=== PATIENT | male | born 1965 | race Caucasian/White ===

== ENCOUNTER 2018-01-06 12:50 | Observation (INO) | payer OTHER, SELFPAY ==
[2018-01-06] VITALS (11 sets, daily range): BP systolic 110–152; BP diastolic 72–92; PULSE 80–96; RESP 19–23; TEMP 36.7–37.2; O2SAT 94–97; BMI 42.5; BMI 42.6
--- NOTE | 2018-01-06 13:48 | EKG12_ITS ---
Test Reason : SOB Blood Pressure : / mmHG Vent. Rate : 096 BPM Atrial Rate : 096 BPM P-R Int : 174 ms QRS Dur : 080 ms QT Int : 332 ms P-R-T Axes : 044 007 011 degrees QTc Int : 419 ms Normal sinus rhythm Low voltage QRS (limb leads) Nonspecific T wave abnormality Inferior infarct , age undetermined , cannot be excluded Abnormal ECG Confirmed by FRANCISCO PHAM, CHANDLER ([id number]), purchasing expeditor GILBERT MEDNIA ([id number] on 01/12/2018 3:02:03 PM Referred By: MARTINE Confirmed By:CHANDLER SINGH MD
--- NOTE | 2018-01-06 13:49 | CT_ITS ---
STUDY: CTA CHEST REASON FOR EXAM: Male, 52 years old. Chest pain. Shortness of breath and palpitations. RADIATION DOSAGE (If Supplied By Facility): CTDIvol = ( 28.56 ) mGy, DLP = ( 1100.66 ) mGycm TECHNIQUE: The examination was performed with the intravenous administration of 100mL ml of Isovue 370 contrast material. Post-processing of the angiographic images was performed, with multiplanar reformation and 3D reconstruction. Individualized dose optimization techniques were used for this CT. COMPARISON: None. FINDINGS: Normal enhancement of the main pulmonary artery and right and left pulmonary arteries. Normal enhancement of the bilateral peripheral pulmonary arteries. There is no demonstrated pulmonary embolism. Normal thoracic aorta and visualized great vessels. There is no demonstrated aortic dissection. Normal heart and pericardium. Normal mediastinum. Normal hilar regions. Normal visualized trachea and bronchi. The lungs are well expanded. Normal pulmonary parenchyma. Normal pleura. Normal chest wall structures. There are degenerative changes of thoracic spine. Normal visualized upper abdomen. CT/CTA Chest W/WO Contrast IMPRESSION: Normal CTA chest examination, without a demonstrated pulmonary embolism or arterial dissection. Electronically Signed: Randy Dominguez MD at 15:18 EDT Tel [phone], Service support ,
[2018-01-06] MEDS: Aspirin 81 MG TAB.CHEW 324 MG PO (13:53)
--- NOTE | 2018-01-06 13:55 | RAD_ITS ---
STUDY: X-RAY CHEST REASON FOR EXAM: Male, 52 years old. Chest pain and shortness of breath. TECHNIQUE: Single AP portable view of the chest. COMPARISON: None. FINDINGS: EKG electrodes are seen. The lungs are clear and expanded. There is no demonstrated pleural abnormality. Normal size heart. Normal mediastinum and roopa. Normal visualized pulmonary arteries. There is atherosclerotic tortuosity of the aortic arch and descending thoracic aorta. There are diffuse degenerative changes of the visualized thoracic spine. Normal visualized ribs, clavicles, and shoulders. There is no demonstrated abnormality of the visualized soft tissue structures of the upper abdomen. RAD/Chest 1 View (Portable) IMPRESSION: No acute abnormality is seen. Electronically Signed: Randy Dominguez MD at 15:57 EDT Tel [phone], Service support ,
[2018-01-06 14:07] LABS: Absolute Lymphocyte Count 1.64 X10^3/ul (0.83-4.51); Absolute Neutrophil Count 10.1 X10^3/uL (2.0-7.7); Basophil# 0.03 X10^3/uL; Basophil% 0.2 % (0-1); Eosinophil# 0.35 X10^3/uL; Eosinophils% 2.6 % (0-5); Hematocrit 44.2 % (40-54); Hemoglobin 14.5 g/dl (13.0-16.5); Lymphocyte # 1.64 X10^3/ul (4.0); Lymphocyte % 12.1 % (19-41); Mean Corp Hgb Conc 32.8 g/gl (32-36); Mean Corpuscular Hgb 28.2 pg (27.0-32.0); Mean Corpuscular Volume 85.8 fL (80-94); Mean Platelet Vol. 12.3 fl (6.2-12.0); Monocyte# 1.37 X10^3/uL; Monocyte% 10.1 % (0-10); Neutrophil # 10.09 X10^3/uL (2.7-7.7); Neutrophil % 74.7 % (47-70); Platelet Count 207 K/mm3 (150-450); RBC Distribution Width CV 13.2 % (11.6-14.6); RBC Distribution Width SD 40.8 fl (35.1-43.9); Red Blood Count 5.15 M/mm3 (4.6-6.2); White Blood Count 13.5 K/mm3 (4.4-11.0)
[2018-01-06 14:10] LABS: POSITIVE COUNT NO; POSITIVE DIFFERENTIAL NO; POSITIVE MORPHOLOGY NO
[2018-01-06 14:12] LABS: Anion Gap 5 (5-15); BUN 19 mg/dL (7-18); BUN/Creat Ratio 15.6 RATIO (10-20); Calcium,Total 8.9 mg/dL (8.5-10.1); Chloride 101 mmol/L (98-107); Creatinine, Serum 1.22 mg/dL (0.70-1.30); EST Glomerular Filtration Rate 66 mL/min (>60); Est Glom Filt Rate - Afr Amer 79 mL/min (>60); Estimated Creatinine Clearance 66.97 ml/min; Glucose 267 mg/dL (74-106); Potassium 3.7 mmol/L (3.5-5.1); Sodium Level 136 mmol/L (136-145)
--- NOTE | 2018-01-06 14:27 | ED.DCSUM_ITS ---
- ER Visit Summary Date of Service: 01/06/18 Chief Complaint: Chest pain, shortness of breath History of Present Illness: The patient is a 52 M presenting with chest pain, shortness of breath. He states he woke up around 11 AM today and had these symptoms. He states pain is worse with deep inspiration. He has had chills with no fever. He has history of diabetes, hypertension. He has not had similar symptoms in the past. EMS was called. states he looked dusky. EMS reported questionable rhythm with concern for V. tach. This rhythm strip is not available. states his color has returned. He denies dizziness or syncope. Denies other complaints. No PE/DVT risk factors. Physical Examination: Vitals are stable. Patient is afebrile. Alert no acute distress. HEENT exam is unremarkable. Neck is supple. Lungs are clear and equal bilaterally. Heart is regular rate and rhythm. Abdomen is soft nontender nondistended. Extremities are unremarkable. Skin is warm and dry. No focal neurologic deficit. Remainder of exam is unremarkable. Emergency Department Course and Treatment: Patient is given aspirin on arrival. EKG is sinus rhythm rate of 96. CBC shows a white count of 13.5. Chemistry showed glucose 267, BUN 19. Troponin is negative. CTA chest shows no PE or dissection. Patient is feeling improved on reevaluation. Will discuss with hospitalist for observation. Disposition: Observation Impression: Chest pain This note was generated with [employer] dictation software. It may contain incorrect words, spelling, and punctuation that were not noted in review of the chart prior to signing ED Disposition - Plan for ED Patient: Chief Complaint: Palpitations Referrals: Isrrael Lowery DO [Primary Care Provider] -
--- NOTE | 2018-01-06 16:00 | NURSING ---
[facility] OBS CP LISBET
--- NOTE | 2018-01-06 16:23 | PCM.HP.STD ---
Problem List (1) Essential hypertension Status: Chronic (2) Obesity Status: Chronic History of Present Illness Date of Admission: 01/06/18 Chief Complaint: Chest pain and shortness of breath The patient is a 52 year old M with past medical history of essential hypertension and morbid obesity who presented to the emergency room to be evaluated for chest pain and shortness of breath. He woke up around 11 AM with significant dyspnea and chest pain worse with breathing , he decide to activate the EMS. The EMS reported a heart rate and rhythm consistent with V. tach but there is no rhythm strip to support this. The patient remained in sinus rhythm on arrival to the emergency room. The patient denies any cardiac history and has not had any cardiac workup.Due to pleuritic nature of his chest pain in association with shortness of breath , the patient underwent an emergent CT angiogram of the chest without a demonstrated pulmonary embolism or arterial dissection. We are placing him in the progressive care unit for observation and further workup. Past Medical History Past Medical History (Chronic Problems): Chronic Problems Essential hypertension (Chronic) Obesity (Chronic) Allergies HORNETS Allergy (Uncoded 01/06/18 12:56) Anaphylaxis Home Medications: Ambulatory Orders Medication Instructions Recorded Amlodipine [Norvasc] 10 mg PO DAILY 01/06/18 Azilsartan Med/Chlorthalidone 80 mg PO DAILY 01/06/18 [Edarbyclor 40-12.5 mg Tablet] Carvedilol Phosphate CR [Coreg Cr 80 mg PO DAILY 01/06/18 (Beta Jihan)] Surgical History: hysterectomy Smoking Status: Current every day smoker - *Family History Maternal History Items: No pertinent history Review of Systems Constitutional: Reports: Anorexia Cardiovascular: Reports: Chest Pain Respiratory: Reports: Cough Gastrointestinal: Reports: Abdominal Pain Genitourinary: Reports: Dysuria Neurological: Reports: Balance problems VTE Information - Inpt Only VTE Present on Admission: No VTE Mechan Device Prophylaxis: SCD's VTE Pharm Prophylaxis ordered?: Yes - Physical Exam General: Alert, Oriented x3 Neck: Supple Lungs: Clear to auscultation Cardiovascular: Regular rate, Normal S1, Normal S2 Abdomen: Bowel Sounds Present, Soft, Non Tender, Non-Distended Extremities: No edema Neurological: Cranial nerves II-XII grossly intact, Deep Tendon Reflexes 2+/4 and Symmetrical, Motor Exam 5/5 strength throughout Vital Signs Temp Pulse Resp BP Pulse Ox 98.9 F 90 20 H 133/81 H 96 01/06/18 12:52 01/06/18 15:45 01/06/18 15:45 01/06/18 15:45 01/06/18 15:45 Assessment/Plan 1. Chest pain; will obtain serial cardiac enzymes and EKGs to rule out acute coronary syndrome, will schedule a stress test in the morning to rule out ischemia. 2. sudden onset of dyspnea; CTA negative for PE, will obtain echocardiogram to rule out any structural heart disease. 3. Essential hypertension; we will resume his home medications as they are. 4. Morbid obesity weight loss recommended. 5. ? Arrhythmia reported as V. tach; no evidence to support this , however we will continue to monitor his cardiac rhythm overnight. 6. DVT prophylaxis with Lovenox. Code Visit OBSV E&M: 44034 Initial observation care L3
[2018-01-06 18:05] LABS: Thyroid Stim Hormone (TSH) 1.31 uIU/mL (0.358-3.74)
--- NOTE | 2018-01-06 18:06 | NURSING ---
all patient care, documentation, and medication administration by Nelson Have, student nurse, done under the supervision of this RN.
[2018-01-07 02:47] VITALS: PULSE 75
[2018-01-07 03:05] VITALS: BP 131/68; PULSE 77; RESP 20; TEMP 37; O2SAT 93
[2018-01-07 03:26] LABS: Absolute Lymphocyte Count 2.22 X10^3/ul (0.83-4.51); Basophil# 0.02 X10^3/uL; Basophil% 0.2 % (0-1); Eosinophil# 0.25 X10^3/uL; Eosinophils% 2.3 % (0-5); Hematocrit 40.3 % (40-54); Hemoglobin 13.3 g/dl (13.0-16.5); Lymphocyte # 2.22 X10^3/ul (4.0); Lymphocyte % 20.3 % (19-41); Mean Corpuscular Hgb 28.4 pg (27.0-32.0); Mean Corpuscular Volume 85.9 fL (80-94); Mean Platelet Vol. 11.3 fl (6.2-12.0); Monocyte# 1.44 X10^3/uL; Monocyte% 13.2 % (0-10); Neutrophil # 6.99 X10^3/uL (2.7-7.7); Neutrophil % 63.9 % (47-70); POSITIVE COUNT NO; POSITIVE DIFFERENTIAL NO; POSITIVE MORPHOLOGY NO; Platelet Count 172 K/mm3 (150-450); RBC Distribution Width CV 13.2 % (11.6-14.6); RBC Distribution Width SD 41.5 fl (35.1-43.9); Red Blood Count 4.69 M/mm3 (4.6-6.2); White Blood Count 10.9 K/mm3 (4.4-11.0)
[2018-01-07 03:29] LABS: International Normalized Ratio 1.1; Prothrombin Time (Protime)PT. 13.7 SECONDS (11.7-14.9)
[2018-01-07 03:30] LABS: Partial Thromboplast Time 29.7 Seconds (24.1-36.2)
[2018-01-07 03:55] LABS: Anion Gap 8 (5-15); BUN 15 mg/dL (7-18); BUN/Creat Ratio 13.3 RATIO (10-20); Calcium,Total 8.6 mg/dL (8.5-10.1); Chloride 104 mmol/L (98-107); Creatinine, Serum 1.13 mg/dL (0.70-1.30); EST Glomerular Filtration Rate 72 mL/min (>60); Est Glom Filt Rate - Afr Amer 87 mL/min (>60); Glucose 199 mg/dL (74-106); Potassium 3.6 mmol/L (3.5-5.1); Sodium Level 141 mmol/L (136-145)
--- NOTE | 2018-01-07 05:55 | EKG12_ITS ---
Test Reason : AM EKG Blood Pressure : / mmHG Vent. Rate : 073 BPM Atrial Rate : 073 BPM P-R Int : 192 ms QRS Dur : 090 ms QT Int : 388 ms P-R-T Axes : 049 014 029 degrees QTc Int : 427 ms Normal sinus rhythm T wave abnormality, consider anterior ischemia Abnormal ECG Confirmed by FRANCISCO PHAM, CHANDLER ([id number]), editor producer GILBERT MEDINA ([id number]) on 01/08/2018 1:26:31 PM Referred By: DR FRAUSTO Confirmed By:CHANDLER SINGH MD
[2018-01-07 09:03] VITALS: PULSE 76
[2018-01-07 09:05] VITALS: BP 127/60; PULSE 75; RESP 16; TEMP 36.6; O2SAT 94
[2018-01-07] MEDS: amLODIPine 10 MG Tablet PO (09:19)
[2018-01-07] MEDS: Carvedilol 25 MG Tablet PO (09:19)
--- NOTE | 2018-01-07 09:42 | STRESSREP_ITS ---
Stress Test Report Date: 01/07/2018 Procedure: Exercise tolerance test/imaging study Indications: Chest pain Consent: Per the patient Procedure: The patient exercised on a Paulino protocol for 2 minutes and 41 seconds not completing Stage I achieving a peak heart rate of 113 bpm (68 % predicted maximal heart rate) with a peak blood pressure 166/82 mmHg and a peak MET capacity of 4 METs. The baseline ECG demonstrated normal sinus rhythm. The peak exercise ECG demonstrated no obvious ECG changes at the heart rate achieved. There were rare PVCs during exercise. The functional capacity was considered decreased. There was [no complaint of chest discomfort during exercise or recovery]. The examination was discontinued secondary to dyspnea. Impression: 1. Technically inadequate (percent predicted maximal heart rate less than 85%) exercise tolerance test 2. Peak exercise ECG with no obvious ECG changes at the heart rate achieved 3. There were rare PVCs during exercise. 4. Pharmacologic (Regadenoson) evaluation pending Date: 01/07/2018 Procedure: Pharmacologic stress nuclear imaging study Indications: Chest pain Consent: Per the patient Procedure: The patient underwent pharmacologic (Regadenoson) evaluation with a peak heart rate of 103 beats per minute (62 predicted maximal heart rate) and a peak blood pressure of 120/70 mmHg. The baseline ECG demonstrated normal sinus rhythm. The peak pharmacologic ECG demonstrated no obvious ECG changes. [There were no cardiac dysrhythmias pretest, during pharmacologic infusion, or recovery]. [There was no complaint of chest discomfort during pharmacologic infusion or recovery]. The examination was discontinued secondary to completion of protocol. Impression: 1. Pharmacologic (Regadenoson) evaluation 2. Peak pharmacologic ECG with no obvious ECG changes. 3. There were no cardiac dysrhythmias pretest, during pharmacologic infusion, or recovery 4. Nuclear images pending Myocardial perfusion imaging study: Technique: The patient was injected with 14.9 millicuries of technetium 99m Cardiolite and subsequently rest SPECT Cardiolite nuclear imaging was obtained in the horizontal long, vertical long, and short axis views. The patient underwent pharmacologic (Regadenoson) evaluation with a peak heart rate of 103 beats per minute (62 % percent predicted maximal heart rate) and a peak blood pressure of 120/70 mmHg. The patient was injected with 44.8 millicuries of technetium 99m Cardiolite and subsequently stress SPECT Cardiolite nuclear imaging was obtained in the horizontal long, vertical long, and short axis views. A gated Cardiolite study at peak stress was obtained. Interpretation: Rest and stress SPECT Cardiolite nuclear imaging status post realignment, normalization, and attenuation correction demonstrate relative uniform tracer uptake and myocardial perfusion appearing within normal limits. [There is end systolic thickening and brightening]. [The gated Cardiolite study demonstrates myocardial thickening and inward wall motion]. The reported LVEF is 66 %. This note was generated with [employer] software. It may contain incorrect words, spelling, and punctuation that were not noted in checking the note before signing.
[2018-01-07 10:51] VITALS: O2SAT 93
[2018-01-07 10:55] VITALS: PULSE 72
--- NOTE | 2018-01-07 11:32 | PCM.DC ---
- Discharge Diagnoses Current Active Problems: Current Active and Chronic Problems Essential hypertension (Chronic) Obesity (Chronic) You will use the following diet at home:: Calorie/Carbohydrate Controlled (specify 1200, 1400, etc) - 2000 calories daily, Cardiac - <2 g sodium daily, low cholesterol Your food should be the consistency of: Regular Your liquids should be the consistency of: Regular/Thin Discharge Activity: Return to Normal Activity Allergies/Adverse Reactions: Allergies HORNETS Allergy (Uncoded 01/06/18 12:56) Anaphylaxis Medications to take at Discharge Amlodipine [Norvasc] 10 mg PO DAILY 01/06/18 Azilsartan Med/Chlorthalidone [Edarbyclor 40-12.5 mg Tablet] 80 mg PO DAILY 01/06/18 Carvedilol Phosphate CR [Coreg Cr (Beta Jihan)] 80 mg PO DAILY 01/06/18 Primary Care Physician: Isrrael Lowery DO [Primary Care Provider] - Please follow up with your Primary Care Physician in: 1-2 weeks Proposed Discharge Date: 01/07/18
--- NOTE | 2018-01-07 12:00 | NURSING ---
all patient care, medication administration and documentation by Nelson Guthrie, student nurse, done under the supervision of this RN.
--- NOTE | 2018-01-07 14:05 | PCM.DC.SUM ---
<Reuben Rodgers - Last Filed: 01/07/18 14:05> Discharge Date and Diagnosis Date of Admission: 01/06/18 Date of Discharge: 01/07/18 - Primary Discharge Diagnosis Chest pain-musculoskeletal Hypertension Morbid obesity - Secondary Discharge Diagnosis Chronic Problems Essential hypertension (Chronic) Obesity (Chronic) Hospital Course and Treatment Imaging Results: 01/07/18 05:55 Nuclear Stress Test - Chemical [NM] AM (NON MEDS) Rest and stress SPECT Cardiolite nuclear imaging status post realignment, normalization, and attenuation correction demonstrate relative uniform tracer uptake and myocardial perfusion appearing within normal limits. [There is end systolic thickening and brightening]. [The gated Cardiolite study demonstrates myocardial thickening and inward wall motion]. The reported LVEF is 66 %. CT/CTA Chest W/WO Contrast IMPRESSION: Normal CTA chest examination, without a demonstrated pulmonary embolism or arterial dissection. RAD/Chest 1 View (Portable) IMPRESSION: No acute abnormality is seen. Operations: None Procedures: Stress test Summary of Care Provided: Physical exam on day of discharge: General: Resting comfortably NAD Psych: A/Ox3 normal affect HEENT: PEARRLA AT NC Neck: Supple NT CV: RRR no m/t/r/g/h Resp: CTA Abd: [id number] Soft NT no guarding or rigidity, obese Ext: DP2+= no edema Skin: W/D normal turgor Lymph/Heme: No active bleeding or adenopathy Neuro: CN2-12 intact Hospital course: The patient is a 52 year old M with a history of essential hypertension and morbid obesity who presented to the emergency room with chest pain and shortness of breath. He woke up at about 11 AM the morning of presentation complaining of both shortness of breath and chest pain called EMS. He was brought to the emergency room there is questionable report of V. tach from EMS however there was no strips consistent with this. He had a negative chest x-ray, negative CTA of the chest, negative EKG, negative troponin. He was admitted to the hospital for chest pain rule out. Troponin was cycled, he is maintained on telemetry, and he underwent a stress test the following morning. Workup was negative. Is felt that his chest pain was musculoskeletal in origin. He was discharged home in stable condition and was advised to follow-up with his PCP in 1-2 weeks. This patient was seen by Reuben Rodgers PA-C under the supervision of Doctor Andrey. [] Discharge Diet: 1999 Calorie Control Diet, 2000 mg Sodium Diet Discharge Activity: Return to Normal Activity Home Medications: Medications to take at Discharge Amlodipine [Norvasc] 10 mg PO DAILY 01/06/18 Azilsartan Med/Chlorthalidone [Edarbyclor 40-12.5 mg Tablet] 80 mg PO DAILY 01/06/18 Carvedilol Phosphate CR [Coreg Cr (Beta Jihan)] 80 mg PO DAILY 01/06/18 Primary Care Physician: Isrrael Lowery DO [Primary Care Provider] - Please follow up with your Primary Care Physician in: 1-2 weeks Disposition: Home Minutes spent on discharge:: 35 Patient Condition:: Stable Medical Necessity - Tobacco Use Smoking Status: Current every day smoker Meaningful Use Info Meaningful Use Diagnoses (Choose all that apply): None applicable <Jeet Balderas - Last Filed: 01/07/18 16:25> Discharge Date and Diagnosis - Secondary Discharge Diagnosis Chronic Problems Essential hypertension (Chronic) Obesity (Chronic) Hospital Course and Treatment Operations: None Procedures: Stress test Summary of Care Provided: Patient seen and examined independently. I agree with the above KEN note. The patient is a 52 year old M presents with chest pain. The day before the patient was lifting and in parts and had some back pain at that time but woke in the morning of the with midsternal chest pain. Patient presented to the hospital for further evaluation. Patient underwent troponins, EKG and stress test all which were unremarkable. 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 No further cardiac workup is necessary patient will be discharged. She expressed understanding of the cause of his chest pain. [] Discharge Diet: 1999 Calorie Control Diet, 2000 mg Sodium Diet Discharge Activity: Return to Normal Activity Disposition: Home Minutes spent on discharge:: 35 Patient Condition:: Stable Meaningful Use Info Meaningful Use Diagnoses (Choose all that apply): None applicable Code Visit OBSV E&M: 25779 Observation care discharge
--- NOTE | 2018-01-07 14:09 | DS.PCM_ITS ---
<Reuben Rodgers - Last Filed: 01/07/18 14:05> Discharge Date and Diagnosis Date of Admission: 01/06/18 Date of Discharge: 01/07/18 - Primary Discharge Diagnosis Chest pain-musculoskeletal Hypertension Morbid obesity - Secondary Discharge Diagnosis Chronic Problems Essential hypertension (Chronic) Obesity (Chronic) Hospital Course and Treatment Imaging Results: 01/07/18 05:55 Nuclear Stress Test - Chemical [NM] AM (NON MEDS) Rest and stress SPECT Cardiolite nuclear imaging status post realignment, normalization, and attenuation correction demonstrate relative uniform tracer uptake and myocardial perfusion appearing within normal limits. [There is end systolic thickening and brightening]. [The gated Cardiolite study demonstrates myocardial thickening and inward wall motion]. The reported LVEF is 66 %. CT/CTA Chest W/WO Contrast IMPRESSION: Normal CTA chest examination, without a demonstrated pulmonary embolism or arterial dissection. RAD/Chest 1 View (Portable) IMPRESSION: No acute abnormality is seen. Operations: None Procedures: Stress test Summary of Care Provided: Physical exam on day of discharge: General: Resting comfortably NAD Psych: A/Ox3 normal affect HEENT: PEARRLA AT NC Neck: Supple NT CV: RRR no m/t/r/g/h Resp: CTA Abd: [id number] Soft NT no guarding or rigidity, obese Ext: DP2+= no edema Skin: W/D normal turgor Lymph/Heme: No active bleeding or adenopathy Neuro: CN2-12 intact Hospital course: The patient is a 52 year old M with a history of essential hypertension and morbid obesity who presented to the emergency room with chest pain and shortness of breath. He woke up at about 11 AM the morning of presentation complaining of both shortness of breath and chest pain called EMS. He was brought to the emergency room there is questionable report of V. tach from EMS however there was no strips consistent with this. He had a negative chest x-ray , negative CTA of the chest, negative EKG, negative troponin. He was admitted to the hospital for chest pain rule out. Troponin was cycled, he is maintained on telemetry, and he underwent a stress test the following morning. Workup was negative. Is felt that his chest pain was musculoskeletal in origin. He was discharged home in stable condition and was advised to follow-up with his PCP in 1-2 weeks. This patient was seen by Reuben Rodgers PA-C under the supervision of Doctor Andrey. [] Discharge Diet: 1999 Calorie Control Diet, 2000 mg Sodium Diet Discharge Activity: Return to Normal Activity Home Medications: Medications to take at Discharge Amlodipine [Norvasc] 10 mg PO DAILY 01/06/18 Azilsartan Med/Chlorthalidone [Edarbyclor 40-12.5 mg Tablet] 80 mg PO DAILY Carvedilol Phosphate CR [Coreg Cr (Beta Jihan)] 80 mg PO DAILY 01/06/18 Primary Care Physician: Isrrael Lowery DO [Primary Care Provider] - Please follow up with your Primary Care Physician in: 1-2 weeks Disposition: Home Minutes spent on discharge:: 35 Patient Condition:: Stable Medical Necessity - Tobacco Use Smoking Status: Current every day smoker Meaningful Use Info Meaningful Use Diagnoses (Choose all that apply): None applicable <Jeet Balderas - Last Filed: 01/07/18 16:25> Discharge Date and Diagnosis - Secondary Discharge Diagnosis Chronic Problems Essential hypertension (Chronic) Obesity (Chronic) Hospital Course and Treatment Operations: None Procedures: Stress test Summary of Care Provided: Patient seen and examined independently. I agree with the above KEN note. The patient is a 52 year old M presents with chest pain. The day before the patient was lifting and in parts and had some back pain at that time but woke in the morning of the with midsternal chest pain. Patient presented to the hospital for further evaluation. Patient underwent troponins, EKG and stress test all which were unremarkable. 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 No further cardiac workup is necessary patient will be discharged. She expressed understanding of the cause of his chest pain. [] Discharge Diet: 1999 Calorie Control Diet, 2000 mg Sodium Diet Discharge Activity: Return to Normal Activity Disposition: Home Minutes spent on discharge:: 35 Patient Condition:: Stable Meaningful Use Info Meaningful Use Diagnoses (Choose all that apply): None applicable Code Visit OBSV E&M: 68836 Observation care discharge
== END 2018-01-07 11:33 | disposition home or self-care (01) ==
LOC: ED 13:33 → PCU 16:03
PROVIDERS: Admitting Provider Internal Medicine; Emergency Provider Emergency Medicine; Family Provider Family Medicine; PCP Family Medicine
DX: R07.89 Other chest pain (principal); I10 Essential (primary) hypertension; E66.01 Morbid (severe) obesity due to excess calories; F17.200 Nicotine dependence, unspecified, uncomplicated; Z68.41 Body mass index [BMI] 40.0-44.9, adult; Z71.3 Dietary counseling and surveillance; Z79.899 Other long term (current) drug therapy; R06.00 Dyspnea, unspecified; E11.9 Type 2 diabetes mellitus without complications
CPT/HCPCS: 36415; 71045; 71275; 78452; 80048; 84443; 84484; 85025; 85610; 85730; 93005; 93017; 99218; 99285; A9500; Q9967; A4216; G0378; J2785

== ENCOUNTER → 2018-03-19 18:30 | Outpatient (CLI) | payer OTHER, SELFPAY ==
--- NOTE | 2018-03-19 11:20 | COLBX_PTH ---
PATIENT: ALINE HAY LOC: [facility] U#:[id number] AGE/SX: 60/M ROOM: RE03/19/[address]: Dr. Des Ocampo MD : [id number] BED: DIS: SPEC #: [id number] RECD: 03/19/18 15:35 STATUS: LARS ALIDA #: [id number] NICOL: 03/19/18 11:[address]: Des Ocampo DEPT: SURGICAL PATHOLOGY RECD BY: Lexx Peter ENTERED: 03/22/18 07:52 SP TYPE: COLON BX OTHR DR: Dr. Isrrael Lowery, [facility] Tissues: Sigmoid colon biopsy Procedures: Surgery Specimen Level IV HEADER OPERATION: Colonoscopy PRE-OP DIAGNOSIS: Screening/polyp TISSUE SUBMITTED: Distal sigmoid (10cm) poly, rule out adenoma MICROSCOPIC DIAGNOSIS Distal sigmoid (10 cm) polyp, biopsy: Hyperplastic polyp. SJ:rosita 03/23/18 MICROSCOPIC DESCRIPTION Slides are reviewed. GROSS DESCRIPTION Received in fixative is one container labeled with the patient's name and designated distal sigmoid. The specimen consists of a piece of morrison pink polyp measuring 0.5 x 0.5 x 0.3 cm. The specimen is totally submitted in one cassette. SUSANNE:rosita 03/22/18 TC:1 CPT:12620
== END ==
PROVIDERS: Visit Provider Internal Medicine Gastroenterology
DX: Z12.11 Encounter for screening for malignant neoplasm of colon (principal); K63.5 Polyp of colon
CPT/HCPCS: 88305

== ENCOUNTER 2019-06-09 16:48 | Inpatient (IN) | payer OTHER, SELFPAY ==
[2019-06-09] VITALS (14 sets, daily range): BP systolic 102–151; BP diastolic 65–91; PULSE 67–77; RESP 12–22; TEMP 36.9–37; O2SAT 94–99; BMI 45.1; BMI 41.1
--- NOTE | 2019-06-09 16:56 | EKG12_ITS ---
Test Reason : CP Blood Pressure : / mmHG Vent. Rate : 080 BPM Atrial Rate : 080 BPM P-R Int : 172 ms QRS Dur : 092 ms QT Int : 384 ms P-R-T Axes : -07 008 -11 degrees QTc Int : 442 ms Normal sinus rhythm Possible Inferior infarct , age undetermined Abnormal ECG Confirmed by COLTON PHAM, ERNIE ([id number]), editor map EMILY MAC ([id number]) on 06/10/2019 1:21:51 PM Referred By: Herman Ornelas Confirmed By:ELISA SEGURA MD
--- NOTE | 2019-06-09 17:00 | RAD_ITS ---
STUDY: X-RAY CHEST REASON FOR EXAM: Male, 54 years old. STEMI TECHNIQUE: AP portable upright CXR COMPARISON: CT and radiographs of the chest 01/06/2018. FINDINGS: No apparent pneumothorax, pneumonia, pleural effusion, or edema. Cardiac silhouette, roopa and mediastinal contours are within normal limits. No acute osseous abnormality. No evidence of free air under the diaphragm. RAD/Chest 1 View (Portable) IMPRESSION: Negative chest radiograph. Electronically Signed: Kameronmayco Heath, at 17:23 EDT Tel , Service support ,
[2019-06-09] MEDS: Heparin Injection (Vial) 5,000 UNIT/ML VIAL 4000 UNIT IV (17:02)
[2019-06-09 17:10] LABS: Absolute Lymphocyte Count 1.95 X10^3/uL (0.83-4.51); Absolute Neutrophil Count 5.7 X10^3/uL (2.0-7.7); Basophil# 0.05 X10^3/uL; Basophil% 0.6 % (0-1); Eosinophil# 0.38 X10^3/uL; Eosinophils% 4.3 % (0-5); Hematocrit 41.1 % (40-54); Hemoglobin 13.7 g/dL (13.0-16.5); Lymphocyte # 1.95 X10^3/ul (4.0); Lymphocyte % 21.9 % (19-41); Mean Corp Hgb Conc 33.3 g/dL (32-36); Mean Corpuscular Hgb 28.4 pg (27.0-32.0); Mean Corpuscular Volume 85.3 fL (80-94); Mean Platelet Vol. 11.7 fl (6.2-12.0); Monocyte# 0.86 X10^3/uL; Monocyte% 9.6 % (0-10); NRBC Flagged by Analyzer 0 % (0-5); Neutrophil # 5.65 X10^3/uL (2.7-7.7); Neutrophil % 63.3 % (47-70); Platelet Count 209 K/mm3 (150-450); RBC Distribution Width CV 12.4 % (11.6-14.6); RBC Distribution Width SD 38.5 fl (35.1-43.9); Red Blood Count 4.82 M/mm3 (4.6-6.2); White Blood Count 8.9 K/mm3 (4.4-11.0)
[2019-06-09] MEDS: TICAGRELOR 90 MG TABLET 180 MG PO (17:10)
[2019-06-09] MEDS: 0.9% Normal Saline 1,000 ML 150 ML IV (17:13)
[2019-06-09 17:16] LABS: Partial Thromboplast Time 28.7 Seconds (24.1-36.2); Prothrombin Time (Protime)PT. 13.2 SECONDS (11.7-14.9)
[2019-06-09 17:23] LABS: Anion Gap 5 (5-15); BUN 18 mg/dL (7-18); Calcium,Total 9.1 mg/dL (8.5-10.1); Chloride 103 mmol/L (98-107); EST Glomerular Filtration Rate 67 mL/min (>60); Est Glom Filt Rate - Afr Amer 80 mL/min (>60); Glucose 198 mg/dL (74-106); Potassium 3.6 mmol/L (3.5-5.1); Sodium Level 136 mmol/L (136-145)
--- NOTE | 2019-06-09 18:59 | CON.PCM_ITS ---
Problem List (1) Non-STEMI (non-ST elevated myocardial infarction) Status: Acute Reason for Consult Date of Consultation: 06/09/19 Reason for Consultation: Non-STEMI with dynamic ST-T changes History of Present Illness: The patient is a 54 year old M with past medical history of hypertension, diabetes coming to [facility] by ambulance because of chest pain. Patient has been having chest pain on and off for the last few days. This afternoon it became particularly intense and he called 911. An EKG done outside the hospital was suspicious for inferior ST elevation [place]. However subsequent EKGs did not show that. The EKG done in the emergency room showed no evidence of ST elevation [place]. However because of chest pain with dynamic ST-T changes suspicious for an acute non-ST elevation TX we proceeded with emergent coronary angiography which revealed 90 to 95% stenosis in the mid LAD that was treated with balloon angioplasty and drug-eluting stent placement. Patient is doing very well at the end of the procedure. Review of systems: All systems reviewed. All else is negative except that in the HPI. Past Medical History Allergies/Adverse Reactions: Allergies HORNETS Allergy (Uncoded 01/06/18 12:56) Anaphylaxis Home Medications: Ambulatory Orders Medication Instructions Recorded Amlodipine [Norvasc] 10 mg PO DAILY 01/06/18 Carvedilol Phosphate CR [Coreg Cr 80 mg PO DAILY 01/06/18 (Beta Jihan)] Azilsartan Med/Chlorthalidone 40 mg PO DAILY 06/09/19 [Edarbyclor 40-25 mg Tablet] Metformin HCl [Metformin HCl ER] 1,500 mg PO DAILY 06/09/19 Past Medical History (Chronic Problems): Chronic Problems Essential hypertension (Chronic) Obesity (Chronic) Surgical History: hysterectomy - *Family History Maternal History Items: No pertinent history Smoking Status: Current some day smoker Objective: Vital Signs Temp Pulse Resp BP Pulse Ox 98.4 F 72 17 110/86 H 97 06/09/19 17:02 06/09/19 17:11 06/09/19 17:11 06/09/19 17:11 06/09/19 17:11 Oxygen Flow Rate (L/min) 2 Oxygen Delivery Method Nasal Cannula Weight: 296 lb 8.348 oz Body Mass Index (BMI) 45.1 General: Awake, Alert, Oriented x 3 HEENT: Atraumatic Oral: Moist Mucosa Neck: Supple Lungs: Clear to auscultation Cardiovascular: Regular Rhythm Abdomen: Soft Extremities: No edema Skin: No Rashes Psych/Mental Status: Appropriate 06/09/19 16:58: WBC 8.9, RBC 4.82, Hgb 13.7, Hct 41.1, MCV 85.3, MCH 28.4, MCHC 33.3, Plt Count 209, MPV 11.7, Immature Gran % (Auto) 0.300, Neut % (Auto) 63.3, Lymph % (Auto) 21.9, Bailey % (Auto) 9.6, Eos % (Auto) 4.3, Baso % (Auto) 0.6, Absolute Neuts (auto) 5.7, Nucleated RBC % 0 06/09/19 16:58: PT 13.2, INR 1.0, APTT 28.7 06/09/19 16:58: Sodium 136, Potassium 3.6, Chloride 103, Carbon Dioxide 28.0, Anion Gap 5, BUN 18, Creatinine 1.20, Est GFR (MDRD) Af Amer 80, Est GFR (MDRD) Non-Af 67, BUN/Creatinine Ratio 15.0, Glucose 198 H, Calcium 9.1, Troponin I 0.058 H Rhythm: EKG: ECHO: Stress Test: Cardiac Cath: PCI: CT Surgery: Holter monitor: EPS: PPM: CXR: Chest CT Scan: Assessment/Plan 1. Non-STEMI: Patient had 95% stenosis in the mid RCA that was treated with drug-eluting stent. We will keep the patient on aspirin, Brilinta, beta- jihan, statin. We will check a 2D echo to evaluate his LV function. Patient will be admitted to the ICU for further management of his acute TX.
--- NOTE | 2019-06-09 19:00 | EKG12_ITS ---
Test Reason : DYSRHYTHMIA Blood Pressure : / mmHG Vent. Rate : 064 BPM Atrial Rate : 064 BPM P-R Int : 182 ms QRS Dur : 092 ms QT Int : 412 ms P-R-T Axes : 024 -01 -02 degrees QTc Int : 425 ms Normal sinus rhythm Normal ECG Confirmed by FRANCISCO PHAM, CHANDLER ([id number]), editor in chief EMILY MAC ([id number]) on 06/15/2019 11:01:17 AM Referred By: Herman Ornelas Confirmed By:CHANDLER SINGH MD
[2019-06-09] MEDS: 0.9% Normal Saline 1,000 ML 100 ML IV (20:05)
--- NOTE | 2019-06-09 21:04 | HP.PCM_ITS ---
Problem List (1) Essential hypertension Status: Chronic (2) Obesity Status: Chronic (3) Non-STEMI (non-ST elevated myocardial infarction) Status: Acute History of Present Illness Date of Admission: 06/09/19 Chief Complaint: Chest pain The patient is a 54 year old M with PMH as below who presents with chest pain. He states is been going on for about a week and it was intermittent. It would go away with rest at times, however today while he was at work he became concerned because the pain was more intense and was lasting longer than it ever had before. He had some diaphoresis but no radiation of his chest pain. No lightheadedness or dizziness denies any shortness of breath or dyspnea. He called 911 from work and in the ambulance there is a concern for an inferior ST elevation [place], however subsequent EKGs in the hospital did not show that and therefore with his mildly elevated troponin, he was taken to the cardiac [facility]. At that point it was found that he had a single-vessel lesion with a 95% stenosis in the mid LAD and he was stented. Past Medical History Past Medical History (Chronic Problems): Chronic Problems Essential hypertension (Chronic) Obesity (Chronic) Allergies HORNETS Allergy (Uncoded 01/06/18 12:56) Anaphylaxis Home Medications: Ambulatory Orders Medication Instructions Recorded Amlodipine [Norvasc] 10 mg PO DAILY 01/06/18 Carvedilol Phosphate CR [Coreg Cr 80 mg PO DAILY 01/06/18 (Beta Jihan)] Azilsartan Med/Chlorthalidone 40 mg PO DAILY 06/09/19 [Edarbyclor 40-25 mg Tablet] Metformin HCl [Metformin HCl ER] 1,500 mg PO DAILY 06/09/19 Surgical History: herniorrhaphy Smoking Status: Light Smoker (<10/day) Tobacco Use: Cigarettes Alcohol: None Drugs: None - *Family History Maternal History Items: No pertinent history Paternal History Items: Cancer Review of Systems Constitutional: Denies: Chills, Fever, Weight Change HEENT: Denies: Head Aches, Sinus Congestion, Sinus Drainage Cardiovascular: Reports: Chest Pain, Chest Pressure. Denies: Palpitations Respiratory: Denies: Cough, Shortness of breath at rest, Sputum production Gastrointestinal: Denies: Abdominal Pain, Nausea, Vomiting Genitourinary: Denies: Dysuria Musculoskeletal: Denies: Joint Pain, Joint Tenderness Skin: Denies: Rash, Wounds Neurological: Denies: Numbness, Tingling, Focal weakness Psychiatric: Denies: Anxiety, Depression Hematologic/ Lymphatic: Denies: Easy Bruising, Easy Bleeding VTE Information - Inpt Only VTE Present on Admission: No Patient Problems: Active and Suspected Problems Non-STEMI (non-ST elevated myocardial infarction) (Acute) - Physical Exam General: Alert, Oriented x3, Cooperative, No apparent distress HEENT: Atraumatic, PERRLA, EOMI, Normocephalic Oral: Moist Mucosa Neck: Supple, No JVD Lungs: Clear to auscultation, Normal air movement, No rhonchi, No wheeze, No rales Cardiovascular: Regular rate, Regular Rhythm, Normal S1, Normal S2, No murmurs Abdomen: Soft, Non Tender, Non-Distended, No Hepato-splenomegaly, Obese Extremities: No edema, Capillary Refill Less than 3 Seconds Skin: No rashes, No breakdown Neurological: Neuro grossly intact, Sensory exam intact to light touch and pain Psych/Mental Status: Normal Affect, Appropriate Vital Signs Temp Pulse Resp BP Pulse Ox 98.6 F 67 17 151/85 H 94 06/09/19 18:59 06/09/19 21:00 06/09/19 21:00 06/09/19 21:00 06/09/19 21:00 Oxygen Flow Rate (L/min) 2 Oxygen Delivery Method Room Air Weight: 270 lb 8.115 oz Body Mass Index (BMI) 41.1 Intake and Output for Last 24 Hours 06/07/19 06/08/19 06/09/19 23:59 23:59 23:59 Intake Total 430 / 430 Balance 430 / 430 Laboratory Tests Past 24 Hrs 06/09/19 06/09/19 06/09/19 16:58 16:58 16:58 WBC 8.9 RBC 4.82 Hgb 13.7 Hct 41.1 MCV 85.3 MCH 28.4 MCHC 33.3 RDW Std Deviation 38.5 RDW Coeff of Haile 12.4 Plt Count 209 MPV 11.7 Immature Gran % (Auto) 0.300 Neut % (Auto) 63.3 Lymph % (Auto) 21.9 [place] % (Auto) 9.6 Eos % (Auto) 4.3 Baso % (Auto) 0.6 Absolute Neuts (auto) 5.7 Absolute Lymphs (auto) 1.95 Nucleated RBC % 0 PT 13.2 INR 1.0 APTT 28.7 Sodium 136 Potassium 3.6 Chloride 103 Carbon Dioxide 28.0 Anion Gap 5 BUN 18 Creatinine 1.20 Estim Creat Clear Calc 66.50 Est GFR (MDRD) Af Amer 80 Est GFR (MDRD) Non-Af 67 BUN/Creatinine Ratio 15.0 Glucose 198 H Calcium 9.1 Troponin I 0.058 H Assessment/Plan All Active Problems Non-STEMI (non-ST elevated myocardial infarction) (Acute) 1. NSTEMI/CAD with stent to the mid LAD/HTN/morbid obesity -He underwent a cardiac cath today with a stent to the mid LAD -Continue with aspirin and Brilinta -He was started on Lipitor 80 which will be continued -Continue with his home Norvasc and Coreg 25 mg p.o. twice daily -Discussed with him that he needs to completely quit all tobacco products and also that he needs to lose weight, and lifestyle modifications were discussed 2. DM 2 -He is on metformin as an outpatient which will be held -Will start him on sliding scale insulin with Accu-Cheks AC at bedtime DVT: SCDs Code Visit Inpatient E&M: 54548 Init Hosp L3
[2019-06-09] MEDS: Carvedilol 25 MG Tablet PO (21:25)
[2019-06-09] MEDS: TICAGRELOR 90 MG TABLET PO (21:25)
[2019-06-09] MEDS: Insulin Lispro 100 UNIT/ML INSULN.PEN SC (21:25)
[2019-06-09 21:26] LABS: Bedside Glucose 168 mg/dL (70-110)
[2019-06-09] MEDS: Atorvastatin Calcium 80 MG Tablet PO (21:26)
[2019-06-10] VITALS (26 sets, daily range): BP systolic 117–146; BP diastolic 62–102; PULSE 44–89; RESP 11–23; TEMP 36.6–36.9; O2SAT 95–99; BMI 45.0
[2019-06-10 04:33] LABS: Hemoglobin 12.7 g/dL (13.0-16.5); Mean Corp Hgb Conc 33.4 g/dL (32-36); Mean Corpuscular Hgb 28.7 pg (27.0-32.0); Mean Platelet Vol. 11.4 fl (6.2-12.0); Platelet Count 183 K/mm3 (150-450); RBC Distribution Width CV 12.5 % (11.6-14.6); RBC Distribution Width SD 39.2 fl (35.1-43.9); Red Blood Count 4.42 M/mm3 (4.6-6.2); White Blood Count 9.7 K/mm3 (4.4-11.0)
[2019-06-10 04:52] LABS: AST(SGOT) 29 U/L (15-37); Alanine Aminotransfer ALT/SGPT 55 U/L (16-61); Albumin, Serum 3.2 g/dL (3.2-5.0); Alkaline Phosphatase 67 U/L (45-117); Anion Gap 8 (5-15); BUN 16 mg/dL (7-18); BUN/Creat Ratio 14.8 RATIO (10-20); Calcium,Total 8.5 mg/dL (8.5-10.1); Chloride 104 mmol/L (98-107); Creatinine, Serum 1.08 mg/dL (0.70-1.30); EST Glomerular Filtration Rate 75 mL/min (>60); Est Glom Filt Rate - Afr Amer 91 mL/min (>60); Estimated Creatinine Clearance 73.89 ml/min; Globulin 3.3 g/dL (2.2-4.2); Glucose 189 mg/dL (74-106); Potassium 3.4 mmol/L (3.5-5.1); Protein, Total 6.5 g/dL (6.4-8.2); Sodium Level 140 mmol/L (136-145)
[2019-06-10 06:56] LABS: Bedside Glucose 191 mg/dL (70-110)
[2019-06-10] MEDS: Insulin Lispro 100 UNIT/ML INSULN.PEN SC ×4 (07:47→21:51)
--- NOTE | 2019-06-10 08:52 | PCM.PN.HOSP ---
Patient Problems: Active and Suspected Problems Non-STEMI (non-ST elevated myocardial infarction) (Acute) Subjective: Patient was seen and examined. Denied any new complaints. No more chest pain or dizziness or palpitations. No acute events on EKG Vitals/I&O's: Vital Signs Temp Pulse Resp BP Pulse Ox 98.1 F 72 11 L 126/87 H 98 06/10/19 08:00 06/10/19 08:00 06/10/19 08:00 06/10/19 08:00 06/10/19 08:00 Oxygen Flow Rate (L/min) 2 Oxygen Delivery Method Room Air Weight: 123.5 kg Body Mass Index (BMI) 41.1 Intake and Output for Last 24 Hours 06/08/19 06/09/19 06/10/19 23:59 23:59 23:59 Intake Total 1040.00 / 1040.00 246.67 / 246.67 Output Total 0 / 0 Balance 1040.00 / 1040.00 246.67 / 246.67 General: Alert, Oriented x3, Cooperative, No apparent distress, - - obese HEENT: Atraumatic, PERRLA, EOMI, Normocephalic Oral: Moist Mucosa Neck: Supple Lungs: Clear to auscultation, Normal air movement Cardiovascular: Regular rate, Regular Rhythm, Normal S1, Normal S2, No murmurs Abdomen: Bowel Sounds Present, Soft, Non Tender, Non-Distended, Obese Extremities: Edema - Edema right upper extremity +1, tender to touch at the wrists, post cath site Able to wiggle his fingers and clench his fist Capillary refill is less than 3 seconds Skin: No rashes, No breakdown Musculoskeletal: No Tenderness to Palpation of Joints or Extremities Neurological: Cranial nerves II-XII grossly intact, Neuro grossly intact Psych/Mental Status: Normal Affect, Appropriate Laboratory Results 06/09/19 16:58: WBC 8.9, RBC 4.82, Hgb 13.7, Hct 41.1, MCV 85.3, MCH 28.4, MCHC 33.3, RDW Std Deviation 38.5, RDW Coeff of Haile 12.4, Plt Count 209, MPV 11.7, Immature Gran % (Auto) 0.300, Neut % (Auto) 63.3, Lymph % (Auto) 21.9, Glynn % (Auto) 9.6, Eos % (Auto) 4.3, Baso % (Auto) 0.6, Absolute Neuts (auto) 5.7, Absolute Lymphs (auto) 1.95, Nucleated RBC % 0 06/09/19 16:58: PT 13.2, INR 1.0, APTT 28.7 06/09/19 16:58: Sodium 136, Potassium 3.6, Chloride 103, Carbon Dioxide 28.0, Anion Gap 5, BUN 18, Creatinine 1.20, Estim Creat Clear Calc 66.50, Est GFR (MDRD) Af Amer 80, Est GFR (MDRD) Non-Af 67, BUN/Creatinine Ratio 15.0, Glucose 198 H, Calcium 9.1, Troponin I 0.058 H 06/09/19 21:21: POC Glucose 168 H 06/10/19 04:20: WBC 9.7, RBC 4.42 L, Hgb 12.7 L, Hct 38.0 L, MCV 86.0, MCH 28.7, MCHC 33.4, RDW Std Deviation 39.2, RDW Coeff of Haile 12.5, Plt Count 183, MPV 11.4 06/10/19 04:20: Sodium 140, Potassium 3.4 L, Chloride 104, Carbon Dioxide 28.0, Anion Gap 8, BUN 16, Creatinine 1.08, Estim Creat Clear Calc 73.89, Est GFR (MDRD) Af Amer 91, Est GFR (MDRD) Non-Af 75, BUN/Creatinine Ratio 14.8, Glucose 189 H, Calcium 8.5, Total Bilirubin 0.50, AST 29, ALT 55, Alkaline Phosphatase 67, Total Protein 6.5, Albumin 3.2, Globulin 3.3, Albumin/Globulin Ratio 1.0 06/10/19 06:50: POC Glucose 191 H Current Medications Amlodipine Besylate (Norvasc) 10 mg PO DAILY [facility] Aspirin (Ecotrin) 81 mg PO DAILY@0800 [facility] Atorvastatin Calcium (Lipitor) 80 mg PO QHS [facility] Last Admin: 06/09/19 21:26 Dose: 80 mg Documented by: Atropine Sulfate () 0.5 mg IV UD PRN PRN Reason: HR <50 bpm Carvedilol (Coreg) 25 mg PO BID [facility] Last Admin: 06/09/19 21:25 Dose: 25 mg Documented by: Dextrose (D50w Syringe) 0 gm IV X1 PRN; Protocol PRN Reason: Hypoglycemia Glucagon () 1 mg IM .X1 PRN PRN Reason: Hypoglycemia Heparin Sodium (Beef Lung) (Heparin 500 Unit/5 Ml (100/Ml)) 500 unit IV UD PRN PRN Reason: HEPARIN FLUSH Sodium Chloride () 250 mls @ 15 mls/hr IV .[id number] PRN PRN Reason: SALINE FLUSH Insulin Human Lispro (Humalog Kwikpen (Bkc)) 0 unit SC ACHS [facility]; Protocol Last Admin: 06/10/19 07:47 Dose: 2 units Documented by: Labetalol HCl (Trandate) 5 mg IV X1 PRN PRN Reason: SBP > 160 when pulling sheath Stop: 06/11/19 18:54 Potassium Chloride (K-Dur) 40 meq PO X1 ONE Stop: 06/10/19 08:52 Sodium Chloride () 500 ml IV BOLUS PRN PRN Reason: VASO-VAGAL PROTOCOL Sodium Chloride () 10 - 40 ml IV UD PRN PRN Reason: SALINE FLUSH Ticagrelor (Brilinta) 90 mg PO BID [facility] Last Admin: 06/09/19 21:25 Dose: 90 mg Documented by: Medical Necessity - Tobacco Use Smoking Status: Light Smoker (<10/day) Tobacco Use: Cigarettes Assessment/Plan All Active Problems Non-STEMI (non-ST elevated myocardial infarction) (Acute) 1. Acute NSTEMI, this post cardiac cath with stent to the mid LAD No acute events overnight, continue on aspirin, Brilinta, carvedilol 2D echo shows EF 60% 2. Hypertension, controlled, continue on amlodipine, carvedilol 3. Morbid obesity, BMI 45.0,lifestyle modifications recommended 4. Type II DM, BS is fairly controlled, home metformin is on hold Will continue with blood glucose checks and ISS 5. DVT PPx-Heparin SC Code Visit Inpatient E&M: 94903 Subs Hosp L2
[2019-06-10] MEDS: Acetaminophen 325 MG Tablet 650 MG PO (09:27)
[2019-06-10 09:28] LABS: Cholesterol 205 mg/dL (200); High Density Lipoprotein 35 mg/dL; Triglycerides 190 mg/dL; Very Low Density Lipoprotein 38 mg/dL (5-40)
[2019-06-10] MEDS: TICAGRELOR 90 MG TABLET PO ×2 (09:28→21:49)
[2019-06-10] MEDS: amLODIPine 10 MG Tablet PO (09:28)
[2019-06-10] MEDS: Carvedilol 25 MG Tablet PO ×2 (09:28→21:49)
[2019-06-10] MEDS: Aspirin E.C. 81 MG Tablet PO (09:29)
--- NOTE | 2019-06-10 09:43 | CRPHASE1 ---
Patient Communication PHII Cardiac Rehab Discussed with Patient:: Yes Guide to Cardiac Rehab Given to Patient:: Yes Cardiac Rehab Facility Choice List Given to Patient:: Yes Choice Program [facility] PHII:: Communication Given to CR, Refer to [facility] Apartment Leasing Manager:: Latia Fragoso PCP:: Isrrael Lowery Phase II Cardiac Rehab:: Yes Sessions:: 36 sessions - 3 days/wk, 12 weeks Risk Factors/Lifestyle Smoking Status: Current every day smoker - STATES HE QUIT EARLIER IN YEAR BUT SMOKES LITTLE SINCE DOG Packs Smoked per Day: 1 Hx Diabetes Mellitus Type 2: Yes Hx Metabolic Disorders: Yes Hx Dyslipidemia: No - CHOL PROFILE PENDING AT PRESENT TIME Hx Obesity: Yes Height: 5 ft 8 in Weight:: 296 lb BMI: 45.0 ETOH: No Caffeine: No Substance Abuse: No Laboratory Values: Cardiac Rehab Phase I Labs Triglycerides 190 mg/dL (-199) 06/10/19 04:20 Cholesterol 205 mg/dL (200) H 06/10/19 04:20 LDL Cholesterol 132 mg/dL (0-130) H 06/10/19 04:20 HDL Cholesterol 35 mg/dL (40-) L 06/10/19 04:20 Phase I Education Given On:: [place], Nutrition, Antiplatelet medication, CHF, Smoking cessation, Diabetes - Type I, Diabetes - Type II Issues Affecting Care:: None Knowledge of Condition:: No Hospital Course Presenting Symptoms:: CHEST PRESSURE Medical/Surgical History VA:: No Angina:: Yes - CHEST PRESSURE CAD:: Yes Pulmonary:: No COPD:: No Asthma:: No Diabetes Type II:: Yes Hypertension:: Yes Dyslipidemia:: No - LIPID PROFILE PENDING AT THIS TIME PE:: No DVT:: No PVD:: No GERD:: No Cancer:: No Renal:: No Thyroid:: No Depression:: No Anxiety:: No CABG: No PTCA:: Yes - X1 ICD:: No Pacemaker:: No Discharge/Home/Social Eval Discharge Disposition: Home Cardiac Rehabilitation Info Cardiac Rehabilitation Program Information: Cardiac Rehabilitation is important for patients like you who are recovering from a heart problem. Cardiac rehabilitation programs are recognized as integral to the continued care of the patient with coronary heart disease. The cardiac rehabilitation program is designed to optimize a patient's physical, psychological, and social functioning. Health healthcare translator work in cardiac rehabilitation programs and assist you with getting the treatments you need to get stronger and healthier - like exercise, healthy eating habits, and medications. Cardiac rehabilitation has been show to help people with heart problems live longer and have better life enjoyment than people who do not go to cardiac rehabilitation. Please contact the Cardiac Rehabilitation Program at [facility] at in two weeks if you have not heard from them.
--- NOTE | 2019-06-10 09:48 | CRPH1.INST_ITS ---
General Education CAD and cardiac anatomy and function:: Not instructed Explanation of diagnoses and procedures:: Not instructed Sign/Symptoms of TN:: Patient communicates acknowledgment, Needs reinforcement Antiplatelet therapy: Needs reinforcement, Not instructed Proper use of NTG-SL: Not instructed Emergency procedures and activation of EMS: Not instructed Compliance of all prescribed medications: Not instructed Smoking Patient Nicotine/Smoking Risk Factors Are:: Cigarettes - STATES HE HAD QUIT EARLIER THIS YEAR BUT SMOKES LIGHTLY SINCE DOG Recommendations Include:: Smoking cessation strategies/Smoking packet, Second- hand smoke recommendation, Participation in a smoking cessation program, Previous smoker; encourage continued cessation Nicotine/Smoking Response Code:: Not instructed Dyslipidemia Patient Dyslipidemia Risk Factors Are:: Total Cholesterol - LIPID PROFILE PENDING AT THIS TIME Dyslipidemia Response Code:: Not instructed Overweight/Obesity Patient Overweight/Obesity Risk Factors Are:: Obesity - > or = 30 Recommendations Include:: Weight loss of 5-10%, Reduced calorie diet, Exercise 5-7 times/week Overweight/Obesity:: Not instructed Hypertension Recommendations Include:: Maintain BP <130/85, BP <130/80 if diabetic, DASH dietary guidelines, Decrease/maintain normal body weight, Moderation of ETOH Hypertension:: Not instructed Heart Disease Heart Disease Response Code:: Not instructed Diabetes Patient Diabetes Risk Factors Are:: Elevated blood sugars Recommendations Include:: Maintain fasting blood sugars 70-110 md/dL, Maintain HgbA1c of 6% or less, Monitor blood sugar as prescribed, Diabetic dietary guidelines, Decrease/maintain body weight Diabetes:: Patient communicates acknowledgment, Needs reinforcement Metabolic Syndrome Patient Metabolic Syndrome Risk Factors Are [3 of 5]:: Waist circumference > 35 [female] or 40 [male], Hypertension Recommendations Include:: Reinforce compliance to risk factor modifications, Patient is diabetic, Encouraged follow-up with Primary Care Physician Metabolic Syndrome Response Code:: Needs reinforcement, Not instructed Sedentary Recommendations Include:: Aerobic exercise 5-7 times/week for 20-30 minutes continuously, Benefits of regular exercise, Discussed home walking program, Monitored Outpatient Cardiac Rehab Sedentary Response Code:: Not instructed Stress Patient Stress Risk Factors Are:: Patient denies stress as a risk factor
--- NOTE | 2019-06-10 10:00 | EKG12_ITS ---
Test Reason : AM EKG Blood Pressure : / mmHG Vent. Rate : 070 BPM Atrial Rate : 070 BPM P-R Int : 174 ms QRS Dur : 090 ms QT Int : 400 ms P-R-T Axes : 019 007 005 degrees QTc Int : 432 ms Normal sinus rhythm Nonspecific T-Wave Abnormality Confirmed by FRANCISCO PHAM, CHANDLER ([id number]), dictionary editor EMILY MAC ([id number]) on 06/15/2019 11:10:34 AM Referred By: Herman Ornelas Confirmed By:CHANDLER SINGH MD
--- NOTE | 2019-06-10 10:02 | CASEMGMT ---
RN CM Assessment Presentation: NSTEMI Intro role of CM and purpose of RN CM assessment. Demographics, PCP and Pharmacy verified. Pt is awake, alert and able to participate in assessment. He states he works, is independent and no concerns re: discharge. Pt denied concerns with f/u for physicians or getting prescriptions. PCP: Dr. Lowery Specialists: Dr. Fragoso Preferred Pharmacy: [facility] Insurance: [facility] Prescription Benefit: yes. Brilinta savings card given to patient and explained. LNOK: Dr. Lowery Living Arrangements: Lives independently. no care needs per pt. Transportation: drives DME: none HHC: none Patient DC goals: Home DC PLAN: Home on discharge. Jose WILKS RN ACM
--- NOTE | 2019-06-10 10:14 | ECHOCS_ITS ---
Reason For Study: S/P MA Procedure This was a 2D Doppler, Color Flow transthoracic echocardiogram. The study was technically difficult. Contrast injection was performed. Exam performed portable in ICU/CCU. Left Ventricle Normal LV size. Concentric left ventricular hypertrophy. The estimated ejection fraction is 60 %. No evidence for diastolic dysfunction. No regional wall motion abnormalities noted. Right Ventricle Normal RV size. Normal systolic function. Atria Normal left atrium. Normal right atrium. No doppler evidence for ASD. Mitral Valve There is no mitral valve stenosis. No mitral valve insufficiency. Tricuspid Valve There is no tricuspid stenosis. Unable to estimate RV systolic pressure due to insufficient tricuspid regurgitant envelope. Trivial tricuspid valve insufficiency. Aortic Valve Aortic sclerosis, no stenosis. There is no aortic stenosis. No aortic valve insufficiency. Pulmonic Valve There is no pulmonic valvular stenosis. No pulmonic valve insufficiency. Great Vessels Normal aortic root. Pericardium/Pleural Trivial pericardial effusion. Medication Diluted definity 3.0ml given slow IV push to enhance endocardial definition. MMode/2D Measurements & Calculations LVIDd: 5.4 cm IVSd: 0.90 cm Ao root diam: 3.5 cm LVIDs: 3.8 cm LVPWd: 0.93 cm RVDd: 3.1 cm FS: 29.2 % LAV(MOD-bp): 48.2 ml LA A4 area: 15.6 cm2 LA dimension(2D): 4.1 cm LAV(MOD-bp) Indexed: 20.0 ml/m2 LAV(MOD-sp2): 59.1 ml LAV(MOD-sp4): 36.5 ml RA A4 area: 16.2 cm2 Time Measurements MV dec time: 0.26 sec Doppler Measurements & Calculations MV E max vishal: 84.5 cm/sec Lat Peak E' Vishal: 10.0 cm/sec Ao V2 max: 166.4 cm/sec MV A max vishal: 70.9 cm/sec E/E' lat: 8.4 Ao max P.1 mmHg MV E/A: 1.2 LV V1 max: 132.0 cm/sec MR max vishal: 5.7 cm/sec PA V2 max: 102.9 cm/sec LV V1 max P.0 mmHg MR max P.01 mmHg Interpretation Summary The estimated ejection fraction is 60 %. No evidence for diastolic dysfunction. Trivial pericardial effusion. Ordering Physician: Latia Fragoso Referring Physician: SABINE JACKSON Performed By: Mary Anne Barros RDCS, RVT
[2019-06-10 12:11] LABS: Bedside Glucose 268 mg/dL (70-110)
--- NOTE | 2019-06-10 15:08 | PN.CARD_ITS ---
Subjectve: Patient is doing well. No chest pain, shortness of breath. His right arm discomfort is getting better. Objective: Vital Signs Temp Pulse Resp BP Pulse Ox 97.8 F 71 16 142/63 H 99 06/10/19 14:00 06/10/19 14:00 06/10/19 14:00 06/10/19 14:00 06/10/19 14:00 Oxygen Flow Rate (L/min) 2 Oxygen Delivery Method Room Air Weight: 296 lb Body Mass Index (BMI) 41.1 Intake and Output for Last 24 Hours 06/08/19 06/09/19 06/10/19 23:59 23:59 23:59 Intake Total 1040.00 / 1040.00 626.67 / 626.67 Output Total 0 / 0 Balance 1040.00 / 1040.00 626.67 / 626.67 General: Awake, Alert, Oriented x 3 HEENT: Atraumatic Oral: Moist Mucosa Neck: Supple Lungs: Clear to auscultation Cardiovascular: Regular Rhythm Abdomen: Soft Extremities: No edema Skin: No Rashes Psych/Mental Status: Appropriate 06/09/19 16:58: WBC 8.9, RBC 4.82, Hgb 13.7, Hct 41.1, MCV 85.3, MCH 28.4, MCHC 33.3, Plt Count 209, MPV 11.7, Immature Gran % (Auto) 0.300, Neut % (Auto) 63.3, Lymph % (Auto) 21.9, [place] % (Auto) 9.6, Eos % (Auto) 4.3, Baso % (Auto) 0.6, Absolute Neuts (auto) 5.7, Nucleated RBC % 0 06/09/19 16:58: PT 13.2, INR 1.0, APTT 28.7 06/09/19 16:58: Sodium 136, Potassium 3.6, Chloride 103, Carbon Dioxide 28.0, Anion Gap 5, BUN 18, Creatinine 1.20, Est GFR (MDRD) Af Amer 80, Est GFR (MDRD) Non-Af 67, BUN/Creatinine Ratio 15.0, Glucose 198 H, Calcium 9.1, Troponin I 0.058 H 06/10/19 04:20: WBC 9.7, RBC 4.42 L, Hgb 12.7 L, Hct 38.0 L, MCV 86.0, MCH 28.7, MCHC 33.4, Plt Count 183, MPV 11.4 06/10/19 04:20: Sodium 140, Potassium 3.4 L, Chloride 104, Carbon Dioxide 28.0, Anion Gap 8, BUN 16, Creatinine 1.08, Est GFR (MDRD) Af Amer 91, Est GFR (MDRD) Non-Af 75, BUN/Creatinine Ratio 14.8, Glucose 189 H, Calcium 8.5, Total Bilirubin 0.50 06/10/19 04:20: Triglycerides 190, Cholesterol 205 H, LDL Cholesterol 132 H, VLDL Cholesterol 38, HDL Cholesterol 35 L Rhythm: EKG: ECHO: Stress Test: Cardiac Cath: PCI: CT Surgery: Holter monitor: EPS: PPM: CXR: Chest CT Scan: Medical Necessity - Tobacco Use Smoking Status: Current every day smoker - STATES HE QUIT EARLIER IN YEAR BUT SMOKES LITTLE SINCE DOG Tobacco Use: Cigarettes Assessment/Plan 1. Non-STEMI: Patient had 95% stenosis in the mid RCA that was treated with drug-eluting stent. We will keep the patient on aspirin, Brilinta, beta-bloc ker, statin. Patient's LV function is within normal limits. If he does well overnight he could potentially be discharged home tomorrow.
[2019-06-10 16:51] LABS: Bedside Glucose 190 mg/dL (70-110)
[2019-06-10] MEDS: Atorvastatin Calcium 80 MG Tablet PO (21:49)
[2019-06-10 23:01] LABS: Bedside Glucose 204 mg/dL (70-110)
[2019-06-11] VITALS (10 sets, daily range): BP systolic 112–141; BP diastolic 61–89; PULSE 30–78; RESP 16–18; TEMP 36.6–36.9; O2SAT 95–98
--- NOTE | 2019-06-11 02:50 | EKG12_ITS ---
Test Reason : Blood Pressure : / mmHG Vent. Rate : 066 BPM Atrial Rate : 066 BPM P-R Int : 194 ms QRS Dur : 090 ms QT Int : 404 ms P-R-T Axes : 030 020 018 degrees QTc Int : 423 ms Normal sinus rhythm Nonspecific T wave abnormality Abnormal ECG Confirmed by FRANCISCO PHAM, CHANDLER ([id number]), manuscript editor EMILY MAC ([id number]) on 06/15/2019 11:11:12 AM Referred By: Herman Ornelas Confirmed By:CHANDLER SINGH MD
--- NOTE | 2019-06-11 06:21 | PCM.PN.BLA ---
Progress Note Patient was noted to have pauses on monitor during sleep and had bradycardia with rates in 30s to 40s.. Will de-escalate his home Coreg.
[2019-06-11] MEDS: Insulin Lispro 100 UNIT/ML INSULN.PEN SC ×2 (06:35→12:23)
[2019-06-11 06:50] LABS: Bedside Glucose 202 mg/dL (70-110)
--- NOTE | 2019-06-11 07:28 | ED.DCSUM_ITS ---
- ER Visit Summary Date of Service: 06/11/19 Chief Complaint: Chest pain History of Present Illness: The patient is a 54 M who states for the past week he has had exertional chest pain described as an ache in his heart. Today symptoms became significant. EMS was called. He has a history of diabetes and hypertension. EMS states that while in route to the hospital his pain became more severe and on the monitor showed ST elevation inferiorly. This lasted approximately 30 seconds and his pain improved and subsequent EKGs did not show any further elevation. Physical Examination: Afebrile vital signs stable Gen: Well-nourished well-developed obese Head: Normocephalic atraumatic Eyes: Perrl EOMI ENT: TMs clear no rhinorrhea moist mucous membranes Neck: Supple no lymphadenopathy no JVD nontender CVS: Regular rate rhythm no murmurs normal S1-S2 Respiratory: No distress clear to auscultation bilaterally chest nontender Abdomen: Soft nontender nondistended normal bowel sounds no masses Back: Nontender Extremity: Nontender no edema Skin: Patient appears ashen and slightly diaphoretic Neuro: alert orientated ?3 CN II-XII intact normal strength sensation Psych: Patient appears anxious Test Results: EKG shows a normal sinus rhythm with no ST elevation. Chest x-ray with no mediastinal silhouette. Emergency Department Course and Treatment: Upon arrival emergency department I obtained initial EKG and given the EKG findings for EMS contacted our STEMI physician. Patient was treated with heparin and Brilinta he received aspirin by EMS. No nitroglycerin was given given his systolic blood pressures around 105 and concern for right coronary artery lesion he will be taken emergently to the Pre Planning Advisor. Initial troponin 0 0.058. Pre Planning Advisor findings include a 95% mid RCA lesion which was treated. Impression: 1. Acute coronary syndrome This note was generated with [employer] dictation software. It may contain incorrect words, spelling, and punctuation that were not noted in review of the chart prior to signing ED Disposition - Plan for ED Patient: Disposition: Acute [facility]
[2019-06-11 07:40] LABS: Anion Gap 9 (5-15); BUN 17 mg/dL (7-18); BUN/Creat Ratio 14.8 RATIO (10-20); Chloride 105 mmol/L (98-107); Creatinine, Serum 1.15 mg/dL (0.70-1.30); EST Glomerular Filtration Rate 70 mL/min (>60); Est Glom Filt Rate - Afr Amer 85 mL/min (>60); Estimated Creatinine Clearance 69.39 ml/min; Glucose 186 mg/dL (74-106); Magnesium 1.8 mg/dL (1.6-2.6); Sodium Level 141 mmol/L (136-145)
[2019-06-11] MEDS: Carvedilol 12.5 MG Tablet PO (09:08)
[2019-06-11] MEDS: TICAGRELOR 90 MG TABLET PO (09:08)
[2019-06-11] MEDS: amLODIPine 10 MG Tablet PO (09:08)
[2019-06-11] MEDS: Aspirin E.C. 81 MG Tablet PO (09:08)
--- NOTE | 2019-06-11 11:33 | PCM.PN.CARD ---
Subjectve: Patient denies any symptoms of chest discomfort or shortness of breath he is sitting and watching TV. He did have an episode of long pauses more than 5 seconds last night when he was sleeping. This morning there were no episodes of sinus pauses Objective: Vital Signs Temp Pulse Resp BP Pulse Ox 97.9 F 67 16 141/61 H 95 06/11/19 08:49 06/11/19 08:49 06/11/19 08:49 06/11/19 08:49 06/11/19 08:49 Oxygen Flow Rate (L/min) 2 Oxygen Delivery Method Room Air Weight: 268 lb 8.368 oz Body Mass Index (BMI) 41.1 Intake and Output for Last 24 Hours 06/09/19 06/10/19 06/11/19 23:59 23:59 23:59 Intake Total 1040.00 / 1040.00 986.67 / 1106.67 240 / 240 Output Total 0 / 0 Balance 1040.00 / 1040.00 986.67 / 1106.67 240 / 240 General: Healthy Appearing, Oriented x 3, No Acute Distress HEENT: PERRL Oral: Moist Mucosa Neck: Supple Lungs: Clear to auscultation Cardiovascular: Regular Rhythm, No Murmurs Vascular: No Carotid Bruits Abdomen: Bowel Sounds Present, Soft, Non Tender Extremities: No edema Skin: No Rashes Neurological: No Focal Motor or Sensory Deficit Psych/Mental Status: Appropriate, Normal Affect 06/11/19 06:42: Sodium 141, Potassium 4.0, Chloride 105, Carbon Dioxide 27.0, Anion Gap 9, BUN 17, Creatinine 1.15, Est GFR (MDRD) Af Amer 85, Est GFR (MDRD) Non-Af 70, BUN/Creatinine Ratio 14.8, Glucose 186 H, Calcium 9.0, Magnesium 1.8 06/11/19 06:42: Hemoglobin A1c 9.0 H Rhythm: EKG: ECHO: Stress Test: Cardiac Cath: PCI: CT Surgery: Holter monitor: EPS: PPM: CXR: Chest CT Scan: Medical Necessity - Tobacco Use Smoking Status: Current every day smoker - STATES HE QUIT EARLIER IN YEAR BUT SMOKES LITTLE SINCE DOG Tobacco Use: Cigarettes Assessment/Plan Status post non-ST elevation myocardial function secondary severe single-vessel disease for which patient underwent angioplasty of the mid right coronary artery by Dr. Bishop and patient has done quite well since then. 2. Sinus pause lasting more than 5 seconds during sleep attributed to patient taking long-acting carvedilol ER 80 mg once a day prior to this hospitalization. To reduce the dose of the Coreg and change to short-acting carvedilol 12.5 mg twice daily and see how he responds to that. I will await for the next 6 hours until 5:00 to see if there are any episodes of sinus pauses and if there are none patient will be discharged home at a low risk and did reassure the patient and counseled him that he should she has any symptoms of dizziness he should discontinue taking the carvedilol altogether. Patient informs me that for his uncontrolled hypertension he was initiated on Coreg ER 80 mg and amlodipine 10 mg and combination of an ARB and chlorthalidone 40/25 mg once a day. I did inform the patient that as we lowered the dose of Coreg his blood pressure may increase and if that happens we need to optimize his antihyertensive medications but not increase the dose of Coreg as he is at high risk for sinus pauses. 3. If not more sinus pauses patient can be discharged home this evening We will will arrange for her to follow-up with Dr. Bishop within a week post hospital discharge
--- NOTE | 2019-06-11 12:13 | DCINST_ITS ---
- Discharge Diagnoses Current Active Problems: Current Active and Chronic Problems Non-STEMI (non-ST elevated myocardial infarction) (Acute) You will use the following diet at home:: Calorie/Carbohydrate Controlled (specify 1200, 1400, etc) - 1800 sravanthi / day, Cardiac Your food should be the consistency of: Regular Your liquids should be the consistency of: Regular/Thin Discharge Activity: Return to Normal Activity Allergies/Adverse Reactions: Allergies HORNETS Allergy (Uncoded 01/06/18 12:56) Anaphylaxis Medications to take at Discharge Amlodipine [Norvasc] 10 mg PO DAILY 01/06/18 Azilsartan Med/Chlorthalidone [Edarbyclor 40-25 mg Tablet] 40 mg PO DAILY 06/09/19 Aspirin E.C. [Ecotrin] 81 mg PO DAILY@0800 tablet 06/11/19 Atorvastatin Calcium [Lipitor] 80 mg PO QHS #30 tab 06/11/19 Carvedilol [Coreg (Beta Jihan)] 12.5 mg PO BID #60 tab 06/11/19 Ticagrelor [Brilinta] 90 mg PO BID #60 tab 06/11/19 metFORMIN HCl [Glucophage] 1,000 mg PO BIDCM #60 tab 06/11/19 The following prescriptions were given: Ticagrelor [Brilinta] 90 mg PO BID #60 tab Transmission Status: Pending to [id number] Carvedilol [Coreg (Beta Jihan)] 12.5 mg PO BID #60 tab Transmission Status: [facility]ending to [id number] metFORMIN HCl [Glucophage] 1,000 mg PO BIDCM #60 tab Transmission Status: P[facility] to [id number] Atorvastatin Calcium [Lipitor] 80 mg PO QHS #30 tab Transmission Status: [id number] Primary Care Physician: Isrrael Lowery DO [Primary Care Provider] - Please follow up with your Primary Care Physician in: 1-2 weeks Test Results: Test results from this visit will be discussed in further detail at your follow- up appointment, if applicable. Please Follow Up With: Latia Fragoso MD When: As directed Proposed Discharge Date: 06/11/19
[2019-06-11 12:41] LABS: Bedside Glucose 318 mg/dL (70-110)
--- NOTE | 2019-06-11 13:36 | DS.PCM_ITS ---
Discharge Date and Diagnosis - Problem List Patient Problems: Active and Suspected Problems Non-STEMI (non-ST elevated myocardial infarction) (Acute) Date of Admission: 06/09/19 Date of Discharge: 06/11/19 - Primary Discharge Diagnosis Active and Suspected Problems Non-STEMI s/p Mid RCA stent Sinus pause HTN T2DM with Morbid obesity - Secondary Discharge Diagnosis Chronic Problems Essential hypertension (Chronic) Obesity (Chronic) Hospital Course and Treatment Imaging Results: Diagnostics: RAD/Chest 1 View (Portable) IMPRESSION: Negative chest radiograph. Cath report: Single vessel CAD, successful PCI or mRCA with ARMIN. Echo: Interpretation Summary The estimated ejection fraction is 60 %. No evidence for diastolic dysfunction. Trivial pericardial effusion. Operations: None Procedures: 2-D Echocardiogram, Cardiac catheterization Summary of Care Provided: Hospital Course: The patient is a 54 year old M with pmhx of Dmt2 with morbid obesity, and HTN, who presented to the ER with c/o chest pain that had been intermittent for about a week prior to presentation. It was relieved with rest, and he described as occurring more painfully and with longer lasting episodes, associated with diaphoresis. There is no radiation, lightheadedness, dizziness, or shortness of breath. He was brought to the ER by the squad. He had a mildly elevated troponin felt to be consistent with non-STEMI. He was taken to the Social Media Intern and was found to have a single-vessel lesion with 95% stenosis in the mid RCA. This was successfully stented. Brilinta, aspirin, and lipitor were started. Coreg was resumed at BID dose instead of long acting dose. He was kept overnight for monitoring. The patient developed a 5 second pause on the monitor overnight. His coreg was decreased and cardiology recommended monitoring until 1700 for further monitoring. He had no further events during that time and was discharged home in stable condition. His blood sugars were also elevated throughout his stay. We checked an A1C and found it elevated at 9.0. His metformin was maximized to 1000mg BID which he will be able to resume tomorrow late morning (at least 48 hours after receiving contrast). He will likely need an additional agent started at follow up for further improved control, and should be considered for an antidiabetic that is indicated for the reduction of cardiac events given his NS ADENIKE - such as a GLP1 agonist or SGLT2 inhibitor. He was discharged home in stable condition. He will need follow up with his analyst programmer next week, and with his PCP in 1-2 weeks. This patient was seen by Reuben Rodgers PA-C under the supervision of Dr. Mcfadden. [] Patient Problems: Active and Suspected Problems Non-STEMI (non-ST elevated myocardial infarction) (Acute) - Physical Exam General: Alert, Oriented x3, Cooperative HEENT: Atraumatic, PERRLA, EOMI, Normocephalic Neck: Supple, No JVD, Negative Carotid Bruits Lungs: Clear to auscultation, Normal air movement Cardiovascular: Regular rate, No murmurs Abdomen: Bowel Sounds Present, Soft, Non Tender Extremities: No edema, Capillary Refill Less than 3 Seconds Skin: No rashes, No breakdown Musculoskeletal: No Tenderness to Palpation of Joints or Extremities Neurological: Cranial nerves II-XII grossly intact Psych/Mental Status: Normal Affect, Appropriate Vital Signs Temp Pulse Resp BP Pulse Ox 97.9 F 67 16 141/61 H 95 06/11/19 08:49 06/11/19 08:49 06/11/19 08:49 06/11/19 08:49 06/11/19 08:49 Oxygen Flow Rate (L/min) 2 Oxygen Delivery Method Room Air Weight: 268 lb 8.368 oz Body Mass Index (BMI) 41.1 Intake and Output for Last 24 Hours 06/09/19 06/10/19 06/11/19 23:59 23:59 23:59 Intake Total 1040.00 / 1040.00 986.67 / 1106.67 240 / 240 Output Total 0 / 0 Balance 1040.00 / 1040.00 986.67 / 1106.67 240 / 240 Laboratory Tests Past 24 Hrs 06/11/19 06/11/19 06:42 06:42 Sodium 141 Potassium 4.0 Chloride 105 Carbon Dioxide 27.0 Anion Gap 9 BUN 17 Creatinine 1.15 Estim Creat Clear Calc 69.39 Est GFR (MDRD) Af Amer 85 Est GFR (MDRD) Non-Af 70 BUN/Creatinine Ratio 14.8 Glucose 186 H Hemoglobin A1c 9.0 H Calcium 9.0 Magnesium 1.8 POC Glucose 06/11/19 06/11/19 06/10/19 12:19 06:33 21:44 POC Glucose 318 H 202 H 204 H 06/10/19 16:43 POC Glucose 190 H Discharge Diet: Low fat/ Low Cholesterol, 1800 Calorie Control Diet, 2000 mg Sodium Diet Discharge Activity: Return to Normal Activity Home Medications: Medications to take at Discharge Amlodipine [Norvasc] 10 mg PO DAILY 01/06/18 Azilsartan Med/Chlorthalidone [Edarbyclor 40-25 mg Tablet] 40 mg PO DAILY 06/09/19 Aspirin E.C. [Ecotrin] 81 mg PO DAILY@0800 tab 06/11/19 Atorvastatin Calcium [Lipitor] 80 mg PO QHS #30 tab 06/11/19 Carvedilol [Coreg (Beta Jihan)] 12.5 mg PO BID #60 tab 06/11/19 Ticagrelor [Brilinta] 90 mg PO BID #60 tab 06/11/19 metFORMIN HCl [Glucophage] 1,000 mg PO BIDCM #60 tab 06/11/19 Following Prescrptions Were Given to Patient: Ticagrelor [Brilinta] 90 mg PO BID #60 tab Transmission Status: [id number] Carvedilol [Coreg (Beta Jihan)] 12.5 mg PO BID #60 tab Transmission Status: Re[facility] by [id number] metFORMIN HCl [Glucophage] 1,000 mg PO BIDCM #60 tab Transmission Status: Re[facility] by [id number] Atorvastatin Calcium [Lipitor] 80 mg PO QHS #30 tab Transmission Status: [facility] by [id number] Primary Care Physician: Isrrael Lowery DO [Primary Care Provider] - Please follow up with your Primary Care Physician in: 1-2 weeks Please Follow Up With: Latia Fragoso MD When: As directed Disposition: Home Minutes spent on discharge:: 35 Patient Condition:: Stable Medical Necessity - Tobacco Use Smoking Status: Current every day smoker - STATES HE QUIT EARLIER IN YEAR BUT SMOKES LITTLE SINCE DOG Tobacco Use: Cigarettes Meaningful Use Info Meaningful Use Diagnoses (Choose all that apply): None applicable
[2019-06-11] MEDS: 0.9% NaCl Peripheral Flush Adult/Peds IV (14:35)
--- NOTE | 2019-06-11 17:00 | NURSING ---
Discharge teaching complete. Questions answered. Patient and voice understanding of same.
[2019-06-11 17:56] LABS: Bedside Glucose 188 mg/dL (70-110)
--- NOTE | 2019-06-16 09:59 | CL.I_ITS ---
Patient Name: ALINE HAY Study Date: 06/09/2019 Performing: Geo Fragoso MD Ht: 68 inches 173 cm : 1965 Wt: 298 lbs 135 kg Age: 54 Gender: male BSA: 2.42 PROCEDURE(S) PERFORMED [id number] W OR WO PTCA, SINGLE CORONARY ARTERY CLINICAL PROFILE AND CO-MORBIDITIES Indications: ACS <= 24 hrs Heart Failure: None Stress/Imaging Stress/Image Study Performed: No CAD Presentations: Non-STEMI. Symptom onset Date/Time: 06/09/19 Time Not Available CONCLUSIONS Single vessel CAD as described. Successful PCI of mRCA with ARMIN RECOMMENDATIONS Follow up with primary control analyst BLACK Green for at least 12 months Routine post interventional care Risk factor modification DESCRIPTION OF PROCEDURE The patient arrived to the procedure lab. The risks and benefits of the procedure as well as a full d escription of our services here and lack of surgical backup were fully explained to the patient and/o r their significant other prior to the catheterization. The Timeout was completed, verifying the marco ect patient and procedure. The patient's procedural site was prepped and draped in the usual fashion. Local anesthetic was given subcutaneously to right radial region with Lidocaine 2%. Using a modified Seldinger technique, arterial access was obtained via the right radial artery, a 6Fr sheath was inse rted.. Left Coronary Artery selective angiography was performed in multiple views using a 5 Fr. JL3. 5 catheter JR4 Guide catheter was inserted and engaged into the RCA. Angiogram performed pre balloon dilatat ion. BMW Guide wire was advanced to the RCA. Emerge 3.00x15 Balloon catheter was inserted. PTCA ballo on inflated at 6 atms for 5 secs. Angiogram performed post balloon dilatation. Emerge 2.00x12 Balloon catheter was inserted. PTCA balloon inflated at 12 atms for 13 secs. Angiogram performed post balloo n dilatation. Synergy 4.00x16 Drug Eluting stent was inserted. Drug Eluting stent was removed intact, failed to cross lesion Emerge 3.00x15 Balloon catheter was inserted. PTCA balloon inflated at 10 christen s for 16 secs. Angiogram performed post balloon dilatation. Synergy 4.00x16 Drug Eluting stent was in serted. Drug Eluting stent was removed intact, failed to cross lesion 6fr guideliner Guide catheter w as inserted and engaged into the RCA. Synergy 4.00x16 Drug Eluting stent was inserted. Drug Eluting s tent was removed intact, failed to cross lesion Emerge 3.00x15 Balloon catheter was inserted. PTCA balloon inflated at 12 atms for 9 secs. Angiogram performed post balloon dilatation. S ynergy 4.00x16 Drug Eluting stent was inserted. Angiogram performed post stent deployment. The alex rial sheath was pulled and a TR Band was applied for hemostasis w/ 11ml air CORONARY ANGIOGRAPHY DOMINANCE: Right Dominant LEFT HEART ASSESSMENT Left Ventricular Ejection Fraction: Not assessed LEFT MAIN: Mild luminal irregularities LEFT ANTERIOR DESCENDING ARTERY: Mild luminal irregularities CIRCUMFLEX ARTERY: Mild luminal irregularities RIGHT CORONARY ARTERY: MID RCA: 95 % Stenosis INTERVENTION INFORMATION LESION SITE: RCA (Mid) Lesion Complexity: High/C, chronic total occlusion: No, lesion at bifurcation: No, thrombus present: No, lesion length: 14 mm, culprit lesion: Yes, Previously treated lesion: No Pre Stenosis: 95 % Pre intervention JALEEL flow: 3 PROCEDURE: Drug Eluting Stent with pre dilatation. Post Stenosis: 0 % Post intervention JALEEL flow: 3 Lesion Devices: Cordis 6 Fr JR4 100cm Guide Catheter Iker Sci EMERGE MR 3.00x15 BALLOON Iker Sci EMERGE MR 2.00x12 BALLOON Iker Sci Synergy MR ARMIN 4.00x16 Vascular Solutions 6 Setswana GuideLiner COMPLICATIONS No Complications PROCEDURE MEDICATIONS Versed 1 mg IV Fentanyl 50 mcg IV Oxygen: 2 L/min via nasal cannula Heparin given IA 06/09/2019 17:54:01 Nitro 200 mcg IC 06/09/2019 18:15:59 Verapamil 2.5mg, Ntg 100mcgs, 3000 units of Heparin given IA 06/09/2019 17:54:01 SUMMARY OF HEMODYNAMIC DATA Time AIR REST ECG 17:28:06 AO 95/78 (87) SA 17:57:47 AO 115/77 (96) 18:05:03 Signed By Geo Fragoso MD On 06/09/2019 19:13:16 Geo Fragoso MD
== END 2019-06-11 17:25 | disposition home or self-care (01) | DRG 247 ==
LOC: ED 16:58 → ICU 19:29 → PCU 06-13 09:28
PROVIDERS: Physician Assistant; Specialist; Admitting Provider Family Medicine; Emergency Provider Emergency Medicine; Family Provider Family Medicine; PCP Family Medicine; Referring Provider Internal Medicine Cardiovascular Disease; Visit Provider Internal Medicine
DX: I21.4 Non-ST elevation (NSTEMI) myocardial infarction (principal); Z68.41 Body mass index [BMI] 40.0-44.9, adult; E66.01 Morbid (severe) obesity due to excess calories; E11.9 Type 2 diabetes mellitus without complications; I10 Essential (primary) hypertension; I25.10 Atherosclerotic heart disease of native coronary artery without angina pectoris; Z79.84 Long term (current) use of oral hypoglycemic drugs; F17.210 Nicotine dependence, cigarettes, uncomplicated; R00.1 Bradycardia, unspecified
CPT/HCPCS: 36415; 71045; 80048; 80053; 80061; 82962; 83036; 83735; 84484; 85025; 85027; 85610; 85730; 92928; 93005; 93306; 93454; 99152; 99153; 99285; 99406; J7030; Q9957; Q9967; A4216; C1725; C1769; C1874; C1887; C1894; C8929; C9600; J1327

== ENCOUNTER 2021-06-18 11:55 | Inpatient (IN) | payer OTHER, SELFPAY ==
[2019-06-10 09:48] VITALS: BMI 45.0
[2021-06-18] VITALS (11 sets, daily range): BP systolic 137–182; BP diastolic 82–105; PULSE 72–90; RESP 14–19; TEMP 36.6–36.8; O2SAT 94–100; BMI 41.0; BMI 40.4
--- NOTE | 2021-06-18 12:41 | EKG12_ITS ---
Test Reason : CP Blood Pressure : / mmHG Vent. Rate : 084 BPM Atrial Rate : 084 BPM P-R Int : 172 ms QRS Dur : 088 ms QT Int : 366 ms P-R-T Axes : 015 -10 -04 degrees QTc Int : 432 ms Normal sinus rhythm Inferior infarct , age undetermined , cannot be excluded Abnormal ECG Confirmed by FRANCISCO PHAM, CHANDLER ([id number]), school photograph editor EMLIY MAC ([id number]) on 06/20/2021 8:45:25 AM Referred By: MILTON/AMBAR Confirmed By:CHANDLER SINGH MD
--- NOTE | 2021-06-18 12:55 | RAD_ITS ---
STUDY: X-RAY CHEST REASON FOR EXAM: Male, 56 years old. Chest pain TECHNIQUE: Frontal view of the chest COMPARISON: 06/09/19 FINDINGS: The lungs are clear. There are no pleural effusions. There is no pneumothorax. The heart is normal in size. The visualized osseous structures are within normal limits. RAD/Chest 1 View (Portable) IMPRESSION: No acute thoracic pathology. Electronically Signed: Merlin Elena MD at 13:54 EDT Tel , Service support ,
[2021-06-18] MEDS: Aspirin 81 MG TAB.CHEW 324 MG PO (13:10)
[2021-06-18] MEDS: Nitroglycerin SL (ED/IMG/CATH) 0.4 MG TABLET SL ×2 (13:12→13:20)
[2021-06-18 13:22] LABS: Absolute Lymphocyte Count 1.54 X10^3/uL (0.83-4.51); Absolute Neutrophil Count 6.3 X10^3/uL (2.0-7.7); Basophil# 0.06 X10^3/uL; Basophil% 0.7 % (0-1); Eosinophil# 0.37 X10^3/uL; Eosinophils% 4.1 % (0-5); Hematocrit 43.5 % (40-54); Lymphocyte # 1.54 X10^3/ul (0.83-4.51); Mean Corp Hgb Conc 32.2 g/dL (32-36); Mean Corpuscular Hgb 28.1 pg (27.0-32.0); Mean Corpuscular Volume 87.2 fL (80-94); Mean Platelet Vol. 11.9 fl (6.2-12.0); Monocyte# 0.74 X10^3/uL; Monocyte% 8.2 % (0-10); NRBC Flagged by Analyzer 0 % (0-5); Neutrophil # 6.29 X10^3/uL (2.7-7.7); Neutrophil % 69.4 % (47-70); Platelet Count 274 K/mm3 (150-450); RBC Distribution Width CV 13.1 % (11.6-14.6); RBC Distribution Width SD 41.1 fl (35.1-43.9); Red Blood Count 4.99 M/mm3 (4.6-6.2); White Blood Count 9.1 K/mm3 (4.4-11.0)
--- NOTE | 2021-06-18 13:27 | ED.RN ---
Pt. is 0/10 chest pain Completed two nitros.
[2021-06-18 13:34] LABS: Anion Gap 7 (5-15); BUN 12 mg/dL (7-18); BUN/Creat Ratio 10.3 RATIO (10-20); Calcium,Total 9.5 mg/dL (8.5-10.1); Chloride 102 mmol/L (98-107); Creatinine, Serum 1.17 mg/dL (0.70-1.30); EST Glomerular Filtration Rate 68 mL/min (>60); Est Glom Filt Rate - Afr Amer 82 mL/min (>60); Estimated Creatinine Clearance 66.58 ml/min; Glucose 269 mg/dL (74-106); Potassium 3.9 mmol/L (3.5-5.1); Sodium Level 139 mmol/L (136-145); Troponin-I HS 10 pg/mL (3.0-78.0)
[2021-06-18 14:29] LABS: Troponin-I HS 17 pg/mL (3.0-78.0)
--- NOTE | 2021-06-18 16:32 | EDS_ITS ---
HPI History of Present Illness Chief Complaint: Chest Pain Informant: patient Onset/Context/Timing Onset: Yesterday Activity at onset: gradual Timing: Intermittent Quality: Positive for Aching Location: Substernal Worsened By: Nothing Relieved By: Nothing Associated Symptoms: Negative for Nausea, Vomiting, Diaphoresis, Dyspnea, Cough, Fever, Lightheadedness, Acid Reflux and Palpitations Narrative Narrative: Patient presents with chest pain that has been intermittent since yesterday. Patient states that when it comes on it last for couple hours. Patient describes it as aching. Patient states it is over the substernal area. Patient states nothing makes it better nothing makes it worse. Patient complains of bilateral forearm pain. Patient states he had a Covid test done yesterday which was negative. Patient denies any nausea or vomiting. Patient denies any diaphoresis. Patient denies any cough or shortness of breath. Patient denies any lightheadedness or dizziness. Patient denies any palpitations. CVD Risk Factors: Positive for Hypertension, Diabetes and Hypercholesterolemia; Negative for Family History 1' </=55 and Smoking PE Risk Factors: Negative for Recent Travel/Surgery, Recent Immobilization, Prior DVT or PE, Cancer and OCP + Smoking + >/=35 PFSH PFSH Medical History (Updated 06/18/21 @ 17:[address] Jeet Partida, DO) Atherosclerosis of coronary artery of [place] heart without angina pectoris Essential hypertension Non-STEMI (non-ST elevated myocardial infarction) Obesity Type 2 diabetes mellitus without complication Home Medications amlodipine 10 mg PO DAILY 01/06/18 [History Last Taken 06/09/19 11:00] aspirin 81 mg PO DAILY@0800 tab 06/11/19 [Rx Last Taken Unknown] carvedilol 12.5 mg PO BID #60 tab 06/11/19 [Rx Last Taken Unknown] metformin 1,000 mg PO BIDCM #60 tab 06/11/19 [Rx Last Taken Unknown] azilsartan medoxomil 40 mg-chlorthalidone 25 mg tablet 1 tab PO DAILY tab 06/16/19 [History Last Taken Unknown] atorvastatin 80 mg tablet 80 mg PO QHS #90 tab 07/02/20 [Rx Last Taken Unknown] ticagrelor 90 mg tablet 90 mg PO BID #60 tab 08/09/20 [Rx Last Taken Unknown] glipizide 5 mg tablet 5 mg PO DAILY 01/07/21 [History Last Taken Unknown] azilsartan med-chlorthalidone [Edarbyclor] tab 06/18/21 [History Last Taken Unknown] Allergy/AdvReac Type Severity Reaction Status Date / Time HORNETS Allergy Anaphylaxis Uncoded 01/02/20 10:56 Family History Mother Cancer Father Thyroid disorder Cancer lymphoma Surgical History History of left inguinal hernia repair History of umbilical hernia repair Presence of stent in coronary artery Social History Smoking Status: Former smoker how long ago did patient quit smokin months alcohol intake: never substance use type: does not use caffeine: Yes Type: coffee Number of servings: 1 ROS ROS ED Constitutional Constitutional ED: Denies chills or fever(s) Eyes Eyes: Denies blurry vision or change in vision ENT ENT ED: Denies rhinorrhea or sore throat Cardiovascular Cardiovascular: Reports chest pain; Denies palpitations Respiratory/Chest Respiratory/Chest: Denies cough or dyspnea Gastrointestinal Gastrointestinal: Denies abdominal pain, nausea or vomiting Genitourinary Genitourinary ED: Denies dysuria or hematuria Musculoskeletal Musculoskeletal: Denies back pain or neck pain Integumentary Denies abscess or rash Neurologic Neurologic: Denies headache(s) or weakness Allergic/Immunologic Allergic/Immunologic ED: Denies mouth swelling or urticaria EXAM Physical Exam Const Vital Signs: 06/18/21 11:57 06/18/21 12:04 06/18/21 13:12 Temperature 98.2 F Temperature Source Oral Pulse Rate 83 79 Respiratory Rate 14 Respiratory Effort Normal Blood Pressure 182/97 H 160/91 H Blood Pressure Mean 125 Pulse Ox 100 Oxygen Delivery Method Room Air 06/18/21 13:20 06/18/21 13:27 06/18/21 13:28 Temperature Temperature Source Pulse Rate 90 86 Respiratory Rate 19 H Respiratory Effort Blood Pressure 137/93 H 157/82 H Blood Pressure Mean 107 Pulse Ox 95 Oxygen Delivery Method Room Air Room Air 06/18/21 15:52 06/18/21 16:11 Temperature Temperature Source Pulse Rate 73 72 Respiratory Rate 14 18 Respiratory Effort Blood Pressure 160/88 H 159/90 H Blood Pressure Mean 112 113 Pulse Ox 97 96 Oxygen Delivery Method Room Air Room Air Positive well nourished, well developed and obese General Appearance ED: well developed Nutritional Appearance: obese HEENT normocephalic and atraumatic Eyes PERRL and EOMs intact bilaterally Neck supple and no JVD Chest Wall inspection of chest normal and palpation of chest normal Resp normal respiratory effort and clear to auscultation bilaterally Effort and Inspection: Negative for respiratory distress Cardio regular rate, regular rhythm and no murmurs GI normal to inspection, nondistended, normoactive bowel sounds, soft to palpation, non-tender and non-distended Extremity normal to inspection General Extremety ED: Negative for edema or tenderness General Extremity: Negative for edema Neuro oriented x3, CN's II-XII intact bilaterally and no sensory deficits noted Sensorium / Orientation: awake and alert Motor Exam: strength 5/5 throughout Psych mental status grossly normal Heart Score History: Moderately Suspicious ECG: Normal Age: >45 - <65 years Risk Factors: >/= 3 Risk Factors or History of CAD Troponin: </= Normal Limit Score: 4 MDM MDM MDM Narrative Medical decision making narrative: Patient was given aspirin here. EKG was obtained. On my interpretation, it showed a normal sinus rhythm with a rate of 84. There is an old inferior infarct. There are no acute ST or T wave changes. TN interval, QRS interval, and QTc intervals were normal. [place] was normal. This was unchanged compared to previous EKG dated 06/11/2019. Portable 1 view chest x-ray was obtained. On my interpretation, lung kahn are clear. There is normal cardiac silhouette. Bony thorax is normal. There is no acute process noted. Radiologist also interpreted the x-ray and agrees. CBC and basic metabolic profile were obtained and were essentially within normal limits. Initial high-sensitivity troponin was 10. 2-hour repeat high-sensitivity troponin was 17. Patient is feeling better on reevaluation. Patient has a HEART score of 4. Patient's last stress test was over 2 years ago. Case was discussed with the hospitalist. She will admit the patient to PCU for observation. Patient understands and is agreeable with the plan. All questions were answered. Lab Data Labs: Laboratory Results - last 24 hr 06/18/21 06/18/21 06/18/21 12:05 12:05 14:00 WBC 9.1 RBC 4.99 Hgb 14.0 Hct 43.5 MCV 87.2 MCH 28.1 MCHC 32.2 RDW Std Deviation 41.1 RDW Coeff of Haile 13.1 Plt Count 274 MPV 11.9 Immature Gran % (Auto) 0.600 Neut % (Auto) 69.4 Lymph % (Auto) 17.0 L Iron % (Auto) 8.2 Eos % (Auto) 4.1 Baso % (Auto) 0.7 Absolute Neuts (auto) 6.3 Absolute Lymphs (auto) 1.54 Nucleated RBC % 0 Sodium 139 Potassium 3.9 Chloride 102 Carbon Dioxide 30.0 Anion Gap 7 BUN 12 Creatinine 1.17 Estim Creat Clear Calc 66.58 Est GFR (MDRD) Af Amer 82 Est GFR (MDRD) Non-Af 68 BUN/Creatinine Ratio 10.3 Glucose 269 H Calcium 9.5 Troponin I High Sens 10 17 Radiography Diagnostic Testing: Radiology Impression Chest X-Ray 06/18/21 12:55 IMPRESSION: No acute thoracic pathology. Electronically Signed: Merlin Elena MD at 13:54 EDT Tel , Service support , EKG Initial EKG: Attestation: I personally reviewed and interpreted this EKG as follows: Interpretation: Sinus Rhythm (84) and No Acute Injury Pattern Prior EKG tracings: available for review Prior: Unchanged (06/11/2019) Treatment and Re-Evaluation Vital Sign Attestation:: Vital signs were reviewed prior to admission. They are stable. Discharge Plan Triage Chief Complaint: Chest Pain ED Provider: Jeet Partida Dx/Rx/DC Orders Clinical Impression: Chest pain Prescriptions: No Action atorvastatin 80 mg tablet 80 mg PO QHS Qty: 90 RF: 3 glipizide 5 mg tablet 5 mg PO DAILY RF: 0 amlodipine 10 MG tablet 10 mg PO DAILY RF: 0 carvedilol 12.5 MG tablet 12.5 mg PO BID Qty: 60 RF: 0 aspirin 81 MG tablet 81 mg PO DAILY@0800 RF: 0 metformin 1,000 MG tablet 1,000 mg PO BIDCM Qty: 60 RF: 0 azilsartan med-chlorthalidone 40-25 mg tablet 1 tab PO DAILY RF: 0 Edarbyclor 40-25 mg tablet RF: 0 ticagrelor 90 mg tablet 90 mg PO BID Qty: 60 RF: 11 Primary Care Provider: Fransisco Grider Referrals: Fransisco Grider DO [Primary Care Provider] - Disposition Disposition: Acute Care Hospital [facility]
--- NOTE | 2021-06-18 17:20 | HP.PCM.HOS_ITS ---
Documented by User: Kailee Church NP, MECHANICAL ENGINEERING SPECIALIST-C 06/18/21 17:30 HPI - General HPI Narrative ALINE HAY, is a 56 M who presents to the emergency room due to chest pain. Patient states his symptoms began yesterday and have been intermittent since that time. He reports his symptoms today became more persistent. He denies any aggravating or alleviating factors. He does describe some associated shortness of breath. He denies nausea, diaphoresis. He has a history of CAD with stent and states his symptoms feel different from previous SD. Patient states he did not feel well last Thursday and did have a Covid test done which was negative. He requested Covid vaccination in ED. He has a past medical history of CAD with history of stent to RCA, hypertension, type 2 diabetes mellitus, hyperlipidemia, obesity. [facility] Medical History Atherosclerosis of coronary artery of [place] heart without angina pectoris Essential hypertension Non-STEMI (non-ST elevated myocardial infarction) Obesity Type 2 diabetes mellitus without complication Home Medications amlodipine 10 mg PO DAILY 01/06/18 [History Last Taken 06/17/21] aspirin 81 mg PO DAILY@0800 tab 06/11/19 [Rx Last Taken 06/17/21] carvedilol 12.5 mg PO BID #60 tab 06/11/19 [Rx Last Taken 06/17/21] metformin 1,000 mg PO BIDCM #60 tab 06/11/19 [Rx Last Taken 06/17/21] atorvastatin 80 mg tablet 80 mg PO QHS #90 tab 07/02/20 [Rx Last Taken 06/17/21] ticagrelor 90 mg tablet 90 mg PO BID #60 tab 08/09/20 [Rx Last Taken 06/17/21] glipizide 5 mg tablet 5 mg PO DAILY 01/07/21 [History Last Taken 06/17/21] Allergy/AdvReac Type Severity Reaction Status Date / Time HORNETS Allergy Anaphylaxis Uncoded 01/02/20 10:56 Family History Mother Cancer Father Thyroid disorder Cancer lymphoma Surgical History History of left inguinal hernia repair History of umbilical hernia repair Presence of stent in coronary artery Social History (Reviewed 06/18/21 @ 17:26 by Kailee Church MECHANICAL ENGINEERING SPECIALIST, MECHANICAL ENGINEERING SPECIALIST-C) Smoking Status: Former smoker how long ago did patient quit smokin months alcohol intake: never substance use type: does not use caffeine: Yes Type: coffee Number of servings: 1 ROS Constitutional Constitutional: Denies change in weight, chills, fatigue, fever(s) or weakness Cardiovascular Cardiovascular: Reports chest pain; Denies edema, lightheadedness, palpitations or syncope Respiratory/Chest Respiratory/Chest: Reports other Details: Shortness of breath associated with chest pain, resolved ; Denies cough, dyspnea, productive cough, shortness of breath at rest, shortness of breath with exertion or wheezing Gastrointestinal Gastrointestinal: Denies abdominal pain, constipation, diarrhea, nausea or vomiting Genitourinary Genitourinary: Denies burning urination, difficulty urinating, dysuria, hematuria, urinary frequency, urinary incontinence or urinary urgency Musculoskeletal Musculoskeletal: Denies back pain, joint pain or muscle weakness Integumentary Integumentary: Denies erythema, lesions, rash or wounds Neurologic Neurologic: Denies abnormal speech, confusion, dizziness, focal weakness, numbness, paresthesias, seizure-like activity or syncope Psychiatric Psychiatric: Denies anxiety or depression Hematologic/Lymphatic Hematologic/Lymphatic: Denies anemia, easy bleeding or easy bruising Allergic/Immunologic Allergic/Immunologic: Denies hives or asthma Vital Signs Vital Signs Vital Signs: 06/18/21 11:57 06/18/21 12:04 06/18/21 13:12 Temperature 98.2 F Temperature Source Oral Pulse Rate 83 79 Respiratory Rate 14 Respiratory Effort Normal Blood Pressure 182/97 H 160/91 H Blood Pressure Mean 125 Pulse Ox 100 Oxygen Delivery Method Room Air 06/18/21 13:20 06/18/21 13:27 06/18/21 13:28 Temperature Temperature Source Pulse Rate 90 86 Respiratory Rate 19 H Respiratory Effort Blood Pressure 137/93 H 157/82 H Blood Pressure Mean 107 Pulse Ox 95 Oxygen Delivery Method Room Air Room Air 06/18/21 15:52 06/18/21 16:11 Temperature Temperature Source Pulse Rate 73 72 Respiratory Rate 14 18 Respiratory Effort Blood Pressure 160/88 H 159/90 H Blood Pressure Mean 112 113 Pulse Ox 97 96 Oxygen Delivery Method Room Air Room Air Weight Weight: 269 lb 13.533 oz Body Mass Index (BMI) 41.0 Physical Exam Const alert, oriented x3 and no apparent distress Orientation / Consciousness: awake, oriented to person, oriented to place and oriented to time Nutritional Appearance: obese HEENT normocephalic and moist oral mucous membranes Eyes PERRL, EOMs intact bilaterally and conjunctivae normal Neck no lymphadenopathy Resp normal respiratory effort and clear to auscultation bilaterally Cardio regular rate, regular rhythm and no murmurs Peripheral Pulses: pulses 2+ throughout GI normal to inspection, nondistended, normoactive bowel sounds, non-tender and non-distended Extremity normal to inspection Skin no rashes or lesions noted Lesions: no lesions Rashes: no rashes Trauma: no lacerations or abrasions Neuro CN's II-XII intact bilaterally, no focal motor deficits, no sensory deficits noted and deep tendon reflexes 2+ bilaterally Psych mental status grossly normal and affect normal Results Lab / Micro Data Result Diagrams: 06/18/21 12:05 06/18/21 12:05 Labs: Laboratory Results - last 24 hr 06/18/21 12:05: WBC 9.1, RBC 4.99, Hgb 14.0, Hct 43.5, MCV 87.2, MCH 28.1, MCHC 32.2, RDW Std Deviation 41.1, RDW Coeff of Haile 13.1, Plt Count 274, MPV 11.9, Immature Gran % (Auto) 0.600, Neut % (Auto) 69.4, Lymph % (Auto) 17.0 L, [place] % (Auto) 8.2, Eos % (Auto) 4.1, Baso % (Auto) 0.7, Absolute Neuts (auto) 6.3, Absolute Lymphs (auto) 1.54, Nucleated RBC % 0 06/18/21 12:05: Sodium 139, Potassium 3.9, Chloride 102, Carbon Dioxide 30.0, Anion Gap 7, BUN 12, Creatinine 1.17, Estim Creat Clear Calc 66.58, Est GFR (MDRD) Af Amer 82, Est GFR (MDRD) Non-Af 68, BUN/Creatinine Ratio 10.3, Glucose 269 H, Calcium 9.5, Troponin I High Sens 10 06/18/21 14:00: Troponin I High Sens 17 Radiology Impression Chest X-Ray 06/18/21 12:55 IMPRESSION: No acute thoracic pathology. Electronically Signed: Merlin Elena MD at 13:54 EDT Tel , Service support , Assessment & Plan Assessment/Plan (1) Chest pain: PLAN: 1. Chest pain-troponin negative. EKG without ST-T changes. Plan for stress test in a.m. 2. CAD with history of stent to RCA-on aspirin, statin, carvedilol, Brilinta. 3. Hypertension-stable, continue amlodipine, carvedilol. 4. Type 2 diabetes mellitus-hold metformin. Accu-Cheks with sliding scale insulin. 5. Hyperlipidemia-continue statin. 6. Obesity-encouraged diet and lifestyle modifications. DVT prophylaxis-Lovenox subcu This patient was seen by NANDA Amor under the supervision of Dr. Fagan. Documented by User: Dr. Genoveva Fagan MD 06/18/21 19:52 HPI - General General Date of Admission: 06/18/21 [facility] Medical History Atherosclerosis of coronary artery of [place] heart without angina pectoris Essential hypertension Non-STEMI (non-ST elevated myocardial infarction) Obesity Type 2 diabetes mellitus without complication Home Medications amlodipine 10 mg PO DAILY 01/06/18 [History Last Taken 06/17/21] aspirin 81 mg PO DAILY@0800 tab 06/11/19 [Rx Last Taken 06/17/21] carvedilol 12.5 mg PO BID #60 tab 06/11/19 [Rx Last Taken 06/17/21] metformin 1,000 mg PO BIDCM #60 tab 06/11/19 [Rx Last Taken 06/17/21] atorvastatin 80 mg tablet 80 mg PO QHS #90 tab 07/02/20 [Rx Last Taken 06/17/21] ticagrelor 90 mg tablet 90 mg PO BID #60 tab 08/09/20 [Rx Last Taken 06/17/21] glipizide 5 mg tablet 5 mg PO DAILY 01/07/21 [History Last Taken 06/17/21] Allergy/AdvReac Type Severity Reaction Status Date / Time HORNETS Allergy Anaphylaxis Uncoded 01/02/20 10:56 Family History (Reviewed 06/18/21 @ 17:26 by Kailee Church MECHANICAL ENGINEERING SPECIALIST, MECHANICAL ENGINEERING SPECIALIST-C) Mother Cancer Father Thyroid disorder Cancer lymphoma Surgical History (Reviewed 06/18/21 @ 17:26 by Kailee Church MECHANICAL ENGINEERING SPECIALIST, MECHANICAL ENGINEERING SPECIALIST-C) History of left inguinal hernia repair History of umbilical hernia repair Presence of stent in coronary artery Social History (Reviewed 06/18/21 @ 17:26 by Kailee Church MECHANICAL ENGINEERING SPECIALIST, MECHANICAL ENGINEERING SPECIALIST-C) Smoking Status: Former smoker how long ago did patient quit smokin months alcohol intake: never substance use type: does not use caffeine: Yes Type: coffee Number of servings: 1 Results Lab / Micro Data Result Diagrams: 06/18/21 12:05 06/18/21 12:05 Charges/Coding Addendum Addendum: This patient was seen in conjunction with Kailee Church. I have independently interviewed and examined the patient and reviewed pertinent historical, laboratory, and other data. I have reviewed her note and concur with her documentation 55-year-old male with past medical history of CAD status post stent, hypertension, type II DM, morbid obesity who comes in with complaints of chest discomfort that started a day before admission. Chest discomfort persisted, not worse with any activity, did not radiate, was substernal. It did not feel like his previous SD. Patient had recurrence of his chest pain again today. His chest pain went away with sublingual nitro Physical Exam: Gen: Comfortable, not pale, not jaundiced CVS:HS I +II, regular, no murmurs RESP: Diminished at lung bases GI: BS present and normal, soft, nontender, no palpable organs EXT:Bilateral leg edema, trace ASSESSMENT: 1. Chest pain 2. Type 2 DM 3. Hypertension, uncontrolled 4. Obesity Plan: Stress test in a.m. Continue rest of home medications Hydralazine as needed Visit Charges Inpatient E&M: 78871 Init Hosp L3
--- NOTE | 2021-06-18 18:02 | NURSING ---
PCU OBS [facility]
[2021-06-18] MEDS: COVID-19 VACC, MRNA(PFIZER)/PF 30 MCG/0.3 ML SYRINGE IM (18:24)
[2021-06-18 20:11] LABS: Troponin-I HS 87 pg/mL (3.0-78.0)
[2021-06-18] MEDS: Atorvastatin Calcium 80 MG Tablet PO (20:51)
[2021-06-18] MEDS: Carvedilol 12.5 MG Tablet PO (20:51)
[2021-06-18] MEDS: amLODIPine 10 MG Tablet PO (20:51)
[2021-06-18] MEDS: TICAGRELOR 90 MG TABLET PO (20:51)
[2021-06-18] MEDS: Insulin Lispro 100 UNIT/ML INSULN.PEN SC (22:42)
[2021-06-18 22:46] LABS: Bedside Glucose 195 mg/dL (70-110)
[2021-06-19] VITALS (8 sets, daily range): BP systolic 137–168; BP diastolic 84–95; PULSE 59–95; RESP 16–18; TEMP 36.5–37.1; O2SAT 96–97
[2021-06-19] MEDS: Aspirin E.C. 81 MG Tablet PO (04:52)
[2021-06-19] MEDS: TICAGRELOR 90 MG TABLET PO ×2 (04:52→21:29)
--- NOTE | 2021-06-19 05:00 | EKG12_ITS ---
Test Reason : AM EKG Blood Pressure : / mmHG Vent. Rate : 069 BPM Atrial Rate : 069 BPM P-R Int : 186 ms QRS Dur : 088 ms QT Int : 414 ms P-R-T Axes : 019 010 009 degrees QTc Int : 443 ms Normal sinus rhythm Inferior infarct , age undetermined Abnormal ECG When compared with ECG of 19-JUN-2021 04:39, MANUAL COMPARISON REQUIRED, DATA IS UNCONFIRMED Confirmed by SUSANNA PHAM, RADHA ([id number]), editor & co founder EMILY MAC ([id number]) on 06/20/2021 12:38:41 PM Referred By: JAGJIT Confirmed By:RADHA MULLINS MD
[2021-06-19 06:13] LABS: Absolute Lymphocyte Count 1.91 X10^3/uL (0.83-4.51); Absolute Neutrophil Count 6.6 X10^3/uL (2.0-7.7); Basophil# 0.07 X10^3/uL; Basophil% 0.7 % (0-1); Eosinophil# 0.38 X10^3/uL; Eosinophils% 3.8 % (0-5); Hematocrit 39.1 % (40-54); Hemoglobin 12.7 g/dL (13.0-16.5); Lymphocyte # 1.91 X10^3/ul (0.83-4.51); Lymphocyte % 19.3 % (19-41); Mean Corp Hgb Conc 32.5 g/dL (32-36); Mean Corpuscular Hgb 28.5 pg (27.0-32.0); Mean Corpuscular Volume 87.9 fL (80-94); Mean Platelet Vol. 11.4 fl (6.2-12.0); Monocyte# 0.94 X10^3/uL; Monocyte% 9.5 % (0-10); NRBC Flagged by Analyzer 0 % (0-5); Neutrophil # 6.56 X10^3/uL (2.7-7.7); Neutrophil % 66.3 % (47-70); Platelet Count 224 K/mm3 (150-450); RBC Distribution Width SD 41.8 fl (35.1-43.9); Red Blood Count 4.45 M/mm3 (4.6-6.2); White Blood Count 9.9 K/mm3 (4.4-11.0)
[2021-06-19 06:20] LABS: Bedside Glucose 165 mg/dL (70-110)
[2021-06-19 06:39] LABS: ALB/GLOB Ratio 0.8 RATIO (0.9-2.4); AST(SGOT) 24 U/L (15-37); Alanine Aminotransfer ALT/SGPT 43 U/L (16-61); Alkaline Phosphatase 90 U/L (45-117); Anion Gap 7 (5-15); BUN 10 mg/dL (7-18); BUN/Creat Ratio 11.6 RATIO (10-20); Calcium,Total 8.5 mg/dL (8.5-10.1); Chloride 106 mmol/L (98-107); Creatinine, Serum 0.86 mg/dL (0.70-1.30); EST Glomerular Filtration Rate 97 mL/min (>60); Est Glom Filt Rate - Afr Amer 117 mL/min (>60); Estimated Creatinine Clearance 90.58 ml/min; Globulin 3.6 g/dL (2.2-4.2); Glucose 178 mg/dL (74-106); Potassium 3.6 mmol/L (3.5-5.1); Protein, Total 6.6 g/dL (6.4-8.2); Sodium Level 140 mmol/L (136-145)
[2021-06-19] MEDS: amLODIPine 10 MG Tablet PO (11:29)
[2021-06-19] MEDS: Insulin Lispro 100 UNIT/ML INSULN.PEN SC ×2 (11:30→16:37)
[2021-06-19] MEDS: glipiZIDE 5 MG Tablet PO (11:30)
[2021-06-19] MEDS: Carvedilol 12.5 MG Tablet PO (11:30)
[2021-06-19 11:41] LABS: Bedside Glucose 236 mg/dL (70-110)
--- NOTE | 2021-06-19 11:49 | STRESSREP ---
Stress Test Report Date: 06-19-2021 Procedure: Pharmacologic stress nuclear imaging study Indications: Chest pain; CAD; PCI; non-ST segment elevation SD Consent: Per the patient Procedure: The patient underwent pharmacologic (Regadenoson 0.4mg ) evaluation with a peak heart rate of 108 beats per minute (67%predicted maximal heart rate) and a peak blood pressure of 138/90 mmHg. The baseline ECG demonstrated sinus rhythm; nonspecific ST/T wave abnormality. The peak pharmacologic ECG demonstrated continued nonspecific ST/T wave abnormality. There were no cardiac dysrhythmias pretest, during pharmacologic infusion, or recovery. There was no complaint of chest discomfort during pharmacologic infusion or recovery. The examination was discontinued secondary to completion of protocol. Impression: 1. Pharmacologic (Regadenoson) evaluation 2. Peak pharmacologic ECG with continued nonspecific ST/T wave abnormality. 3. There were no cardiac dysrhythmias pretest, during pharmacologic infusion, or recovery. 4. Nuclear images pending Myocardial perfusion imaging study: Technique: The patient was injected with 15.0 millicuries of technetium 99m Cardiolite and subsequently rest SPECT Cardiolite nuclear imaging was obtained in the horizontal long, vertical long, and short axis views. The patient underwent pharmacologic (Regadenoson) evaluation with a peak heart rate of 108 and beats per minute (67% percent predicted maximal heart rate) and a peak blood pressure of 138/9 mmHg. The patient was injected with 44.9 millicuries of technetium 99m Cardiolite and subsequently stress SPECT Cardiolite nuclear imaging was obtained in the horizontal long, vertical long, and short axis views. A gated Cardiolite study at peak stress was obtained. Interpretation: Rest and stress SPECT Cardiolite nuclear imaging status post realignment, normalization, and attenuation correction demonstrate on the preattenuation correction images areas of diminished myocardial perfusion/tracer up in portions of the basal inferior segments which status post stress appear to extend toward the mid inferior segments as well as a small area of diminished tracer uptake in the lateral apical segments which appears to be somewhat more prominent following stress. On the post attenuation correction images there appears to be relative uniform tracer uptake with the exception of a small area of diminished tracer uptake in the lateral apical segments without significant change between rest and stress. There is end systolic thickening and brightening. The gated Cardiolite study demonstrates myocardial thickening and inward wall motion. The reported LVEF is 66%. Impression: 1. Rest and stress SPECT Cardiolite nuclear imaging demonstrate a discrepancy between the preattenuation and post attenuation correction images with the preattenuation correction images suggesting an area of previous myocardial injury/infarction with associated lisa-infarct related myocardial ischemia towards the mid inferior segments as well as potentially the lateral apical segments which appears to be not appreciated on the post attenuation images with the exception of a small area of diminished tracer uptake in the lateral apical segments that appear without significant change. 2. The gated Cardiolite study reports an LVEF of 66%. This note was generated with [employer] software. It may contain incorrect words, spelling, and punctuation that were not noted in checking the note before signing.
--- NOTE | 2021-06-19 12:22 | PN.HOSP_ITS ---
Documented by User: Kailee Church NP, COLLEGE [employer] INSTRUCTOR-C 06/19/21 12:31 Subjective Subjective Patient seen and examined. Denies further chest pain overnight or this morning. Underwent stress test which was found to be abnormal. Objective Data Objective Data Vital Signs: Vital Signs Temp Pulse Resp BP Pulse Ox 97.9 F 70 18 142/84 H 97 06/19/21 11:23 06/19/21 11:23 06/19/21 11:23 06/19/21 11:23 06/19/21 11:23 Oxygen Delivery Method Room Air Weight: 263 lb 0.183 oz Body Mass Index (BMI) 40.4 Lab / Micro Data Result Diagrams: 06/19/21 05:40 06/19/21 05:40 Labs: Laboratory Results - last 24 hr 06/18/21 12:05: WBC 9.1, RBC 4.99, Hgb 14.0, Hct 43.5, MCV 87.2, MCH 28.1, MCHC 32.2, RDW Std Deviation 41.1, RDW Coeff of Haile 13.1, Plt Count 274, MPV 11.9, Immature Gran % (Auto) 0.600, Neut % (Auto) 69.4, Lymph % (Auto) 17.0 L, [place] % (Auto) 8.2, Eos % (Auto) 4.1, Baso % (Auto) 0.7, Absolute Neuts (auto) 6.3, Absolute Lymphs (auto) 1.54, Nucleated RBC % 0 06/18/21 12:05: Sodium 139, Potassium 3.9, Chloride 102, Carbon Dioxide 30.0, Anion Gap 7, BUN 12, Creatinine 1.17, Estim Creat Clear Calc 66.58, Est GFR (MDRD) Af Amer 82, Est GFR (MDRD) Non-Af 68, BUN/Creatinine Ratio 10.3, Glucose 269 H, Calcium 9.5, Troponin I High Sens 10 06/18/21 14:00: Troponin I High Sens 17 06/18/21 19:39: Troponin I High Sens 87 H 06/18/21 22:38: POC Glucose 195 H 06/19/21 05:40: WBC 9.9, RBC 4.45 L, Hgb 12.7 L, Hct 39.1 L, MCV 87.9, MCH 28.5, MCHC 32.5, RDW Std Deviation 41.8, RDW Coeff of Haile 13.0, Plt Count 224, MPV 11.4, Immature Gran % (Auto) 0.400, Neut % (Auto) 66.3, Lymph % (Auto) 19.3, [place] % (Auto) 9.5, Eos % (Auto) 3.8, Baso % (Auto) 0.7, Absolute Neuts (auto) 6.6, Absolute Lymphs (auto) 1.91, Nucleated RBC % 0 06/19/21 05:40: Sodium 140, Potassium 3.6, Chloride 106, Carbon Dioxide 27.0, Anion Gap 7, BUN 10, Creatinine 0.86, Estim Creat Clear Calc 90.58, Est GFR (MDRD) Af Amer 117, Est GFR (MDRD) Non-Af 97, BUN/Creatinine Ratio 11.6, Glucose 178 H, Calcium 8.5, Total Bilirubin 0.50, AST 24, ALT 43, Alkaline Phosphatase 90, Total Protein 6.6, Albumin 3.0 L, Globulin 3.6, Albumin/Globulin Ratio 0.8 L 06/19/21 06:17: POC Glucose 165 H 06/19/21 11:24: POC Glucose 236 H Radiography Diagnostic Testing: Radiology Impression Chest X-Ray 06/18/21 12:55 IMPRESSION: No acute thoracic pathology. Electronically Signed: Merlin Elena MD at 13:54 EDT Tel , Service support , Physical Exam Const alert, oriented x3 and no apparent distress Orientation / Consciousness: awake, oriented to person, oriented to place and oriented to time Nutritional Appearance: obese HEENT normocephalic and moist oral mucous membranes Eyes PERRL, EOMs intact bilaterally and conjunctivae normal Neck no lymphadenopathy Resp normal respiratory effort and clear to auscultation bilaterally Cardio regular rate, regular rhythm and no murmurs Peripheral Pulses: pulses 2+ throughout GI normal to inspection, nondistended, normoactive bowel sounds, non-tender and non-distended Extremity normal to inspection Skin no rashes or lesions noted Lesions: no lesions Rashes: no rashes Trauma: no lacerations or abrasions Neuro CN's II-XII intact bilaterally, no focal motor deficits, no sensory deficits noted and deep tendon reflexes 2+ bilaterally Psych mental status grossly normal and affect normal Assessment & Plan Assessment/Plan (1) Chest pain: PLAN: 1. Chest pain, abnormal stress test-initial troponin negative x2, third troponin increased to 87. EKG without ST-T changes. Patient underwent nuclear stress test which was reported to be abnormal. Plan for cardiology consultation. 2. CAD with history of stent to RCA-on aspirin, statin, carvedilol, Brilinta. 3. Hypertension-stable, continue amlodipine, carvedilol. Increase carvedilol to 25 mg twice daily given blood pressure above goal. As needed hydralazine. 4. Type 2 diabetes mellitus-hold metformin. Accu-Cheks with sliding scale insulin. 5. Hyperlipidemia-continue statin. 6. Obesity-encouraged diet and lifestyle modifications. DVT prophylaxis-Lovenox subcu Vaccination status: Received first dose of [employer] Covid vaccine in ER on admission 06/18/2021. This patient was seen by NANDA Amor under the supervision of Dr. Balderas. Documented by User: Dr. Jeet Balderas, 06/19/21 15:09 Subjective Subjective No further chest pain. Objective Data Lab / Micro Data Result Diagrams: 06/19/21 05:40 06/19/21 05:40 Physical Exam Const alert Resp normal respiratory effort, no retractions, no use of accessory muscles and clear to auscultation bilaterally Cardio regular rate, regular rhythm, S1 normal heart sound and S2 normal heart sound GI normal to inspection, nondistended, normoactive bowel sounds, soft to palpation, non-tender and non-distended Assessment & Plan Assessment/Plan (1) Chest pain: PLAN: Patient seen and examined independently. Data and vitals reviewed. I agree with the above note by the nurse practitioner. 1. Chest pain: Stress test abnormal. Cardiology on consultation. 2. Coronary artery disease: History of PCI. Continue with dual antiplatelet therapy, statin, carvedilol. Charges/Coding Visit Charges OBSV E&M: 74344 Subsequent observation care L2
[2021-06-19 16:45] LABS: Bedside Glucose 151 mg/dL (70-110)
--- NOTE | 2021-06-19 17:49 | PCM.CONS.C ---
Assessment & Plan Assessment/Plan (1) Chest pain: PLAN: The patient presents with chest discomfort with some features similar to what he had at his myocardial infarction. Though his cardiac enzymes are not elevated due to the abnormal stress test I would recommend that we reevaluate his coronary anatomy and depending on the findings further recommendations will then be made. The risk benefits alternatives have been explained to him he understands and agrees to proceed. (2) Essential hypertension: PLAN: He does have a history of hypertension which is not very well controlled I will recommend that we increase his beta-tamiko as well as his BRADY inhibitor. It is possible that the uncontrolled hypertension may be responsible for some of his chest discomfort. HPI Consult Data Date of Consult: 06/19/21 HPI Narrative HPI Narrative: 56-year-old man with previous history of coronary artery disease status post angioplasty and stenting of the [place] right coronary artery following an acute myocardial infarction in May 2019. He presented to the emergency room with chest discomfort again described as a heaviness with no radiation. He says that it was not as bad as he had when he had his myocardial infarction. He had no dizziness or diaphoresis near syncope or syncope he has been compliant with all his medications. He has been noted to be hypertensive. His cardiac enzymes were noted to be normal and he underwent a stress test which was read as abnormal. Cardiology was called for further evaluation and management. [facility] Medical History Atherosclerosis of coronary artery of [place] band heart without angina pectoris Essential hypertension Non-STEMI (non-ST elevated myocardial infarction) Obesity Type 2 diabetes mellitus without complication Home Medications amlodipine 10 mg PO DAILY 01/06/18 [History Last Taken 06/17/21] aspirin 81 mg PO DAILY@0800 tab 06/11/19 [Rx Last Taken 06/17/21] carvedilol 12.5 mg PO BID #60 tab 06/11/19 [Rx Last Taken 06/17/21] metformin 1,000 mg PO BIDCM #60 tab 06/11/19 [Rx Last Taken 06/17/21] atorvastatin 80 mg tablet 80 mg PO QHS #90 tab 07/02/20 [Rx Last Taken 06/17/21] ticagrelor 90 mg tablet 90 mg PO BID #60 tab 08/09/20 [Rx Last Taken 06/17/21] glipizide 5 mg tablet 5 mg PO DAILY 01/07/21 [History Last Taken 06/17/21] Allergy/AdvReac Type Severity Reaction Status Date / Time HORNETS Allergy Anaphylaxis Uncoded 01/02/20 10:56 Family History Mother Cancer Father Thyroid disorder Cancer lymphoma Surgical History History of left inguinal hernia repair History of umbilical hernia repair Presence of stent in coronary artery Social History Smoking Status: Former smoker how long ago did patient quit smokin months alcohol intake: never substance use type: does not use caffeine: Yes Type: coffee Number of servings: 1 ROS Constitutional Constitutional: Denies fever(s) or weight loss Eyes Eyes: Reports systems reviewed and no addt'l complaints, except as documented ENT HEENT: Reports systems reviewed and no addt'l complaints, except as documented Cardiovascular Cardiovascular: Reports chest pain at rest and chest pain with activity; Denies dyspnea at rest, dyspnea on exertion, edema, palpitations or paroxysmal nocturnal dyspnea Respiratory/Chest Respiratory/Chest: Denies dyspnea on exertion, productive cough, shortness of breath at rest or shortness of breath with exertion Gastrointestinal Gastrointestinal: Denies change in bowel habits, nausea, vomiting or weight changes Genitourinary Genitourinary: Denies difficulty urinating Musculoskeletal Musculoskeletal: Denies joint stiffness or muscle weakness Integumentary Integumentary: Denies lesions Neurologic Neurologic: Denies dizziness or syncope Psychiatric Psychiatric: Denies anxiety Endocrine Endocrinology: Denies excessive sweating or fatigue Hematologic/Lymphatic Hematologic/Lymphatic: Denies anemia Allergic/Immunologic Allergic/Immunologic: Denies seasonal rhinorrhea Physical Exam Const alert, oriented x3 and no apparent distress General Appearance: cooperative HEENT hearing grossly normal bilaterally Head and Scalp: atraumatic Eyes EOMs intact bilaterally Neck General: normal visual inspection Chest inspection of chest normal and palpation of chest normal Resp normal respiratory effort Auscultation: clear to auscultation bilaterally Cardio regular rate, regular rhythm, S1 normal heart sound and S2 normal heart sound Jugular Venous Distention: JVD GI normal to inspection, nondistended, normoactive bowel sounds Extremity normal capillary refill and no pedal edema Peripheral Pulses: Yes pulses 2+ throughout and femoral pulses present Skin no rashes or lesions noted Neuro oriented x3 and CN's II-XII intact bilaterally Psych Appearance: grossly normal and appropriate Objective Data Vital Signs: Vital Signs Temp Pulse Resp BP Pulse Ox 97.7 F L 70 18 156/95 H 96 06/19/21 15:24 06/19/21 15:24 06/19/21 15:24 06/19/21 15:24 06/19/21 15:24 Oxygen Delivery Method Room Air Weight: 263 lb 0.183 oz Body Mass Index (BMI) 40.4 Intake & Output: Intake and Output for Last 24 Hours 06/17/21 06/18/21 06/19/21 23:59 23:59 23:59 Intake Total 400 / 400 Balance 400 / 400 Lab / Micro Data Result Diagrams: 06/19/21 05:40 06/19/21 05:40 Labs: Laboratory Results - last 24 hr 06/18/21 19:39: Troponin I High Sens 87 H 06/18/21 22:38: POC Glucose 195 H 06/19/21 05:40: WBC 9.9, RBC 4.45 L, Hgb 12.7 L, Hct 39.1 L, MCV 87.9, MCH 28.5, MCHC 32.5, RDW Std Deviation 41.8, RDW Coeff of Haile 13.0, Plt Count 224, MPV 11.4, Immature Gran % (Auto) 0.400, Neut % (Auto) 66.3, Lymph % (Auto) 19.3, [place] % (Auto) 9.5, Eos % (Auto) 3.8, Baso % (Auto) 0.7, Absolute Neuts (auto) 6.6, Absolute Lymphs (auto) 1.91, Nucleated RBC % 0 06/19/21 05:40: Sodium 140, Potassium 3.6, Chloride 106, Carbon Dioxide 27.0, Anion Gap 7, BUN 10, Creatinine 0.86, Estim Creat Clear Calc 90.58, Est GFR (MDRD) Af Amer 117, Est GFR (MDRD) Non-Af 97, BUN/Creatinine Ratio 11.6, Glucose 178 H, Calcium 8.5, Total Bilirubin 0.50, AST 24, ALT 43, Alkaline Phosphatase 90, Total Protein 6.6, Albumin 3.0 L, Globulin 3.6, Albumin/Globulin Ratio 0.8 L 06/19/21 06:17: POC Glucose 165 H 06/19/21 11:24: POC Glucose 236 H 06/19/21 16:35: POC Glucose 151 H Cardiology Labs/Tests 06/19/21 05:40: WBC 9.9, RBC 4.45 L, Hgb 12.7 L, Hct 39.1 L, MCV 87.9, MCH 28.5, MCHC 32.5, Plt Count 224, MPV 11.4, Immature Gran % (Auto) 0.400, Neut % (Auto) 66.3, Lymph % (Auto) 19.3, [place] % (Auto) 9.5, Eos % (Auto) 3.8, Baso % (Auto) 0.7, Absolute Neuts (auto) 6.6, Nucleated RBC % 0 06/19/21 05:40: Sodium 140, Potassium 3.6, Chloride 106, Carbon Dioxide 27.0, Anion Gap 7, BUN 10, Creatinine 0.86, Est GFR (MDRD) Af Amer 117, Est GFR (MDRD) Non-Af 97, BUN/Creatinine Ratio 11.6, Glucose 178 H, Calcium 8.5, Total Bilirubin 0.50 Rhythm: EKG: Normal sinus rhythm with no acute changes ECHO: Stress Test: Cardiac Cath: PCI: CT Surgery: Holter monitor: EPS: PPM: CXR: Chest CT Scan:
[2021-06-19] MEDS: Atorvastatin Calcium 80 MG Tablet PO (21:29)
[2021-06-19] MEDS: Carvedilol 25 MG Tablet PO (21:29)
[2021-06-19] MEDS: Losartan Potassium 50 MG Tablet PO (21:29)
[2021-06-19 22:41] LABS: Bedside Glucose 135 mg/dL (70-110)
--- NOTE | 2021-06-19 23:42 | PCS.PANDOC ---
PANDEMIC DOCUMENTATION INITIATED: Date: 05/06/2021 Time: 190
[2021-06-20] VITALS (15 sets, daily range): BP systolic 118–151; BP diastolic 69–129; PULSE 60–78; RESP 18–20; TEMP 35.8–36.9; O2SAT 94–97
--- NOTE | 2021-06-20 05:00 | EKG12_ITS ---
Test Reason : AM Blood Pressure : / mmHG Vent. Rate : 078 BPM Atrial Rate : 078 BPM P-R Int : 182 ms QRS Dur : 090 ms QT Int : 406 ms P-R-T Axes : 016 009 -06 degrees QTc Int : 462 ms Normal sinus rhythm Nonspecific T wave abnormality Prolonged QT Abnormal ECG When compared with ECG of 18-JUN-2021 12:07, MANUAL COMPARISON REQUIRED, DATA IS UNCONFIRMED Confirmed by SUSANNA PHAM, RADHA ([id number]), script editor EMILY MAC ([id number]) on 06/20/2021 12:42:20 PM Referred By: ROSEMARY Confirmed By:RADHA MULLINS MD
[2021-06-20 05:15] LABS: Absolute Lymphocyte Count 1.74 X10^3/uL (0.83-4.51); Absolute Neutrophil Count 5.8 X10^3/uL (2.0-7.7); Basophil# 0.05 X10^3/uL; Basophil% 0.6 % (0-1); Eosinophil# 0.35 X10^3/uL; Eosinophils% 3.9 % (0-5); Hematocrit 39.8 % (40-54); Hemoglobin 12.7 g/dL (13.0-16.5); Lymphocyte # 1.74 X10^3/ul (0.83-4.51); Lymphocyte % 19.6 % (19-41); Mean Corp Hgb Conc 31.9 g/dL (32-36); Mean Corpuscular Volume 87.9 fL (80-94); Mean Platelet Vol. 11.1 fl (6.2-12.0); Monocyte# 0.89 X10^3/uL; NRBC Flagged by Analyzer 0 % (0-5); Neutrophil # 5.81 X10^3/uL (2.7-7.7); Neutrophil % 65.6 % (47-70); Platelet Count 234 K/mm3 (150-450); RBC Distribution Width SD 41.9 fl (35.1-43.9); Red Blood Count 4.53 M/mm3 (4.6-6.2); White Blood Count 8.9 K/mm3 (4.4-11.0)
[2021-06-20 05:31] LABS: Anion Gap 8 (5-15); BUN 14 mg/dL (7-18); BUN/Creat Ratio 13.7 RATIO (10-20); Calcium,Total 8.5 mg/dL (8.5-10.1); Chloride 106 mmol/L (98-107); Creatinine, Serum 1.02 mg/dL (0.70-1.30); EST Glomerular Filtration Rate 80 mL/min (>60); Est Glom Filt Rate - Afr Amer 96 mL/min (>60); Estimated Creatinine Clearance 76.37 ml/min; Glucose 184 mg/dL (74-106); International Normalized Ratio 1.1; Potassium 3.6 mmol/L (3.5-5.1); Prothrombin Time (Protime)PT. 13.4 SECONDS (11.7-14.9); Sodium Level 139 mmol/L (136-145)
[2021-06-20] MEDS: amLODIPine 10 MG Tablet PO (06:06)
[2021-06-20] MEDS: Carvedilol 25 MG Tablet PO ×2 (06:06→21:51)
[2021-06-20] MEDS: TICAGRELOR 90 MG TABLET PO ×2 (06:06→21:51)
[2021-06-20] MEDS: Aspirin E.C. 81 MG Tablet PO (06:06)
[2021-06-20] MEDS: Losartan Potassium 50 MG Tablet PO (06:06)
[2021-06-20] MEDS: 0.9% Normal Saline 1,000 ML 15 ML IV (06:08)
[2021-06-20 06:30] LABS: Bedside Glucose 184 mg/dL (70-110)
--- NOTE | 2021-06-20 07:27 | NURSING ---
Gave report to mechanical laboratory technician RN. Pt down at mechanical laboratory technician now.
--- NOTE | 2021-06-20 07:58 | PN.CARD_ITS ---
Subjective Subjective Patient seen and evaluated. Underwent cardiac catheterization today Objective Data Vital Signs: Vital Signs Temp Pulse Resp BP Pulse Ox 97.8 F 68 20 H 131/93 H 97 06/20/21 06:02 06/20/21 06:35 06/20/21 06:02 06/20/21 06:02 06/20/21 06:02 Oxygen Delivery Method Room Air Weight: 262 lb 12.656 oz Body Mass Index (BMI) 40.4 Intake & Output: Intake and Output for Last 24 Hours 06/18/21 06/19/21 06/20/21 23:59 23:59 23:59 Intake Total 800 / 1000 260 / 260 Balance 800 / 1000 260 / 260 Lab / Micro Data Result Diagrams: 06/20/21 05:10 06/20/21 05:10 Labs: Laboratory Results - last 24 hr 06/19/21 11:24: POC Glucose 236 H 06/19/21 16:35: POC Glucose 151 H 06/19/21 21:22: POC Glucose 135 H 06/20/21 05:10: WBC 8.9, RBC 4.53 L, Hgb 12.7 L, Hct 39.8 L, MCV 87.9, MCH 28.0, MCHC 31.9 L, RDW Std Deviation 41.9, RDW Coeff of Haile 13.0, Plt Count 234, MPV 11.1, Immature Gran % (Auto) 0.300, Neut % (Auto) 65.6, Lymph % (Auto) 19.6, [place] % (Auto) 10.0, Eos % (Auto) 3.9, Baso % (Auto) 0.6, Absolute Neuts (auto) 5.8, Absolute Lymphs (auto) 1.74, Nucleated RBC % 0 06/20/21 05:10: PT 13.4, INR 1.1 06/20/21 05:10: Sodium 139, Potassium 3.6, Chloride 106, Carbon Dioxide 25.0, Anion Gap 8, BUN 14, Creatinine 1.02, Estim Creat Clear Calc 76.37, Est GFR (MDRD) Af Amer 96, Est GFR (MDRD) Non-Af 80, BUN/Creatinine Ratio 13.7, Glucose 184 H, Calcium 8.5 06/20/21 06:23: POC Glucose 184 H Cardiology Labs/Tests 06/20/21 05:10: WBC 8.9, RBC 4.53 L, Hgb 12.7 L, Hct 39.8 L, MCV 87.9, MCH 28.0, MCHC 31.9 L, Plt Count 234, MPV 11.1, Immature Gran % (Auto) 0.300, Neut % (Auto) 65.6, Lymph % (Auto) 19.6, [place] % (Auto) 10.0, Eos % (Auto) 3.9, Baso % (Auto) 0.6, Absolute Neuts (auto) 5.8, Nucleated RBC % 0 06/20/21 05:10: PT 13.4, INR 1.1 06/20/21 05:10: Sodium 139, Potassium 3.6, Chloride 106, Carbon Dioxide 25.0, Anion Gap 8, BUN 14, Creatinine 1.02, Est GFR (MDRD) Af Amer 96, Est GFR (MDRD) Non-Af 80, BUN/Creatinine Ratio 13.7, Glucose 184 H, Calcium 8.5 Rhythm: EKG: ECHO: Stress Test: Cardiac Cath: PCI: CT Surgery: Holter monitor: EPS: PPM: CXR: Chest CT Scan: Physical Exam Const alert, oriented x3 and no apparent distress General Appearance: cooperative HEENT hearing grossly normal bilaterally Head and Scalp: atraumatic Eyes EOMs intact bilaterally Neck General: normal visual inspection Chest inspection of chest normal and palpation of chest normal Resp normal respiratory effort Auscultation: clear to auscultation bilaterally Cardio regular rate, regular rhythm, S1 normal heart sound and S2 normal heart sound Jugular Venous Distention: JVD GI normal to inspection, nondistended, normoactive bowel sounds Extremity normal capillary refill and no pedal edema Peripheral Pulses: Yes pulses 2+ throughout and femoral pulses present Skin no rashes or lesions noted Neuro oriented x3 and CN's II-XII intact bilaterally Psych Appearance: grossly normal and appropriate Assessment & Plan Assessment/Plan (1) Chest pain: PLAN: The patient presents with chest discomfort with some features similar to what he had at his myocardial infarction. Cardiac catheterization demonstrated the following: Normal left main coronary artery. Left anterior descending artery with mild disease. Large diagonal vessel with moderate mid to distal disease. Left circumflex artery with second obtuse marginal branch with 95% stenosis. Dominant right coronary artery previously stented with 30% in-stent stenosis. Based on above angiographic findings I would recommend that the patient undergo PCI of the second obtuse marginal branch. We will discuss with interventional rest. (2) Essential hypertension: PLAN: He does have a history of hypertension which is not very well controlled I will recommend that we increase his beta-tamiko as well as his BRADY inhibitor. Thank you for allowing me to participate in the care of your patient. Please don't hesitate to call if any issues arise.
--- NOTE | 2021-06-20 08:14 | CL.D_ITS ---
Patient Name: ALINE HAY Study Date: 06/20/2021 Performing: Edgar Sharp MD Ht: 68.11 inches 173 cm : 1965 Wt: 262.35 lbs 119 kg Age: 56 Gender: male BSA: 2.3 PROCEDURE(S) PERFORMED [id number]/COR/LV VB17-VAA W OR WO PTCA, SINGLE CORONARY ARTERY CLINICAL PROFILE AND INDICATIONS Indications: Worsening Angina Heart Failure: None Stress/Imaging Date: 06/19/21ress Test with SPECT MPI: Positive Intermediate Risk CAD Presentations: Unstable angina. CONCLUSIONS Significant disease noted in the second obtuse marginal branch. The previously stented right coronar y artery is patent with mild in-stent stenosis and there is moderate distal disease noted in a diagon al vessel. RECOMMENDATIONS Referred for immediate PCI DESCRIPTION OF PROCEDURE The patient arrived to the procedure lab. The risks and benefits of the procedure as well as a full d escription of our services here and current unavailability of surgical backup were fully explained to the patient and/or their significant other prior to the catheterization. The Timeout was completed, verifying the correct patient and procedure. The patient's procedural site was prepped and draped in the usual fashion. Local anesthetic was given subcutaneously to right radial region with Lidocaine 2% . Using a modified Seldinger technique, arterial access was obtained via the right radial artery, a 6 Fr sheath was inserted. Right Coronary Artery selective angiography was then performed in multiple v iews using a 5 Fr. 4.0 [place] catheter. Left Coronary Artery selective angiography was performed in mu ltiple views using a 5 Fr. 4.0 [place] catheter. Left Coronary Artery selective angiography was perform ed in multiple views using a 5 Fr. JL4 catheter. Left Ventriculography was performed in CARTY projection using a 5 Fr. Pig[place] catheter. LV to AO pullback pressures were then recorded. CORONARY ANGIOGRAPHY DOMINANCE: Right Dominant LEFT HEART ASSESSMENT Left Ventricular Ejection Fraction: by LV Gram 60 % Normal LV wall motion Normal Left Ventricular systolic function LEFT MAIN: Angiographically normal LEFT ANTERIOR DESCENDING ARTERY: Mild luminal irregularities less than 30% DIAGONAL 1: Distal - 65 % Stenosis CIRCUMFLEX ARTERY: Mild luminal irregularities OM 2: Proximal - 90 % Stenosis RIGHT CORONARY ARTERY: PROX RCA: Previously placed stent has an instent 40 % restenosis RT PDA: Distal - Mild luminal irregularities less than 30% COMPLICATIONS PROCEDURE MEDICATIONS Fentanyl 50 mcg IV Versed 1 mg IV Versed 1 mg IV Versed 1 mg IV Oxygen: 2 L/min via nasal cannula Heparin given IA 06/20/2021 07:36:20 Heparin 6000 unit(s) IV 06/20/2021 08:07:20 Verapamil 2.5mg, Ntg 100mcgs, 3000 units of Heparin given IA 06/20/2021 07:36:20 SUMMARY OF HEMODYNAMIC DATA Time AIR REST ECG 07:28:02 AO 99/78 (88) SA 07:37:58 AO 113/83 (97) 07:41:41 LV 124/8, 23 07:52:54 LV 126/8, 26 07:53:00 LV 109/12, 19 07:53:42 LVp 115/12, 26 07:53:47 AOp 127/78 (97) 07:53:52 Signed By Edgar Sharp MD On 06/20/2021 08:12:58 Edgar Sharp MD
--- NOTE | 2021-06-20 09:30 | EKG12_ITS ---
Test Reason : AM EKG Blood Pressure : / mmHG Vent. Rate : 066 BPM Atrial Rate : 066 BPM P-R Int : 186 ms QRS Dur : 092 ms QT Int : 418 ms P-R-T Axes : 014 -03 000 degrees QTc Int : 438 ms Normal sinus rhythm Inferior infarct , age undetermined , cannot be excluded Abnormal ECG Confirmed by FRANCISCO PHAM, CHANDLER ([id number]), editorial clerk EMILY MAC ([id number]) on 06/24/2021 7:26:56 AM Referred By: JAGJIT Confirmed By:CHANDLER SINGH MD
--- NOTE | 2021-06-20 09:36 | PCIREPORT_ITS ---
PCI Cardiac Cath Report PCI Report: Procedure performed; 1. Successful PCI of 99% proximal OM2 with predilatation using 2 x 12 mm Emerge balloon Followed by placement of drug-eluting stent 2.5 x 18 mm/ Orsiro with reduction of stenosis to 0% Preprocedure JALEEL II flow postprocedure JALEEL-3 flow. 2. Placement of TR band to maintain hemostasis of the right radial artery. Preprocedure diagnosis; 56-year-old patient with a history of CAD and has a STEMI in July 2019 with a PCI of a dominant large RCA/proximal stent Patient had a history of diabetes mellitus, hypertension, obesity and has non-ST elevation CT with symptoms of chest pain on this admission Patient underwent cardiac catheterization today by his primary mexican food cook Dr. Sharp Angiographic films reviewed and had high-grade subtotal 99% proximal OM 2. The RCA stent is patent, left main Short. And had disease in the distal giovanny gonal as well as nonobstructive atherosclerosis of the proximal circumflex artery eccentric atherosclerosis and OM1 branch. Based on his clinical presentation we will proceed with a PCI of the proximal OM2. Clinical diagnosis of CAD with non-STEMI Interventional equipment used; 1. We used 6 [place] JL 4 guide catheter 2. 0.014 run-through extra floppy 180 cm straight guidewire 3. Emerge balloon 2 x 15 mm 4. 2.5 x 18 mm drug-eluting stent/Orsiro. Consent; Risk and benefit of procedure explained in detail patient elected to proceed informed consent obtained. Procedure in detail; E proceed with 6 [place] JL4 guide advanced ascending aorta cannulated the left main Angiographic view was obtained in CARTY caudal. Noted there was 90 degree angulation of the proximal circumflex artery We tried different wires and were able to successfully cross with the run- through wire across the lesion in the subtotal OM 2 branch Proceed with predilatation followed by placement of drug-eluting stent as a specified Patient was given heparin as well as 2 bolus of Integrilin and Integrilin infusion Patient has been on Brilinta and low-dose aspirin Conclusion; Patient had significant coronary atherosclerosis with the subtotal proximal OM2 and successful PCI as described with no complication in the [place] TR band applied to right radial artery arteriotomy site to maintain hemostasis Recommendation; 1. To continue on DAPT Brilinta 90 mg twice daily in addition to low-dose aspirin 81 mg 2. Patient is scheduled for phase 1 cardiac rehab 3. Patient to continue with [facility] cardiology group his primary mexican food cook Dr. Sharp for continuation of cardiac care plan. Cally Roque MD,FACC,[facility]
[2021-06-20] MEDS: Acetaminophen 325 MG Tablet 650 MG PO ×2 (09:57→18:28)
[2021-06-20] MEDS: 0.9% Normal Saline 1,000 ML 75 ML IV (09:58)
[2021-06-20] MEDS: glipiZIDE 5 MG Tablet PO (09:59)
--- NOTE | 2021-06-20 10:00 | EKG12_ITS ---
Test Reason : Blood Pressure : / mmHG Vent. Rate : 064 BPM Atrial Rate : 064 BPM P-R Int : 186 ms QRS Dur : 088 ms QT Int : 430 ms P-R-T Axes : 023 006 004 degrees QTc Int : 443 ms Normal sinus rhythm Normal ECG When compared with ECG of 20-JUN-2021 05:01, No significant change was found Confirmed by SUSANNA PHAM, RADHA ([id number]), loin trimmer EMILY MAC ([id number]) on 06/24/2021 8:12:56 AM Referred By: FRANCISCO Confirmed By:RADHA MULLINS MD
--- NOTE | 2021-06-20 10:02 | CRPHASE1_ITS ---
Patient Communication Former Patient:: Phase I - 06/10/2019, Phase II - 06/16/2019 PHII Cardiac Rehab Discussed with Patient:: Yes Guide to Cardiac Rehab Given to Patient:: Yes Cardiac Rehab Facility Choice List Given to Patient:: Yes Choice Program [facility] CR PHII:: Communication Given to CR, Refer to [facility] Refer Phase II Cardiac Rehab:: Yes Sessions:: 36 sessions - 2 days/wk, 18 weeks Cardiac Rehabilitation Info Cardiac Rehabilitation Program Information: Cardiac Rehabilitation is important for patients like you who are recovering from a heart problem. Cardiac rehabilitation programs are recognized as integral to the continued care of the patient with coronary heart disease. The cardiac rehabilitation program is designed to optimize a patient's physical, psychological, and social functioning. Health animal care attendant work in cardiac rehabilitation programs and assist you with getting the treatments you need to get stronger and healthier - like exercise, healthy eating habits, and medications. Cardiac rehabilitation has been show to help people with heart problems live longer and have better life enjoyment than people who do not go to cardiac rehabilitation. Please contact the Cardiac Rehabilitation Program at [facility] at in two weeks if you have not heard from them.
--- NOTE | 2021-06-20 10:03 | CRPH1.INSTRU ---
General Education CAD and cardiac anatomy and function:: Patient communicates acknowledgment Explanation of diagnoses and procedures:: Patient communicates acknowledgment Sign/Symptoms of AK:: Patient communicates acknowledgment Antiplatelet therapy: Patient communicates acknowledgment Proper use of NTG-SL: Patient communicates acknowledgment Emergency procedures and activation of EMS: Patient communicates acknowledgment Compliance of all prescribed medications: Patient communicates acknowledgment Dyslipidemia Patient Dyslipidemia Risk Factors Are:: Total Cholesterol, Triglycerides, HDL, LDL Recommendations Include:: Lipid profile provided Dyslipidemia Response Code:: Patient communicates acknowledgment Overweight/Obesity Patient Overweight/Obesity Risk Factors Are:: Obesity - > or = 30 Recommendations Include:: Weight loss of 5-10%, Reduced calorie diet, Exercise 5-7 times/week Overweight/Obesity:: Patient communicates acknowledgment Hypertension Recommendations Include:: Maintain BP <130/85, BP <130/80 if diabetic, DASH dietary guidelines, Decrease/maintain normal body weight Hypertension:: Patient communicates acknowledgment Heart Disease Patient Heart Disease Risk Factors Are:: Family history of heart disease < 65 years old, Previous cardiac event Recommendations Include:: Educated family members of their risk, Educated family members of importance of prevention of heart disease Heart Disease Response Code:: Patient communicates acknowledgment Diabetes Patient Diabetes Risk Factors Are:: Elevated blood sugars - Glucose 184; A1c 9.0% Recommendations Include:: Maintain fasting blood sugars 70-110 md/dL, Maintain HgbA1c of 6% or less, Monitor blood sugar as prescribed, Diabetic dietary guidelines, Decrease/maintain body weight Diabetes:: Patient communicates acknowledgment
[2021-06-20 10:12] LABS: Hematocrit 40.2 % (40-54); Mean Corp Hgb Conc 32.3 g/dL (32-36); Mean Corpuscular Volume 86.6 fL (80-94); Mean Platelet Vol. 11.5 fl (6.2-12.0); Platelet Count 241 K/mm3 (150-450); RBC Distribution Width CV 13.2 % (11.6-14.6); RBC Distribution Width SD 41.2 fl (35.1-43.9); Red Blood Count 4.64 M/mm3 (4.6-6.2); White Blood Count 8.8 K/mm3 (4.4-11.0)
[2021-06-20] MEDS: Insulin Lispro 100 UNIT/ML INSULN.PEN SC ×2 (10:39→21:51)
[2021-06-20 11:21] LABS: Bedside Glucose 213 mg/dL (70-110)
--- NOTE | 2021-06-20 11:39 | PN.HOSP_ITS ---
Documented by User: Duane ROGERS 06/20/21 11:55 Subjective Subjective Patient is a 56-year-old male comfortably resting in bed, alert and orient x3 status post PCI. Patient endorses mild chest pain after procedure, denies any other complaints. Denies shortness of breath, palpitations, hemoptysis, sputum production, fever, chills, N/V/D. Objective Data Objective Data Vital Signs: Vital Signs Temp Pulse Resp BP Pulse Ox 97.5 F L 61 18 140/79 H 97 06/20/21 10:30 06/20/21 11:21 06/20/21 11:21 06/20/21 11:21 06/20/21 11:21 Oxygen Delivery Method Room Air Weight: 262 lb 12.656 oz Body Mass Index (BMI) 40.4 Intake & Output: Intake and Output for Last 24 Hours 06/18/21 06/19/21 06/20/21 23:59 23:59 23:59 Intake Total 800 / 1000 260 / 260 Balance 800 / 1000 260 / 260 Lab / Micro Data Result Diagrams: 06/20/21 10:04 06/20/21 05:10 Labs: Laboratory Results - last 24 hr 06/19/21 11:24: POC Glucose 236 H 06/19/21 16:35: POC Glucose 151 H 06/19/21 21:22: POC Glucose 135 H 06/20/21 05:10: WBC 8.9, RBC 4.53 L, Hgb 12.7 L, Hct 39.8 L, MCV 87.9, MCH 28.0, MCHC 31.9 L, RDW Std Deviation 41.9, RDW Coeff of Haile 13.0, Plt Count 234, MPV 11.1, Immature Gran % (Auto) 0.300, Neut % (Auto) 65.6, Lymph % (Auto) 19.6, Collin % (Auto) 10.0, Eos % (Auto) 3.9, Baso % (Auto) 0.6, Absolute Neuts (auto) 5.8, Absolute Lymphs (auto) 1.74, Nucleated RBC % 0 06/20/21 05:10: PT 13.4, INR 1.1 06/20/21 05:10: Sodium 139, Potassium 3.6, Chloride 106, Carbon Dioxide 25.0, Anion Gap 8, BUN 14, Creatinine 1.02, Estim Creat Clear Calc 76.37, Est GFR (MDRD) Af Amer 96, Est GFR (MDRD) Non-Af 80, BUN/Creatinine Ratio 13.7, Glucose 184 H, Calcium 8.5 06/20/21 06:23: POC Glucose 184 H 06/20/21 10:04: WBC 8.8, RBC 4.64, Hgb 13.0, Hct 40.2, MCV 86.6, MCH 28.0, MCHC 32.3, RDW Std Deviation 41.2, RDW Coeff of Haile 13.2, Plt Count 241, MPV 11.5 06/20/21 10:38: POC Glucose 213 H Physical Exam Const alert, oriented x3 and no apparent distress HEENT head/scalp atraumatic and moist oral mucous membranes Head and Scalp: normocephalic Eyes PERRL, EOMs intact bilaterally and conjunctivae normal Neck no lymphadenopathy, supple and no JVD Resp normal respiratory effort, no retractions, no use of accessory muscles and clear to auscultation bilaterally Cardio regular rate, regular rhythm, no murmurs and no JVD GI normal to inspection, nondistended, normoactive bowel sounds, soft to palpation and non-tender Extremity normal to inspection, full ROM and no clubbing, cyanosis or edema Skin no rashes or lesions noted, no wounds and skin turgor normal Neuro CN's II-XII intact bilaterally Psych affect normal Assessment & Plan Assessment/Plan (1) Chest pain: PLAN: Day 2 Discharge planning: Current plan is for patient to discharge home, case management following. 1) CAD s/p PCI Cardiology consulted and performed PCI of the OM2 with stent placement. Abnormal stress test-initial troponin negative x2, third troponin increased to 87. EKG without ST-T changes. Patient underwent nuclear stress test which was reported to be abnormal. Patient was admitted with prior history of stent to RCA. Plan remain admitted overnight for cardiac monitoring, continue Eptifibatide infusion per cardiology, continue aspirin, statin, carvedilol and Brilinta. 2) Hypertension Stable, continue amlodipine, carvedilol and losartan. Increase carvedilol to 25 mg twice daily given blood pressure above goal. As needed hydralazine. 3) DM2 Hold metformin. Continue Accu-Cheks with sliding scale insulin. 4) Hyperlipidemia Continue statin. 5) Obesity Encouraged diet and lifestyle modifications. DVT prophylaxis - Lovenox Patient seen by Duane Del Real PA-C, under the supervision of Dr. Balderas. Documented by User: Dr. Jeet Balderas, DO 06/20/21 15:35 Subjective Subjective Feels well post cath. No further chest pain. Objective Data Lab / Micro Data Result Diagrams: 06/20/21 10:04 06/20/21 05:10 Physical Exam Const alert HEENT Head and Scalp: normocephalic Resp normal respiratory effort, no retractions, no use of accessory muscles and clear to auscultation bilaterally Cardio regular rate, regular rhythm, S1 normal heart sound and S2 normal heart sound GI normal to inspection, nondistended, normoactive bowel sounds, soft to palpation, non-tender and non-distended Assessment & Plan Assessment/Plan (1) Unstable angina: PLAN: Patient seen and examined independently. Data and vitals reviewed. I agree with the above note by the physician educational program assistant. 1. Unstable angina Status post PCI to the obtuse marginal. Continue aspirin, high intensity statin, carvedilol, ticagrelor. Charges/Coding Visit Charges Inpatient E&M: 04445 Subs Hosp L2
--- NOTE | 2021-06-20 15:20 | CASEMGMT ---
TIMBO SALMERON assessement: Face to Face with patient for initial transition planning/care coordination assessment. TIMBO SALMERON introduced self and role at [facility], pt voices understanding and consents to assessment. Pt is lying in bed in no distress on 2L nc. Pt is A/Ox4 and answers all questions appropriately. Pt's is at bedside during assessment. Care providers, pharmacy, and demographics verified. Presentation: Pt c/o CP since yesterday Admitting dx: CP, unstable angina PCP: Cheo Specialists: Fouzia cardio Preferred [facility] Insurance: UMR Prescription Benefit: UMR Living Will/HPOA: Pt states does not have LW/HPOA and declines AD info. LNOK: Irasema Mark, Living Arrangements: Pt states lives with in 1 story home and states no concerns at home. Pt is independent with ADL's. Transportation: Pt states drives self and states no transportation concerns. DME/HHC: Pt states no current DME or need for any further DME. Pt states no hx of HHC or SNF. Pt states no concerns with going home at time of discharge. 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 Pt states does not smoke cigarettes or drink ETOH. Pt states no further concerns/needs. CM to follow for any further discharge planning/needs. Advised pt to ask for CM if any further questions/concerns/needs arise, voices understanding. Pt Goal: Home Plan: [place] TIMBO SALMERON
[2021-06-20 16:20] LABS: Bedside Glucose 130 mg/dL (70-110)
[2021-06-20] MEDS: Atorvastatin Calcium 80 MG Tablet PO (21:51)
[2021-06-20 22:05] LABS: Bedside Glucose 182 mg/dL (70-110)
[2021-06-21 03:00] VITALS: PULSE 63
[2021-06-21 03:20] VITALS: BP 130/88; PULSE 72; RESP 18; TEMP 36.8; O2SAT 93
[2021-06-21] MEDS: Heparin Injection (Vial) 5,000 UNIT/ML VIAL 5000 UNIT SC (05:22)
[2021-06-21] MEDS: Insulin Lispro 100 UNIT/ML INSULN.PEN SC ×2 (06:36→11:08)
[2021-06-21 06:55] LABS: Bedside Glucose 174 mg/dL (70-110)
[2021-06-21 07:00] VITALS: PULSE 66
[2021-06-21 07:34] LABS: Hematocrit 38.2 % (40-54); Hemoglobin 12.3 g/dL (13.0-16.5); Mean Corp Hgb Conc 32.2 g/dL (32-36); Mean Corpuscular Volume 86.8 fL (80-94); Mean Platelet Vol. 11.6 fl (6.2-12.0); Platelet Count 218 K/mm3 (150-450); RBC Distribution Width CV 12.9 % (11.6-14.6); RBC Distribution Width SD 40.9 fl (35.1-43.9); White Blood Count 8.8 K/mm3 (4.4-11.0)
[2021-06-21 08:06] LABS: ALB/GLOB Ratio 0.9 RATIO (0.9-2.4); AST(SGOT) 55 U/L (15-37); Alanine Aminotransfer ALT/SGPT 46 U/L (16-61); Alkaline Phosphatase 94 U/L (45-117); Anion Gap 7 (5-15); BUN 13 mg/dL (7-18); BUN/Creat Ratio 15.2 RATIO (10-20); Calcium,Total 8.5 mg/dL (8.5-10.1); Chloride 106 mmol/L (98-107); Creatinine, Serum 0.86 mg/dL (0.70-1.30); EST Glomerular Filtration Rate 98 mL/min (>60); Est Glom Filt Rate - Afr Amer 118 mL/min (>60); Estimated Creatinine Clearance 90.58 ml/min; Globulin 3.5 g/dL (2.2-4.2); Glucose 184 mg/dL (74-106); Potassium 3.6 mmol/L (3.5-5.1); Protein, Total 6.5 g/dL (6.4-8.2); Sodium Level 138 mmol/L (136-145)
[2021-06-21 08:09] VITALS: BP 138/91; PULSE 75; RESP 18; TEMP 37.2; O2SAT 96
--- NOTE | 2021-06-21 08:09 | PCM.PN.CARD ---
Subjective Subjective Patient seen and eval. Has no complaints overnight. Objective Data Vital Signs: Vital Signs Temp Pulse Resp BP Pulse Ox 98.2 F 66 18 130/88 H 93 06/21/21 03:20 06/21/21 07:00 06/21/21 03:20 06/21/21 03:20 06/21/21 03:20 Oxygen Delivery Method Room Air Weight: 267 lb 10.259 oz Body Mass Index (BMI) 40.4 Intake & Output: Intake and Output for Last 24 Hours 06/19/21 06/20/21 06/21/21 23:59 23:59 23:59 Intake Total 800 / 1000 2106.32 / 2106.32 272.26 / 272.26 Balance 800 / 1000 2106.32 / 2106.32 272.26 / 272.26 Lab / Micro Data Result Diagrams: 06/21/21 06:55 06/21/21 06:55 Labs: Laboratory Results - last 24 hr 06/20/21 10:04: WBC 8.8, RBC 4.64, Hgb 13.0, Hct 40.2, MCV 86.6, MCH 28.0, MCHC 32.3, RDW Std Deviation 41.2, RDW Coeff of Haile 13.2, Plt Count 241, MPV 11.5 06/20/21 10:38: POC Glucose 213 H 06/20/21 16:16: POC Glucose 130 H 06/20/21 21:49: POC Glucose 182 H 06/21/21 06:34: POC Glucose 174 H 06/21/21 06:55: WBC 8.8, RBC 4.40 L, Hgb 12.3 L, Hct 38.2 L, MCV 86.8, MCH 28.0, MCHC 32.2, RDW Std Deviation 40.9, RDW Coeff of Haile 12.9, Plt Count 218, MPV 11.6 06/21/21 06:55: Sodium 138, Potassium 3.6, Chloride 106, Carbon Dioxide 25.0, Anion Gap 7, BUN 13, Creatinine 0.86, Estim Creat Clear Calc 90.58, Est GFR (MDRD) Af Amer 118, Est GFR (MDRD) Non-Af 98, BUN/Creatinine Ratio 15.2, Glucose 184 H, Calcium 8.5, Total Bilirubin 0.60, AST 55 H, ALT 46, Alkaline Phosphatase 94, Total Protein 6.5, Albumin 3.0 L, Globulin 3.5, Albumin/Globulin Ratio 0.9 Cardiology Labs/Tests 06/20/21 10:04: WBC 8.8, RBC 4.64, Hgb 13.0, Hct 40.2, MCV 86.6, MCH 28.0, MCHC 32.3, Plt Count 241, MPV 11.5 06/21/21 06:55: WBC 8.8, RBC 4.40 L, Hgb 12.3 L, Hct 38.2 L, MCV 86.8, MCH 28.0, MCHC 32.2, Plt Count 218, MPV 11.6 06/21/21 06:55: Sodium 138, Potassium 3.6, Chloride 106, Carbon Dioxide 25.0, Anion Gap 7, BUN 13, Creatinine 0.86, Est GFR (MDRD) Af Amer 118, Est GFR (MDRD) Non-Af 98, BUN/Creatinine Ratio 15.2, Glucose 184 H, Calcium 8.5, Total Bilirubin 0.60 Rhythm: EKG: ECHO: Stress Test: Cardiac Cath: PCI: CT Surgery: Holter monitor: EPS: PPM: CXR: Chest CT Scan: Physical Exam Const alert, oriented x3 and no apparent distress General Appearance: cooperative HEENT hearing grossly normal bilaterally Head and Scalp: atraumatic Eyes EOMs intact bilaterally Neck General: normal visual inspection Chest inspection of chest normal and palpation of chest normal Resp normal respiratory effort Auscultation: clear to auscultation bilaterally Cardio regular rate, regular rhythm, S1 normal heart sound and S2 normal heart sound Jugular Venous Distention: JVD GI normal to inspection, nondistended, normoactive bowel sounds Extremity normal capillary refill and no pedal edema Peripheral Pulses: Yes pulses 2+ throughout and femoral pulses present Skin no rashes or lesions noted Neuro oriented x3 and CN's II-XII intact bilaterally Psych Appearance: grossly normal and appropriate Assessment & Plan Assessment/Plan (1) Essential hypertension: PLAN: He does have a history of hypertension which is not very well controlled I will recommend that we increase his beta-tamiko as well as his BRADY inhibitor. Thank you for allowing me to participate in the care of your patient. Please don't hesitate to call if any issues arise. (2) Chest pain: PLAN: The patient presents with chest discomfort with some features similar to what he had at his myocardial infarction. Cardiac catheterization demonstrated the following: Normal left main coronary artery. Left anterior descending artery with mild disease. Large diagonal vessel with moderate mid to distal disease. Left circumflex artery with second obtuse marginal branch with 95% stenosis. Dominant right coronary artery previously stented with 30% in-stent stenosis. Patient underwent angioplasty and stenting. And at this time patient is doing well and can be discharged for outpatient follow-up.
[2021-06-21] MEDS: Aspirin E.C. 81 MG Tablet PO (08:27)
[2021-06-21] MEDS: Carvedilol 25 MG Tablet PO (08:27)
[2021-06-21] MEDS: Losartan Potassium 50 MG Tablet PO (08:27)
[2021-06-21] MEDS: TICAGRELOR 90 MG TABLET PO (08:27)
[2021-06-21] MEDS: glipiZIDE 5 MG Tablet PO (08:27)
[2021-06-21] MEDS: amLODIPine 10 MG Tablet PO (08:28)
[2021-06-21 09:00] VITALS: O2SAT 93
[2021-06-21 09:42] VITALS: O2SAT 96
--- NOTE | 2021-06-21 11:13 | PCM.DC ---
Discharge Instructions Diet Discharge Diet: No restrictions Activity Discharge Activity: Return to Normal Activity Weight Bearing Status: Weight bearing as tolerated Dressing / Incision Call your doctor if you observe: Fever of 101 or Higher, Numbness or Tingling, Shortness of breath, Dizziness, Chest pain, Increased palpitations (irregular heartbeat) and Calf discomfort Follow Up Care Please Follow Up With: Primary care provider When: Within the next two weeks. Test Results: Test results from this visit will be discussed in further detail at your follow-up appointment, if applicable. Discharge Plan Admission Admit Date/Time: 06/19/21 17:49 Primary Reason for Your Visit: Chest pain Attending Provider: Jeet Balderas Primary Care Provider: Fransisco Grider Consulting Providers: Edgar Sharp Discharge Orders/Prescriptions Prescriptions: New carvedilol [Coreg] 25 mg tablet 25 mg PO BID Qty: 60 RF: 0 losartan 50 mg tablet 50 mg PO DAILY Qty: 30 RF: 0 Continued atorvastatin 80 mg tablet 80 mg PO QHS Qty: 90 RF: 3 glipizide 5 mg tablet 5 mg PO DAILY RF: 0 amlodipine 10 MG tablet 10 mg PO DAILY RF: 0 aspirin 81 MG tablet 81 mg PO DAILY@0800 RF: 0 metformin 1,000 MG tablet 1,000 mg PO BIDCM Qty: 60 RF: 0 ticagrelor 90 mg tablet 90 mg PO BID Qty: 60 RF: 11 Discontinued carvedilol 12.5 MG tablet 12.5 mg PO BID Qty: 60 RF: 0 Referrals / Follow Up: Fransisco Grider DO [Primary Care Provider] - Within 2 Weeks Edgar Sharp MD [STAFF PHYSICIAN] - Within 2 Weeks Disposition Disposition (needs filled in before D/C Order can be placed): Home, Self Care
[2021-06-21 11:30] LABS: Bedside Glucose 169 mg/dL (70-110)
--- NOTE | 2021-06-21 13:51 | DS.PCM_ITS ---
Documented by User: Duane ROGERS 06/21/21 14:00 Providers Date of Admission: 06/19/21 Primary Care Physician: Dr. Fransisco Grider, Consultations 06/19/21 12:43 Consult: Cardiology Routine Consulting Provider: Edgar Sharp Reason for Consult: chest pain, cad, abnormal stress test EMERGENT Consult: No MD Notified: Yes Date Notified: 06/19/21 Time Notified: 12:43 Method of Notification: Text Reason For Visit: CHEST PAIN Diagnosis Discharge Diagnosis (1) Essential hypertension: Status: Chronic Code(s): I10 - Essential (primary) hypertension (2) Chest pain: Status: Acute Code(s): R07.9 - Chest pain, unspecified Medications at Discharge Home Medications amlodipine 10 mg PO DAILY 01/06/18 aspirin 81 mg PO DAILY@0800 tab 06/11/19 metformin 1,000 mg PO BIDCM #60 tab 06/11/19 atorvastatin 80 mg tablet 80 mg PO QHS #90 tab 07/02/20 ticagrelor 90 mg tablet 90 mg PO BID #60 tab 08/09/20 glipizide 5 mg tablet 5 mg PO DAILY 01/07/21 carvedilol [Coreg] 25 mg PO BID #60 tab 06/21/21 losartan 50 mg PO DAILY #30 tab 06/21/21 Hospital Course Procedures Cardiac catheterization and Nuclear stress test Summary of Care Provided Minutes Spent on Discharge: 35 Hospital Course: Disposition: Patient to be discharged home. 1) Unstable angina Cardiology consulted and performed PCI of the OM2 with stent placement. Abnormal stress test-initial troponin negative x2, third troponin increased to 87. Patient underwent nuclear stress test which was reported to be abnormal. Patient was admitted with prior history of stent to RCA. Plan: Patient to be discharged home and follow-up with primary care provider and cardiology within the next 2 weeks, increase carvedilol to 25 mg p.o. twice daily, increase losar morrison to 50 mg p.o. daily, continue ticagrelor, aspirin and atorvastatin. 2) Hypertension Stable, continue amlodipine, carvedilol and losartan increased as above. 3) DM2 Hold metformin. Continue Accu-Cheks with sliding scale insulin. 4) Hyperlipidemia Continue statin. 5) Obesity Encouraged diet and lifestyle modifications. Patient seen by Duane Del Real PA-C, under the supervision of Dr. Balderas. Physical Exam Const alert, oriented x3 and no apparent distress HEENT normocephalic, head/scalp atraumatic and hearing grossly normal bilaterally Eyes PERRL, EOMs intact bilaterally and conjunctivae normal Neck no lymphadenopathy, supple and no JVD Resp normal respiratory effort, no retractions, no use of accessory muscles and clear to auscultation bilaterally Cardio regular rate, regular rhythm, no murmurs and no JVD GI normal to inspection, nondistended, normoactive bowel sounds, soft to palpation and non-tender Extremity normal to inspection, full ROM and no clubbing, cyanosis or edema Skin no rashes or lesions noted, no wounds and skin turgor normal Neuro CN's II-XII intact bilaterally Psych affect normal Weight / BMI Weight Weight: 267 lb 10.259 oz Body Mass Index (BMI) 40.4 ABG / Lab / Microbiology Data Result Diagrams: 06/21/21 06:55 06/21/21 06:55 Laboratory: Laboratory Results - last 24 hr 06/20/21 16:16: POC Glucose 130 H 06/20/21 21:49: POC Glucose 182 H 06/21/21 06:34: POC Glucose 174 H 06/21/21 06:55: WBC 8.8, RBC 4.40 L, Hgb 12.3 L, Hct 38.2 L, MCV 86.8, MCH 28.0, MCHC 32.2, RDW Std Deviation 40.9, RDW Coeff of Haile 12.9, Plt Count 218, MPV 11.6 06/21/21 06:55: Sodium 138, Potassium 3.6, Chloride 106, Carbon Dioxide 25.0, Anion Gap 7, BUN 13, Creatinine 0.86, Estim Creat Clear Calc 90.58, Est GFR (MDRD) Af Amer 118, Est GFR (MDRD) Non-Af 98, BUN/Creatinine Ratio 15.2, Glucose 184 H, Calcium 8.5, Total Bilirubin 0.60, AST 55 H, ALT 46, Alkaline Phosphatase 94, Total Protein 6.5, Albumin 3.0 L, Globulin 3.5, Albumin/Globulin Ratio 0.9 06/21/21 11:06: POC Glucose 169 H D/C Instructions Discharge Diet: No restrictions Weight Bearing Status: Weight bearing as tolerated Call your doctor if you observe: Fever of 101 or Higher, Numbness or Tingling, Shortness of breath, Dizziness, Chest pain, Increased palpitations (irregular heartbeat) and Calf discomfort Please Follow Up With: Primary care provider When: Within the next two weeks. Meaningful Use Info Meaningful Use Diagnoses (Choose all that apply): None applicable Discharge Plan Admission Admit Date/Time: 06/19/21 17:49 Primary Reason for Your Visit: Chest pain Attending Provider: Jeet Balderas Primary Care Provider: Fransisco Grider Consulting Providers: Edgar Sharp Discharge Orders/Prescriptions Prescriptions: New carvedilol [Coreg] 25 mg tablet 25 mg PO BID Qty: 60 RF: 0 losartan 50 mg tablet 50 mg PO DAILY Qty: 30 RF: 0 Continued atorvastatin 80 mg tablet 80 mg PO QHS Qty: 90 RF: 3 glipizide 5 mg tablet 5 mg PO DAILY RF: 0 amlodipine 10 MG tablet 10 mg PO DAILY RF: 0 aspirin 81 MG tablet 81 mg PO DAILY@0800 RF: 0 metformin 1,000 MG tablet 1,000 mg PO BIDCM Qty: 60 RF: 0 ticagrelor 90 mg tablet 90 mg PO BID Qty: 60 RF: 11 Discontinued carvedilol 12.5 MG tablet 12.5 mg PO BID Qty: 60 RF: 0 Referrals / Follow Up: Fransisco Grider DO [Primary Care Provider] - Within 2 Weeks Edgar Sharp MD [STAFF PHYSICIAN] - Within 2 Weeks Disposition Disposition (needs filled in before D/C Order can be placed): Home, Self Care Documented by User: Dr. Jeet Balderas DO 06/21/21 15:57 Providers Date of Admission: 06/19/21 Reason For Visit: CHEST PAIN Diagnosis Discharge Diagnosis (1) Unstable angina: Status: Acute Code(s): I20.0 - Unstable angina Medications at Discharge Home Medications amlodipine 10 mg PO DAILY 01/06/18 aspirin 81 mg PO DAILY@0800 tab 06/11/19 metformin 1,000 mg PO BIDCM #60 tab 06/11/19 atorvastatin 80 mg tablet 80 mg PO QHS #90 tab 07/02/20 ticagrelor 90 mg tablet 90 mg PO BID #60 tab 08/09/20 glipizide 5 mg tablet 5 mg PO DAILY 01/07/21 carvedilol [Coreg] 25 mg PO BID #60 tab 06/21/21 losartan 50 mg PO DAILY #30 tab 06/21/21 Hospital Course Procedures Cardiac catheterization and Nuclear stress test Summary of Care Provided Minutes Spent on Discharge: 32 Hospital Course: Patient seen and examined independently. Data and vitals reviewed. I agree with the above note by the physician assistant infant teacher. This is a 56-year-old male presents with chest pain. Troponins are negative a stress test was abnormal. Patient underwent left heart catheterization and patient underwent stent to the obtuse marginal. Patient had some transient chest pain afterwards but has been chest pain-free since then. Patient will be discharged home with follow-up with cardiology. Physical Exam Const alert Resp normal respiratory effort, no retractions, no use of accessory muscles and clear to auscultation bilaterally Cardio regular rate, regular rhythm, S1 normal heart sound and S2 normal heart sound ABG / Lab / Microbiology Data Result Diagrams: 06/21/21 06:55 06/21/21 06:55 Discharge Plan Admission Admit Date/Time: 06/19/21 17:49 Primary Reason for Your Visit: Chest pain Attending Provider: Jeet Balderas Primary Care Provider: Fransisco Grider Consulting Providers: Edgar Sharp Discharge Orders/Prescriptions Prescriptions: New carvedilol [Coreg] 25 mg tablet 25 mg PO BID Qty: 60 RF: 0 losartan 50 mg tablet 50 mg PO DAILY Qty: 30 RF: 0 Continued atorvastatin 80 mg tablet 80 mg PO QHS Qty: 90 RF: 3 glipizide 5 mg tablet 5 mg PO DAILY RF: 0 amlodipine 10 MG tablet 10 mg PO DAILY RF: 0 aspirin 81 MG tablet 81 mg PO DAILY@0800 RF: 0 metformin 1,000 MG tablet 1,000 mg PO BIDCM Qty: 60 RF: 0 ticagrelor 90 mg tablet 90 mg PO BID Qty: 60 RF: 11 Discontinued carvedilol 12.5 MG tablet 12.5 mg PO BID Qty: 60 RF: 0 Referrals / Follow Up: Fransisco Grider DO [Primary Care Provider] - Within 2 Weeks LilaEdgar jackson MD [STAFF PHYSICIAN] - Within 2 Weeks Disposition Disposition (needs filled in before D/C Order can be placed): Home, Self Care Charges/Coding Visit Charges Inpatient E&M: 17208 Disch Hosp
--- NOTE | 2021-06-21 15:12 | NURSING ---
Read and reviewed SN documentation. Reviewed Plan of Care with SN
== END 2021-06-21 13:05 | disposition home or self-care (01) | DRG 247 ==
LOC: ED 17:00 → PCU 18:31
PROVIDERS: Internal Medicine Interventional Cardiology; Nurse Practitioner Family; Admitting Provider Internal Medicine; Emergency Provider Emergency Medicine; PCP Family Medicine
DX: I25.110 Atherosclerotic heart disease of native coronary artery with unstable angina pectoris (principal); Z68.41 Body mass index [BMI] 40.0-44.9, adult; T82.855A Stenosis of coronary artery stent, initial encounter; Z23 Encounter for immunization; E11.9 Type 2 diabetes mellitus without complications; I10 Essential (primary) hypertension; E78.5 Hyperlipidemia, unspecified; E66.01 Morbid (severe) obesity due to excess calories; R94.39 Abnormal result of other cardiovascular function study; I25.2 Old myocardial infarction; Z79.899 Other long term (current) drug therapy; Z79.82 Long term (current) use of aspirin; Z79.84 Long term (current) use of oral hypoglycemic drugs; Z87.891 Personal history of nicotine dependence; Y83.1 Surgical operation with implant of artificial internal device as the cause of abnormal reaction of the patient, or of later complication, without mention of misadventure at the time of the procedure
CPT/HCPCS: 36415; 71045; 78452; 80048; 80053; 82962; 84484; 85025; 85027; 85610; 91300; 92928; 93005; 93017; 93458; 97802; 99152; 99153; 99251; 99285; A9500; C1874; J7030; Q9967; A4216; C1725; C1769; C1887; C1894; C9600; G0463; J1327; J2785

== ENCOUNTER → 2022-01-30 | Outpatient (CLI) | payer OTHER, SELFPAY ==
[2019-06-10 09:48] VITALS: BMI 45.0
[2022-01-30 18:02] LABS: AST(SGOT) 22 U/L (15-37); Alanine Aminotransfer ALT/SGPT 43 U/L (16-61); Albumin, Serum 3.5 g/dL (3.2-5.0); Alkaline Phosphatase 106 U/L (45-117); Bilirubin, Direct 0.09 mg/dL (0.00-0.30); Cholesterol 107 mg/dL (200); Globulin 3.5 g/dL (2.2-4.2); High Density Lipoprotein 43 mg/dL; Triglycerides 96 mg/dL; Very Low Density Lipoprotein 19 mg/dL (5-40)
== END | disposition home or self-care (01) ==
LOC: LAB 14:55
PROVIDERS: Physician Assistant Medical; PCP Family Medicine; Referring Provider Internal Medicine Cardiovascular Disease; Visit Provider Internal Medicine Cardiovascular Disease
DX: E78.00 Pure hypercholesterolemia, unspecified (principal); I25.10 Atherosclerotic heart disease of native coronary artery without angina pectoris; I10 Essential (primary) hypertension
CPT/HCPCS: 36415; 80061; 80076

== ENCOUNTER 2022-07-15 15:18 | Observation (INO) | payer OTHER, SELFPAY ==
[2019-06-10 09:48] VITALS: BMI 45.0
[2022-07-15] VITALS (7 sets, daily range): BP systolic 133–149; BP diastolic 83–91; PULSE 64–77; RESP 14–23; TEMP 36.2–36.6; O2SAT 94–98; BMI 39.5; BMI 41.6
--- NOTE | 2022-07-15 15:31 | EKG12_ITS ---
Test Reason : Blood Pressure : / mmHG Vent. Rate : 075 BPM Atrial Rate : 075 BPM P-R Int : 188 ms QRS Dur : 088 ms QT Int : 386 ms P-R-T Axes : 007 004 004 degrees QTc Int : 431 ms Normal sinus rhythm Normal ECG Confirmed by FRANCISCO PHAM, CHANDLER ([id number]), news videotape editor EMILY MAC ([id number]) on 07/17/2022 10:38:00 AM Referred By: Confirmed By:CHANDLER SINGH MD
--- NOTE | 2022-07-15 15:32 | EDS_ITS ---
HPI History of Present Illness Chief Complaint: Chest Pain Informant: patient Narrative Narrative: Patient presents with chest pain. He states over the last week he has been having episodes of chest pain that occur on the left chest. He describes it as an aching or a bruising feeling over his left chest. It does not radiate. He has had shortness of breath with it some of the episodes but not everyone. No nausea vomiting or diaphoresis. It does tend to occur with activity but has occurred at rest a few times also. He states this is the same feeling he has had before both of his last stents. He had stents placed in May 2019 and 2020. He is taking all of his medicines including cholesterol blood pressure diabetes Brilinta and a baby aspirin daily. He sees Dr. Sharp for cardiology. [facility] Medical History Atherosclerosis of coronary artery of [place] heart without angina pectoris Essential hypertension History of non-ST elevation myocardial infarction (NSTEMI) (06/09/19) Obesity Type 2 diabetes mellitus without complication Unstable angina Home Medications aspirin 81 mg tablet,delayed release 81 mg PO DAILY@0800 06/11/19 [Rx Last Taken 07/15/22] metformin 1,000 mg tablet 1,000 mg PO BIDCM #60 tabs 06/11/19 [Rx Last Taken 07/15/22] atorvastatin 80 mg tablet 80 mg PO QHS #90 tabs 07/02/20 [Rx Last Taken 07/14/22] glipizide 5 mg tablet 5 mg PO DAILY 01/07/21 [History Last Taken 07/15/22] carvedilol 25 mg tablet (Coreg) 25 mg PO BID #60 tabs 06/21/21 [Rx Last Taken 07/15/22] losartan 50 mg tablet 50 mg PO DAILY #30 tabs 06/21/21 [Rx Last Taken 07/15/22] amlodipine 10 mg tablet 10 mg PO DAILY #90 tabs 07/18/21 [Rx Last Taken 07/15/22] gabapentin 300 mg capsule 300 mg PO BID 07/18/21 [History Last Taken 07/15/22] ticagrelor 90 mg tablet 90 mg PO BID #180 tabs 07/18/21 [Rx Last Taken 07/15/22] hydrochlorothiazide 25 mg tablet 25 mg PO DAILY #90 tabs 01/30/22 [Rx Last Taken 07/15/22] Allergy/AdvReac Type Severity Reaction Status Date / Time hornet venom Allergy Severe Anaphylaxis Verified 07/15/22 15:21 Family History Mother Cancer Father Thyroid disorder Cancer lymphoma Surgical History History of coronary artery stent placement (06/20/21) History of left inguinal hernia repair History of umbilical hernia repair Social History Smoking Status: Former smoker how long ago did patient quit smokin months ago alcohol intake: never substance use type: does not use caffeine: Yes Type: coffee Number of servings: 4 ROS ROS ED Constitutional Constitutional ED: Denies chills or fever(s) ENT ENT ED: Denies sore throat Cardiovascular Cardiovascular: Reports as per HPI and chest pain Respiratory/Chest Respiratory/Chest: Reports dyspnea Gastrointestinal Gastrointestinal: Denies nausea or vomiting Musculoskeletal Musculoskeletal: Denies back pain or neck pain Integumentary Denies rash Neurologic Neurologic: Denies headache(s) or paresthesias Endocrine Endocrinology: Denies polydipsia or polyuria Hematologic/Lymphatic Hematologic/Lymphatic: Reports easy bleeding and easy bruising Allergic/Immunologic Allergic/Immunologic ED: Denies urticaria EXAM Physical Exam Const Vital Signs: 07/15/22 15:19 07/15/22 15:37 07/15/22 15:37 Temperature 97.1 F L Temperature Source Temporal Pulse Rate 77 74 Respiratory Rate 14 20 H Respiratory Effort Blood Pressure 139/86 H Blood Pressure Mean 103 Pulse Ox 98 94 94 Oxygen Delivery Method Room Air Room Air Room Air 07/15/22 15:37 07/15/22 16:45 Temperature Temperature Source Pulse Rate 65 Respiratory Rate 23 H Respiratory Effort Short of Breath Blood Pressure 133/85 H Blood Pressure Mean 101 Pulse Ox 96 Oxygen Delivery Method Room Air Positive well nourished and obese General Appearance ED: NAD Nutritional Appearance: obese HEENT Reports moist mucous membranes Eyes General Eye ED: Negative for scleral icterus Neck no JVD Chest Wall inspection of chest normal Chest Narrative: No reproducible tenderness. Resp normal respiratory effort and clear to auscultation bilaterally Cardio regular rate, regular rhythm and no murmurs Peripheral Pulses: pulses 2+ throughout GI normal to inspection, nondistended, normoactive bowel sounds, soft to palpation and non-tender Back/Spine no CVA tenderness Extremity Extremity Narrative: Patient does have some trace edema to his legs but they are normal for him. Neuro Sensorium / Orientation: awake and alert Psych mental status grossly normal Skin no rashes or lesions noted Heart Score History: Moderately Suspicious ECG: Nonspecific Repolarization Age: >45 - <65 years Risk Factors: >/= 3 Risk Factors or History of CAD Troponin: </= Normal Limit Score: 5 MDM MDM MDM Narrative Medical decision making narrative: Patient has a high overall high risk history. He is having pain similar to his prior pain. For this reason he will be brought in the hospital for further evaluation. Lab Data Attestation: I reviewed the patient's lab results. Labs: Laboratory Results - last 24 hr 07/15/22 07/15/22 15:45 15:45 WBC 10.1 RBC 4.85 Hgb 13.8 Hct 41.6 MCV 85.8 MCH 28.5 MCHC 33.2 RDW Std Deviation 42.0 RDW Coeff of Haile 13.4 Plt Count 216 MPV 11.2 Immature Gran % (Auto) 0.600 Neut % (Auto) 65.4 Lymph % (Auto) 18.7 L [place] % (Auto) 9.8 Eos % (Auto) 4.6 Baso % (Auto) 0.9 Absolute Neuts (auto) 6.6 Absolute Lymphs (auto) 1.89 Nucleated RBC % 0 Sodium 140 Potassium 3.8 Chloride 109 H Carbon Dioxide 26.0 Anion Gap 5 BUN 21 H Creatinine 1.12 Estim Creat Clear Calc 68.71 Est GFR (MDRD) Af Amer 86 Est GFR (MDRD) Non-Af 71 BUN/Creatinine Ratio 18.8 Glucose 117 H Calcium 9.5 Troponin I High Sens 5 Radiography Diagnostic Testing: Clinical Impression(s) from Imaging Studies Chest X-Ray 07/15/22 15:45 IMPRESSION: No acute cardiopulmonary pathology Electronically Signed: Eric Villa MD at 16:47 EDT , X-ray shows no acute pathology. Looked at by me and read by radiology. EKG Initial EKG: Comments: EKG done for chest pain read by me shows normal sinus rhythm with overall rate of 75. No ventricular ectopy. No acute ST elevation or depression. There are nonspecific ST changes. AK interval, QRS duration and QTc normal. This is similar to 18 June 2021. Discharge Plan Dx/Rx/DC Orders Clinical Impression: Chest pain Disposition Disposition: Acute Care Hospital [facility] Discharge Date/Time: 07/15/22 20:16
--- NOTE | 2022-07-15 15:45 | RAD_ITS ---
STUDY: X-RAY CHEST REASON FOR EXAM: Male, 57 years old. chest pain TECHNIQUE: AP portable COMPARISON: 06/18/2021. FINDINGS: The lungs are clear and expanded. There is no demonstrated pleural abnormality. Normal size heart. Normal mediastinum and roopa. Normal visualized pulmonary arteries. Normal visualized aortic arch and descending thoracic aorta. Thoracic spine and shoulders demonstrate degenerative changes Normal visualized ribs and clavicles. There is no demonstrated abnormality of the visualized soft tissue structures of the upper abdomen. RAD/Chest 1 View (Portable) IMPRESSION: No acute cardiopulmonary pathology Electronically Signed: Eric Villa MD at 16:47 EDT ,
[2022-07-15 15:51] LABS: Absolute Lymphocyte Count 1.89 X10^3/uL (0.83-4.51); Absolute Neutrophil Count 6.6 X10^3/uL (2.0-7.7); Basophil# 0.09 X10^3/uL; Basophil% 0.9 % (0-1); Eosinophil# 0.47 X10^3/uL; Eosinophils% 4.6 % (0-5); Hematocrit 41.6 % (40-54); Hemoglobin 13.8 g/dL (13.0-16.5); Lymphocyte # 1.89 X10^3/ul (0.83-4.51); Lymphocyte % 18.7 % (19-41); Mean Corp Hgb Conc 33.2 g/dL (32-36); Mean Corpuscular Hgb 28.5 pg (27.0-32.0); Mean Corpuscular Volume 85.8 fL (80-94); Mean Platelet Vol. 11.2 fl (6.2-12.0); Monocyte# 0.99 X10^3/uL; Monocyte% 9.8 % (0-10); NRBC Flagged by Analyzer 0 % (0-5); Neutrophil # 6.62 X10^3/uL (2.7-7.7); Neutrophil % 65.4 % (47-70); Platelet Count 216 K/mm3 (150-450); RBC Distribution Width CV 13.4 % (11.6-14.6); Red Blood Count 4.85 M/mm3 (4.6-6.2); White Blood Count 10.1 K/mm3 (4.4-11.0)
[2022-07-15] MEDS: Aspirin 81 MG TAB.CHEW 324 MG PO (15:51)
[2022-07-15 16:08] LABS: Anion Gap 5 (5-15); BUN 21 mg/dL (7-18); BUN/Creat Ratio 18.8 RATIO (10-20); Calcium,Total 9.5 mg/dL (8.5-10.1); Chloride 109 mmol/L (98-107); Creatinine, Serum 1.12 mg/dL (0.70-1.30); EST Glomerular Filtration Rate 71 mL/min (>60); Est Glom Filt Rate - Afr Amer 86 mL/min (>60); Estimated Creatinine Clearance 68.71 ml/min; Glucose 117 mg/dL (74-106); Potassium 3.8 mmol/L (3.5-5.1); Sodium Level 140 mmol/L (136-145); Troponin-I HS (w/2H Reflex) 5 pg/mL (3.0-78.0)
[2022-07-15 17:49] LABS: Reflex Troponin-HS? (from REC) Y
[2022-07-15 18:32] LABS: Troponin-I HS 7 pg/mL (3.0-78.0)
--- NOTE | 2022-07-15 19:15 | PCM.HP.STD ---
HPI - General General Date of Admission: 07/15/22 HPI Narrative ALINE HAY, is a 57 M who presents to the hospital with chest pain for about a week. He says it mostly occurs with activity and is very similar to the previous episodes of chest pain that caused him to have stents placed in 2019 and 2020. Currently states that he is chest pain-free, troponin on admission was 5 and his EKG was nonspecific. He states that his chest pain is on the left side of his chest but does not radiate. He denies any lightheadedness or shortness of breath with these episodes. [facility] Medical History Atherosclerosis of coronary artery of [place] heart without angina pectoris Essential hypertension History of non-ST elevation myocardial infarction (NSTEMI) (06/09/19) Obesity Type 2 diabetes mellitus without complication Unstable angina Home Medications aspirin 81 mg tablet,delayed release 81 mg PO DAILY@0800 06/11/19 [Rx Last Taken 07/15/22] metformin 1,000 mg tablet 1,000 mg PO BIDCM #60 tabs 06/11/19 [Rx Last Taken 07/15/22] atorvastatin 80 mg tablet 80 mg PO QHS #90 tabs 07/02/20 [Rx Last Taken 07/14/22] glipizide 5 mg tablet 5 mg PO DAILY 01/07/21 [History Last Taken 07/15/22] carvedilol 25 mg tablet (Coreg) 25 mg PO BID #60 tabs 06/21/21 [Rx Last Taken 07/15/22] losartan 50 mg tablet 50 mg PO DAILY #30 tabs 06/21/21 [Rx Last Taken 07/15/22] amlodipine 10 mg tablet 10 mg PO DAILY #90 tabs 07/18/21 [Rx Last Taken 07/15/22] gabapentin 300 mg capsule 300 mg PO BID 07/18/21 [History Last Taken 07/15/22] ticagrelor 90 mg tablet 90 mg PO BID #180 tabs 07/18/21 [Rx Last Taken 07/15/22] hydrochlorothiazide 25 mg tablet 25 mg PO DAILY #90 tabs 01/30/22 [Rx Last Taken 07/15/22] Allergy/AdvReac Type Severity Reaction Status Date / Time hornet venom Allergy Severe Anaphylaxis Verified 07/15/22 15:21 Family History Mother Cancer Father Thyroid disorder Cancer lymphoma Surgical History History of coronary artery stent placement (06/20/21) History of left inguinal hernia repair History of umbilical hernia repair Social History Smoking Status: Former smoker how long ago did patient quit smokin months ago alcohol intake: never substance use type: does not use caffeine: Yes Type: coffee Number of servings: 4 ROS Constitutional Constitutional: Denies chills, fatigue, fever(s) or malaise Eyes Eyes: Denies blurry vision ENT HEENT: Denies headache(s) or nasal discharge Cardiovascular Cardiovascular: Reports chest pain; Denies dyspnea on exertion or syncope Respiratory/Chest Respiratory/Chest: Denies cough, shortness of breath at rest or shortness of breath with exertion Gastrointestinal Gastrointestinal: Denies constipation, diarrhea, nausea or vomiting Genitourinary Genitourinary: Denies dysuria Neurologic Neurologic: Denies focal weakness, numbness or tremor(s) Psychiatric Psychiatric: Denies anxiety or depression Vital Signs Vital Signs Vital Signs: 07/15/22 15:19 07/15/22 15:37 07/15/22 15:37 Temperature 97.1 F L Temperature Source Temporal Pulse Rate 77 74 Respiratory Rate 14 20 H Respiratory Effort Blood Pressure 139/86 H Blood Pressure Mean 103 Pulse Ox 98 94 94 Oxygen Delivery Method Room Air Room Air Room Air 07/15/22 15:37 07/15/22 16:45 07/15/22 18:00 Temperature 97.8 F Temperature Source Temporal Pulse Rate 65 64 Respiratory Rate 23 H 21 H Respiratory Effort Short of Breath Blood Pressure 133/85 H 149/89 H Blood Pressure Mean 101 109 Pulse Ox 96 95 Oxygen Delivery Method Room Air Room Air 07/15/22 19:00 Temperature Temperature Source Pulse Rate 64 Respiratory Rate 18 Respiratory Effort Blood Pressure 149/83 H Blood Pressure Mean 105 Pulse Ox 95 Oxygen Delivery Method Room Air Weight Weight: 260 lb Body Mass Index (BMI) 39.5 Physical Exam Narrative General: Alert, Oriented x3, Cooperative, No apparent distress HEENT: Atraumatic, PERRLA, EOMI, Normocephalic Oral: Moist Mucosa Neck: Supple, No JVD Lungs: Clear to auscultation, Normal air movement, No rhonchi, No wheeze, No rales Cardiovascular: Regular rate, Regular Rhythm, Normal S1, Normal S2, No murmurs Abdomen: Soft, Non Tender, Non-Distended, No Hepato-splenomegaly Extremities: No edema, Capillary Refill Less than 3 Seconds Skin: No rashes, No breakdown Musculoskeletal: No Tenderness to Palpation of Joints or Extremities Neurological: Cranial nerves II-XII grossly intact, Motor Exam 5/5 strength throughout, Sensory exam intact to light touch and pain Psych/Mental Status: Normal Affect, Appropriate Results Lab / Micro Data Result Diagrams: 07/15/22 15:45 07/15/22 15:45 Labs: Laboratory Results - last 24 hr 07/15/22 15:45: WBC 10.1, RBC 4.85, Hgb 13.8, Hct 41.6, MCV 85.8, MCH 28.5, MCHC 33.2, RDW Std Deviation 42.0, RDW Coeff of Haile 13.4, Plt Count 216, MPV 11.2, Immature Gran % (Auto) 0.600, Neut % (Auto) 65.4, Lymph % (Auto) 18.7 L, [place] % (Auto) 9.8, Eos % (Auto) 4.6, Baso % (Auto) 0.9, Absolute Neuts (auto) 6.6, Absolute Lymphs (auto) 1.89, Nucleated RBC % 0 07/15/22 15:45: Sodium 140, Potassium 3.8, Chloride 109 H, Carbon Dioxide 26.0, Anion Gap 5, BUN 21 H, Creatinine 1.12, Estim Creat Clear Calc 68.71, Est GFR (MDRD) Af Amer 86, Est GFR (MDRD) Non-Af 71, BUN/Creatinine Ratio 18.8, Glucose 117 H, Calcium 9.5, Troponin I High Sens 5 07/15/22 17:55: Troponin I High Sens 7 Radiology Impression Chest X-Ray 07/15/22 15:45 IMPRESSION: No acute cardiopulmonary pathology Electronically Signed: Eric Villa MD at 16:47 EDT Reading Location ID and State: [facility] / [place] , Service support , Assessment & Plan Assessment/Plan (1) Chest pain: PLAN: Plan 1. Chest pain/HTN/HLD/CAD status post stent ? Cardiology will see him in the morning ? Initial troponin was 5 and the second troponin was 7, will complete the series on admission ? Continue with his home blood pressure medications as well as his aspirin, Lipitor, and Brilinta 2. DM2/morbid obesity ? BMI of 39.5, had an extensive counseling session with him and his on lifestyle modifications for weight loss ? We will hold his home Gretchen and glipizide, sliding scale insulin ? Accu-Cheks AC at bedtime ? We will continue to monitor and make adjustments DVT: Ambulation Charges/Coding Visit Charges OBSV E&M: 68640 Initial observation care L2
--- NOTE | 2022-07-15 20:26 | EKG12_ITS ---
Test Reason : CP ADMIT PER PROTOCOL Blood Pressure : / mmHG Vent. Rate : 067 BPM Atrial Rate : 067 BPM P-R Int : 184 ms QRS Dur : 090 ms QT Int : 396 ms P-R-T Axes : 012 -02 019 degrees QTc Int : 418 ms Normal sinus rhythm Inferior infarct , age undetermined , cannot be excluded Abnormal ECG Confirmed by FRANCISCO PHAM, CHANDLER ([id number]), market editor EMILY MAC ([id number]) on 07/17/2022 10:30:55 AM Referred By: Confirmed By:CHANDLER SINGH MD
[2022-07-15] MEDS: Atorvastatin Calcium 80 MG Tablet PO (21:39)
[2022-07-15] MEDS: Carvedilol 25 MG Tablet PO (21:39)
[2022-07-15] MEDS: Gabapentin 300 MG Capsule PO (21:39)
[2022-07-15] MEDS: TICAGRELOR 90 MG TABLET PO (21:39)
[2022-07-15] MEDS: 0.9% Saline Lock 10 ML Syringe IV (21:40)
[2022-07-15 22:18] LABS: Troponin-I HS 6 pg/mL (3.0-78.0)
[2022-07-15 23:15] LABS: Bedside Glucose 136 mg/dL (74-106)
[2022-07-16] VITALS (17 sets, daily range): BP systolic 122–143; BP diastolic 71–94; PULSE 0–88; RESP 16–18; TEMP 36.3–36.7; O2SAT 92–97
--- NOTE | 2022-07-16 02:13 | PCM.HOSP.N ---
Hospitalist Note Pt had a 6-second pause while he was sleeping. Currently asymptomatic. Notes PND episode tonight, but also at home. Said he wakes up tachycardic and short of breath. I reviewed the tele strip and measured a 6.12 second sinus pause. Pt denies any chest pain. Plan: DC carvedilol. Consult cardiology. Discussed case with Dr. Sharif and cardiology with evaluate today. I verified code status. Pt confirms full code status. Told pt it is concerning that he may have OMAIRA and recommend outpt PSG. In the meantime, he could try sleeping on his side with his head up.
[2022-07-16 05:33] LABS: Absolute Lymphocyte Count 1.93 X10^3/uL (0.83-4.51); Absolute Neutrophil Count 6.4 X10^3/uL (2.0-7.7); Basophil# 0.07 X10^3/uL; Basophil% 0.7 % (0-1); Eosinophil# 0.46 X10^3/uL; Eosinophils% 4.6 % (0-5); Hematocrit 39.3 % (40-54); Hemoglobin 12.8 g/dL (13.0-16.5); Lymphocyte # 1.93 X10^3/ul (0.83-4.51); Lymphocyte % 19.4 % (19-41); Mean Corp Hgb Conc 32.6 g/dL (32-36); Mean Corpuscular Hgb 28.2 pg (27.0-32.0); Mean Corpuscular Volume 86.6 fL (80-94); Mean Platelet Vol. 11.5 fl (6.2-12.0); Monocyte# 1.01 X10^3/uL; Monocyte% 10.2 % (0-10); NRBC Flagged by Analyzer 0 % (0-5); Neutrophil # 6.44 X10^3/uL (2.7-7.7); Neutrophil % 64.7 % (47-70); Platelet Count 210 K/mm3 (150-450); RBC Distribution Width CV 13.6 % (11.6-14.6); RBC Distribution Width SD 42.7 fl (35.1-43.9); Red Blood Count 4.54 M/mm3 (4.6-6.2)
[2022-07-16 05:54] LABS: Anion Gap 3 (5-15); BUN 18 mg/dL (7-18); BUN/Creat Ratio 15.5 RATIO (10-20); Chloride 107 mmol/L (98-107); Creatinine, Serum 1.16 mg/dL (0.70-1.30); EST Glomerular Filtration Rate 68 mL/min (>60); Est Glom Filt Rate - Afr Amer 83 mL/min (>60); Estimated Creatinine Clearance 66.34 ml/min; Glucose 169 mg/dL (74-106); Potassium 3.6 mmol/L (3.5-5.1); Sodium Level 139 mmol/L (136-145)
[2022-07-16] MEDS: TICAGRELOR 90 MG TABLET PO (06:29)
[2022-07-16] MEDS: Aspirin E.C. 81 MG Tablet PO (06:29)
[2022-07-16] MEDS: Losartan Potassium 50 MG Tablet PO (06:30)
[2022-07-16 06:51] LABS: Bedside Glucose 170 mg/dL (74-106)
--- NOTE | 2022-07-16 07:29 | CON.PCM.CA_ITS ---
Assessment & Plan Assessment/Plan (1) Chest pain: PLAN: He presents with chest discomfort which is atypical. He says that he has been having this on and off with exertion. His last catheterization demonstrated patency of the above vessels. However it may be prudent to reassess this to exclude any obstructive disease especially to his circumflex obtuse marginal vessel as well as his right coronary artery. Depending on the findings further recommendations will be made. (2) Essential hypertension: PLAN: His blood is under good control on the current medical therapy and I would not recommend that we make any other changes with respect to his medication. (3) History of coronary artery stent placement: PLAN: He did have previous coronary stent placement in his right coronary artery as well as his obtuse marginal vessel. This will be reevaluated sometime during this admission. (4) Cardiac arrhythmia: PLAN: He did have an episode of cardiac dysrhythmia noted during sleep. This will be reevaluated to make sure that its not related to a right coronary artery lesion. We may need to adjust his beta-tamiko or obtain other monitoring on the lower dose before resorting to permanent pacer support especially as this was noted during sleep. He does have the physique which may be related to obstructive sleep apnea and this would also need to be evaluated. Thank you for allowing me to participate in the care of your patient. Please don't hesitate to call if any issues arise. HPI Consult Data Date of Consult: 07/16/22 HPI Narrative HPI Narrative: ALINE HAY, is a 57 M who presents emergency room yesterday evening with chest discomfort which he says occurs with exertion. He is well-known to me and the hospitalist called me and discussed at about whether to admit him or to follow him up as an outpatient. He was seen as an outpatient earlier this year and at that time was free of any cardiac symptomatology.? In May 2019 he was admitted for an acute WI that required stenting to his RCA. ? He was just recently admitted to the hospital in May of 2021 for chest pain, he u nderwent a cardiac catheterization, and stenting to his OM 2. He also has history of hypertension and diabetes. His EKG on presentation did not have any significant cardiac changes and his troponin was completely negative. He is rather anxious. He denies SOB, Orthopnea, and PND. He denies any bleeding issues; no blood in urine, stool or nosebleeds. He denies any decrease in energy level, myalgias, or claudication.? He does not have edema, or sudden weight gain. He does not have dizziness, lig htheadedness, syncopal or near syncopal episodes, and headaches.? His physical exam here is unremarkable.? He was monitored on the telemetry unit and did not have any syncopal episodes but was noted to have a pause on telemetry. [facility] Medical History Atherosclerosis of coronary artery of [place] heart without angina pectoris Essential hypertension History of non-ST elevation myocardial infarction (NSTEMI) (06/09/19) Obesity Type 2 diabetes mellitus without complication Unstable angina Home Medications aspirin 81 mg tablet,delayed release 81 mg PO DAILY@0800 06/11/19 [Rx Last Taken 07/15/22] metformin 1,000 mg tablet 1,000 mg PO BIDCM #60 tabs 06/11/19 [Rx Last Taken 07/15/22] atorvastatin 80 mg tablet 80 mg PO QHS #90 tabs 07/02/20 [Rx Last Taken 07/14/22] glipizide 5 mg tablet 5 mg PO DAILY 01/07/21 [History Last Taken 07/15/22] carvedilol 25 mg tablet (Coreg) 25 mg PO BID #60 tabs 06/21/21 [Rx Last Taken 07/15/22] losartan 50 mg tablet 50 mg PO DAILY #30 tabs 06/21/21 [Rx Last Taken 07/15/22] amlodipine 10 mg tablet 10 mg PO DAILY #90 tabs 07/18/21 [Rx Last Taken 07/15/22] gabapentin 300 mg capsule 300 mg PO BID 07/18/21 [History Last Taken 07/15/22] ticagrelor 90 mg tablet 90 mg PO BID #180 tabs 07/18/21 [Rx Last Taken 07/15/22] hydrochlorothiazide 25 mg tablet 25 mg PO DAILY #90 tabs 01/30/22 [Rx Last Taken 07/15/22] Allergy/AdvReac Type Severity Reaction Status Date / Time hornet venom Allergy Severe Anaphylaxis Verified 07/15/22 15:21 Family History Mother Cancer Father Thyroid disorder Cancer lymphoma Surgical History History of coronary artery stent placement (06/20/21) History of left inguinal hernia repair History of umbilical hernia repair Social History Smoking Status: Former smoker how long ago did patient quit smokin months ago alcohol intake: never substance use type: does not use caffeine: Yes Type: coffee Number of servings: 4 ROS Constitutional Constitutional: Denies chills, fatigue, fever(s) or malaise Eyes Eyes: Denies blurry vision ENT HEENT: Denies headache(s) or nasal discharge Cardiovascular Cardiovascular: Reports chest pain; Denies dyspnea on exertion or syncope Respiratory/Chest Respiratory/Chest: Denies cough, shortness of breath at rest or shortness of breath with exertion Gastrointestinal Gastrointestinal: Denies constipation, diarrhea, nausea or vomiting Genitourinary Genitourinary: Denies dysuria Neurologic Neurologic: Denies focal weakness, numbness or tremor(s) Psychiatric Psychiatric: Denies anxiety or depression Physical Exam Const alert, oriented x3 and no apparent distress General Appearance: cooperative HEENT hearing grossly normal bilaterally Head and Scalp: atraumatic Eyes EOMs intact bilaterally Neck General: normal visual inspection Chest inspection of chest normal and palpation of chest normal Resp normal respiratory effort Auscultation: clear to auscultation bilaterally Cardio regular rate, regular rhythm, S1 normal heart sound and S2 normal heart sound Jugular Venous Distention: JVD GI normal to inspection, nondistended, normoactive bowel sounds Extremity normal capillary refill and no pedal edema Peripheral Pulses: Yes pulses 2+ throughout and femoral pulses present Skin no rashes or lesions noted Neuro oriented x3 and CN's II-XII intact bilaterally Psych Appearance: grossly normal and appropriate Risk Stratification Risk Stratification Applicable: No Objective Data Vital Signs: Vital Signs Temp Pulse Resp BP Pulse Ox O2 Del Method 98.0 F 63 16 136/84 H 97 Room Air 07/16/22 02:30 07/16/22 03:00 07/16/22 02:30 07/16/22 02:30 07/16/22 02:30 07/16/22 02:30 Oxygen Delivery Method Room Air Weight: 274 lb 11.135 oz Body Mass Index (BMI) 41.6 Intake & Output: Intake and Output for Last 24 Hours 07/14/22 07/15/22 07/16/22 23:59 23:59 23:59 Intake Total 120 / 120 Balance 120 / 120 Lab / Micro Data Result Diagrams: 07/16/22 05:00 07/16/22 05:00 Labs: Laboratory Results - last 24 hr 07/15/22 15:45: WBC 10.1, RBC 4.85, Hgb 13.8, Hct 41.6, MCV 85.8, MCH 28.5, MCHC 33.2, RDW Std Deviation 42.0, RDW Coeff of Haile 13.4, Plt Count 216, MPV 11.2, Immature Gran % (Auto) 0.600, Neut % (Auto) 65.4, Lymph % (Auto) 18.7 L, [place] % (Auto) 9.8, Eos % (Auto) 4.6, Baso % (Auto) 0.9, Absolute Neuts (auto) 6.6, Absolute Lymphs (auto) 1.89, Nucleated RBC % 0 07/15/22 15:45: Sodium 140, Potassium 3.8, Chloride 109 H, Carbon Dioxide 26.0, Anion Gap 5, BUN 21 H, Creatinine 1.12, Estim Creat Clear Calc 68.71, Est GFR (MDRD) Af Amer 86, Est GFR (MDRD) Non-Af 71, BUN/Creatinine Ratio 18.8, Glucose 117 H, Calcium 9.5, Troponin I High Sens 5 07/15/22 17:55: Troponin I High Sens 7 07/15/22 21:16: POC Glucose 136 H 07/15/22 21:45: Troponin I High Sens 6 07/16/22 05:00: WBC 10.0, RBC 4.54 L, Hgb 12.8 L, Hct 39.3 L, MCV 86.6, MCH 28.2, MCHC 32.6, RDW Std Deviation 42.7, RDW Coeff of Haile 13.6, Plt Count 210, MPV 11.5, Immature Gran % (Auto) 0.400, Neut % (Auto) 64.7, Lymph % (Auto) 19.4, [place] % (Auto) 10.2 H, Eos % (Auto) 4.6, Baso % (Auto) 0.7, Absolute Neuts (auto) 6.4, Absolute Lymphs (auto) 1.93, Nucleated RBC % 0 07/16/22 05:00: Sodium 139, Potassium 3.6, Chloride 107, Carbon Dioxide 29.0, Anion Gap 3 L, BUN 18, Creatinine 1.16, Estim Creat Clear Calc 66.34, Est GFR (MDRD) Af Amer 83, Est GFR (MDRD) Non-Af 68, BUN/Creatinine Ratio 15.5, Glucose 169 H, Calcium 9.0 07/16/22 06:26: POC Glucose 170 H Cardiology Labs/Tests 07/15/22 15:45: WBC 10.1, RBC 4.85, Hgb 13.8, Hct 41.6, MCV 85.8, MCH 28.5, MCHC 33.2, Plt Count 216, MPV 11.2, Immature Gran % (Auto) 0.600, Neut % (Auto) 65.4, Lymph % (Auto) 18.7 L, [place] % (Auto) 9.8, Eos % (Auto) 4.6, Baso % (Auto) 0.9, Absolute Neuts (auto) 6.6, Nucleated RBC % 0 07/15/22 15:45: Sodium 140, Potassium 3.8, Chloride 109 H, Carbon Dioxide 26.0, Anion Gap 5, BUN 21 H, Creatinine 1.12, Est GFR (MDRD) Af Amer 86, Est GFR (MDRD) Non-Af 71, BUN/Creatinine Ratio 18.8, Glucose 117 H, Calcium 9.5 07/16/22 05:00: WBC 10.0, RBC 4.54 L, Hgb 12.8 L, Hct 39.3 L, MCV 86.6, MCH 28.2, MCHC 32.6, Plt Count 210, MPV 11.5, Immature Gran % (Auto) 0.400, Neut % (Auto) 64.7, Lymph % (Auto) 19.4, [place] % (Auto) 10.2 H, Eos % (Auto) 4.6, Baso % (Auto) 0.7, Absolute Neuts (auto) 6.4, Nucleated RBC % 0 07/16/22 05:00: Sodium 139, Potassium 3.6, Chloride 107, Carbon Dioxide 29.0, Anion Gap 3 L, BUN 18, Creatinine 1.16, Est GFR (MDRD) Af Amer 83, Est GFR (MDRD) Non-Af 68, BUN/Creatinine Ratio 15.5, Glucose 169 H, Calcium 9.0 Rhythm: EKG: ECHO: Stress Test: Cardiac Cath: PCI: CT Surgery: Holter monitor: EPS: PPM: CXR: Chest CT Scan: Radiography Diagnostic Testing: Radiology Impression Chest X-Ray 07/15/22 15:45 IMPRESSION: No acute cardiopulmonary pathology Electronically Signed: Eric Villa MD at 16:47 EDT ,
[2022-07-16] MEDS: amLODIPine 10 MG Tablet PO (08:31)
[2022-07-16 11:30] LABS: Bedside Glucose 167 mg/dL (74-106)
--- NOTE | 2022-07-16 11:53 | NURSING ---
Report called to nurse Clint for pt to go to [facility]
[2022-07-16 13:12] LABS: Thyroid Stim Hormone (TSH) 1.78 uIU/mL (0.358-3.74)
--- NOTE | 2022-07-16 13:25 | DS.PCM_ITS ---
Providers Date of Admission: 07/15/22 Date of Discharge: 07/16/22 Primary Care Physician: Dr. Fransisco Grider, Consultations 07/16/22 02:17 Consult: Cardiology Routine Consulting Provider: Corey Sharif Reason for Consult: sinus pause EMERGENT Consult: No MD Notified: Yes Date Notified: 07/16/22 Time Notified: 02:18 Method of Notification: Verbal Reason For Visit: CHEST PAIN R/O Diagnosis Discharge Diagnosis (1) Chest pain: Status: Acute Code(s): R07.9 - Chest pain, unspecified (2) Essential hypertension: Status: Acute Code(s): I10 - Essential (primary) hypertension (3) History of coronary artery stent placement: Status: Acute Code(s): Z95.5 - Presence of coronary angioplasty implant and graft (4) Cardiac arrhythmia: Status: Acute Code(s): I49.9 - Cardiac arrhythmia, unspecified Medications at Discharge Home Medications aspirin 81 mg tablet,delayed release 81 mg PO DAILY@0800 06/11/19 metformin 1,000 mg tablet 1,000 mg PO BIDCM #60 tabs 06/11/19 atorvastatin 80 mg tablet 80 mg PO QHS #90 tabs 07/02/20 glipizide 5 mg tablet 5 mg PO DAILY 01/07/21 losartan 50 mg tablet 50 mg PO DAILY #30 tabs 06/21/21 amlodipine 10 mg tablet 10 mg PO DAILY #90 tabs 07/18/21 gabapentin 300 mg capsule 300 mg PO BID 07/18/21 ticagrelor 90 mg tablet 90 mg PO BID #180 tabs 07/18/21 hydrochlorothiazide 25 mg tablet 25 mg PO DAILY #90 tabs 01/30/22 carvedilol 12.5 mg tablet (Coreg) 12.5 mg PO BID #60 tabs 07/16/22 Hospital Course Operations None Procedures Cardiac catheterization and EKG Summary of Care Provided Minutes Spent on Discharge: 25 Hospital Course: Mr. Mark is a 57-year-old white male who presented to the emergency department at [facility] on 07/15/2022 with chest pain that he had been experiencing for approximately 1 week. He reported that it mostly occurred with activity and was very similar to previous episodes of chest pain that he had prior to his stent placements in 2018 and 2020. He was chest pain- free in the emergency department and his troponin on admission was 5. EKG was unremarkable upon presentation. The patient noted that the pain was on the left side of his chest and did not radiate and was not associated with any lightheadedness, shortness of breath, nausea, vomiting or diaphoresis. He was admitted to the telemetry floor maintained on his baseline medications. Overnight he experienced a 6-second pause at which time his carvedilol was dis continued and the case was discussed with cardiology. The patient was evaluated by cardiology and we were all in agreements that his nocturnal arrhythmia is very likely related to obstructive sleep apnea and we recommended outpatient polysomnography. We have obtained an outpatient pulmonary follow-up to obtain an order for a sleep study. He was taken for cardiac catheterization on 07/16/2022 and all of her stents were found to be patent with no further intervention needed. The case was discussed with cardiology and they recommended decreasing his Coreg to 12.5 twice daily and obtaining a 48-hour Holter monitor. These changes were addressed at discharge and he was instructed to follow-up with Dr. Sharp's office in 4 to 6 weeks. As noted we did obtain an outpatient follow-up with pulmonary medicine which is on 08/04/2022. We have also recommended that he follow-up with his outpatient primary care physician in the next 2 weeks. He was discharged home in stable condition on 07/16/2022. Discharge diagnoses: Noncardiac chest pain Sinus pause Suspected sleep apnea History of CAD Hypertension HPL DM-2 Diabetic neuropathy Morbid obesity Physical Exam Const alert, oriented x3 and no apparent distress Constitutional Narrative: Morbidly obese, white male sitting up in bed, appears comfortable nontoxic, awaiting cardiac catheterization General Appearance: cooperative, comfortable, well kempt and well developed Orientation / Consciousness: awake Exam Limitations: no limitations Nutritional Appearance: morbidly obese HEENT normocephalic, head/scalp atraumatic and moist oral mucous membranes HEENT Narrative: Mild hearing loss, Mallampati 3, dentures in place, no thrush Resp normal respiratory effort, no retractions, no use of accessory muscles and clear to auscultation bilaterally Auscultation: Negative for crackles, rales, rhonchi or wheezes Cardio regular rate, regular rhythm, S1 normal heart sound, S2 normal heart sound, no murmurs, no rub, no gallops, no clicks and no JVD GI normal to inspection, nondistended, normoactive bowel sounds, soft to palpation and non-tender Extremity Extremity Narrative: Trace bilateral lower extremity edema, no cyanosis or clubbing Neuro oriented x3, CN's II-XII intact bilaterally, moves all extremities and no focal motor deficits Speech: speech normal Psych affect normal Psych Narrative: Very pleasant and appropriately interactive Weight / BMI Weight Weight: 124.6 kg Body Mass Index (BMI) 41.6 ABG / Lab / Microbiology Data Result Diagrams: 07/16/22 05:00 07/16/22 05:00 Laboratory: Laboratory Results - last 24 hr 07/15/22 15:45: WBC 10.1, RBC 4.85, Hgb 13.8, Hct 41.6, MCV 85.8, MCH 28.5, MCHC 33.2, RDW Std Deviation 42.0, RDW Coeff of [place] 13.4, Plt Count 216, MPV 11.2, Immature Gran % (Auto) 0.600, Neut % (Auto) 65.4, Lymph % (Auto) 18.7 L, [place] % (Auto) 9.8, Eos % (Auto) 4.6, Baso % (Auto) 0.9, Absolute Neuts (auto) 6.6, Absolute Lymphs (auto) 1.89, Nucleated RBC % 0 07/15/22 15:45: Sodium 140, Potassium 3.8, Chloride 109 H, Carbon Dioxide 26.0, Anion Gap 5, BUN 21 H, Creatinine 1.12, Estim Creat Clear Calc 68.71, Est GFR (MDRD) Af Amer 86, Est GFR (MDRD) Non-Af 71, BUN/Creatinine Ratio 18.8, Glucose 117 H, Calcium 9.5, Troponin I High Sens 5 07/15/22 17:55: Troponin I High Sens 7 07/15/22 21:16: POC Glucose 136 H 07/15/22 21:45: Troponin I High Sens 6 07/16/22 05:00: WBC 10.0, RBC 4.54 L, Hgb 12.8 L, Hct 39.3 L, MCV 86.6, MCH 28.2, MCHC 32.6, RDW Std Deviation 42.7, RDW Coeff of [place] 13.6, Plt Count 210, MPV 11.5, Immature Gran % (Auto) 0.400, Neut % (Auto) 64.7, Lymph % (Auto) 19.4, [place] % (Auto) 10.2 H, Eos % (Auto) 4.6, Baso % (Auto) 0.7, Absolute Neuts (auto) 6.4, Absolute Lymphs (auto) 1.93, Nucleated RBC % 0 07/16/22 05:00: Sodium 139, Potassium 3.6, Chloride 107, Carbon Dioxide 29.0, Anion Gap 3 L, BUN 18, Creatinine 1.16, Estim Creat Clear Calc 66.34, Est GFR (MDRD) Af Amer 83, Est GFR (MDRD) Non-Af 68, BUN/Creatinine Ratio 15.5, Glucose 169 H, Calcium 9.0 07/16/22 05:00: TSH 1.78 07/16/22 06:26: POC Glucose 170 H 07/16/22 11:09: POC Glucose 167 H Radiography Diagnostic Testing: Radiology Impression Chest X-Ray 07/15/22 15:45 IMPRESSION: No acute cardiopulmonary pathology Electronically Signed: Eric Villa MD at 16:47 EDT , D/C Instructions Discharge Diet: Low fat / Low cholesterol and 1800 Calorie Control Diet Discharge Activity: Return to Normal Activity Return to work on: 07/17/22 Meaningful Use Info Meaningful Use Diagnoses (Choose all that apply): None applicable Discharge Plan Admission Admit Date/Time: 07/15/22 17:46 Primary Reason for Your Visit: Chest pain Attending Provider: Rupa Rodarte Primary Care Provider: Fransisco Grider Consulting Providers: Corey Sharif ; Dandre Loredo Instructions Additional Instructions / Restrictions: 1. Please note change in home Coreg dosing from 25 mg to 12.5 mg twice daily. Okay to cut 25 mg tablets in half and take 1/2 tablet twice daily until your current prescription has run out Discharge Orders/Prescriptions Prescriptions: New carvedilol [Coreg] 12.5 mg tablet 12.5 mg PO BID Qty: 60 1RF Rx Instructions: must administer with a meal/food Continued atorvastatin 80 mg tablet 80 mg PO QHS Qty: 90 3RF glipizide 5 mg tablet 5 mg PO DAILY gabapentin 300 mg capsule 300 mg PO BID amlodipine 10 mg tablet 10 mg PO DAILY Qty: 90 3RF ticagrelor 90 mg tablet 90 mg PO BID Qty: 180 3RF hydrochlorothiazide 25 mg tablet 25 mg PO DAILY Qty: 90 3RF aspirin 81 MG tablet 81 mg PO DAILY@0800 0RF metformin 1,000 MG tablet 1,000 mg PO BIDCM Qty: 60 0RF losartan 50 mg tablet 50 mg PO DAILY Qty: 30 0RF Discontinued carvedilol [Coreg] 25 mg tablet 25 mg PO BID Qty: 60 0RF Rx Instructions: must administer with a meal/food Other Ambulatory Orders: Cardiac Holter Monitor, 48 Hrs (Routine) Timeframe: 1 Day Facility: [facility] - Location: Cardiovascular Services Ordered By: Dr. Rupa Rodarte Referrals / Follow Up: Fransisco Grider DO [Primary Care Provider] - Within 2 Weeks LilaEdgar jackson MD [Med Staff - Active Staff] - See Referral Note (4 to 6 weeks) Naima Rosen NP, [employer] [Med Staff - Adv Practice Prof] - 08/04/22 1:45 pm (Needs outpatient sleep study) Disposition Disposition (needs filled in before D/C Order can be placed): Home, Self Care Charges/Coding Visit Charges OBSV E&M: 50353 Observation care discharge
[2022-07-16] MEDS: hydroCHLOROthiazide 25 MG Tablet PO (14:03)
[2022-07-16] MEDS: Gabapentin 300 MG Capsule PO (14:03)
--- NOTE | 2022-07-16 14:38 | CHAPLAIN ---
Type of Pastoral Visit _x__ Initial Visit ___ Follow-up Visit ___ On-call Visit ___ General Patient Visit ___ Spiritual Assessment ___ Family Conference ___ Bereavement ___ Rapid Response ___ Code Blue ___ Other (describe below) Pastoral Care Referral From _x__ Patient ___ Family ___ Nurse ___ Physician ___ Material Reprocessing Associate ___ Kaiako Kura [place] ___ Other (describe below) Sacrament/Intervention _x__ Active listening ___ Anointing ___ Restorationism ___ Bereavement ___ Communion ___ Lissette exploration ___ ___ Life review ___ Prayer ___ Reconciliation ___ Sacrament of Sick ___ Supportive presence ___ Wedding ___ Other (describe below) Pastoral Comments patient had just returned from Heart Cath; pt reports that everything looked good and that he didn't need a stent; pt has had heart issues in the past and states he is relieved at todays results; pt is looking forward to eating; pt states no other concerns at this time
--- NOTE | 2022-07-16 17:40 | CL.D_ITS ---
Patient Name: ALINE HAY Study Date: 07/16/2022 Performing: Edgar Sharp MD Ht: 68 inches 172.72 cm : 1965 Wt: 275.1 lbs 124.6 kg Age: 57 Gender: male BSA: 2.34 PROCEDURE(S) PERFORMED [id number]-([id number])[facility] CL[facility]ICAL PROFILE AND INDICATIONS Indications: Suspected CAD Heart Failure: None Stress/Imaging Stress/Image Study Performed: No CAD Presentations: Unstable angina. CONCLUSIONS Previously placed stents noted in the right coronary artery as well as the left circumflex artery are patent. Mild disease noted in the left anterior descending artery. RECOMMENDATIONS Medical therapy DESCRIPTION OF PROCEDURE The patient arrived to the procedure lab. The risks and benefits of the procedure as well as a full description of our services here and current unavailability of surgical backup were fully explained to the patient and/or their significant other prior to the catheterization. The Timeout was completed, verifying the correct patient and procedure. The patient's procedural site was prepped and draped in the usual fashion. Local anesthetic was given subcutaneously to right radial region with Lidocaine 2%. Using a modified Seldinger technique, arterial access was obtained via the right radial artery, a 6Fr sheath was inserted. Left Coronary Artery selective angiography was performed in multiple views using a 5 Fr. 4.0 [place] catheter. Right Coronary Artery selective angiography was then performed in multiple views using a 5 Fr. 4.0 [place] catheter.The arterial sheath was pulled and a TR Band was applied for hemostasis w/ 15ml air CORONARY ANGIOGRAPHY DOMINANCE: Right Dominant LEFT HEART ASSESSMENT Left Ventricular Ejection Fraction: by Echo 55 % Normal LV wall motion Normal Left Ventricular systolic function LEFT MAIN: Angiographically normal LEFT ANTERIOR DESCENDING ARTERY: No significant disease noted, Mild luminal irregularities DIAGONAL 1: Proximal - Moderate luminal irregularities up to 50% CIRCUMFLEX ARTERY: Previously placed stent is patent OM 1: Proximal - Previously placed stent is patent RIGHT CORONARY ARTERY: MID RCA: Previously placed stent is patent COMPLICATIONS No Complications PROCEDURE MEDICATIONS Versed 1 mg IV Fentanyl 50 mcg IV Oxygen: 2 L/min via nasal cannula Heparin given IA 07/16/2022 12:47:32 SUMMARY OF HEMODYNAMIC DATA Time AIR REST ECG 12:10:38 Art 149/70 (100) 12:35:29 Signed By Edgar Sharp MD On 07/16/2022 17:39:36 Edgar Sharp MD
== END 2022-07-16 13:27 | disposition home or self-care (01) ==
LOC: ED 16:06 → PCU 17:50
PROVIDERS: Internal Medicine Cardiovascular Disease; Admitting Provider Family Medicine; Emergency Provider Emergency Medicine; PCP Family Medicine; Visit Provider Internal Medicine
DX: R07.89 Other chest pain (principal); E11.40 Type 2 diabetes mellitus with diabetic neuropathy, unspecified; E66.01 Morbid (severe) obesity due to excess calories; Z68.41 Body mass index [BMI] 40.0-44.9, adult; Z79.82 Long term (current) use of aspirin; I25.10 Atherosclerotic heart disease of native coronary artery without angina pectoris; Z79.84 Long term (current) use of oral hypoglycemic drugs; I49.9 Cardiac arrhythmia, unspecified; I10 Essential (primary) hypertension; Z87.891 Personal history of nicotine dependence; Z79.899 Other long term (current) drug therapy; I25.2 Old myocardial infarction; G47.33 Obstructive sleep apnea (adult) (pediatric)
CPT/HCPCS: 36415; 71045; 80048; 82962; 84443; 84484; 85025; 93005; 93454; 99152; 99153; 99218; 99285; J7040; Q9967; A4216; C1769; C1894; G0378

== ENCOUNTER → 2022-07-16 | Outpatient (CLI) | payer OTHER, SELFPAY ==
[2019-06-10 09:48] VITALS: BMI 45.0
== END | disposition home or self-care (01) ==
LOC: PSN 14:02
PROVIDERS: PCP Family Medicine; Visit Provider Internal Medicine
DX: I49.9 Cardiac arrhythmia, unspecified (principal)
CPT/HCPCS: 93225; 93226

== ENCOUNTER 2022-07-28 12:55 | Observation (INO) | payer OTHER, SELFPAY ==
[2019-06-10 09:48] VITALS: BMI 45.0
[2022-07-23 10:45] VITALS: BMI 40.8
[2022-07-23 12:01] LABS: Bacteria 0 SEEN /hpf (None Seen); Mucous, Urine 0 SEEN /hpf (<or=2+); Red Blood Cells-Urine 0 SEEN /hpf (0-5); White Blood Cells 0 SEEN /hpf (0-5)
[2022-07-23 12:29] LABS: Color, Urine Yellow (Yellow); Glucose, Dipstick Normal (Normal); Ketone-Dipstick Negative (Negative); Leukocyte Esterase-Dipstick Negative /ul (Negative); Nitrite-Dipstick Negative (Negative); Occult Blood-Urine Negative /ul (Negative); Protein-Dipstick 100 mg/dl (Negative); Urine Bilirubin Dipstick Negative (Negative); Urine Clarity Clear (Clear); Urine Urobilinogen Normal (Normal)
[2022-07-23 12:38] LABS: Squamous Epithelial Cells - UA 0-5 SEEN /hpf (0-5)
--- NOTE | 2022-07-28 13:05 | CL.IE_ITS ---
Patient: ALINE HAY Study Date: 07/28/2022 Performing: Edgar Sharp MD : 1965 Age: 57 Gender: male PROCEDURES PERFORMED [id number]-([id number])INITIAL PACER INSERT+DUAL LEADS INDICATIONS Atrioventricular (AV) block PROCEDURE DETAILS The patient was brought to the Catheterization Lab in the postabsorptive nonsedated state. Informed consent was obtained prior to the procedure. Local anesthetic was given subcutaneously to the left subclavian region with Lidocaine 2%. Access was achieved and a guidewire was advanced into the left subclavian vein. A peel-away sheath was inserted into the left subclavian vein - 9f. PPM ventricular lead was inserted / positioned to right ventricular apex. The sheath was then removed. PPM ventricular lead testing performed. PPM ventricular lead testing performed. A peel-away sheath was inserted into the left subclavian vein - 7f. PPM atrial lead was inserted / positioned to the right atrial appendage. The sheath was then removed. PPM atrial lead testing performed. The Atrial lead sutured in place with 2-0 [place]. The Ventricular PM lead sutured in place with 2-0 Silk. PPM generator was attached to the lead(s) and inserted into the pocket. PPM generator was then interrogated by the computer programmer chief. Subcutaneous closure was completed with 2-0 Vicryl. Skin closure was completed with 4-0 Vicryl. The patient tolerated the procedure well. Estimated Blood Loss: 20 ml's IMPLANTED / EX-PLANTED DEVICES IMPLANTED DEVICE(S): PPM Atrial lead - Codifier: [employer], Model # INGEVITY 7841 , Serial # [id number] PPM Ventricular lead - Codifier: [employer], Model # INGEVITY 7842 , Serial # [id number] PPM Generator - Codifier: [employer], Model # ESSENTIO L111 , Serial # [id number] DEVICE PARAMETERS ATRIAL LEAD PARAMETERS: P wave- 3.2 (mV) Current- 1.5 (mA) threshold- 1 (V) impedence- 650 (OHMS) 10V test, no diaphragmatic capture VENTRICULAR LEAD PARAMETERS: R wave- 12.0 (mV) Current- 0.6 (mA) threshold- 0.4 (V) impedence- 600 (OHMS) 10V test, no diaphragmatic capture DEVICE PARAMETERS: Mode- DDD Lower rate- 50 Upper rate- 130 CONCLUSIONS / RECOMMENDATIONS Device Conclusions: Successful implantation of a dual chamber pacemaker Device Recommendations: Follow up with Primary Care Physician PROCEDURE MEDICATIONS Fentanyl 50 mcg IV Versed 1 mg IV Versed 1 mg IV Fentanyl 50 mcg IV Versed 1 mg IV Versed 1 mg IV Oxygen: 2 L/min via nasal cannula Ancef 2 Gm IV @ 07/28/2022 11:13:22 Signed By Edgar Sharp MD On 07/28/2022 13:04:52 Edgar Sharp MD
[2022-07-28 16:49] VITALS: BMI 42.7
[2022-07-28 16:55] VITALS: BP 146/83; PULSE 78; RESP 16; TEMP 36.4; O2SAT 93
[2022-07-28 17:30] VITALS: PULSE 83
[2022-07-28 19:03] VITALS: BP 140/91; PULSE 77; RESP 16; TEMP 36.4; O2SAT 98
[2022-07-28] MEDS: metFORMIN HCl 1,000 MG Tablet 1000 MG PO (19:05)
[2022-07-28 19:13] VITALS: PULSE 82
--- NOTE | 2022-07-28 19:38 | NURSING ---
Charting reviewed with Maxx Blanc RN
[2022-07-28 21:15] VITALS: BP 148/91; PULSE 83; RESP 18; TEMP 36.6; O2SAT 93
[2022-07-28] MEDS: Gabapentin 300 MG Capsule PO (21:17)
[2022-07-28] MEDS: Atorvastatin Calcium 80 MG Tablet PO (21:17)
[2022-07-28] MEDS: TICAGRELOR 90 MG TABLET PO (21:17)
[2022-07-28] MEDS: Carvedilol 12.5 MG Tablet PO (21:17)
[2022-07-28 22:06] LABS: Bedside Glucose 211 mg/dL (74-106)
[2022-07-29 03:00] VITALS: PULSE 68
[2022-07-29 03:15] VITALS: BP 156/93; PULSE 77; RESP 20; TEMP 36.1; O2SAT 96
--- NOTE | 2022-07-29 05:55 | RAD_ITS ---
STUDY: X-RAY CHEST REASON FOR EXAM: Male, 57 years old. Post permanant ICD/Pacemaker -- inspiration/expiration. Arms Down. Wet read to TECHNIQUE: Frontal and lateral views of the chest. COMPARISON: None. FINDINGS: Dual-lead pacemaker is seen on the left side. The lungs are clear and expanded. There is no demonstrated pleural abnormality. Normal size heart. Normal mediastinum and roopa. Normal visualized pulmonary arteries. Normal visualized aortic arch and descending thoracic aorta. Normal visualized thoracic spine. Normal visualized ribs, clavicles, and shoulders. There is no demonstrated abnormality of the visualized soft tissue structures of the upper abdomen. RAD/Chest 3 View IMPRESSION: Normal x-ray examination of the chest. Electronically Signed: Pebbles Nielsen MD at 4:57 EST ,
[2022-07-29 07:00] VITALS: PULSE 94
--- NOTE | 2022-07-29 09:20 | PCM.PN.CARD ---
Subjective Subjective Patient seen and evaluated Objective Data Vital Signs: Vital Signs Temp Pulse Resp BP Pulse Ox O2 Del Method 97.0 F L 94 20 H 156/93 H 96 Room Air 07/29/22 03:15 07/29/22 07:00 07/29/22 03:15 07/29/22 03:15 07/29/22 03:15 07/29/22 03:15 Oxygen Delivery Method Room Air Weight: 282 lb 6.594 oz Body Mass Index (BMI) 42.7 Intake & Output: Intake and Output for Last 24 Hours 07/27/22 07/28/22 07/29/22 23:59 23:59 23:59 Intake Total 480 / 480 120 / 120 Output Total 500 / 500 400 / 400 Balance -20 / -20 -280 / -280 Lab / Micro Data Labs: Laboratory Results - last 24 hr 07/28/22 21:20: POC Glucose 211 H Cardiology Labs/Tests Rhythm: EKG: ECHO: Stress Test: Cardiac Cath: PCI: CT Surgery: Holter monitor: EPS: PPM: CXR: Chest CT Scan: Radiography Diagnostic Testing: Radiology Impression Chest X-Ray 07/29/22 05:55 IMPRESSION: Normal x-ray examination of the chest. Electronically Signed: Pebbles Nielsen MD at 4:57 EST , Physical Exam Const alert, oriented x3 and no apparent distress General Appearance: cooperative HEENT hearing grossly normal bilaterally Head and Scalp: atraumatic Eyes EOMs intact bilaterally Neck General: normal visual inspection Chest inspection of chest normal and palpation of chest normal Resp normal respiratory effort Auscultation: clear to auscultation bilaterally Cardio regular rate, regular rhythm, S1 normal heart sound and S2 normal heart sound Jugular Venous Distention: JVD GI normal to inspection, nondistended, normoactive bowel sounds Extremity normal capillary refill and no pedal edema Peripheral Pulses: Yes pulses 2+ throughout and femoral pulses present Skin no rashes or lesions noted Neuro oriented x3 and CN's II-XII intact bilaterally Psych Appearance: grossly normal and appropriate Assessment & Plan Assessment/Plan (1) High degree atrioventricular block: PLAN: Permanent pacer placed and the CXR is unremarkable and numbers look good this morning. Will follow up in office.
--- NOTE | 2022-07-29 09:32 | DCINST_ITS ---
Discharge Instructions Diet Discharge Diet: No restrictions Activity Discharge Activity: May Not Drive Additional Activity Instructions:: May shower or bathe on [day 3]. Do not scrub the incision or soak in the tub. Just wash with soap and let the water run over the incision. Gently pat dry with towel. Medications: Take your pain medication as directed. Refer to your discharge instruction sheet for a list of medications you are to take. Dressing / Incision Call your doctor if your incision/area has: Continuous Slow Oozing, Sudden Increased Bleeding, Increased Pain/ Swelling, Increased Redness, Foul Smelling Discharge and Swelling at the incision site Call your doctor if you observe: Fever of 101 or Higher, Shortness of breath, Dizziness, Fainting spells, Swelling in the ankles, Chest pain, Prolonged hiccupping and Increased palpitations (irregular heartbeat) Suture Line Care: Avoid Pulling/Pushing and Avoid Pinching/Bending Change Dressing in: 3 days Remove Dressing in: 3 days Additional Dressing/Incision Instructions:: When dressing is removed, wash and dry incision. Keep covered with a light bandage if it is rubbing against your clothing. Do not cover the incision with an airtight bandage. Change the bandage daily. Do not remove steri strips. The strips will fall off on their own. Follow Up Care Please Follow Up With: Edgar Sharp MD When: Pacer follow up on with the pacemaker clinic August 04 at 9 AM Test Results: Test results from this visit will be discussed in further detail at your follow- up appointment, if applicable. Discharge Plan Admission Admit Date/Time: 07/28/22 12:55 Attending Provider: Edgar Sharp Primary Care Provider: Fransisco Grider Discharge Orders/Prescriptions Prescriptions: New losartan 50 mg Tablet 50 mg PO DAILY Qty: 90 0RF atorvastatin 80 mg Tablet 80 mg PO QHS Qty: 90 0RF carvedilol 12.5 mg Tablet 12.5 mg PO BID Qty: 180 0RF clopidogrel 75 mg Tablet 75 mg PO DAILY Qty: 90 3RF aspirin 81 mg Tablet,Delayed Release (Dr/Ec) 81 mg PO DAILY@0800 Qty: 90 0RF amlodipine 10 mg Tablet 10 mg PO DAILY Qty: 90 0RF metformin 1,000 mg Tablet 1,000 mg PO BIDCM Qty: 180 0RF gabapentin 300 mg Capsule 300 mg PO BID Qty: 180 0RF hydrochlorothiazide 25 mg Tablet 25 mg PO DAILY Qty: 90 0RF glipizide 5 mg Tablet 5 mg PO 0800 Qty: 90 0RF No Action atorvastatin 80 mg tablet 80 mg PO QHS Qty: 90 3RF glipizide 5 mg tablet 5 mg PO DAILY gabapentin 300 mg capsule 300 mg PO BID amlodipine 10 mg tablet 10 mg PO DAILY Qty: 90 3RF ticagrelor 90 mg tablet 90 mg PO BID Qty: 180 3RF hydrochlorothiazide 25 mg tablet 25 mg PO DAILY Qty: 90 3RF aspirin 81 MG tablet 81 mg PO DAILY@0800 0RF metformin 1,000 MG tablet 1,000 mg PO BIDCM Qty: 60 0RF losartan 50 mg tablet 50 mg PO DAILY Qty: 30 0RF carvedilol [Coreg] 12.5 mg tablet 12.5 mg PO BID Qty: 60 1RF Rx Instructions: must administer with a meal/food Referrals / Follow Up: Fransisco Grider, [Primary Care Provider] - Disposition Disposition (needs filled in before D/C Order can be placed): Home, Self Care
[2022-07-29 10:00] VITALS: BP 168/77; PULSE 76; RESP 16; TEMP 36.1; O2SAT 96
[2022-07-29] MEDS: Aspirin E.C. 81 MG Tablet PO (10:08)
[2022-07-29] MEDS: hydroCHLOROthiazide 25 MG Tablet PO (10:08)
[2022-07-29] MEDS: amLODIPine 10 MG Tablet PO (10:08)
[2022-07-29] MEDS: glipiZIDE 5 MG Tablet PO (10:08)
[2022-07-29] MEDS: Carvedilol 12.5 MG Tablet PO (10:08)
[2022-07-29] MEDS: metFORMIN HCl 1,000 MG Tablet 1000 MG PO (10:08)
[2022-07-29] MEDS: Losartan Potassium 50 MG Tablet PO (10:08)
[2022-07-29] MEDS: FLU VACC QS2022-23(6MOS UP)/PF 60 MCG/0.5 ML SYRINGE IM (10:17)
[2022-07-29] MEDS: Gabapentin 300 MG Capsule PO (10:17)
[2022-07-29] MEDS: Clopidogrel Bisulfate 75 MG Tablet PO (10:17)
--- NOTE | 2022-07-29 14:25 | NURSING ---
Charting reviewed with Maxx Blanc RN
== END 2022-07-29 09:31 | disposition home or self-care (01) ==
LOC: PCU 16:47
PROVIDERS: Admitting Provider Internal Medicine Cardiovascular Disease; PCP Family Medicine; Referring Provider Internal Medicine Cardiovascular Disease; Visit Provider Internal Medicine Cardiovascular Disease
DX: I44.39 Other atrioventricular block (principal); Z68.41 Body mass index [BMI] 40.0-44.9, adult; E11.9 Type 2 diabetes mellitus without complications; R07.89 Other chest pain; I10 Essential (primary) hypertension; Z95.5 Presence of coronary angioplasty implant and graft; I25.10 Atherosclerotic heart disease of native coronary artery without angina pectoris; I25.2 Old myocardial infarction; E66.9 Obesity, unspecified; Z79.899 Other long term (current) drug therapy; Z79.82 Long term (current) use of aspirin; Z79.84 Long term (current) use of oral hypoglycemic drugs; Z87.891 Personal history of nicotine dependence; Z23 Encounter for immunization
CPT/HCPCS: 33208; 71047; 81001; 82962; 99152; 99153; 99218; J7040; J7050; 90686; C1894; G0378

== ENCOUNTER → 2024-10-12 | Outpatient (CLI) | payer BC, SELFPAY ==
[2024-06-16 11:18] VITALS: BMI 45.0
--- NOTE | 2024-10-12 10:26 | MRI_ITS ---
STUDY: MRI LEFT KNEE REASON FOR EXAM: Male, 59 years old. Pain. TECHNIQUE: Standardized fat and water weighted pulse sequences were obtained in all 3 orthogonal planes. COMPARISON: Left knee radiographs dated 06/29/2024. FINDINGS: There is a tear of the posterior medial meniscal root (sagittal PD series 3 images 18-20). There is focal high-grade chondromalacia along the mid weightbearing surface of the medial femoral condyle (sagittal T2 series 4 image 8). Normal medial femoral condyle and tibial plateau. Normal medial collateral ligamentous complex (MCL). Normal distal semimembranosus, gracilis and semitendinosus tendons. There is a suspected tiny horizontal tear of the body of the lateral meniscus (coronal PD series 5 image 16). Normal hyaline cartilage of the lateral femorotibial compartment. Normal lateral femoral condyle and tibial plateau. Normal proximal tibiofibular articulation. Normal lateral collateral (fibular) ligament. Normal popliteus tendon. Normal biceps femoris tendon. Normal anterior cruciate ligament (ACL). Normal posterior cruciate ligament (PCL). Normal congruent patellofemoral articulation. Normal hyaline cartilage of the patellofemoral compartment. Normal medial and lateral patellar retinaculum. Normal quadriceps tendon. Normal patellar tendon. Normal Hoffa''s fat pad. There is a small joint effusion. There is a tiny popliteal cyst. There is mild subcutaneous soft tissue edema along the anterior aspect of the knee. There is no demonstrated acute fracture. MRI/Lower Ext Joint Only (Routine) IMPRESSION: Tear of the posterior medial meniscal root. Suspected tiny horizontal tear of the body of the lateral meniscus. 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 Small joint effusion with a tiny popliteal cyst. Electronically Signed: Stephen Rodarte MD at 14:06 EST ,
[2024-10-12 10:56] VITALS: BP 148/104; PULSE 85; RESP 18; O2SAT 94
[2024-10-12 11:06] VITALS: BP 143/94; PULSE 85; RESP 16; O2SAT 93
[2024-10-12 11:16] VITALS: BP 152/102; PULSE 85; RESP 18; O2SAT 93
[2024-10-12 11:39] VITALS: BP 156/93; PULSE 78; RESP 18; O2SAT 94
== END | disposition home or self-care (01) ==
PROVIDERS: PCP Family Medicine; Referring Provider Orthopaedic Surgery; Visit Provider Orthopaedic Surgery
DX: M25.562 Pain in left knee (principal)
CPT/HCPCS: 73721

== ENCOUNTER 2025-01-10 06:48 | Day surgery (SDC) | payer BC, SELFPAY ==
[2024-10-13 09:59] VITALS: BMI 45.0
--- NOTE | 2024-12-27 16:06 | PAT.ANESEVAL ---
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 When Was Last Pacemaker Check QUESTION #4 FULL TEXT: You/Your Family Experience fever (hyperthermia) with Anesthesia Last Oral Intake Last Oral intake: Last Oral Intake NPO since Meds taken in AM with sips of water? Meds patient instructed to take am of surgery PONV PONV - electric meter repairer: PONV - electric meter repairer Female No 12/27/24 08:07 HX of Motion Sickness No 12/27/24 08:07 HX of N/V After Surgery No 12/27/24 08:07 Non-Smoker Yes 12/27/24 08:07 Duration of Surgery greater Yes 12/27/24 08:07 than 60 minutes Number of Risk Factors 2 12/27/24 08:07 PONV Score Moderate Risk 12/27/24 08:07 Height & Weight Height & Weight: Anesthesia: Height & Weight Height 5 ft 7.5 in 10/14/24 08:44 Respiratory Assessment Respiratory Assessment - electric meter repairer: Respiratory Tract Infection Hx - electric meter repairer Hx Respiratory Tract Infection No 12/27/24 08:07 STOP Sleep Apnea STOP Sleep Apnea - electric meter repairer: STOP Sleep Apnea - electric meter repairer Hx Hypertension Yes 12/27/24 08:07 Hx Sleep Apnea No 12/27/24 08:07 CPAP BIPAP Do you snore loudly (louder No 12/27/24 08:07 than talking or can be heard Do you often feel tired/ No 12/27/24 08:07 fatigued/ sleepy during daytime? Has anyone observed you stop No 12/27/24 08:07 breathing during sleep? STOP Results Negative 12/27/24 08:07 QUESTION #5 FULL TEXT : Do you snore loudly (louder than talking or can be heard through closed doors)? Tobacco Use History Tobacco Use History - electric meter repairer: Tobacco Use History - electric meter repairer Tobacco Use Smoking Status Former smoker 12/27/24 08:07 Hx Tobacco Use No 12/27/24 08:07 Years Smoking Packs Smoked per Day Smoking Cessation Date was Yes - quit smoking within 15 12/27/24 08:07 within the last 15 years years Hx Smoking Cessation Date 10/22/20 12/27/24 08:07 Hx Smoking Cessation No 12/27/24 08:07 Counseling Hematologic Medial History Hematologic Hx - electric meter repairer: Hematologic Medical Hx - pot filler Hx of Blood Transfusion No 12/27/24 08:07 Hx of Transfusion in last 3 No 12/27/24 08:07 Months Date of Last Transfusion (if within last 3 months) Ever experience any problems No 12/27/24 08:07 with transfusion(s)? Specify any problems Hx of Preganancy in last 3 N/A 12/27/24 08:07 Months Nurse Filling Out Transfusion NBUCHER 12/27/24 08:07 & Questions: Date: 12/27/24 12/27/24 08:07 Time: 08:08 12/27/24 08:07 Patient unable to answer at this time (ie. confused, unrespo /Reproduction History /Reproductive History - electric meter repairer: /Reproductive Hx- electric meter repairer Hx Now Gestational Age (in weeks): EDC: Hx Hx Para Hx Section SAB No 12/27/24 08:07 PFSH Medical History Wears glasses Wears dentures Diabetes Arthritis High cholesterol Dietary restriction Former smoker History of pain when walking History of edema Holter monitor, abnormal History of stress test Cardiology follow-up encounter Presence of permanent cardiac pacemaker High degree atrioventricular block History of non-ST elevation myocardial infarction (NSTEMI) (06/09/19) Unstable angina Type 2 diabetes mellitus without complication Atherosclerosis of coronary artery of [place] heart without angina pectoris Obesity Essential hypertension Home Medications ?Medication ?Instructions ?Recorded ?Last Taken ?Type glipizide 5 mg tablet 5 mg PO DAILY 01/07/21 07/15/22 History metformin 1,000 mg tablet 1,000 mg PO BIDCM #180 tabs 08/26/22 Unknown Rx amlodipine 10 mg tablet 10 mg PO DAILY #90 tabs 09/11/23 Unknown Rx aspirin 81 mg tablet,delayed 81 mg PO DAILY@0800 #90 tabs 09/11/23 Unknown Rx release losartan 50 mg tablet 50 mg PO DAILY #90 TABLETS 03/10/24 Unknown Rx dapagliflozin propanediol 5 mg 10 mg PO QDAY 06/29/24 Unknown History tablet (Farxiga) furosemide 40 mg tablet 40 mg PO QDAY 10/14/24 Unknown History semaglutide 0.25 mg or 0.5 mg (2 0.25 mg subcut TU 10/14/24 10/18/24 History mg/3 mL) subcutaneous pen injector (Ozempic) atorvastatin 80 mg tablet 80 mg PO QHS 10/20/24 Unknown History carvedilol 12.5 mg tablet 12.5 mg PO BID 10/20/24 Unknown History clopidogrel 75 mg tablet 75 mg PO DAILY 10/20/24 Unknown History gabapentin 300 mg capsule 300 mg PO TID 10/20/24 Unknown History Allergy/AdvReac Type Severity Reaction Status Date / Time hornet venom Allergy Severe Anaphylaxis Verified 12/27/24 08:04 Family History Mother Cancer Father Thyroid disorder Cancer lymphoma Surgical History Hx of colonoscopy History of left heart catheterization (07/16/22) History of coronary artery stent placement (06/20/21) History of umbilical hernia repair History of left inguinal hernia repair Social History Smoking Status: Former smoker how long ago did patient quit smokin months ago alcohol intake: never substance use type: does not use caffeine: Yes Type: coffee Number of servings: 4 Audit: Pertinent Findings Pertinent Findings EKG Perinent findings: 07/15/2022. Normal sinus rhythm. Inferior infarct, age undetermined. Stress test pertinent findings: June 19, 2021. Ejection fraction 66%. Area of myocardial infarction with associated lisa-infarct myocardial ischemia in mid inferior segments as well as lateral apical segments. Echo (EF%) pertinent findings: June 10, 2019. Ejection fraction 60%. No aortic stenosis. Heart catheterization pertinent findings: July 16, 2022. Previously placed stents noted in the right coronary arteries as well as the left circumflex artery are patent. Mild disease noted in the left anterior descending artery. Recommend medical therapy. Ejection fraction is 55%. Consult pertinent findings: January 30, 2022. Dr. Sharp. 1. Hypertension?acute-borderline elevated. Add hydrochlorothiazide. 2. History of coronary artery stent placement-ARMIN to the mid RCA. ARMIN to the OM 2. He has not had any angina. Continue current therapy Recommendation Anesthesia Recommendation Anesthesia recommendation: OPTIMIZED for anesthesia
[2025-01-10] VITALS (10 sets, daily range): BP systolic 126–153; BP diastolic 77–95; PULSE 67–86; RESP 16–18; TEMP 36.2–36.4; O2SAT 93–97; BMI 39.2
--- NOTE | 2025-01-10 07:07 | PCM.HP.BLA ---
History and Physical Date of Admission: 01/10/25 [facility] [address] [place] [address] OFFICE VISIT Date of Service: 10/14/24 MR#: [id number] Acct: [id number] Name: ALINE HAY Rep #: [id number] : 1965 Provider: Dr. Cameron Cagle DO Age/Sex: 59/M Location: [facility] [place] [facility] [place] Status: Signed Intake Vital Signs 06/29/2410:17 10/13/2508:59 10/14/2507:44 Height 5 ft 8.11 in 5 ft 8.11 in 5 ft 7.5 in Weight: 276 lb 8 oz BMI 42.6 Intake Visit Reasons: LEFT KNEE Chief Complaint: MRI review Accompanied by: Self Allergies hornet venom Allergy (Severe, Verified 10/14/24 08:44) Anaphylaxis Medications ?Medication ?Instructions ?Recorded ?Confirmed ?Type glipizide 5 mg tablet 5 mg PO DAILY 01/07/21 08/29/24 History metformin 1,000 mg tablet 1,000 mg PO BIDCM #180 tabs 08/26/22 08/29/24 Rx gabapentin 300 mg capsule 300 mg PO BID #180 caps 11/18/22 08/29/24 Rx amlodipine 10 mg tablet 10 mg PO DAILY #90 tabs 09/11/23 08/29/24 Rx aspirin 81 mg tablet,delayed 81 mg PO DAILY@0800 #90 tabs 09/11/23 08/29/24 Rx release atorvastatin 80 mg tablet See Rx Instructions .Route 09/11/23 08/29/24 Rx .COMPLEX #90 tabs carvedilol 12.5 mg tablet See Rx Instructions .Route 09/11/23 08/29/24 Rx .COMPLEX #180 tabs hydrochlorothiazide 25 mg tablet 25 mg PO DAILY #90 tabs 09/11/23 08/29/24 Rx losartan 50 mg tablet 50 mg PO DAILY #90 TABLETS 03/10/24 08/29/24 Rx dapagliflozin propanediol 5 mg 5 mg PO QDAY 06/29/24 08/29/24 History tablet (Farxiga) clopidogrel 75 mg tablet See Rx Instructions .Route 09/26/24 Rx .COMPLEX #90 tabs furosemide 40 mg tablet 40 mg PO QDAY 10/14/24 10/14/24 History semaglutide 0.25 mg or 0.5 mg (2 mg subcut 10/14/24 10/14/24 History mg/3 mL) subcutaneous pen injector (Ozempic) [facility] Medical History Presence of permanent cardiac pacemaker High degree atrioventricular block History of non-ST elevation myocardial infarction (NSTEMI) (06/09/19) Unstable angina Type 2 diabetes mellitus without complication Atherosclerosis of coronary artery of [place] heart without angina pectoris Obesity Essential hypertension Surgical History History of left heart catheterization (07/16/22) History of coronary artery stent placement (06/20/21) History of umbilical hernia repair History of left inguinal hernia repair Family History Mother CancerFather Thyroid disorder Cancer lymphoma Social History Smoking Status: Former smoker how long ago did patient quit smokin months ago alcohol intake: never substance use type: does not use caffeine: Yes Type: coffee Number of servings: 4 HPI LEFT KNEE Details: This documentation accurately reflects the service provided and the decisions made by me, Dr. Cameron Cagle, DO 10/14/24 6018. Part of today?s visit was documented by Carolina MUSA, acting as scribe. ALINE HAY is a 59 year old M here today for MRI review of the left knee pain. He states that his pain is over the medial side. He does get popping, clicking, and catching in the knee that is sometimes painful and giving way. When he wakes up in the morning he has a lot of tightness and stiffness. He denies taking anything for pain. 08/29/2024 visit: here today for continued left knee pain. He was given an injection on 06/29/24 which he states did give him relief for 2-3 weeks. He states that the knee makes it hard for him to walk, jog, or even walk fast paced. He feels that his knee wants to give out on him. He states that it feels like his knee goes back. He denies catching or getting stuck. He does get a popping in the knee but it is non painful. He would like us to order an MRI. His pain is over his medial knee and he is unable to walk long distances without having to stop and taking a break. Plan: Patient is here today for continued left knee pain. At his last visit we did give him a steroid injection last visit which did give him 2-3 weeks of relief but is still having a good amount of pain. He has tried 1 month of meloxicam which he states didn't give him any relief. I would like to get an MRI at this point to rule out a meniscus tear. As he continues to have painful mechanical symptoms mostly in the medial side I did explain he is at increased risk if he had to undergo surgery due to his medical comorbidities and lower extremity edema. 06/29/2024 visit: 59 year old M with medical comorbidities not limited to but significant for AV block history of AL, diabetes mellitus type 2, obesity, pacemaker on Plavix .here today for Left knee pain. Patient states this has been going on for about 3 weeks. denies any injury . states his knee has been popping for 8-9 months. he was trotting around his yard and he felt instant pain when his knee gave out and wasn't able to put weight on his knee or walk for 4-5 days. Patient had instant swelling. Patient went and saw his PCP and they gave him Meloxicam. Patient states he can't twist his knee. Patient states some times his knee feels like its going to give out, and goes back to far. Patient states knee pain in the medial knee doing down and around the knee cap. Patient has never had previous injections in his knee. Patient hasn't had PT recently. Patient hasn't tried ice or heat. Patient is taking just the Mobic and was given 5 days worth of hydrocodone-acetaminophen 5-325mg. Plan: pleasant 59-year-old male with multiple medical comorbidities including obesity type 2 diabetes history of AL and AV block who had a low-energy injury while jogging into his backyard and has subsequently developed medial sided knee pain. He is not having any painful mechanical symptoms although he does get some popping which was present even prior to this injury. On examination most of his pain seems to be the medial compartment he does have pain with medial Ilene but no click he does have chronic lower extremity edema. He does have some mild DJD which hopefully this is just an exacerbation of he also may have a medial meniscus tear. Spoke with patient that his treatment options are do nothing, steroid injection, or an MRI. Patient would like to proceed with an injection today along with rest and ice. Spoke with patient that if the injection doesn't give him much relief over the next 4 weeks we can get an MRI of the knee. Ortho Exam General General: Yes no acute distress Neurologic: Yes alert and Yes oriented x3 Psychologic: Yes reasonable and appropriate Left Knee Knee ROM: Yes ROM-Extension -20 to 0 and Yes ROM-Flexion 0-140 (80) Examination: Yes med jt line tenderness, No Lat jt line tenderness, No Crepitus, Yes Pain with flexion and Yes Ilene's Test Stability: NML: Anterior Drawer, NML: Posterior Drawer, NML: Valgus 0, NML: Valgus 30, NML: Varus 0 and NML: Varus 30 Patella Grind: Yes KNEE: He is obese he does have chronic venous stasis dermatitis bilateral lower extremities however his left lower extremity has more edema and shininess. no effusion of the knee no patellar instability pain with medial ilene Head: Normocephalic Atraumatic Chest: symmetrical rise, non-labored breathing, no audible wheeze Abdomen: no guarding, non-rigid Supplemental Info 10/12/2024 MRI left knee: Tear posterior root medial meniscus. High-grade chondromalacia mid weightbearing surface of the medial femoral condyle, suspected tiny horizontal tear body lateral meniscus, 06/29/2024 x-ray left knee: Mild narrowing of the lateral patellar facet, mild spurring of the medial femoral condyle on the notch view Coding Level of Care Code Off vis,est,level 4 Diagnoses Mechanical pain of left knee M25.562 Primary osteoarthritis of left knee M17.12 Osteoarthritis type: primary Class 3 severe obesity due to excess calories without serious comorbidity with body mass index (BMI) of 40.0 to 44.9 in adult E66.813; E66.01; Z68.41 Obesity type: due to excess calories Obesity classification: adult class 3 (BMI >= 40) Serious obesity comorbidity presence: without serious comorbidity Body mass index: BMI 40.0-44.9 Peripheral tear of medial meniscus of left knee as current injury, subsequent encounter S83.222D Tear current or old: current Encounter type: subsequent encounter Meniscus tear of knee type: peripheral Laterality: left Assessment and Plan Assessment and Plan (1) Mechanical pain of left knee: Status: Acute (2) Osteoarthritis of left knee: Status: Acute Qualifiers: Osteoarthritis type: primary Qualified Code(s): M17.12 - Unilateral primary osteoarthritis, left knee (3) Obesity: Status: Acute Qualifiers: Obesity type: due to excess calories Obesity classification: adult class 3 (BMI >= 40) Serious obesity comorbidity presence: without serious comorbidity Body mass index: BMI 40.0-44.9 Qualified Code(s): E66.813 - Obesity, class 3; E66.01 - Morbid (severe) obesity due to excess calories; Z68.41 - Body mass index [BMI] 40.0-44.9, adult (4) Medial meniscus tear: Status: Acute Qualifiers: Tear current or old: current Encounter type: subsequent encounter Meniscus tear of knee type: peripheral Laterality: left Qualified Code(s): S83.222D - Peripheral tear of medial meniscus, current injury, left knee, subsequent encounter Plan Patient is here today for MRI review of his left knee. I spoke with patient that he does have a root tear of his medial meniscus along with arthritis of his medial femoral condyle. His treatment options would be do nothing, an arthroscopy partial medial meniscectomy, weight loss may need eventual total knee arthroplasty. I did advise patient that he will likely still have pain after the arthroscopy because of the arthritis in his knee. 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 I spoke with patient that for an arthroscopy I would need his A1C at or under 7.5 Reviewed the pre-operative plans with the patient. Risks and benefits of the procedure were fully explained, including but not limited to infection, neurovascular injury, continued pain, arthritis, stiffness, need for further surgery, re-injury, DVT, PE, general risks of anesthesia, and loss of limb or life. The patient understands all the risks and does wish to proceed with written consent. Tentative surgery date 11/01/2024 Follow up at 2 weeks post-op or sooner if pain, swelling, numbness or associated symptoms, or concerns develop. All questions answered. Patient in agreement of plan. 10/14/24 0935 <Electronically signed by Cameron Cagle DO> Date Cameron Cagle DO I have examined the patient and the H&P has been reviewed. There are no clinical changes since date of exam.
[2025-01-10] MEDS: 0.9% Normal Saline (1000mL) 1,000 ML 15 ML IV (07:34)
--- NOTE | 2025-01-10 08:07 | PRE.ANES_ITS ---
ASA Classification* ASA Classification ASA Classification: 3 Assessment & Plan Anesthesia* Anesthesia Assessment Anesthesia Assessment: Discussed sedation and/or anesthesia options, risks, benefits, and alternatives with patient/parents/legal guardian/POA. Questions invited. The patient/parents/legal guardian/POA seems to understand and agrees to proceed with anesthesia plan. Reviewed the physical assessment, medical history, allergy history and patient home medications list prior to surgery/procedure/anesthetic and documented any changes. Performed airway and anesthesia risk assessments. Anesthesia Type Anesthesia Type: General History Source History Obtained from:: Patient and Chart Anesthesia Focused Assessment* Temperature: 97.6 F Pulse Rate: 86 Blood Pressure: 153/95 Respiratory Rate: 16 Pulse Ox: 97 Oxygen Delivery Method: Room Air Airway Assessment Mouth opens: >3 cm Mallampati Score: I Teeth Condition: Partial (Patient has lower partial dentures. They are out. Rest of the teeth are tight.) and Upper (Patient has full upper dentures. They will come out.) Neck Range of motion (ROM): Full ROM Focused Labs Anesthesia Preop lab: CBC WBC 10.0 K/mm3 (4.4-11.0) 07/16/22 05:00 07/16/22 RBC 4.54 M/mm3 (4.6-6.2) L 07/16/22 05:00 07/16/22 Hgb 12.8 g/dL (13.0-16.5) L 07/16/22 05:00 2 Hct 39.3 % (40-54) L 07/16/22 05:00 07/16/22 Plt Count 210 K/mm3 (150-450) 07/16/22 05:00 07/16/22 CHEMISTRY Potassium 3.6 mmol/L (3.5-5.1) 07/16/22 05:00 07/16/22 Sodium 139 mmol/L (136-145) 07/16/22 05:00 07/16/22 Magnesium 1.8 mg/dL (1.6-2.6) 06/11/19 06:42 06/11/19 BUN 18 mg/dL (7-18) 07/16/22 05:00 07/16/22 Creatinine 1.16 mg/dL (0.70-1.30) 07/16/22 05:00 07/16/22 Glucose 169 mg/dL (74-106) H 07/16/22 05:00 07/16/22 POC Glucose 211 mg/dL (74-106) H 07/28/22 21:20 07/28/22 TSH 1.78 uIU/mL (0.358-3.74) 07/16/22 05:00 COAG PT 13.4 SECONDS (11.7-14.9) 06/20/21 05:10 Pre-Assessment Diagnosis/Proposed Procedure Planned Operative Procedure(s): (L) Left knee Arthroscopy, partial menisectomy, surgery as indicated Anesthesia History 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 When Was Last Pacemaker Check QUESTION #4 FULL TEXT: You/Your Family Experience fever (hyperthermia) with Anesthesia Last Oral Intake Last Oral intake: Last Oral Intake NPO since 23:00 01/10/25 07:25 Meds taken in AM with sips of Yes 01/10/25 07:25 water? Meds patient instructed to see chart 01/10/25 07:25 take am of surgery PONV PONV - reel and rewinder operator: PONV - reel and rewinder operator Female No 12/27/24 08:07 HX of Motion Sickness No 12/27/24 08:07 HX of N/V After Surgery No 12/27/24 08:07 Non-Smoker Yes 12/27/24 08:07 Duration of Surgery greater Yes 12/27/24 08:07 than 60 minutes Number of Risk Factors 2 12/27/24 08:07 PONV Score Moderate Risk 12/27/24 08:07 Height & Weight Height & Weight: Anesthesia: Height & Weight Height 5 ft 8 in 01/10/25 07:25 Weight: 116.9 kg 01/10/25 07:25 Body Mass Index (BMI) 39.2 01/10/25 07:25 Respiratory Assessment Respiratory Assessment - reel and rewinder operator: Respiratory Tract Infection Hx - reel and rewinder operator Hx Respiratory Tract Infection No 12/27/24 08:07 STOP Sleep Apnea STOP Sleep Apnea - reel and rewinder operator: STOP Sleep Apnea - reel and rewinder operator Hx Hypertension Yes 12/27/24 08:07 Hx Sleep Apnea No 12/27/24 08:07 CPAP BIPAP Do you snore loudly (louder No 12/27/24 08:07 than talking or can be heard Do you often feel tired/ No 12/27/24 08:07 fatigued/ sleepy during daytime? Has anyone observed you stop No 12/27/24 08:07 breathing during sleep? STOP Results Negative 12/27/24 08:07 QUESTION #5 FULL TEXT : Do you snore loudly (louder than talking or can be heard through closed doors)? Tobacco Use History Tobacco Use History - reel and rewinder operator: Tobacco Use History - reel and rewinder operator Tobacco Use Smoking Status Former smoker 12/27/24 08:07 Hx Tobacco Use No 12/27/24 08:07 Years Smoking Packs Smoked per Day Smoking Cessation Date was Yes - quit smoking within 15 12/27/24 08:07 within the last 15 years years Hx Smoking Cessation Date 10/22/20 12/27/24 08:07 Hx Smoking Cessation No 12/27/24 08:07 Counseling Hematologic Medial History Hematologic Hx - reel and rewinder operator: Hematologic Medical Hx - weekend caregiver Hx of Blood Transfusion No 12/27/24 08:07 Hx of Transfusion in last 3 No 12/27/24 08:07 Months Date of Last Transfusion (if within last 3 months) Ever experience any problems No 12/27/24 08:07 with transfusion(s)? Specify any problems Hx of Preganancy in last 3 N/A 12/27/24 08:07 Months Nurse Filling Out Transfusion NBUCHER 12/27/24 08:07 & Questions: Date: 12/27/24 12/27/24 08:07 Time: 08:08 12/27/24 08:07 Patient unable to answer at this time (ie. confused, unrespo /Reproduction History /Reproductive History - reel and rewinder operator: /Reproductive Hx- reel and rewinder operator Hx Now Gestational Age (in weeks): EDC: Hx Hx Para Hx Section SAB No 12/27/24 08:07 Active Medications Active Medications: Current Medications Generic Name Dose Route Start Last Admin Trade Name Damian PRN Reason Stop Dose Admin Sodium Chloride 1,000 mls @ 15 mls/hr 01/10/25 07:00 01/10/25 07:34 IV 15 mls/hr .Q48H MARTHA Administration PFSH Medical History Wears glasses Wears dentures Diabetes Arthritis High cholesterol Dietary restriction Former smoker History of pain when walking History of edema Holter monitor, abnormal History of stress test Cardiology follow-up encounter Presence of permanent cardiac pacemaker High degree atrioventricular block History of non-ST elevation myocardial infarction (NSTEMI) (06/09/19) Unstable angina Type 2 diabetes mellitus without complication Atherosclerosis of coronary artery of [place] heart without angina pectoris Obesity Essential hypertension Home Medications ?Medication ?Instructions ?Recorded ?Last Taken ?Type glipizide 5 mg tablet 5 mg PO DAILY 01/07/2101/09 History metformin 1,000 mg tablet 1,000 mg PO BIDCM #180 tabs 08/26/22 01/09/25 Rx amlodipine 10 mg tablet 10 mg PO DAILY #90 tabs 08/2201/09/25 Rx aspirin 81 mg tablet,delayed 81 mg PO DAILY@0800 #90 t abs 09/11/23 01/02/25 Rx release losartan 50 mg tablet 50 mg PO DAILY #90 TABLETS 0 03/10/24 01/09/25 Rx dapagliflozin propanediol 5 mg 10 mg PO QDAY 06/29/24 01/06/25 History tablet (Farxiga) furosemide 40 mg tablet 40 mg PO QDAY 10/14/2401/09 History semaglutide 0.25 mg or 0.5 mg (2 0.25 mg subcut TU 01/02/25 History mg/3 mL) subcutaneous pen injector (Ozempic) atorvastatin 80 mg tablet 80 mg PO QHS 10/20/24 History carvedilol 12.5 mg tablet 12.5 mg PO BID 10/20/2412/21 History clopidogrel 75 mg tablet 75 mg PO DAILY 10/20/2412/20 History gabapentin 300 mg capsule 300 mg PO TID 10/20/2401/09 History Allergy/AdvReac Type Severity Reaction Status Date / Time hornet venom Allergy Severe Anaphylaxis Verified 01/10/25 07:13 Family History Mother Cancer Father Thyroid disorder Cancer lymphoma Surgical History Hx of colonoscopy History of left heart catheterization (07/16/22) History of coronary artery stent placement (06/20/21) History of umbilical hernia repair History of left inguinal hernia repair Social History Smoking Status: Former smoker how long ago did patient quit smokin months ago alcohol intake: never substance use type: does not use caffeine: Yes Type: coffee Number of servings: 4 Review of Systems (Anesthesia) ROS Narrative System reviewed and no additional complaints, except as documented.
[2025-01-10] MEDS: Cefazolin 2 GM in Syringe IV (08:40)
[2025-01-10] MEDS: Epinephrine (1 mg/ml) 1 MG/ML VIAL (08:56)
[2025-01-10] MEDS: Lidocaine 1% /Epi 1:100 (20ml) 20 ML Vial (08:58)
[2025-01-10 09:11] LABS: Bedside Glucose 123 mg/dL (74-106)
[2025-01-10] MEDS: MethylPREDNISolone Acetate 40 MG/ML Vial (09:15)
[2025-01-10] MEDS: Bupivacaine 0.5% PF 10 ML VIAL (09:15)
--- NOTE | 2025-01-10 09:18 | PCM.OPRPT ---
Operative Report (Standard) Operative Information Date of Procedure: 01/10/25 Pre-Operative Diagnosis: Left knee medial meniscus root tear Post-Operative Diagnosis: Left knee grade 4 cartilage cartilage wear medial femoral condyle Surgery/Procedure Performed: Left knee arthroscopy chondroplasty medial femoral condyle diagnostic technologist: Yes Net Software Developer: Jarett Handy Tasks completed by assistant media planner: Opening & closing Type of Anesthesia: General RN Documented Start/Stop Times: Operation Date: 01/10/25 08:30 Case Time Into Pre-Op 01/10/25 06:54 Out of Pre-Op 01/10/25 08:30 Anesthesia Start 01/10/25 08:36 Into Room 01/10/25 08:36 Procedure Start 01/10/25 08:56 Procedure End 01/10/25 09:13 Procedure Start Time: 08:56 Procedure Stop Time: 09:13 Select all DRAINS/GRAFTS/IMPLANTS that apply: None Estimated Blood Loss: 0 Specimen collected: No Description of surgery: Preop diagnosis: Left knee DJD medial meniscus root tear Postoperative diagnosis: Grade 4 chondral wear medial femoral condyle grade 3 medial patellar facet Procedure: Left knee arthroscopic chondroplasty medial femoral condyle and patella Anesthesia: General Estimated blood loss: 5 mL Tourniquet time: 20 minutes 300 mmHg Complications: none Indication for procedure: 59-year-old male who has had ongoing knee pain with mechanical symptoms MRI was read as a root tear medial meniscus the patient did wish to proceed with an elective arthroscopic surgery to attempt to alleviate the symptoms. Risk benefits and alternatives of the procedure were reviewed including risk of bleeding infection nerve artery tissue damage need for further surgery continued pain and expected postoperative course. Procedure: The patient was met in the preoperative holding area. The operative extremity was identified by both patient and physician and family and marked. Patient was brought back to the operating room on a wheeled cart and transferred to the operating table in the supine position. Anesthesia was started. A well-padded tourniquet was placed on the operative extremity. A lower extremity leg mcintosh was secured to the operative extremity. The contralateral extremity was well-padded and the end of the bed was flexed to 90 degrees. The patient was prepped and draped in the usual sterile fashion. A timeout was called to ensure the proper patient, procedure, and extremity were being contemplated. 0.5% Marcaine with epinephrine was injected into the planned incisional areas under the skin only. An Esmarch was used to exsanguinate the extremity and the tourniquet was inflated. An 11 blade scalpel was used to make a stab incision in the anterior lateral portal. The arthroscope was inserted into the intercondylar notch and inflow and outflow tubes were attached. Arthroscopic visualization began. The medial compartment was entered. An 18-gauge spinal needle was used to establish the placement for anterior medial portal. An 11 blade scalpel was used to make a stab incision. Blunt probe was inserted followed by a meniscal probe, the medial meniscus was thoroughly probed including the root and there was noted instability to the meniscus and no tearing that would require meniscectomy the shaver was used to perform a gentle chondroplasty of the medial femoral condyle. Immediately there was noted to be high grade 4 cartilage wear of the medial femoral condyle the ACL was was intact but loose and degenerative. The lateral compartment was entered there was no cartilage or meniscal pathology The arthroscope was switched to the medial portal to complete the procedure. The medial and lateral gutters were inspected and were free of loose bodies. The patellofemoral joint was inspected there is grade 3 cartilage wear of the medial patellar facet and gentle chondroplasty was used to remove loose cartilage from the periphery. There was good patellar tracking. The knee was thoroughly irrigated and drained. An intra-articular injection with 5 cc 0.5% Marcaine plain and 40 mg of Depo-Medrol was injected intra-articularly. The arthroscope was removed the portals were closed with 3-0 nylon arthroscopic stitches. Followed by Xeroform 4 x 4's ABDs web roll and an Parveen wrap. The tourniquet was let down and the drapes were removed. All counts were correct. The patient was brought back to the PACU in stable condition. Surgical Findings: DJD Complications Complications: No
--- NOTE | 2025-01-10 09:24 | DCINST_ITS ---
Discharge Instructions Diet Discharge Diet: No restrictions Dressing / Incision Call your doctor if you observe: Shortness of breath and Chest pain Additional Dressing/Incision Instructions:: Ice and elevate next 72 hours .keep dressing on clean and dry for 48 hours then may remove begin showering daily but do not submerge in tub or pool. After shower may apply Band-Aids . Encourage knee range of motion weightbearing as tolerated, use crutches until confident in knee then may discontinue. No strenuous activity. When not ambulating keep iced and elevated next 72 hours. Do not mix pain medication with recreational drugs or alcohol only take as prescribed can be addictive and abusive, call with any questions or concerns. Follow Up Care Please Follow Up With: Cameron Cagle DO When: 2 weeks Test Results: Test results from this visit will be discussed in further detail at your follow- up appointment, if applicable. Discharge Plan Admission Primary Reason for Your Visit: Left knee arthroscopy Attending Provider: Cameron Cagle Primary Care Provider: Fransisco Grider Instructions Print Language: Azerbaijani Discharge Orders/Prescriptions Prescriptions: New hydrocodone-acetaminophen 5-325 mg tablet 1 - 2 tab PO Q4H 5 Days Qty: 20 0RF Continued glipizide 5 mg tablet 5 mg PO DAILY dapagliflozin propanediol [Farxiga] 5 mg tablet 10 mg PO QDAY furosemide 40 mg tablet 40 mg PO QDAY Ozempic 0.25 mg or 0.5 mg (2 mg/3 mL) pen injector 0.25 mg subcut TU Patient Comments: INJECT 0.25 MG SUBCUTANEOUSLY ONCE WEEKLY FOR THE FIRST 4 INJECTIONS, THEN INCREASE TO 0.5 MG WEEKLY atorvastatin 80 mg tablet 80 mg PO QHS Rx Instructions: TAKE 1 TABLET BY MOUTH AT BEDTIME carvedilol 12.5 mg tablet 12.5 mg PO BID Rx Instructions: TAKE 1 TABLET BY MOUTH TWICE A DAY gabapentin 300 mg capsule 300 mg PO TID metformin 1,000 mg tablet 1,000 mg PO BIDCM Qty: 180 3RF amlodipine 10 mg tablet 10 mg PO DAILY Qty: 90 3RF losartan 50 mg tablet 50 mg PO DAILY Qty: 90 3RF Held clopidogrel 75 mg tablet 75 mg PO DAILY Hold Instructions: Resume on 01/11/25. Rx Instructions: TAKE 1 TABLET BY MOUTH EVERY DAY aspirin 81 mg tablet,delayed release (DR/EC) 81 mg PO DAILY@0800 Qty: 90 3RF Hold Instructions: Resume on 01/11/25. Referrals / Follow Up: Fransisco Grider DO [Primary Care Provider] - Disposition Disposition (needs filled in before D/C Order can be placed): Home, Self Care
--- NOTE | 2025-01-10 09:29 | PCM.POST.ANE ---
Anesthesia: Postop Eval I Current Vital Signs Temperature: 97.2 F Pulse Rate: 67 Blood Pressure: 126/77 Respiratory Rate: 18 Pulse Ox: 93 Oxygen Delivery Method: Room Air Assessment Airway patent: Yes Spontaneous unlabored respirations: Yes Mental status: Awake nausea: No Vomiting: No Anesthesia Complication: No Fluid Hydration Crystalloid volume administer (ml): 300 Total IV fluid infused: 300 Progress Note Anesthesia document: Postop Eval 1 completed: Yes
--- NOTE | 2025-01-10 09:44 | POSTOPAN2_ITS ---
Anesthesia Postop Eval I Sum Postop Eval Completion status Anesthesia document: Postop Eval 1 completed: Yes Anesthesia Postop Eval I Summary Anesthesia Postop Eval I Summary: Anesthesia Postop Eval I: Assessment Summary Airway patent Yes 01/10/25 09:29 ROPE MACHINE SETTER.BPEY Spontaneous unlabored Yes 01/10/25 09:29 ROPE MACHINE SETTER.BPEY respirations Mental status Awake 01/10/25 09:29 ROPE MACHINE SETTER.BPEY nausea No 01/10/25 09:29 ROPE MACHINE SETTER.BPEY Vomiting No 01/10/25 09:29 ROPE MACHINE SETTER.BPEY Anesthesia Postop Eval I: Fluid Summary Crystalloid volume administer 300 01/10/25 09:29 ROPE MACHINE SETTER.BPEY (ml) Colloids volume administered ( ml) Blood Product volume administered (ml) Total IV fluid infused 300 01/10/25 09:29 ROPE MACHINE SETTER.BPEY Anesthesia Postop Eval I: Summary Notes Anesthesia Complication No 01/10/25 09:29 ROPE MACHINE SETTER.BPEY Anesthesia Complication Comment: Post-operative progress note Anesthesia: Postop Eval II Evaluation Mental status: Awake and Calm Pain Level: 2 nausea: No Vomiting: No Complications Anesthesia Complication: No
--- NOTE | 2025-01-10 09:44 | PCM.POSTANE2 ---
Anesthesia Postop Eval I Sum Postop Eval Completion status Anesthesia document: Postop Eval 1 completed: Yes Anesthesia Postop Eval I Summary Anesthesia Postop Eval I Summary: Anesthesia Postop Eval I: Assessment Summary Airway patent Yes 01/10/25 09:29 SCIENCE INSTRUCTOR.BPEY Spontaneous unlabored Yes 01/10/25 09:29 SCIENCE INSTRUCTOR.BPEY respirations Mental status Awake 01/10/25 09:29 SCIENCE INSTRUCTOR.BPEY nausea No 01/10/25 09:29 SCIENCE INSTRUCTOR.BPEY Vomiting No 01/10/25 09:29 SCIENCE INSTRUCTOR.BPEY Anesthesia Postop Eval I: Fluid Summary Crystalloid volume administer 300 01/10/25 09:29 SCIENCE INSTRUCTOR.BPEY (ml) Colloids volume administered ( ml) Blood Product volume administered (ml) Total IV fluid infused 300 01/10/25 09:29 SCIENCE INSTRUCTOR.BPEY Anesthesia Postop Eval I: Summary Notes Anesthesia Complication No 01/10/25 09:29 SCIENCE INSTRUCTOR.BPEY Anesthesia Complication Comment: Post-operative progress note Anesthesia: Postop Eval II Evaluation Mental status: Awake and Calm Pain Level: 2 nausea: No Vomiting: No Complications Anesthesia Complication: No
[2025-01-10] MEDS: HYDROcodone Bitartrate/Apap 5/325 Tablet PO (10:35)
== END 2025-01-10 11:13 | disposition home or self-care (01) ==
LOC: SDC 06:52 → AC 06:57
PROVIDERS: PCP Family Medicine; Referring Provider Orthopaedic Surgery; Visit Provider Orthopaedic Surgery
PROC: (CPT 29870; principal; 2025-01-10 08:10)
DX: M94.262 Chondromalacia, left knee (principal); E66.813 Obesity, class 3; Z68.41 Body mass index [BMI] 40.0-44.9, adult; E11.9 Type 2 diabetes mellitus without complications; S83.222A Peripheral tear of medial meniscus, current injury, left knee, initial encounter; M17.12 Unilateral primary osteoarthritis, left knee; X58.XXXA Exposure to other specified factors, initial encounter; I10 Essential (primary) hypertension; I87.2 Venous insufficiency (chronic) (peripheral); I25.2 Old myocardial infarction; I44.39 Other atrioventricular block; I25.10 Atherosclerotic heart disease of native coronary artery without angina pectoris; E78.00 Pure hypercholesterolemia, unspecified; Z95.5 Presence of coronary angioplasty implant and graft; Z95.0 Presence of cardiac pacemaker; Z79.84 Long term (current) use of oral hypoglycemic drugs; Z79.82 Long term (current) use of aspirin; Z79.02 Long term (current) use of antithrombotics/antiplatelets; Z79.85 Long-term (current) use of injectable non-insulin antidiabetic drugs; Z79.899 Other long term (current) drug therapy; Z87.891 Personal history of nicotine dependence
CPT/HCPCS: 29877; 01400; 82962; J2405

== ENCOUNTER 2025-04-10 11:00 | Outpatient (RCR) | payer BC, SELFPAY ==
[2024-10-13 09:59] VITALS: BMI 45.0
--- NOTE | 2025-02-22 12:24 | HP.PTEVAL_ITS ---
Patient's Visit Information Visit Information Visit Information: ALINE HAY is a 60 year old M referred to Physical Therapy by Dr. Cameron Cagle DO with a diagnosis of Peripheral tear medial meniscus ,left knee. Date of Evaluation: 02/22/25 Physical Therapist: Donovan Church, PT, Cert MDT, OCS Visit Plan Frequency: 2x /Week Duration: 4 Weeks Plan: *S/P Left knee arthroscopic chondroplasty medial femoral condyle and patella meniscectomy 01/10* PACEMAKER NO ESTIM PT INTERVENTIONS LEFT KNEE ROM ,STRENGTHENING EX'S QUADS/HAMS/HIP ,FUNCTIONAL STRENGTHENING ,AND CP/VASO NEEDED FOR EDEMA Subjective Subjective: This 60 y/o male presents to physical therapy with left s/p Left knee arthroscopic chondroplasty medial femoral condyle and patella meniscectomy done by DR Cagle [facility] January 10 .Patient had meniscus tear from MRI thus had Left knee arthroscopy chondroplasty medial femoral condyle meniscectomy. Patient d/c home with walker. Patient stated a lot of edema , seen DR abad cortisone injection ,also discuss other insertions possible every 3 months and the visco injections can be given every 6 months and possible TKA .10/12/2024 MRI left knee: Tear posterior root medial meniscus. High-grade chondromalacia mid weightbearing surface of the medial femoral condyle, suspected tiny horizontal tear body lateral meniscus, Patient pain located medial knee. Pain described ache . Unable to Squat or kneel. Patient has pain with stairs. extended walking. Sleeping okay on left. Stopped pain medication and occasional ice. Patient has difficulty with housework tasks also off work . Goals RTW and decrease pain. 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 Pain Left Knee: Pain Intensity (Out of 10): 7 Pain Intensity Range: 10 Objective Objective: POSTURE: mild forward posture GAIT: reciprocal pattern antalgic gait with decreases stance time LLE NEURO: denie paresthesia/tingling ,reflexes L3-4,L4-5,L5-S1 1/3 AROM: supine knee flexion 0-130 degrees MMT: ( peak force) left quads 22.8 ,hamstrings 13.8 ,hip flexion 14.9 ,hip abd 12.1 ,ankle 4/5 FLEXABILITY: hamstrings min tight STAIRS: one step at time Balance/Special Test Scores Lower Extremity Functional Score: 21 Goals Goal 1:: Patient to be I with HEP knee Goal Time Frame: 4-6 Weeks Goal 2:: Patient to be I with HEP for knee Goal Time Frame: 4-6 Weeks Goal 3:: Patient to improve peak force quads/hams/hip by 5-10# to improve gait and function Goal Time Frame: 4-6 Weeks Goal 4:: Patient to normalize gait community distances Goal Time Frame: 4-6 Weeks Goal 5:: Patient to demonstrate 50% improvement with less pain and improved function with gait Goal Time Frame: 4-6 Weeks Goal 6:: Patient to improve LFES score by 5 points to improve QOL and function Goal Time Frame: 4-6 Weeks Rehabilitation Potential Physical Therapy Diagnosis: Patient underwent s/p Left knee arthroscopic chondroplasty medial femoral condyle and patella meniscectomy 01/10 with pain ,weakness impairs gait ,stairs ,edema and RTW thus benefit from skilled PT Rehabilitation Potential: Good Anticipated Interventions Patient/Client Instruction: Educate patient on: Condition and Plan of Care For the Purpose of:: To decrease pain, To increase ROM, To improve muscle performance and motor function, To improve ability to perform ADL's, To increase tolerance to activity/condition/position, To improve ability of physical actions for home/community/work/leisure, To improve health of tissue, To decrease soft tissue restriction, To increase flexibility/ROM, To improve endurance, To improve balance, To reduce risk of recurrence and To improve tolerance to ADL's Therapeutic Exercise to Include: Strength training, Flexibilty training, Active ROM and Dynamic Lumbar Stabilization For the Purpose of:: To decrease pain, To increase ROM, To improve muscle performance and motor function, To increase tolerance to activity/condition/position, To improve performance and independence with ADL's, To improve ability of physical actions for home/community/work/leisure, To improve health of tissue, To decrease soft tissue restriction, To increase flexibility/ROM, To reduce risk of recurrence and To improve tolerance to ADL's Cryotherapy (ice pack, ice massage): Yes Ultrasound (thermal/non thermal): Yes For the Purpose of:: To decrease pain, To increase ROM, To improve nutrient delivery to tissue, To increase oxygenation perfusion, To improve health of tissue and To decrease soft tissue restriction Text: Thank you for the opportunity to evaluate your patient. For Medicare and Medicare HMO plans, please review the plan of care and approve it. It will need to be FAXED BACK to us at [phone] for Medicare purposes. For Medicare only, by signing this I certify the plan of care. Please let me know if there are questions or concerns regarding this plan of care. Physician Signature: Date:
== END 2025-04-10 19:00 | disposition home or self-care (01) ==
LOC: PT 11:00
PROVIDERS: PCP Family Medicine; Visit Provider Orthopaedic Surgery
DX: S83.222D Peripheral tear of medial meniscus, current injury, left knee, subsequent encounter (principal); Z98.890 Other specified postprocedural states
CPT/HCPCS: 97016; 97110; 97162; 97530

== ENCOUNTER 2025-05-20 17:19 | Emergency (ER) | payer BC, SELFPAY ==
[2024-10-13 09:59] VITALS: BMI 45.0
[2025-05-20 17:20] VITALS: BP 170/99; PULSE 86; RESP 16; TEMP 36.7; O2SAT 99; BMI 39.4
--- NOTE | 2025-05-20 17:40 | RAD_ITS ---
PROCEDURE: CHEST 1 VIEW (PORTABLE) 05/20/2025 REASON FOR EXAM: CHEST PAIN TECHNIQUE: Frontal view of the chest. COMPARISON: Chest radiograph 2021 FINDINGS: Hardware: Dual-chamber pacer projects over the upper left thorax Heart: Normal size Lungs: Clear and expanded Bones: No aggressive process Other: RAD/Chest 1 View (Portable) IMPRESSION: No acute process detected. Reading Location: [facility] [place]
--- NOTE | 2025-05-20 17:42 | EKG12_ITS ---
Test Reason : CP Blood Pressure : */* mmHG Vent. Rate : 82 BPM Atrial Rate : 82 BPM P-R Int : 182 ms QRS Dur : 92 ms QT Int : 376 ms P-R-T Axes : 4 -16 10 degrees QTcB Int : 439 ms Normal sinus rhythm Normal ECG Confirmed by Michael Peres ([id number]), newspaper editor managing GEORGE ALBERTO ([id number]) on 05/23/2025 10:31:59 AM Referred By: AMBAR/NOEMI Confirmed By: Michael Peres
[2025-05-20 17:54] LABS: Hematocrit 47.6 % (40-54); Hemoglobin 15.6 g/dL (13.0-16.5); Immature Granulocytes Count 0.040 X10^3/uL (0.0-0.0); Mean Corp Hgb Conc 32.8 g/dL (32-36); Mean Corpuscular Volume 86.2 fL (80-94); Mean Platelet Vol. 11.3 fl (6.2-12.0); NRBC Flagged by Analyzer 0 % (0-5); Platelet Count 212 K/mm3 (150-450); RBC Distribution Width CV 13.7 % (11.6-14.6); RBC Distribution Width SD 43.3 fl (35.1-43.9); Red Blood Count 5.52 M/mm3 (4.6-6.2); White Blood Count 10.0 K/mm3 (4.4-11.0)
--- OUTSIDE RECORDS SUMMARY | 2025-05-20 18:04 | XMS RPT_ITS | CCD ---
Author Organization [facility] Care Team Providers Care Application Consultant Name Role Phone CHEO , DR HERNANDEZ A Primary Care Physician Dr. Isrrael Lowery Referring Provider Dr. Edgar Sharp Attending Provider Cheo, Dr. Hernandez Primary Care Provider [phone] Cheo, Dr. Hernandez Primary Care Provider Dr. Gabriele De La Torre Emergency Provider Dr. Dandre Loredo Admit Provider Dr. Dandre Loredo Attending Provider Dr. Dandre Loredo Other Provider Dr. Corey Sharif Other Provider Dr. Aline Balderas Attending Provider Dr. Rupa Rodarte Other Provider Dr. Edgar Sharp Attending Provider CHEO DO, DR DAVID Barnes Attending Unavailabl e CHEO DO, DR DAVID Barnes Primary Care Unavailabl e CHEO DO, DR DAVID Barnes Attending Unavailabl e CHEO DO, DR DAVID Barnes Primary Care Unavailabl e CHEO DO, DR DAVID Barnes Attending Unavailabl e CHEO DO, DR DAVID Barnes Primary Care Unavailabl e CHEO DO, DR DAVID Barnes Attending Unavailabl e CHEO DO, DR DAVID Barnes Primary Care Unavailabl e Cheo DO, Dr. Hernandez Primary Care Provider Dr. Edgar Sharp MD Attending Provider Lila PHAM, Dr. Hernández Referring Provider [phone] Borruso DO, Dr. Barnes Attending Provider Borruso DO, Dr. Barnes Referring Provider Cheo DO, Dr. Hernandez Referring Provider Tsering DO, Dr. Barnes Other Provider [phone] Cheo DO, Dr. Hernandez Primary Care Provider Lila PHAM, Dr. Hernández Attending Provider [phone] Borruso DO, Dr. Barnes Attending Provider Borruso DO, Dr. Barnes Referring Provider Cheo DO, Dr. Hernandez Referring Provider CHEO DO, DR DAVID Barnes Primary Care Unavailabl e CHEO DO, DR DAVID Barnes Attending Unavailabl e CHEO DO, DR DAVID Barnes Primary Care Unavailabl e CHEO DO, DR DAVID Barnes Attending Unavailabl e CHEO DO, DR DAVID Barnes Primary Care Unavailabl e CHEO DO, DR DAVID Barnes Attending Unavailabl e CHEO DO, DR DAVID Barnes Primary Care Unavailabl e CHEO DO, DR DAVID Barnes Attending Unavailabl e Cheo DO, Dr. Hernandez Primary Care Provider [phone] Lila PHAM, Dr. Hernández Attending Provider [phone] Lila PHAM, Dr. Hernández Referring Provider [phone] Cheo DO, Dr. Hernandez Primary Care Provider [place] DO, Dr. Barnes Attending Provider Juancarlos GARCIA-CAdelina Attending Provider [phone] Edgar Sharp Referring Unavailable Edgar Sharp Attending Unavailable Cheo, David Primary Care Unavailable Cheo, David Referring Unavailable Cheo, David Primary Care Unavailable Cameron Cagle Attending Unavailable Cheo, David Referring Unavailable Cheo, David Primary Care Unavailable Cameron Cagle Attending Unavailable Cheo, David Referring Unavailable Cheo, David Primary Care Unavailable Cameron Cagle Attending Unavailable Edgra Sharp Attending Unavailable Cheo, David Primary Care Unavailable Cheo, David Referring Unavailable Cheo, David Primary Care Unavailable Borruso, Cameron Attending Unavailable Cheo, David Referring Unavailable Cheo, David Primary Care Unavailable Borruso, Cameron Attending Unavailable Cheo, David Primary Care Unavailable Borruso, Cameron Attending Unavailable Elbaruso, Cameron Referring Unavailable Cheo, David Primary Care Unavailable Elbaruso, Cameron Attending Unavailable Cheo, David Primary Care Unavailable Borruso, Cameron Attending Unavailable Cheo, David Primary Care Unavailable Borruso, Cameron Referring Unavailable Borruso, Cameron Attending Unavailable Cheo, David Referring Unavailable Adelina Bauer Attending Unavailable Cheo, David Primary Care Unavailable Cheo, David Primary Care Unavailable Lila, Edgar Attending Unavailable Lila, [place] Referring Unavailable Lila, [place] Referring Unavailable Lila, [place] Attending Unavailable Cheo, David Primary Care Unavailable Cheo, David Primary Care Unavailable Lila, Edgar Attending Unavailable Lila, [place] Referring Unavailable Cheo, David Primary Care Unavailable Cheo, David Referring Unavailable Borruso, Cameron Attending Unavailable Cheo, David Referring Unavailable Cheo, David Primary Care Unavailable Borruso, Cameron Attending Unavailable Lila, Edgar Attending Unavailable Cheo, David Primary Care Unavailable Cheo, David Primary Care Unavailable Borruso, Cameron Attending Unavailable Borruso, Cameron Consulting Unavailable Borruso, Cameron Referring Unavailable Cheo, David Referring Unavailable Borruso, Cameron Attending Unavailable Cheo, David Primary Care Unavailable Lila, Edgar Attending Unavailable Cheo, David Primary Care Unavailable Cheo, David Referring Unavailable Cheo, David Primary Care Unavailable Borruso, Cameron Attending Unavailable Allergies Allergy Classification Reported Allergen(s) Allergy Type Date of Onset Reaction(s) Facility (9 sources) Bee/Wasp/Ant venom Allergy to substance Anaphylaxis (disorder) [facility] (12 sources) Hornet venom; Translations: [hornet venom] Allergy to substance 2 Anaphylaxis [facility] Medications Current Medications Medication Drug Class(es) Dates Sig (Normalized) Sig (Original) dapagliflozin 10 mg oral tablet (15 sources) Sodium-Glucose Cotransporter 2 Inhibitor Start: 09-29-2024 Farxiga 10 mg oral tablet Dose : 10 mg = 1 tab(s), Oral, qDay, # 90 tab(s), 3 Refill(s), Pharmacy: [facility]/pharmacy #[id number], Diabetes mellitus with hyperglycemia, 172.9, cm, 09/09/24 11:16:00 EST, Height, kg, 09/09/24 11:16:00 EST, Dosing Weight Start Date: 09/29/24 Status: Ordered Quantity: 90.0 Unit: tab(s) Repeat number: 4 Indications: Type 2 diabetes mellitus with hyperglycemia; Start: 06-29-2024 take 1 tablet by jaqueline th once daily Dapagliflozin Propanediol (Farxiga) 5 mg tablet Active 10 mg PO daily June 29, 2024 12:00am Start: 03-11-2024 Farxiga 10 mg oral tablet Dose : 10 mg = 1 tab(s), Oral, qDay, # 90 tab(s), 3 Refill(s), Pharmacy: [facility]/pharmacy #[id number], Diabetes mellitus with hyperglycemia, 172, cm, 03/11/24 11:24:00 EDT, Height, kg, 03/11/24 11:24:00 EDT, Dosing Weight Start Date: 03/11/24 Status: Ordered Quantity: 90.0 Unit: tab(s) Repeat number: 4 Indication: Type 2 diabetes mellitus with hyperglycemia Start: 06-04-2023 Farxiga 5 mg o ral tablet Dose : 5 mg = 1 tab(s), Oral, qDay, # 90 tab(s), 3 Refill(s), Pharmacy: [facility]/pharmacy #[id number], 172, cm, 05/29/23 10:18:00 EDT, Height, kg, 05/29/23 10:18:00 EDT, Dosing Weight Start Date: 06/04/23 Status: Ordered DME MISCellaneous (4 sources) Start: 06-08-2024 DME MISCellane ous See Instructions, crutches. M25.562, # 1 EA, 0 Refill(s), Pain and swelling of left knee, 124.1 Start Date: 06/08/24 Status: Ordered Quantity: 1.0 Unit: EA Repeat number: 1 Indications: Pain in left knee; Start: 06-08-2024 DME MISCellane ous See Instructions, crutches. M25.562, # 1 EA, 0 Refill(s), Pain and swelling of left knee, 124.1 Start Date: 06/08/24 Status: Ordered Quantity: 1.0 Unit: EA Repeat number: 1 Indication: Pain in left knee Start: 06-08-2024 DME MISCellane ous See Instructions, crutches. M25.562, # 1 EA, 0 Refill(s), Pain and swelling of left knee, 124.1 Start Date: 06/08/24 Status: Ordered FreeStyle Mario 2 Monona (6 sources) Start: 12-21-2023 FreeStyle Libr e 2 Monona See Instructions, Use reader to scan sensor daily for blood sugar checks. Scan at least once every 8 hours, # 1 EA, 0 Refill(s), Pharmacy: [facility], 172, cm, 12/11/23 11:09:00 EDT, Height, 126.4, kg, 12/11/23 11:09:00 EDT, Dosing Weight Start Date: 12/21/23 Status: Ordered Quantity: 1.0 Unit: EA Repeat number: 1 Start: 12-21-2023 FreeStyle Libr e 2 Monona See Instructions, Use reader to scan sensor daily for blood sugar checks. Scan at least once every 8 hours, # 1 EA, 0 Refill(s), Pharmacy: [facility], 172, cm, 12/11/23 11:09:00 EDT, Height, 126.4, kg, 12/11/23 11:09:00 EDT, Dosing Weight Start Date: 12/21/23 Status: Ordered FreeStyle Mario 2 Sensor (6 sources) Start: 12-21-2023 FreeStyle Libr e 2 Sensor See Instructions, Place once sensor to the back of the upper arm every 14 days. Use reader to scan sensor for daily blood sugar checks. 1 month supply, # 2 EA, 0 Refill(s), Pharmacy: [facility], 172, cm, 12/11/23 11:09:00 EDT, Height, 126.4, kg, 12/11/23 11:09:00 EDT, Dosing Weight Start Date: 12/21/23 Status: Ordered Quantity: 2.0 Unit: EA Repeat number: 1 Start: 12-21-2023 FreeStyle Libr e 2 Sensor See Instructions, Place once sensor to the back of the upper arm every 14 days. Use reader to scan sensor for daily blood sugar checks. 1 month supply, # 2 EA, 0 Refill(s), [facility], 172, cm, 12/11/23 11:09:00 EDT, Height, 126.4, kg, 12/11/23 11:09:00 EDT, Dosing Weight Start Date: 12/21/23 Status: Ordered furosemide 40 mg oral tablet (14 sources) Loop Diuretic Start: 09-09-2024 take 1 tablet by mouth once daily Furosemide 40 mg tablet Active 40 mg PO daily October 14, 2024 1:00am Start: 03-11-2024 furosemide 20 mg oral tablet Dose : 20 mg = 1 tab(s), Oral, qDay, replace HCTZ, # 90 tab(s), 1 Refill(s), Pharmacy: [facility]/pharmacy #[id number], Benign hypertension, 172, cm, 03/11/24 11:24:00 EDT, Height, kg, 03/11/24 11:24:00 EDT, Dosing Weight Start Date: 03/11/24 Status: Ordered gabapentin 300 mg oral capsule (20 sources) Anti-epileptic Agent Start: 01-23-2023 End: 09-04-2025 take 1 capsule by mouth three times daily Gabapentin 300 mg capsule Active 300 mg PO THREE TIMES A DAY October 20, 2024 1:00am Start: 07-18-2021 End: 10-20-2024 take 1 capsule by mouth twice daily Gabapentin 300 mg capsule Discontinued 300 mg PO TWICE A DAY 180 3 November 18, 2022 10:49am October 20, 2024 10:08am meloxicam 15 mg oral tablet (12 sources) Nonsteroidal Anti-inflammatory Drug Start: 02-24-2025 End: 03-11-2025 meloxicam 15 mg oral tablet Dose : 15 mg = 1 tab(s), Oral, qDay, # 15 tab(s), 0 Refill(s), Pharmacy: [facility]/pharmacy #[id number], Rib pain on right side, 172.9, cm, 02/24/25 15:23:00 EDT, Height, kg, 02/24/25 15:23:00 EDT, Dosing Weight Start Date: 02/24/25 Stop Date: 03/11/25 Status: Ordered Quantity: 15.0 Unit: tab(s) Repeat number: 1 Indications: Pleurodynia; Start: 06-08-2024 End: 08-29-2024 take 1 tablet by mouth once daily Meloxicam 15 mg tablet Discontinued 15 mg PO daily June 29, 2024 12:00am August 29, 2024 4:29pm Semaglutide (8 sources) Start: 10-14-2024 Semaglutide (O zempic) 0.25 mg or 0.5 mg (2 mg/3 mL) pen injector Active 0.25 mg SC October 14, 2024 1:00am tiZANidine 4 mg oral tablet (1 source) Central alpha-2 Adrenergic Agonist Start: 02-24-2025 tiZANidine 4 mg oral tablet Dose : 4 mg = 1 tab(s), Oral, q8h, PRN as needed for muscle spasm, # 15 tab(s), 0 Refill(s), Pharmacy: [facility]/pharmacy #[id number], 172.9, cm, 02/24/25 15:23:00 EDT, Height, kg, 02/24/25 15:23:00 EDT, Dosing Weight Start Date: 02/24/25 Status: Ordered Quantity: 15.0 Unit: tab(s) Repeat number: 1 Completed/Discontinued Medications Medication Drug Class(es) Dates Sig (Normalized) Sig (Original) 0.25 MG, 0.5 MG Dose 3 ML semaglutide 0.68 MG/ML Pen Injector [Ozempic] (3 sources) Start: 12-09-2024 inject 0.5 mg by subcutaneous injection every week Ozempic 2 mg/3 mL (0.25 mg or 0.5 mg dose) subcutaneous solution Dose : 0.5 mg =, Subcutaneous, qWeek, rotate injection sites # three month supply., # 3 EA, 1 Refill(s), Pharmacy: [facility]/pharmacy #[id number], 172.9, cm, 12/09/24 11:24:00 EDT, Height, kg, 12/09/24 11:24:00 EDT, Dosing Weight Start Date: 12/09/24 Status: Ordered Quantity: 3.0 Unit: EA Repeat number: 2 Start: 09-09-2024 inject 0.5 mg by sub cutaneous injection every week Ozempic 2 mg/3 mL (0.25 mg or 0.5 mg dose) subcutaneous solution Dose : 0.5 mg =, Subcutaneous, qWeek, rotate injection sites 0.25 mg first 4 injections, then increase to 0.5 mg. # three month supply., # 3 EA, 0 Refill(s), Pharmacy: [facility]/pharmacy #[id number], 172.9, cm, 09/09/24 11:16:00 EST, Height, kg, 09/09/24 11:16:00 EST, Dosing Weight Start Date: 09/09/24 Status: Ordered Quantity: 3.0 Unit: EA Repeat number: 1 acetaminophen 325 mg / HYDROcodone bitartrate 5 mg oral tablet (20 sources) Opioid Agonist Start: 01-10-2025 End: 02-20-2025 Hydrocodone-Acetaminophen 5- 325 mg tablet Discontinued 1 - 2 {tbl} PO Q4H 20 5 0 January 16, 2025 January 23, 2025 9:48am Other acute postprocedural pain Other acute postprocedural pain Start: 06-08-2024 End: 06-13-2024 take 1 tablet by mouth every six hours as needed for pain acetaminophen-hydrocodone 325 mg-5 mg or al tablet Dose = 1 tab(s), Oral, q6h, PRN for pain, X 5 day(s), # 20 tab(s), 0 Refill(s), Pharmacy: [facility]/pharmacy #[id number], Pain and swelling of left knee, 172, cm, 06/08/24 10:56:00 EDT, Height, 124.1, kg, 06/08/24 10:56:00 EDT, Dosing Weight Start Date: 06/08/24 Stop Date: 06/13/24 Status: Ordered amLODIPine 10 mg oral tablet (20 sources) Dihydropyridine Calcium Channel Jihan Start: 01-06-2018 End: 09-11-2023 take 1 tablet by mouth once daily Amlodipine 10 mg tablet Discontinued 10 mg PO DAILY 90 3 October 20, 2022 11:21am September 11, 2023 10:18am aspirin 81 mg delayed release oral tablet (20 sources) Platelet Aggregation Inhibitor, Nonsteroidal Anti-inflammatory Drug Start: 06-24-2019 aspirin 81 mg oral tablet (chewable) Dose : 81 mg = 1 tab(s), Oral, qDay, # 30 tab(s), 0 Refill(s) Start Date: 06/24/19 Status: Ordered Quantity: 30.0 Unit: tab(s) Repeat number: 1 Start: 06-11-2019 End: 09-11-2023 take 1 tablet by mouth once daily Aspirin 81 mg tablet,delayed release (DR/EC) Discontinued 81 mg PO DAILY@0800 90 3 August 26, 2022 2:06pm September 11, 2023 10:18am atorvastatin 80 mg oral tablet (20 sources) HMG-CoA Reductase Inhibitor Start: 06-11-2019 End: 09-04-2025 take 1 tablet by mouth at bedtime Atorvastatin 80 mg tablet Discontinued 0 .ROUTE .COMPLEX 90 4 September 11, 2023 10:17am October 20, 2024 10:08am TAKE 1 TABLET BY MOUTH AT BEDTIME azilsartan medoxomil 40 mg / chlorthalidone 25 mg oral tablet (12 sources) Thiazide-like Diuretic, Angiotensin 2 Receptor Jihan Start: 06-09-2019 End: 06-16-2019 take 1 tablet by mouth once daily Azilsartan Med-Chlorthalidone 40 MG-2 tablet Discontinued 40 mg PO DAILY June 09, 2019 12:00am June 16, 2019 10:41am Hypertension carvedilol 12.5 mg oral tablet (20 sources) alpha-Adrenergic Jihan, beta-Adrenergic Jihan Start: 07-16-2022 End: 10-20-2024 take 1 tablet by mouth twice daily Carvedilol 12.5 mg tablet Discontinued 0 .ROUTE .COMPLEX 180 3 September 11, 2023 10:16am October 20, 2024 10:08am TAKE 1 TABLET BY MOUTH TWICE A DAY Start: 06-21-2021 End: 07-16-2022 take 1 tablet by mouth twice daily at mealtime Carvedilol (Coreg) 25 mg tablet Discontinued 25 mg PO TWICE A DAY 60 0 June 21, 2021 12:00am July 16, 2022 1:25pm must administer with a meal/food Start: 06-11-2019 End: 06-21-2021 take 1 tablet by mouth twice daily Carvedilol 12.5 MG tablet Discontinued 12.5 mg PO TWICE A DAY 60 0 June 11, 2019 12:00am June 21, 2021 11:15am Start: 01-06-2018 End: 06-11-2019 take 80 mg by mouth once daily Carvedilol Phosphate (C oreg Cr) 80 MG Cpmp.24hr Discontinued 80 mg PO DAILY January 06, 2018 12:00am June 11, 2019 12:10pm blood pressure/heart clopidogrel 75 mg oral tablet (20 sources) P2Y12 Platelet Inhibitor Start: 07-29-2022 End: 01-23-2025 take 1 tablet by mouth once daily Clopidogrel 75 mg tablet Discontinued 0 .ROUTE .COMPLEX 90 September 26, 2024 10:39am October 20, 2024 10:08am TAKE 1 TABLET BY MOUTH EVERY DAY glipiZIDE 5 mg oral tablet (20 sources) Sulfonylurea Start: 01-07-2021 End: 09-04-2025 Glipizide 5 mg Tablet Discontinued 5 mg PO 0800 90 0 July 29, 2022 1:00am November 13, 2022 10:52am hydroCHLOROthiazide 25 mg oral tablet (20 sources) Thiazide Diuretic Start: 01-30-2022 End: 10-20-2024 take 1 tablet by mouth once daily Hydrochlorothiazide 25 mg tablet Discontinued 25 mg PO DAILY 90 3 September 11, 2023 10:16am October 20, 2024 10:03am losartan potassium 50 mg oral tablet (20 sources) Angiotensin 2 Receptor Jihan Start: 06-21-2021 End: 03-10-2024 take 1 tablet by mouth once daily Losartan 50 mg tablet Discontinued 50 mg PO DAILY 90 0 September 11, 2023 10:17am March 10, 2024 8:26am metFORMIN hydrochloride 1000 mg oral tablet (20 sources) Biguanide Start: 06-11-2019 End: 09-04-2025 take 1 tablet by mouth twice daily at mealtime Metformin 1,000 mg Tablet Discontinued 1000 mg PO TWICE DAILY WITH MEALS 180 0 July 29, 2022 1:00am August 26, 2022 2:06pm Start: 06-09-2019 End: 06-11-2019 Metformin 750 MG tablet exte nded release 24 hr Discontinued 1500 mg PO DAILY June 09, 2019 12:00am June 11, 2019 12:11pm Check with primary doctor Start: 06-09-2019 End: 06-11-2019 take 1500 mg by mouth once daily Metformin Discontinued 1500 MG PO DAILY June 09, 2019 12:00am June 11, 2019 12:11pm ticagrelor 90 mg oral tablet (20 sources) Start: 06-11-2019 End: 09-11-2023 take 1 tablet by mouth twice daily Ticagrelor 90 mg tablet Discontinued 90 mg PO TWICE A DAY 60 11 August 09, 2020 12:59pm July 18, 2021 10:25am Problems Active Problems Problem Classification Problem Date Documented Date Episodic/Chronic Cardiac dysrhythmias (12 sources) Cardiac arrhythmia; Translations: [Cardiac arrhythmia, unspecified] Chronic Conduction disorders (20 sources) Incomplete atrioventricular block with atrioventricular response; Translations: [Other atrioventricular block] Onset: 10-24-2024 07-22-2022 Chronic Comment on above: 2021 Coronary atherosclerosis and other heart disease (20 sources) Coronary arteriosclerosis; Translations: [History of non-ST segment elevation myocardial infarction] Onset: 06-09-2019 07-17-2021 Chronic Diabetes mellitus with complications (8 sources) Hyperlipidemia due to type 2 diabetes mellitus 01-23-2023 Chronic Diabetes mellitus without complication (20 sources) Diabetes mellitus; Translations: [Type 2 diabetes mellitus] Onset: 11-17-2024 08-10-2020 Chronic Disorders of lipid metabolism (20 sources) Hyperlipidemia; Translations: [Hyperlipidemia, unspecified] 06-24-2019 Chronic Essential hypertension (20 sources) Benign hypertension; Translations: [Essential hypertension] 06-24-2019 Chronic Comment on above: CONTROLLED WITH MEDS Joint disorders and dislocations; trauma-related (16 sources) Tear of medial meniscus of knee; Translations: [Other tear of medial meniscus, current injury, unspecified knee, initial encounter] Onset: 04-10-2025 10-14-2024 Episodic Nonspecific chest pain (20 sources) Chest pain; Translations: [Chest pain, unspecified] Episodic Osteoarthritis (16 sources) Osteoarthritis of left knee joint; Translations: [Unilateral primary osteoarthritis, left knee] Onset: 05-17-2025 06-29-2024 Chronic Other aftercare (20 sources) Follow-up status; Translations: [Encounter for other orthopedic aftercare] 01-23-2025 Episodic Other nervous system disorders (8 sources) Acute postoperative pain; Translations: [Other acute postprocedural pain] 01-10-2025 Episodic Other non-traumatic joint disorders (10 sources) Pain in left knee; Translations: [Mechanical pain of left knee] Onset: 05-17-2025 08-29-2024 Episodic Other nutritional; endocrine; and metabolic disorders (9 sources) Morbid obesity 06-24-2019 Chronic Other nutritional; endocrine; and metabolic disorders (6 sources) Body mass index 40+ - severely obese 06-10-2024 Chronic Other nutritional; endocrine; and metabolic disorders (9 sources) Obesity; Translations: [Obesity, unspecified] 10-14-2024 Chronic Other skin disorders (8 sources) Foot callus 01-23-2023 Episodic Residual codes; unclassified (1 source) Other specified postprocedural states; Translations: [Other specified postprocedural states] Onset: 04-10-2025 Episodic Unclassified (7 sources) S83.222D - Peripheral tear of medial meniscus, current injury, left knee, subsequent encounter,Z98.890 - Other specified postprocedural states Unclassified (6 sources) Status post arthroscopy of left knee Past or Other Problems Problem Classification Problem Date Documented Da te Episodic/Chronic Coronary atherosclerosis and other heart disease (3 sources) Presence of coronary angioplasty implant and graft; Translations: [Percutaneous transluminal coronary angioplasty status] Onset: 06-20-2021 Episodic Results Test Name Value Interpretation Reference Range Facility Orthopedic Visit Reporton Orthopedic Visit Report [facility] [address] [place] [address] OFFICE VISIT Date of Service: 05/17/25 MR#: [id number] Acct: [id number] Name: ALINE HAY Sugey Rep #: [id number] 13 : 1965 Provider: NANDA mancini Age/Sex: 60/M Location: [facility] [email or web address] Status: Signed Intake Vital Signs 04/12/25 10:12 05/10/25 11:20 Height 5 ft 8 in 5 ft 8 in Intake Visit Reasons: LEFT KNEE Chief Complaint: Left Knee 3rd Euflexxa Injection Accompanied by: Self Is patient in pain?: Yes Pain scale (1-10): 2 Allergies hornet venom Allergy (Severe, Verified 05/17/25 11:30) Anaphylaxis Medications ???Medication ???Instructions ???Recorded ???Confirmed ???Type glipizide 5 mg tablet 5 mg PO DAILY 01/07/21 05/17/25 Hi story metformin 1,000 mg tablet 1,000 mg PO BIDCM #180 tabs 05/17/25 Rx amlodipine 10 mg tablet 10 mg PO DAILY #90 tabs 09/11/23 0 05/17/25 Rx aspirin 81 mg tablet,delayed 81 mg PO DAILY@0800 #90 tabs 09/1105/17/25 Rx release Held on 01/10/25. Instructions: Resume on 01/11/25. losartan 50 mg tablet 50 mg PO DAILY #90 TABLETS 4 05/17/25 Rx dapagliflozin propanediol 5 mg 10 mg PO QDAY 06/29/24 05/17/25 Hi story tablet (Farxiga) furosemide 40 mg tablet 40 mg PO QDAY 10/14/24 05/17/25 Hi story semaglutide 0.25 mg or 0.5 mg (2 0.25 mg subcut TU 10/14/24 5 History mg/3 mL) subcutaneous pen injector ([employer]) atorvastatin 80 mg tablet 80 mg PO QHS 10/20/24 05/17/25 His tory carvedilol 12.5 mg tablet 12.5 mg PO BID 10/20/24 05/17/25 H istory gabapentin 300 mg capsule 300 mg PO TID 10/20/24 05/17/25 Hi story PFSH Medical History Wears glasses Wears dentures Diabetes Arthritis High cholesterol Dietary restriction Former smoker History of pain when walking History of edema Holter monitor, abnormal History of stress test Cardiology follow-up encounter Presence of permanent cardiac pacemaker High degree atrioventricular block History of non-ST elevation myocardial infarction (NSTEMI) (06/09/19) Unstable angina Type 2 diabetes mellitus without complication Atherosclerosis of coronary artery of [place] heart without angina pectoris Obesity Essential hypertension Surgical History Hx of colonoscopy History of left heart catheterization (07/16/22) History of coronary artery stent placement (06/20/21) History of umbilical hernia repair History of left inguinal hernia repair Family History Mother Cancer Father Thyroid disorder Cancer lymphoma Social History Smoking Status: Former smoker how long ago did patient quit smokin months ago alcohol intake: never substance use type: does not use caffeine: Yes Type: coffee Number of servings: 4 HPI LEFT KNEE Details: This documentation accurately reflects the service provided and the decisions made by me, ASHA PiñaC 05/17/25 1126. Part of today???s visit was documented by Kumar Nava ATC, acting as scribe. ALINE HAY is a 60 year old M here today for left knee 3rd Euflexxa injection. Patient rates his pain a 2/10 today. Patient denies any reactions or concerns after the first 2 injections. He states the knee does feel like it is tight. Agree with above, patient states he is tolerating longer activities since prior to injections. PT is on hold with plans to resume next week. ROS Const All systems reviewed are unremarkable except as noted in H and other (A O x 3, no apparent distress. No recent illness.) ENT Denies dizziness Card Denies chest pain, Denies dyspnea and Denies edema Resp Denies cough, Denies dyspnea and Reports other (No recent URI) GI Reports system reviewed and no additional complaints, except as documented, Denies nausea and Denies vomiting Musc Reports as per HPI, Reports abnormal gait and Reports arthralgias Neuro Yes abnormal gait, No dizziness and Yes other Psych Reports system reviewed and no additional complaints, except as documented Lopez/Lymph Denies easy bleeding and Denies easy bruising Ortho Exam General General: Yes no acute distress and Yes well groomed Neurologic: Yes alert and Yes oriented x3 Psychologic: Yes reasonable and appropriate Left Knee KNEE: Skin is pink, warm, dry and intact. There is minimal lateral swelling present, no skin discoloration. Mild swelling and tenderness to popliteal fossa. Range of motion: 0 to 110 degrees Palpation: Tender over medial greater than lateral joint line Lower leg is soft, nontender, easily compressible, Homans negative Noted bilateral lower (more content not included)... Normal [facility] Orthopedic Visit Reporton Orthopedic Visit Report [facility] [address] [place] [address] OFFICE VISIT Date of Service: 05/10/25 MR#: [id number] Acct: [id number] Name: ALINE HAY Rep #: [id number] : 1965 Provider: Dr. Cameron woods, DO Age/Sex: 60/M Location: [facility] [place] Status: Signed Intake Vital Signs 04/12/25 10:12 05/03/25 11:26 05/10/25 11:20 Height 5 ft 8 in 5 ft 8 in 5 ft 8 in Weight: 262 lb 262 lb 262 lb BMI 39.8 39.8 39.8 Intake Visit Reasons: LEFT KNEE Chief Complaint: 2nd Euflexxa left knee injection Accompanied by: Self Is patient in pain?: Yes Pain scale (1-10): 2 Allergies hornet venom Allergy (Severe, Verified 05/10/25 11:25) Anaphylaxis Medications ???Medication ???Instructions ???Recorded ???Confirmed ???Type glipizide 5 mg tablet 5 mg PO DAILY 01/07/21 05/10/25 Hi story metformin 1,000 mg tablet 1,000 mg PO BIDCM #180 tabs 05/10/25 Rx amlodipine 10 mg tablet 10 mg PO DAILY #90 tabs 09/11/23 0 05/10/25 Rx aspirin 81 mg tablet,delayed 81 mg PO DAILY@0800 #90 tabs 09/1105/10/25 Rx release Held on 01/10/25. Instructions: Resume on 01/11/25. losartan 50 mg tablet 50 mg PO DAILY #90 TABLETS 4 05/10/25 Rx dapagliflozin propanediol 5 mg 10 mg PO QDAY 06/29/24 05/10/25 Hi story tablet (Farxiga) furosemide 40 mg tablet 40 mg PO QDAY 10/14/24 05/10/25 Hi story semaglutide 0.25 mg or 0.5 mg (2 0.25 mg subcut TU 10/14/24 5 History mg/3 mL) subcutaneous pen injector (Ozempic) atorvastatin 80 mg tablet 80 mg PO QHS 10/20/24 05/10/25 His tory carvedilol 12.5 mg tablet 12.5 mg PO BID 10/20/24 05/10/25 H istory gabapentin 300 mg capsule 300 mg PO TID 10/20/24 05/10/25 Hi story Have you fallen in the past year?: No PFSH Medical History Wears glasses Wears dentures Diabetes Arthritis High cholesterol Dietary restriction Former smoker History of pain when walking History of edema Holter monitor, abnormal History of stress test Cardiology follow-up encounter Presence of permanent cardiac pacemaker High degree atrioventricular block History of non-ST elevation myocardial infarction (NSTEMI) (06/09/19) Unstable angina Type 2 diabetes mellitus without complication Atherosclerosis of coronary artery of [place] heart without angina pectoris Obesity Essential hypertension Surgical History Hx of colonoscopy History of left heart catheterization (07/16/22) History of coronary artery stent placement (06/20/21) History of umbilical hernia repair History of left inguinal hernia repair Family History Mother Cancer Father Thyroid disorder Cancer lymphoma Social History Smoking Status: Former smoker how long ago did patient quit smokin months ago alcohol intake: never substance use type: does not use caffeine: Yes Type: coffee Number of servings: 4 HPI LEFT KNEE Details: This documentation accurately reflects the service provided and the decisions made by me, Dr. Cameron Cagle, DO 05/10/25826. Part of today???s visit was documented by Jean Payne MA, acting as scribe. ALINE HAY is a 60 year old M here today for 2nd Euflexxa left knee injection. 05/03/2025 visit:1st Euflexxa left knee injection. 04/12/2025 visit:here today for left knee follow up. Patient was having swelling last Thursday04/03/2025. He went to physical therapy, and they wrapped him up. The swelling did go down. The s welling is still there a little bit. He is having some pain in the knee cap, he states that it feels like his bone is sore. Patient stated that he is doing good in physical therapy, and he is getting his strength back. He states that the injection that he had last visit helped a lot. Plan:Patient is here today for a flare up of left knee pain. I spoke with patient that we typically wait 3 months in between injections but I am ok with proceeding with an injection today. If he were to need another injection I would recommend waiting the 3 months before an injection. Injection was given today without complication and patient tolerated well. Patient would like us to submit for the viscosupplementation injections and follow up after the approval. Follow up after approval for the viscosupplementation injections 03/22/2025 visit:here today for left knee follow up. Patient states that he is doing well in physical therapy. He was doing 5 or 6 sessions at [facility]. Patient states that he still has a little bit of weakness in his quad. He is struggling a little bit by (more content not included)... Normal [facility] Orthopedic Visit Reporton Orthopedic Visit Report [facility] [address] [place] [address] OFFICE VISIT Date of Service: 05/03/25 MR#: [id number] Acct: [id number] Name: ALINE HAY Rep #: [id number] : 1965 Provider: Dr. Cameron woods DO Age/Sex: 60/M Location: [facility] [place] Status: Signed Intake Vital Signs 04/12/25 10:12 05/03/25 11:26 Height 5 ft 8 in 5 ft 8 in Weight: 262 lb 262 lb BMI 39.8 39.8 Intake Visit Reasons: LEFT KNEE Chief Complaint: 1 Euflexxa left knee injection Accompanied by: Self Is patient in pain?: Yes Pain scale (1-10): 2 Allergies hornet venom Allergy (Severe, Verified 05/03/25 11:31) Anaphylaxis Medications ???Medication ???Instructions ???Recorded ???Confirmed ???Type glipizide 5 mg tablet 5 mg PO DAILY 01/07/21 05/03/25 Hi story metformin 1,000 mg tablet 1,000 mg PO BIDCM #180 tabs 05/03/25 Rx amlodipine 10 mg tablet 10 mg PO DAILY #90 tabs 09/11/23 0 05/03/25 Rx aspirin 81 mg tablet,delayed 81 mg PO DAILY@0800 #90 tabs 09/1105/03/25 Rx release Held on 01/10/25. Instructions: Resume on 01/11/25. losartan 50 mg tablet 50 mg PO DAILY #90 TABLETS 4 05/03/25 Rx dapagliflozin propanediol 5 mg 10 mg PO QDAY 06/29/24 05/03/25 Hi story tablet (Farxiga) furosemide 40 mg tablet 40 mg PO QDAY 10/14/24 05/03/25 Hi story semaglutide 0.25 mg or 0.5 mg (2 0.25 mg subcut TU 10/14/24 5 History mg/3 mL) subcutaneous pen injector (Ozempic) atorvastatin 80 mg tablet 80 mg PO QHS 10/20/24 05/03/25 His tory carvedilol 12.5 mg tablet 12.5 mg PO BID 10/20/24 05/03/25 H istory gabapentin 300 mg capsule 300 mg PO TID 10/20/24 05/03/25 Hi story Have you fallen in the past year?: No PFSH Medical History Wears glasses Wears dentures Diabetes Arthritis High cholesterol Dietary restriction Former smoker History of pain when walking History of edema Holter monitor, abnormal History of stress test Cardiology follow-up encounter Presence of permanent cardiac pacemaker High degree atrioventricular block History of non-ST elevation myocardial infarction (NSTEMI) (06/09/19) Unstable angina Type 2 diabetes mellitus without complication Atherosclerosis of coronary artery of [place] heart without angina pectoris Obesity Essential hypertension Surgical History Hx of colonoscopy History of left heart catheterization (07/16/22) History of coronary artery stent placement (06/20/21) History of umbilical hernia repair History of left inguinal hernia repair Family History Mother Cancer Father Thyroid disorder Cancer lymphoma Social History (Reviewed 05/03/25 @ 11:31 by ASHOK Shah Smoking Status: Former smoker how long ago did patient quit smokin months ago alcohol intake: never substance use type: does not use caffeine: Yes Type: coffee Number of servings: 4 HPI LEFT KNEE Details: This documentation accurately reflects the service provided and the decisions made by me, Dr. Cameron Cagle, DO 05/03/25 0758. Part of today???s visit was documented by Jean Payne MA, acting as scribe. ALINE HAY is a 60 year old M here today for 1st Euflexxa left knee injection. 04/12/2025 visit:here today for left knee follow up. Patient was having swelling last Thursday04/03/2025. He went to physical therapy, and they wrapped him up. The swelling did go down. The swelling is still there a little bit. He is having some pain in the knee cap, he states that it feels like his bone is sore. Patient stated that he is doing good in physical therapy, and he is getting his strength back. He states that the injection that he had last visit helped a lot. Plan:Patient is here today for a flare up of left knee pain. I spoke with patient that we typically wait 3 months in between injections but I am ok with proceeding with an injection today. If he were to need another injection I would recommend waiting the 3 months before an injection. Injection was given today without complication and patient tolerated well. Patient would like us to submit for the viscosupplementation injections and follow up after the approval. Follow up after approval for the viscosupplementation injections 03/22/2025 visit:here today for left knee follow up. Patient states that he is doing well in physical therapy. He was doing 5 or 6 sessions at [facility]. Patient states that he still has a little bit of weakness in his quad. He is struggling a little bit by going up and down steps, but he has been working on it at home. Patient has been walking on a (more content not included)... Normal [facility] Orthopedic Visit Reporton Orthopedic Visit Report [facility] [address] [place] [id number] OFFICE VISIT Date of Service: 04/12/25 MR#: [id number] Acct: [id number] Name: ALINE HAY Rep #: [id number] : 1965 Provider: Dr. Cameron woods, Age/Sex: 60/M Location: [facility] Status: Signed Intake Vital Signs 03/22/25 11:27 04/12/25 10:12 Height 5 ft 8 in 5 ft 8 in Weight: 262 lb BMI 39.8 Intake Visit Reasons: LEFT KNEE Chief Complaint: Left knee follow up Accompanied by: Self Is patient in pain?: Yes Pain scale (1-10): 2 Allergies hornet venom Allergy (Severe, Verified 04/12/25 10:14) Anaphylaxis Medications ???Medication ???Instructions ???Recorded ???Confirmed ???Type glipizide 5 mg tablet 5 mg PO DAILY 01/07/21 04/12/25 Hi story metformin 1,000 mg tablet 1,000 mg PO BIDCM #180 tabs 04/12/25 Rx amlodipine 10 mg tablet 10 mg PO DAILY #90 tabs 09/11/23 0 04/12/25 Rx aspirin 81 mg tablet,delayed 81 mg PO DAILY@0800 #90 tabs 09/1104/12/25 Rx release Held on 01/10/25. Instructions: Resume on 01/11/25. losartan 50 mg tablet 50 mg PO DAILY #90 TABLETS 4 04/12/25 Rx dapagliflozin propanediol 5 mg 10 mg PO QDAY 06/29/24 04/12/25 Hi story tablet (Farxiga) furosemide 40 mg tablet 40 mg PO QDAY 10/14/24 04/12/25 Hi story semaglutide 0.25 mg or 0.5 mg (2 0.25 mg subcut TU 10/14/24 5 History mg/3 mL) subcutaneous pen injector (Ozempic) atorvastatin 80 mg tablet 80 mg PO QHS 10/20/24 04/12/25 His tory carvedilol 12.5 mg tablet 12.5 mg PO BID 10/20/24 04/12/25 H istory gabapentin 300 mg capsule 300 mg PO TID 10/20/24 04/12/25 Hi story Have you fallen in the past year?: No PFSH Medical History Wears glasses Wears dentures Diabetes Arthritis High cholesterol Dietary restriction Former smoker History of pain when walking History of edema Holter monitor, abnormal History of stress test Cardiology follow-up encounter Presence of permanent cardiac pacemaker High degree atrioventricular block History of non-ST elevation myocardial infarction (NSTEMI) (06/09/19) Unstable angina Type 2 diabetes mellitus without complication Atherosclerosis of coronary artery of [place] heart without angina pectoris Obesity Essential hypertension Surgical History Hx of colonoscopy History of left heart catheterization (07/16/22) History of coronary artery stent placement (06/20/21) History of umbilical hernia repair History of left inguinal hernia repair Family History Mother Cancer Father Thyroid disorder Cancer lymphoma Social History Smoking Status: Former smoker how long ago did patient quit smokin months ago alcohol intake: never substance use type: does not use caffeine: Yes Type: coffee Number of servings: 4 HPI LEFT KNEE Details: This documentation accurately reflects the service provided and the decisions made by me, Dr. Cameron Cagle, DO 04/12/25 0758. Part of today???s visit was documented by Jean Payne MA, acting as scribe. ALINE HAY is a 60 year old M here today for left knee follow up. Patient was having swelling last Thursday04/03/2025. He went to physical therapy, and they wrapped him up. The swelling did go down. The swelling is still there a little bit. He is having some pain in the knee cap, he states that it feels like his bone is sore. Patient stated that he is doing good in physical therapy, and he is getting his strength back. He states that the injection that he had last visit helped a lot. 03/22/2025 visit:here today for left knee follow up. Patient states that he is doing well in physical therapy. He was doing 5 or 6 sessions at [facility]. Patient states that he still has a little bit of weakness in his quad. He is struggling a little bit by going up and down steps, but he has been working on it at home. Patient has been walking on a treadmill at home. He states that he is improving a lot. 02/20/2025 visit: Here today for 6 weeks postop left knee arthroscopy. Patient states the knee is sore today but it feels like he is being hit with a hammer. Patient states he starts physical therapy today. He states the hardest part following surgery is ambulating stairs. He states if he walks a lot the knee seems to be a little bit more sore. He states he was still swollen so he didn't call right away and then they couldn't get him in for another week. DOS : Postoperative diagnosis: Grade 4 chondral wear medial femoral condyle grade 3 medial vega (more content not included)... Normal [facility] Orthopedic Visit Reporton Orthopedic Visit Report [facility] [address] [place] [address] OFFICE VISIT Date of Service: 03/22/25 MR#: [id number] Acct: [id number] Name: ALINE HAY Rep #: [id number] : 1965 Provider: Dr. Cameron woods DO Age/Sex: 60/M Location: [facility] [place] Status: Signed Intake Vital Signs 01/23/25 09:28 03/22/25 11:27 Height 5 ft 8 in 5 ft 8 in Weight: 267 lb BMI 40.6 Intake Visit Reasons: LEFT KNEE Chief Complaint: Left knee follow up Accompanied by: Self Is patient in pain?: Yes Pain scale (1-10): 1 Allergies hornet venom Allergy (Severe, Verified 03/22/25 11:30) Anaphylaxis Medications ???Medication ???Instructions ???Recorded ???Confirmed ???Type glipizide 5 mg tablet 5 mg PO DAILY 01/07/21 03/22/25 Hi story metformin 1,000 mg tablet 1,000 mg PO BIDCM #180 tabs 03/22/25 Rx amlodipine 10 mg tablet 10 mg PO DAILY #90 tabs 09/11/23 0 03/22/25 Rx aspirin 81 mg tablet,delayed 81 mg PO DAILY@0800 #90 tabs 09/1103/22/25 Rx release Held on 01/10/25. Instructions: Resume on 01/11/25. losartan 50 mg tablet 50 mg PO DAILY #90 TABLETS 4 03/22/25 Rx dapagliflozin propanediol 5 mg 10 mg PO QDAY 06/29/24 03/22/25 Hi story tablet (Farxiga) furosemide 40 mg tablet 40 mg PO QDAY 10/14/24 03/22/25 Hi story semaglutide 0.25 mg or 0.5 mg (2 0.25 mg subcut TU 10/14/24 5 History mg/3 mL) subcutaneous pen injector (Ozempic) atorvastatin 80 mg tablet 80 mg PO QHS 10/20/24 03/22/25 His tory carvedilol 12.5 mg tablet 12.5 mg PO BID 10/20/24 03/22/25 H istory gabapentin 300 mg capsule 300 mg PO TID 10/20/24 03/22/25 Hi story Have you fallen in the past year?: No PFSH Medical History Wears glasses Wears dentures Diabetes Arthritis High cholesterol Dietary restriction Former smoker History of pain when walking History of edema Holter monitor, abnormal History of stress test Cardiology follow-up encounter Presence of permanent cardiac pacemaker High degree atrioventricular block History of non-ST elevation myocardial infarction (NSTEMI) (06/09/19) Unstable angina Type 2 diabetes mellitus without complication Atherosclerosis of coronary artery of [place] heart without angina pectoris Obesity Essential hypertension Surgical History Hx of colonoscopy History of left heart catheterization (07/16/22) History of coronary artery stent placement (06/20/21) History of umbilical hernia repair History of left inguinal hernia repair Family History Mother Cancer Father Thyroid disorder Cancer lymphoma Social History Smoking Status: Former smoker how long ago did patient quit smokin months ago alcohol intake: never substance use type: does not use caffeine: Yes Type: coffee Number of servings: 4 HPI LEFT KNEE Details: This documentation accurately reflects the service provided and the decisions made by me, Dr. Cameron Cagle, DO 03/22/25 0821. Part of today???s visit was documented by Jean Payne MA, acting as scribe. ALINE HAY is a 60 year old M here today for left knee follow up. Patient states that he is doing well in physical therapy. He was doing 5 or 6 sessions at [facility]. Patient states that he still has a little bit of weakness in his quad. He is struggling a little bit by going up and down steps, but he has been working on it at home. Patient has been walking on a treadmill at home. He states that he is improving a lot. 02/20/2025 visit: Here today for 6 weeks postop left knee arthroscopy. Patient states the knee is sore today but it feels like he is being hit with a hammer. Patient states he starts physical therapy today. He states the hardest part following surgery is ambulating stairs. He states if he walks a lot the knee seems to be a little bit more sore. He states he was still swollen so he didn't call right away and then they couldn't get him in for another week. DOS : Postoperative diagnosis: Grade 4 chondral wear medial femoral condyle grade 3 medial patellar facet. Procedure: Left knee arthroscopic chondroplasty medial femoral condyle and patella. Plan:Explained that at the 6 week post-op aly after these surgeries when there is arthritis in the knee we could always try a steroid injection to help with any pain and inflammation in the knee. With physical therapy he should make sure to advocate for himself and they shouldn't push him too hard to fast. He needs to make sure they do a gentle, slow progression with physical t (more content not included)... Normal [facility] XR RIBS 2 VIEWS RIGHTon 06-0 XR RIBS 2 VIEWS RIGHT ORIGINAL EXAMINATION: 2 XRAY VIEWS OF THE RIGHT RIB02/24/2025 4:51 pm COMPARISON: None HISTORY: ORDERING SYSTEM PROVIDED HISTORY: Reason for Exam: pain, injury FINDINGS: There is subtle cortical offset in the anterior end of the 8th rib that may be a nondisplaced fracture. No other rib fracture is seen, nondisplaced fractures may not always be evident on initial radiographs. The right lung is clear with no pleural effusion, consolidation or pneumothorax. IMPRESSION: Question fracture anterior end of the 8th rib, correlate with point tenderness. Interpreted by: Navi Jackson MD Preliminary Report By: Navi Jackson MD Electronically signed By Navi Jackson MD Dictated Date: 02/27/2025 3:10:22 PM Prelim Date: 02/27/2025 3:12:51 PM Sign Date: 02/27/2025 3:12:51 PM Ordering Provider: DAVID Freeman [facility] Inital Evaluation (1) - PTon 02-22-2025 Inital Evaluation (1) - PT [facility] [address] [place] [id number] / REHABILITATION SERVICES INITIAL EVALUATION MR#: [id number] Acct: [id number] Name: ALINE HAY Rep #: [id number] : 1965 60 From: Carlos Cartagena PT. T, OCS Referring Dr.: Dr. Cameron Cagle DO Status: R EG RCR Insurance: [facility] SELF PAY [employer]URANCE Patient's Visit Information Visit Information Visit Information: ALINE HAY is a 60 year old M referred to Physical Therapy by Dr. Cameron Cagle DO with a diagnosis of Peripheral tear medial meniscus ,left knee. Date of Evaluation: 02/22/25 Physical Therapist: Donovan Church PT, Cert T, OCS Visit Plan Frequency: 2x /Week Duration: 4 Weeks Plan: *S/P Left knee arthroscopic chondroplasty medial femoral condyle and patella meniscectomy 01/10* PACEMAKER NO ESTIM PT INTERVENTIONS LEFT KNEE ROM ,STRENGTHENING EX'S QUADS/HAMS/HIP ,FUNCTIONAL STRENGTHENING ,AND CP/VASO NEEDED FOR EDEMA Subjective Subjective: This 60 y/o male presents to physical therapy with left s/p Left knee arthroscopic chondroplasty medial femoral condyle and patella meniscectomy done by DR Cagle [facility] January 10 .Patient had meniscus tear from MRI thus had Left knee arthroscopy chondroplasty medial femoral condyle meniscectomy. Patient d/c home with walker. Patient stated a lot of edema , seen DR did cortisone injection ,also discuss other insertions possible every 3 months and the visco injections can be given every 6 months and possible TKA .10/12/2024 MRI left knee: Tear posterior root medial meniscus. High-grade chondromalacia mid weightbearing surface of the medial femoral condyle, suspected tiny horizontal tear body lateral meniscus, Patient pain located medial knee. Pain described ache . Unable to Squat or kneel. Patient has pain with stairs. extended walking. Sleeping okay on left. Stopped pain medication and occasional ice. Patient has difficulty with housework tasks also off work . Goals RTW and decrease pain. 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 Pain Left Knee: Pain Intensity (Out of 10): 7 Pain Intensity Range: 10 Objective Objective: POSTURE: mild forward posture GAIT: reciprocal pattern antalgic gait with decreases stance time LLE NEURO: denie paresthesia/tingling ,reflexes L3-4,L4-5,L5-S1 1/3 AROM: supine knee flexion 0-130 degrees MMT: ( peak force) left quads 22.8 ,hamstrings 13.8 ,hip flexion 14.9 ,hip abd 12.1 ,ankle 4/5 FLEXABILITY: hamstrings min tight STAIRS: one step at time Balance/Special Test Scores Lower Extremity Functional Score: 21 Goals Goal 1:: Patient to be I with HEP knee Goal Time Frame: 4-6 Weeks Goal 2:: Patient to be I with HEP for knee Goal Time Frame: 4-6 Weeks Goal 3:: Patient to improve peak force quads/hams/hip by 5-10# to improve gait and function Goal Time Frame: 4-6 Weeks Goal 4:: Patient to normalize gait community distances Goal Time Frame: 4-6 Weeks Goal 5:: Patient to demonstrate 50% improvement with less pain and improved function with gait Goal Time Frame: 4-6 Weeks Goal 6:: Patient to improve LFES score by 5 points to improve QOL and function Goal Time Frame: 4-6 Weeks Rehabilitation Potential Physical Therapy Diagnosis: Patient underwent s/p Left knee arthroscopic chondroplasty medial femoral condyle and patella meniscectomy 01/10 with pain ,weakness impairs gait ,stairs ,edema and RTW thus benefit from skilled PT Rehabilitation Potential: Good Anticipated Interventions Patient/Client Instruction: Educate patient on: Condition and Plan of Care For the Purpose of:: To decrease pain, To increase ROM, To improve muscle performance and motor function, To improve ability to perform ADL's, To increase tolerance to activity/condition/p osition, To improve ability of physical actions for home/community/work/ leisure, To improve health of tissue, To decrease soft tissue restriction, To increase flexibility/ROM, To improve endurance, To improve balance, To reduce risk of recurrence and To improve tolerance to ADL's Therapeutic Exercise to Include: Strength training, Flexibilty training, Active ROM and Dynamic Lumbar Stabilization For the Purpose of:: To decrease pain, To increase ROM, To improve muscle performance and motor function, To increase tolerance to activity/condition/p osition, To improve performance and independence with ADL's, To improve ability of physical actions for home/community/work/ leisure, To improve health of tissue, To decrease soft tissue restriction, To increase flexibility/ROM, To reduce risk of recurrence and To improve tolerance to ADL's Cryotherapy (ice pack, ice massage): Yes Ultrasound (thermal/non thermal): Yes For the Purpose of:: To decrease pain, To increase ROM, To improve nutrient delivery to tissue, To increase oxygenation perfusion, To improve h (more content not included)... Normal [facility] Orthopedic Visit Reporton Orthopedic Visit Report [facility] [address] [place] [address] OFFICE VISIT Date of Service: 02/20/25 MR#: [id number] Acct: [id number] Name: BHARTIALINE J Rep #: [id number] : 1965 Provider: Dr. Cameron woods DO Age/Sex: 60/M Location[place] [facility] [place] Status: Signed Intake Vital Signs 01/23/25 09:28 Height 5 ft 8 in Weight: 267 lb BMI 40.6 Intake Visit Reasons: LEFT KNEE Chief Complaint: 6 week post op left knee Accompanied by: Self Is patient in pain?: Yes Allergies hornet venom Allergy (Severe, Verified 02/20/25 09:47) Anaphylaxis Medications ???Medication ???Instructions ???Recorded ???Confirmed ???Type glipizide 5 mg tablet 5 mg PO DAILY 04/19/21 06/02/25 Hi story metformin 1,000 mg tablet 1,000 mg PO BIDCM #180 tabs 02/20/25 Rx amlodipine 10 mg tablet 10 mg PO DAILY #90 tabs 09/11/23 0 02/20/25 Rx aspirin 81 mg tablet,delayed 81 mg PO DAILY@0800 #90 tabs 09/1102/20/25 Rx release Held on 01/10/25. Instructions: Resume on 01/11/25. losartan 50 mg tablet 50 mg PO DAILY #90 TABLETS 4 02/20/25 Rx dapagliflozin propanediol 5 mg 10 mg PO QDAY 06/29/24 02/20/25 Hi story tablet (Farxiga) furosemide 40 mg tablet 40 mg PO QDAY 10/14/24 02/20/25 Hi story semaglutide 0.25 mg or 0.5 mg (2 0.25 mg subcut TU 10/14/24 5 History mg/3 mL) subcutaneous pen injector ([employer]) atorvastatin 80 mg tablet 80 mg PO QHS 10/20/24 02/20/25 His tory carvedilol 12.5 mg tablet 12.5 mg PO BID 10/20/24 02/20/25 H istory gabapentin 300 mg capsule 300 mg PO TID 10/20/24 02/20/25 Hi story PFSH Medical History Wears glasses Wears dentures Diabetes Arthritis High cholesterol Dietary restriction Former smoker History of pain when walking History of edema Holter monitor, abnormal History of stress test Cardiology follow-up encounter Presence of permanent cardiac pacemaker High degree atrioventricular block History of non-ST elevation myocardial infarction (NSTEMI) (06/09/19) Unstable angina Type 2 diabetes mellitus without complication Atherosclerosis of coronary artery of [place] heart without angina pectoris Obesity Essential hypertension Surgical History Hx of colonoscopy History of left heart catheterization (07/16/22) History of coronary artery stent placement (06/20/21) History of umbilical hernia repair History of left inguinal hernia repair Family History Mother Cancer Father Thyroid disorder Cancer lymphoma Social History Smoking Status: Former smoker how long ago did patient quit smokin months ago alcohol intake: never substance use type: does not use caffeine: Yes Type: coffee Number of servings: 4 HPI LEFT KNEE Details: This documentation accurately reflects the service provided and the decisions made by me, Dr. Cameron Cagle, DO 02/20/25 0754. Part of today???s visit was documented by Loni Nava ATC, acting as scribe. ALINE HAY is a 60 year old M here today for 6 weeks postop left knee arthroscopy. Patient states the knee is sore today but it feels like he is being hit with a hammer. Patient states he starts physical therapy today. He states the hardest part following surgery is ambulating stairs. He states if he walks a lot the knee seems to be a little bit more sore. He states he was still swollen so he didn't call right away and then they couldn't get him in for another week. DOS : Postoperative diagnosis: Grade 4 chondral wear medial femoral condyle grade 3 medial patellar facet. Procedure: Left knee arthroscopic chondroplasty medial femoral condyle and patella. Ortho Exam General General: Yes no acute distress and Yes well groomed Neurologic: Yes alert and Yes oriented x3 Psychologic: Yes reasonable and appropriate Left Knee Skin/Wound: Yes CDI, Yes healed, No ecchymosis, No erythema and No swelling Knee ROM: Yes ROM-Extension -20 to 0 and No ROM-Flexion 0-140 (90) Examination: Yes med jt line tenderness and Yes Lat jt line tenderness KNEE: Incisions well-healed no signs of infection or DVT Office Procedures Ortho Injections Injections Yes Knee Left Is this a patient provided medication?: No Details: Obtained consent for injection. Under sterile conditions, injected the patients left knee with 1.5cc Bupivacaine, 1.5cc Lidocaine and 1.0cc Depomedrol. The patient tolerated the injection well without any noted complication. Patient should call our office if redness develops, pain worsens or if they have any concerns. Office Meds Depo-Medr (more content not included)... Normal [facility] Orthopedic Visit Reporton Orthopedic Visit Report [facility] [address] [place] [address] [address] [place] [address] OFFICE VISIT Date of Service: 01/23/25 MR#: [id number] Acct: [id number] Name: ALINE HAY Rep #: [id number] : 1965 Provider: Dr. Cameron woods, DO Age/Sex: 59/M Location: [facility] [place] Status: Signed Intake Vital Signs 10/14/24 08:44 01/10/25 07:25 01/23/25 09:28 Height 5 ft 7.5 in 5 ft 8 in 5 ft 8 in Weight: 267 lb BMI 40.6 Intake Visit Reasons: left knee Chief Complaint: 2 week post op left knee Accompanied by: Self Is patient in pain?: Yes Pain scale (1-10): 7 Allergies hornet venom Allergy (Severe, Verified 01/10/25 07:13) Anaphylaxis Medications ???Medication ???Instructions ???Recorded ???Confirmed ???Type glipizide 5 mg tablet 5 mg PO DAILY 01/07/21 01/23/25 Hi story metformin 1,000 mg tablet 1,000 mg PO BIDCM #180 tabs 01/23/25 Rx amlodipine 10 mg tablet 10 mg PO DAILY #90 tabs 09/11/23 0 01/23/25 Rx aspirin 81 mg tablet,delayed 81 mg PO DAILY@0800 #90 tabs 09/1101/23/25 Rx release Held on 01/10/25. Instructions: Resume on 01/11/25. losartan 50 mg tablet 50 mg PO DAILY #90 TABLETS 4 01/23/25 Rx dapagliflozin propanediol 5 mg 10 mg PO QDAY 06/29/24 01/23/25 Hi story tablet (Farxiga) furosemide 40 mg tablet 40 mg PO QDAY 10/14/24 01/23/25 Hi story semaglutide 0.25 mg or 0.5 mg (2 0.25 mg subcut TU 10/14/24 5 History mg/3 mL) subcutaneous pen injector (Ozempic) atorvastatin 80 mg tablet 80 mg PO QHS 10/20/24 01/23/25 His tory carvedilol 12.5 mg tablet 12.5 mg PO BID 10/20/24 01/23/25 H istory gabapentin 300 mg capsule 300 mg PO TID 10/20/24 01/23/25 Hi story hydrocodone-acetamin ophen 5-325mg 1 - 2 tab PO Q4H 5 days #25 tabs 01/23/25 01/23/25 Rx 5mg-325mg Have you fallen in the past year?: No PFSH Medical History Wears glasses Wears dentures Diabetes Arthritis High cholesterol Dietary restriction Former smoker History of pain when walking History of edema Holter monitor, abnormal History of stress test Cardiology follow-up encounter Presence of permanent cardiac pacemaker High degree atrioventricular block History of non-ST elevation myocardial infarction (NSTEMI) (06/09/19) Unstable angina Type 2 diabetes mellitus without complication Atherosclerosis of coronary artery of [place] heart without angina pectoris Obesity Essential hypertension Surgical History Hx of colonoscopy History of left heart catheterization (07/16/22) History of coronary artery stent placement (06/20/21) History of umbilical hernia repair History of left inguinal hernia repair Family History Mother Cancer Father Thyroid disorder Cancer lymphoma Social History Smoking Status: Former smoker how long ago did patient quit smokin months ago alcohol intake: never substance use type: does not use caffeine: Yes Type: coffee Number of servings: 4 HPI left knee Details: This documentation accurately reflects the service provided and the decisions made by me, Dr. Cameron Cagle, DO 01/23/25 4020. Part of today???s visit was documented by Jean Nava MA, acting as scribe. ALINE HAY is a 59 year old M here today for 2 weeks postop left knee arthroscopy DOS 01/10/2025;Postoperat derian diagnosis: Grade 4 chondral wear medial femoral condyle grade 3 medial patellar facet Procedure: Left knee arthroscopic chondroplasty medial femoral condyle and patella. Patient states that his left knee is swelling and back and blue. No drainage no fevers or chills no concern for infection. Ortho Exam General General: Yes no acute distress and Yes well groomed Neurologic: Yes alert and Yes oriented x3 Psychologic: Yes reasonable and appropriate Left Knee Skin/Wound: Yes suture/jose removed, Yes ecchymosis, No erythema and Yes swelling Knee ROM: No ROM-Extension -20 to 0 (15) and No ROM-Flexion 0-140 (70) KNEE: medial thigh/ knee ecchymosis small effusion no sign of infection Sutures removed Supplemental Info 01/10/2025 left knee arthroscopy: Postoperative diagnosis: Grade 4 chondral wear medial femoral condyle grade 3 medial patellar facet. Procedure: Left knee arthroscopic chondroplasty medial femoral condyle and patella 10/12/2024 MRI left knee: Tear posterior root medial meniscus. High-grade chondromalacia mid weightbearing surface of the medial femoral condyle, suspected tiny horizontal tear body lateral meniscus, 06/29/2024 x-ray left knee: Mild narrowing of the la (more content not included)... Normal [facility] Bedside Glucoseon 01-10-2025 FINGERSTICK GLU 123 mg/dL High 74-106 [facility] Comment on above: Result Comment: [facility] OF PATIENT CARE PER NURSING PROTOCOL Performed By: #### L [phone] ####[facility] [id number] [facility] [place], [address] Discharge Instructionon 12-21 Discharge Instruction [facility] Medical Records Department [address] [facility] [place] [address] Instructions for Home/Discharge Instructions 01/10/25 0924 MR#: [id number] Acct: [id number] Name: ALINE HAY Rep #: [id number] : 1965 59 From: Cameron Cagle DO PCP: Dr. David Grider, DO Status[place] [facility] [place] Instructions Diet Discharge Diet: No restrictions Dressing / Incision Call your doctor if you observe: Shortness of breath and Chest pain Additional Dressing/Incision Instructions:: Ice and elevate next 72 hours .keep dressing on clean and dry for 48 hours then may remove begin showering daily but do not submerge in tub or pool. After shower may apply Band-Aids . Encourage knee range of motion weightbearing as tolerated, use crutches until confident in knee then may discontinue. No strenuous activity. When not ambulating keep iced and elevated next 72 hours. Do not mix pain medication with recreational drugs or alcohol only take as prescribed can be addictive and abusive, call with any questions or concerns. Follow Up Care Please Follow Up With: Cameron Cagle DO When: 2 weeks Test Results: Test results from this visit will be discussed in further detail at your follow-up appointment, if applicable. Discharge Plan Admission Primary Reason for Your Visit: Left knee arthroscopy Attending Provider: Cameron Cagle Primary Care Provider: David Grider Instructions Print Language: Romanian Discharge Orders/Prescriptions Prescriptions: New hydrocodone-acetamin ophen 5-325 mg tablet 1 - 2 tab PO Q4H 5 Days Qty: 20 0RF Continued glipizide 5 mg tablet 5 mg PO DAILY dapagliflozin propanediol [Farxiga] 5 mg tablet 10 mg PO QDAY furosemide 40 mg tablet 40 mg PO QDAY Ozempic 0.25 mg or 0.5 mg (2 mg/3 mL) pen injector 0.25 mg subcut TU Patient Comments: INJECT 0.25 MG SUBCUTANEOUSLY ONCE WEEKLY FOR THE FIRST 4 INJECTIONS, THEN INCREASE TO 0.5 MG WEEKLY atorvastatin 80 mg tablet 80 mg PO QHS Rx Instructions: TAKE 1 TABLET BY MOUTH AT BEDTIME carvedilol 12.5 mg tablet 12.5 mg PO BID Rx Instructions: TAKE 1 TABLET BY MOUTH TWICE A DAY gabapentin 300 mg capsule 300 mg PO TID metformin 1,000 mg tablet 1,000 mg PO BIDCM Qty: 180 3RF amlodipine 10 mg tablet 10 mg PO DAILY Qty: 90 3RF losartan 50 mg tablet 50 mg PO DAILY Qty: 90 3RF Held clopidogrel 75 mg tablet 75 mg PO DAILY Hold Instructions: Resume on 01/11/25. Rx Instructions: TAKE 1 TABLET BY MOUTH EVERY DAY aspirin 81 mg tablet,delayed release (DR/EC) 81 mg PO DAILY@0800 Qty: 90 3RF Hold Instructions: Resume on 01/11/25. Referrals / Follow Up: David Grider DO [Primary Care Provider] - Disposition Disposition (needs filled in before D/C Order can be placed): Home, Self Care 01/10/25 0929 Cameron Cagle DO CC: Dr. David Grider DO Signed Normal [facility] Glucose measurement at [facility] deOrdered By: Cameron Cagle on 01-10-2025 Bedside Glucose ([facility] Panel) 123 mg/dL High 74-106 [facility] Comment on above: MANAGEMENT OF PATIEN T CARE PER NURSING PROTOCOL Glucose [Mass/Vol] 123 mg/dL High 74-106 [facility] Comment on above: MANAGEMENT OF PATIEN T CARE PER NURSING PROTOCOL MR/POSTOP.ANEon 01-10-2025 MR/POSTOP.ANE [facility] Medical Records Department [address] [facility] [place] [address] Anesthesia Postop Eval I 01/10/25928 MR#: [id number] Acct: [id number] Name: ALINE HAY Rep #: [id number] : 1965 59 From: Myriam Knight CRNA PCP: Dr. David Grider, Status:REG [facility] Y Race: C Location: [place] [address] Anesthesia: Postop Eval I Current Vital Signs Temperature: 97.2 F Pulse Rate: 67 Blood Pressure: 126/77 Respiratory Rate: 18 Pulse Ox: 93 Oxygen Delivery Method: Room Air Assessment Airway patent: Yes Spontaneous unlabored respirations: Yes Mental status: Awake nausea: No Vomiting: No Anesthesia Complication: No Fluid Hydration Crystalloid volume administer (ml): 300 Total IV fluid infused: 300 Progress Note Anesthesia document: Postop Eval 1 completed: Yes 01/10/25928 Date Myriam Knight ENTER[employer]ISE SOLUTIONS ARCHITECT Cosigner Signature: Date CC: Signed Normal [facility] [id number] 01-10-2025 MR/POSTOPAN2 [facility] Medical Records Department [address] [place] [address] Anesthesia Postop Eval II 01/10/25943 MR#: [id number] Acct: [id number] Name: ALINE AHY Rep #: [id number] : 1965 59 From: Adriano Guzman MD PCP: Dr. David Grider, DO Status:REG [facility] Y Race: C Location: [place] [address]- Anesthesia Postop Eval I Sum Postop Eval Completion status Anesthesia document: Postop Eval 1 completed: Yes Anesthesia Postop Eval I Summary Anesthesia Postop Eval I Summary: Anesthesia Postop Eval I: Assessment Summary Airway patent Yes 01/10/25 09:29 ENTERPRISE SOLUTIONS ARCHITECT.BPEY Spontaneous unlabored Yes 01/10/25 09:29 ENTER[employer]ISE SOLUT[employer] ARCHITECT.BPEY respirations Mental status Awake 01/10/25 09:29 ENTER[employer]ISE SOL[employer] ARCHITECT.BPEY nausea No 01/10/25 09:29 ENTERPRISE SOLUTIONS ARCHITECT.BPEY Vomiting No 01/10/25 09:29 ENTER[employer]ISE SOLUTIONS ARCHITECT.BPEY Anesthesia Postop Eval I: Fluid Summary Crystalloid volume administer 300 01/10/25 09:29 ENTERPRISE SOLUTIONS ARCHITECT.BPEY (ml) Colloids volume administered ( ml) Blood Product volume administered (ml) Total IV fluid infused 300 01/10/25 09:29 ENTERPRISE SOL[employer] ARCHITECT.BPEY Anesthesia Postop Eval I: Summary Notes Anesthesia Complication No 01/10/25 09:29 ENTERPRISE SOLUTIONS ARCHITECT.BPEY Anesthesia Complication Comment: Post-operative progress note Anesthesia: Postop Eval II Evaluation Mental status: Awake and Calm Pain Level: 2 nausea: No Vomiting: No Complications Anesthesia Complication: No 01/10/25944 Date Adriano Guzman MD Cosigner Signature: Date CC: Signed Normal [facility] Operative Reporton 5 Operative Report [facility] Medical Records Department [address] [place] [address] Operative Report 01/10/25917 MR#: [id number] Acct: [id number] Name: ALINE HAY Rep #: [id number] : 1965 59 From: Cameron Cagle DO PCP: Dr. David Grider DO Status:[facility] Location: [place] [address] Operative Report (Standard) Operative Information Date of Procedure: 01/10/25 Pre-Operative Diagnosis: Left knee medial meniscus root tear Post-Operative Diagnosis: Left knee grade 4 cartilage cartilage wear medial femoral condyle Surgery/Procedure Performed: Left knee arthroscopy chondroplasty medial femoral condyle furnace combustion analyst: Yes Ice Cream Maker: Jarett Handy Tasks completed by assistant professor of art: Opening closing Type of Anesthesia: General RN Documented Start/Stop Times: Operation Date: 01/10/25 08:30 Case Time Into Pre-Op 01/10/25 06:54 Out of Pre-Op 01/10/25 08:30 Anesthesia Start 01/10/25 08:36 Into Room 01/10/25 08:36 Procedure Start 01/10/25 08:56 Procedure End 01/10/25 09:13 Procedure Start Time: 08:56 Procedure Stop Time: 09:13 Select all DRAINS/GRAFTS/IMPLAN TS that apply: None Estimated Blood Loss: 0 Specimen collected: No Description of surgery: Preop diagnosis: Left knee DJD medial meniscus root tear Postoperative diagnosis: Grade 4 chondral wear medial femoral condyle grade 3 medial patellar facet Procedure: Left knee arthroscopic chondroplasty medial femoral condyle and patella Anesthesia: General Estimated blood loss: 5 mL Tourniquet time: 20 minutes 300 mmHg Complications: none Indication for procedure: 59-year-old male who has had ongoing knee pain with mechanical symptoms MRI was read as a root tear medial meniscus the patient did wish to proceed with an elective arthroscopic surgery to attempt to alleviate the symptoms. Risk benefits and alternatives of the procedure were reviewed including risk of bleeding infection nerve artery tissue damage need for further surgery continued pain and expected postoperative course. Procedure: The patient was met in the preoperative holding area. The operative extremity was identified by both patient and physician and family and marked. Patient was brought back to the operating room on a wheeled cart and transferred to the operating table in the supine position. Anesthesia was started. A well-padded tourniquet was placed on the operative extremity. A lower extremity leg mcintosh was secured to the operative extremity. The contralateral extremity was well- padded and the end of the bed was flexed to 90 degrees. The patient was prepped and draped in the usual sterile fashion. A timeout was called to ensure the proper patient, procedure, and extremity were being contemplated. 0.5% Marcaine with epinephrine was injected into the planned incisional areas under the skin only. An Esmarch was used to exsanguinate the extremity and the tourniquet was inflated. An 11 blade scalpel was used to make a stab incision in the anterior lateral portal. The arthroscope was inserted into the intercondylar notch and inflow and outflow tubes were attached. Arthroscopic visualization began. The medial compartment was entered. An 18-gauge spinal needle was used to establish the placement for anterior medial portal. An 11 blade scalpel was used to make a stab incision. Blunt probe was inserted followed by a meniscal probe, the medial meniscus was thoroughly probed including the root and there was noted instability to the meniscus and no tearing that would require meniscectomy the shaver was used to perform a gentle chondroplasty of the medial femoral condyle. Immediately there was noted to be high grade 4 cartilage wear of the medial femoral condyle the ACL was was intact but loose and degenerative. The lateral compartment was entered there was no cartilage or meniscal pathology The arthroscope was switched to the medial portal to complete the procedure. The medial and lateral gutters were inspected and were free of loose bodies. The patellofemoral joint was inspected there is grade 3 cartilage wear of the medial patellar facet and gentle chondroplasty was used to remove loose cartilage from the periphery. There was good patellar tracking. The knee was thoroughly irrigated and drained. An intra- articular injection with 5 cc 0.5% Marcaine plain and 40 mg of Depo-Medrol was injected intra- articularly. The arthroscope was removed the portals were closed with 3-0 nylon arthroscopic stitches. Followed by Xeroform 4 x 4's ABDs web roll and an Parveen wrap. The tourniquet was let down and the drapes were removed. All counts were correct. The patient was brought back to the PACU in stable condition. Surgical Findings: DJD Complications Complications: No 01/10/25 8245 Cosigner Signature (if applicable): CC: Dr. David Grider, DO; Dr. Cameron Cagle, (more content not included)... [facility] MR/PAT.ANEon 04-08-2025 MR/PAT.ANE [facility] Medical Records Department [address] [place] [address] PAT - Anesthesia 12/27/24 1606 MR#: [id number] Acct: [id number] Name: ALINE HAY Rep #: [id number] : 1965 59 From: Adriano Guzman MD PCP: Dr. David Grider, DO Status:PRE [facility] [place] Race: C [place] [facility] [place] Pre-Assessment Diagnosis/Proposed Procedure Planned Operative Procedure(s): (L) Left knee Arthroscopy, partial menisectomy, surgery as indicated Anesthesia History Anesthesia History - mangle press catcher: Anesthesia History - mangle press catcher Hx Hospitalization No 12/27/24 08:07 Any Problems With Anesthesia No 12/27/24 08:07 Cholinesterase deficiency No 12/27/24 08:07 You/Your Family Experience No 12/27/24 08:07 fever (hyperthermia) with Relationship Recent Exposure to Contagious Disease Does patient have nerve No 12/27/24 08:07 stimulator Patient instructed to have device shut off --Does patient have Pacemaker or ICD? When Was Last Pacemaker Check QUESTION #4 FULL TEXT: You/Your Family Experience fever (hyperthermia) with Anesthesia Last Oral Intake Last Oral intake: Last Oral Intake NPO since Meds taken in AM with sips of water? Meds patient instructed to take am of surgery PONV PONV - mangle press catcher: PONV - mangle press catcher Female No 12/27/24 08:07 HX of Motion Sickness No 12/27/24 08:07 HX of N/V After Surgery No 12/27/24 08:07 Non-Smoker Yes 12/27/24 08:07 Duration of Surgery greater Yes 12/27/24 08:07 than 60 minutes Number of Risk Factors 2 12/27/24 08:07 PONV Score Moderate Risk 12/27/24 08:07 Height Weight Height Weight: Anesthesia: Height Weight Height 5 ft 7.5 in 10/14/24 08:44 Respiratory Assessment Respiratory Assessment - mangle press catcher: Respiratory Tract Infection Hx - mangle press catcher Hx Respiratory Tract Infection No 12/27/24 08:07 STOP Sleep Apnea STOP Sleep Apnea - mangle press catcher: STOP Sleep Apnea - mangle press catcher Hx Hypertension Yes 12/27/24 08:07 Hx Sleep Apnea No 12/27/24 08:07 CPAP BIPAP Do you snore loudly (louder No 12/27/24 08:07 than talking or can be heard Do you often feel tired/ No 12/27/24 08:07 fatigued/ sleepy during daytime? Has anyone observed you stop No 12/27/24 08:07 breathing during sleep? STOP Results Negative 12/27/24 08:07 QUESTION #5 FULL TEXT : Do you snore loudly (louder than talking or can be heard through closed doors)? 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 Specify any problems Hx of Preganancy in last 3 N/A 12/27/24 08:07 Months Nurse Filling Out Transfusion NBUCHER 12/27/24 08:07 Questions: Date: 12/27/24 12/27/24 08:07 Time: 08:08 12/27/24 08:07 Patient unable to answer at this time (ie. confused, unrespo /Reproducti on History /Reproducti ve History - mangle press catcher: /Reproducti ve Hx- mangle press catcher Hx Now Gestational Age (in weeks): EDC: Hx Hx Para Hx Section SAB No 12/27/24 08:07 PFSH Medical History Wears glasses Wears dentures Diabetes Arthritis High cholesterol Dietary restriction Former smoker History of pain when walking History of edema Holter monitor, abnormal History of stress test Cardiology follow-up encounter Presence of permanent cardiac pacemaker High degree atrioventricular block History of non-ST elevation myocardial infarction (NSTEMI) (06/09/19) Unstable angina Type 2 diabetes mellitus without complication Atherosclerosis of coronary artery of [place] heart without angina pectoris Obesity Essential hypertension Home Medications ???Medication ???Instructions ???Recorded ???Last Taken ???Type glipizide 5 mg tablet 5 mg PO DAILY 01/07/21 07/15/22 Hi story metformin 1,000 mg tablet 1,000 mg PO BIDCM #180 tabs Unknown Rx amlo (more content not included)... Normal [facility] 12-05-2024 U Ratio Alb/Cre 648 mg/G High 0-30 [facility] Comment on above: Result Comment: The units for the MALB test were changed on 10/25/24, but the MALB ratio calculation was not initially adjusted to reflex this. The corrected ratio has now been recalculated using the appropriate conversion factor. BP Performed By: #### M ALBR #### [id number] [place], [place] [address] LABORATORYOrdered By: Delma Painter on 11-17-2024 Albumin DL <= 20 mg/L (U) [Mass/Vol] 406.8 mg/L Invalid Interpretation Code AO ADM SS Albumin/Creatinine DL <= 20 mg/L (U) [Mass ratio] 6 mcg/mg Normal 0 - 30 mcg/mg AO Chemistry S Creatinine (U) [Mass/Vol] 62.8 mg/dL Invalid Interpretation Code AO ADM SS [facility] 11-17-2024 U Creatinine 62.8 mg/dL Normal [facility] Comment on above: Performed By: #### M ALBR #### [id number] [place], [place] [address] U Microalb 406.8 mg/L Normal [facility] Comment on above: Performed By: #### M ALBR #### [id number] [place], [place] [address] MR/PAT.HANNYon 10-20-2024 MR/PAT.HANNY [facility] Medical Records Department [address] [place] [address] PAT - Anesthesia 10/20/242 MR#: [id number] Acct: [id number] Name: ALINE HAY Rep #: [id number] : 1965 59 From: Adriano Guzman MD PCP: Dr. David Grider, DO Status:PRE SDC Y Race: C [place] [facility] [place]Assessment Diagnosis/Proposed Procedure Planned Operative Procedure(s): LEFT KNEE ARTHROSCOPY PARTIAL MENISECTOMY Anesthesia History Anesthesia History - mangle press catcher: Anesthesia History - mangle press catcher Hx Hospitalization No 10/20/24 09:12 Any Problems With Anesthesia No 10/20/24 09:12 Cholinesterase deficiency No 10/20/24 09:12 You/Your Family Experience No 10/20/24 09:12 fever (hyperthermia) with Relationship Recent Exposure to Contagious Disease Does patient have nerve No 10/20/24 09:12 stimulator Patient instructed to have device shut off --Does patient have Pacemaker or ICD? When Was Last Pacemaker Check QUESTION #4 FULL TEXT: You/Your Family Experience fever (hyperthermia) with Anesthesia Last Oral Intake Last Oral intake: Last Oral Intake NPO since Meds taken in AM with sips of water? Meds patient instructed to take am of surgery PONV PONV - mangle press catcher: PONV - mangle press catcher Female No 10/20/24 09:12 HX of Motion Sickness No 10/20/24 09:12 HX of N/V After Surgery No 10/20/24 09:12 Non-Smoker Yes 10/20/24 09:12 Duration of Surgery greater Yes 10/20/24 09:12 than 60 minutes Number of Risk Factors 2 10/20/24 09:12 PONV Score Moderate Risk 10/20/24 09:12 Height Weight Height Weight: Anesthesia: Height Weight Height 5 ft 7.5 in 10/14/24 08:44 Respiratory Assessment Respiratory Assessment - mangle press catcher: Respiratory Tract Infection Hx - mangle press catcher Hx Respiratory Tract Infection No 10/20/24 09:12 STOP Sleep Apnea STOP Sleep Apnea - mangle press catcher: STOP Sleep Apnea - mangle press catcher Hx Hypertension Yes: CONTROLLED WITH MED 10/20/24 09:12 Hx Sleep Apnea No 10/20/24 09:12 CPAP BIPAP Do you snore loudly (louder No 10/20/24 09:12 than talking or can be heard Do you often feel tired/ No 10/20/24 09:12 fatigued/ sleepy during daytime? Has anyone observed you stop No 10/20/24 09:12 breathing during sleep? STOP Results Negative 10/20/24 09:12 QUESTION #5 FULL TEXT : Do you snore loudly (louder than talking or can be heard through closed doors)? 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 confused, unrespo /Reproducti on History /Reproducti ve History - mangle press catcher: /Reproducti ve Hx- mangle press catcher Hx Now No 10/20/24 09:12 Gestational Age (in weeks): EDC: Hx Hx Para Hx Section SAB No 10/20/24 09:12 [facility] Medical History (Updated 10/20/24 @ 09:23 by Reta Nair) Wears glasses Wears dentures Diabetes Arthritis High cholesterol Dietary restriction Former smoker History of pain when walking History of edema Holter monitor, abnormal History of stress test Cardiology follow-up encounter Presence of permanent cardiac pacemaker High degree atrioventricular block History of non-ST elevation myocardial infarction (NSTEMI) (06/09/19) Unstable angina Type 2 diabetes mellitus without complication Atherosclerosis of coronary artery of [place] heart without angina pectoris Obesity Essential hypertension Home Medications ???Medication ???Instructions ???Recorded ???Last Taken ???Type glipizide 5 mg tablet 5 mg PO DAILY 01/07/21 07/15/22 Hi story metformin 1,000 mg tablet 1,000 mg PO BIDCM #180 tabs Unknown Rx (more content not included)... Normal [facility] Orthopedic Visit Reporton Orthopedic Visit Report [facility] [address] [place] [address] [address] [place] [address] OFFICE VISIT Date of Service: 10/14/24 MR#: [id number] Acct: [id number] Name: ALINE HAY Rep #: [id number] : 1965 Provider: Dr. Cameron woods DO Age/Sex: 59/M Location[place] [facility] [place] Status: Signed Intake Vital Signs 06/29/24 10:17 10/13/24 09:59 10/14/24 08:44 Height 5 ft 8.11 in 5 ft 8.11 in 5 ft 7.5 in Weight: 276 lb 8 oz BMI 42.6 Intake Visit Reasons: LEFT KNEE Chief Complaint: MRI review Accompanied by: Self Allergies hornet venom Allergy (Severe, Verified 10/14/24 08:44) Anaphylaxis Medications ???Medication ???Instructions ???Recorded ???Confirmed ???Type glipizide 5 mg tablet 5 mg PO DAILY 01/07/21 08/29/24 History metformin 1,000 mg tablet 1,000 mg PO BIDCM #180 tabs 08/26/22 08/29/24 Rx gabapentin 300 mg capsule 300 mg PO BID #180 caps 11/18/22 08/29/24 Rx amlodipine 10 mg tablet 10 mg PO DAILY #90 tabs 09/11/23 08/29/24 Rx aspirin 81 mg tablet,delayed 81 mg PO DAILY@0800 #90 tabs 09/11/23 08/29/24 Rx release atorvastatin 80 mg tablet See Rx Instructions .Route 09/11/23 08/29/24 Rx .COMPLEX #90 tabs carvedilol 12.5 mg tablet See Rx Instructions .Route 09/11/23 08/29/24 Rx .COMPLEX #180 tabs hydrochlorothiazide 25 mg tablet 25 mg PO DAILY #90 tabs 09/11/23 08/29/24 Rx losartan 50 mg tablet 50 mg PO DAILY #90 TABLETS 03/10/24 08/29/24 Rx dapagliflozin propanediol 5 mg 5 mg PO QDAY 06/29/24 08/29/24 History tablet (Farxiga) clopidogrel 75 mg tablet See Rx Instructions .Route 09/26/24 Rx .COMPLEX #90 tabs furosemide 40 mg tablet 40 mg PO QDAY 10/14/24 10/14/24 History semaglutide 0.25 mg or 0.5 mg (2 mg subcut 10/14/24 10/14/24 History mg/3 mL) subcutaneous pen injector ([employer]) [facility] Medical History Presence of permanent cardiac pacemaker High degree atrioventricular block History of non-ST elevation myocardial infarction (NSTEMI) (06/09/19) Unstable angina Type 2 diabetes mellitus without complication Atherosclerosis of coronary artery of [place] heart without angina pectoris Obesity Essential hypertension Surgical History History of left heart catheterization (07/16/22) History of coronary artery stent placement (06/20/21) History of umbilical hernia repair History of left inguinal hernia repair Family History Mother Cancer Father Thyroid disorder Cancer lymphoma Social History Smoking Status: Former smoker how long ago did patient quit smokin months ago alcohol intake: never substance use type: does not use caffeine: Yes Type: coffee Number of servings: 4 HPI LEFT KNEE Details: This documentation accurately reflects the service provided and the decisions made by me, Dr. Cameron Cagle, DO 10/14/24 0748. Part of today???s visit was documented by Carolina MUSA, acting as scribe. ALINE HAY is a 59 year old M here today for MRI review of the left knee pain. He states that his pain is over the medial side. He does get popping, clicking, and catching in the knee that is sometimes painful and giving way. When he wakes up in the morning he has a lot of tightness and stiffness. He denies taking anything for pain. 08/29/2024 visit: here today for continued left knee pain. He was given an injection on 06/29/24 which he states did give him relief for 2-3 weeks. He states that the knee makes it hard for him to walk, jog, or even walk fast paced. He feels that his knee wants to give out on him. He states that it feels like his knee goes back. He denies catching or getting stuck. He does get a popping in the knee but it is non painful. He would like us to order an MRI. His pain is over his medial knee and he is unable to walk long distances without having to stop and taking a break. Plan: Patient is here today for continued left knee pain. At his last visit we did give him a steroid injection last visit which did give him 2-3 weeks of relief but is still having a good amount of pain. He has tried 1 month of meloxicam which he states didn't give him any relief. I would like to get an MRI at this point to rule out a meniscus tear. As he continues to have painful mechanical symptoms mostly in the medial side I did explain he is at increased risk if he had to undergo surgery due to his medical comorbidities and lower extremity edema. 06/29/2024 visit: 59 year old M with medical comorbidities not limited to but significant for AV block history of DE, diabetes mellitus type 2, obesity, pacemaker on Plavix .here today for Left knee pain. Patient states this has been sayra (more content not included)... Normal [facility] Lower Ext Joint Only (Routin e)on 10-12-2024 Lower Ext Joint Only (Routine) [facility] Imaging Services [address] [place] [address] Lower Ext Joint Only (Routine) MR#: [id number] Acct: [id number] Name: ALINE HAY Rep #: [id number] : 1965 M 59 From: Stephen Rodarte MD PCP: Dr. David Grider, DO Status: REG CLI Study: Lower Ext Joint Only (Routine) Date of Exam: 0 10/12/24 Exam# [id number] Ordering Dr: TseringCameron [id number] STUDY: MRI LEFT KNEE REASON FOR EXAM: Male, 59 years old. Pain. TECHNIQUE: Standardized fat and water weighted pulse sequences were obtained in all 3 orthogonal planes. COMPARISON: Left knee radiographs dated 06/29/2024. FINDINGS: There is a tear of the posterior medial meniscal root (sagittal PD series 3 images 18-20). There is focal high-grade chondromalacia along the mid weightbearing surface of the medial femoral condyle (sagittal T2 series 4 image 8). Normal medial femoral condyle and tibial plateau. Normal medial collateral ligamentous complex (MCL). Normal distal semimembranosus, gracilis and semitendinosus tendons. There is a suspected tiny horizontal tear of the body of the lateral meniscus (coronal PD series 5 image 16). Normal hyaline cartilage of the lateral femorotibial compartment. Normal lateral femoral condyle and tibial plateau. Normal proximal tibiofibular articulation. Normal lateral collateral (fibular) ligament. Normal popliteus tendon. Normal biceps femoris tendon. Normal anterior cruciate ligament (ACL). Normal posterior cruciate ligament (PCL). Normal congruent patellofemoral articulation. Normal hyaline cartilage of the patellofemoral compartment. Normal medial and lateral patellar retinaculum. Normal quadriceps tendon. Normal patellar tendon. Normal Hoffa''s fat pad. There is a small joint effusion. There is a tiny popliteal cyst. There is mild subcutaneous soft tissue edema along the anterior aspect of the knee. There is no demonstrated acute fracture. MRI/Lower Ext Joint Only (Routine) IMPRESSION: Tear of the posterior medial meniscal root. Suspected tiny horizontal tear of the body of the lateral meniscus. 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 Small joint effusion with a tiny popliteal cyst. Electronically Signed: Stephen Rodarte MD at 14:06 EST Reading Location ID and State: [facility] / [place] , Service support , CC: Dr. David Grider, DO; Dr. Cameron Cagle DO Underwriter Mortgage Loan: Signed Normal [facility] Pacemaker Checkon 10-12-2024 Pacemaker Check [facility] [address] [place] [address] Pacemaker Check Date of Service: 10/12/24 1155 MR#: [id number] Acct: [id number] Name: ALINE HAY Sugey Rep #: [id number] : 1965 From: Adelina Neville Age/Sex: 59/M [place] [facility] [place]: Signed with Addenda ADDENDUM by Adelina Neville on 10/12/24 at 1156 Billing Codes MRI: 12523 Digital Lifeboat (Programming After) 10/12/24 1156 Date Adelina Neville cc: * Signed Billing Codes MRI: 87240 Digital Lifeboat (Programming Prior) Assessment and Plan Assessment and Plan (1) Presence of permanent cardiac pacemaker: Status: Acute (2) High degree atrioventricular block: Status: Acute 10/12/24 1156 Date Adelina Lozaigntyshawn Signature: Date (if applicable) CC: Normal [facility] .GFRon 09-20-2024 GFR 78 ml/min/1.73sqm Normal [facility] Comment on above: Result Comment: GFR Population mean for , Non- Americans Ages 20-29 = 116 mL/min/1.73 sq.m. Ages 30-39 = 107 mL/min/1.73 sq.m. Ages 40-49 = 99 mL/min/1.73 sq.m. Ages 50-59 = 93 mL/min/1.73 sq.m. Ages 60-69 = 85 mL/min/1.73 sq.m. Ages 70+ = 75 mL/min/1.73 sq.m. Chronic Kidney Disease: Less than 60 mL/min/1.73 square meters End Stage Renal Disease: Less than 15 mL/min/1.73 square meters Performed By: #### Lela PAUL, BMP #### [address] [address] GFR Non- 64 ml/min/1.73sqm Normal [facility] Comment on above: Result Comment: GFR Population mean for , Non- Americans Ages 20-29 = 116 mL/min/1.73 sq.m. Ages 30-39 = 107 mL/min/1.73 sq.m. Ages 40-49 = 99 mL/min/1.73 sq.m. Ages 50-59 = 93 mL/min/1.73 sq.m. Ages 60-69 = 85 mL/min/1.73 sq.m. Ages 70+ = 75 mL/min/1.73 sq.m. Chronic Kidney Disease: Less than 60 mL/min/1.73 square meters End Stage Renal Disease: Less than 15 mL/min/1.73 square meters Performed By: #### Lela PAUL, BMP #### [address] [address] BMPon 09-20-2024 BUN/Creatinine Ratio 11 ratio Normal 7-27 [facility] Comment on above: Performed By: #### Lela PAUL, BMP #### [address] [address] Calcium [Mass/Vol] 9.6 mg/dL Normal 8.4-10.2 [facility] Comment on above: Performed By: #### Lela PAUL, BMP #### [address] [address] Chloride [Moles/Vol] 101 mmol/L Normal 98-107 [facility] Comment on above: Performed By: #### Lela PAUL, BMP #### [address] [address] CO2 [Moles/Vol] 32 mmol/L High 23-31 [facility] Comment on above: Performed By: #### G , BMP #### [address] [address] Creatinine [Mass/Vol] 1.16 mg/dL Normal 0.70-1.30 [facility] Comment on above: Result Comment: Test ing performed on Siemens Dimension EXL analyzer using a modified kinetic Guillaume technique. Performed By: #### Lela PAUL, BMP #### [address] [address] Electrolyte Balance 6.0 mEq/L Normal 4.0-15.0 [facility] Comment on above: Performed By: #### Lela PAUL, BMP #### [address] [address] Glucose [Mass/Vol] 209 mg/dL High 80-115 [facility] Comment on above: Performed By: #### Lela PAUL, BMP #### [address] [address] Potassium [Moles/Vol] 4.7 mmol/L Normal 3.5-5.1 [facility] Comment on above: Performed By: #### Lela PAUL, BMP #### [address] [address] Sodium [Moles/Vol] 139 mmol/L Normal 136-145 [facility] Comment on above: Performed By: #### Lela PAUL, BMP #### [address] [address] Urea nitrogen [Mass/Vol] 13 mg/dL Normal 7-18 [facility] Comment on above: Performed By: #### Lela PAUL, BMP #### [address] [address] LABORATORYOrdered By: SYSTEM SYSTEM on 09-20-2024 Calcium [Mass/Vol] 9.6 mg/dL Normal 8.4 - 10. 2 mg/dL AO ADM SS Chloride [Moles/Vol] 101 mmol/L Normal 98 - 10 7 mmol/L AO ADM SS CO2 [Moles/Vol] 32 mmol/L High 23 - 31 mmol/L AO ADM SS Creatinine [Mass/Vol] 1.16 mg/dL Normal 0.70 - 1.30 mg/dL AO ADM SS Comment on above: Interpretive Data: T esting performed on [email or web address] Dimension EXL analyzer using a modified kinetic Guillaume technique. Electrolyte Balance 6.0 mEq/L Normal 4.0 - 15 .0 mEq/L AO ADM SS GFR/1.73 sq M.predicted among blacks MDRD (S/P/Bld) [Vol rate/Area] 78 ml/min/1.73sqm Invalid Interpretation Code AO Chemistry S Comment on above: Interpretive Data: GFR Population mean for , Non- Americans Ages 20-29 = 116 mL/min/1.73 sq.m. Ages 30-39 = 107 mL/min/1.73 sq.m. Ages 40-49 = 99 mL/min/1.73 sq.m. Ages 50-59 = 93 mL/min/1.73 sq.m. Ages 60-69 = 85 mL/min/1.73 sq.m. Ages 70+ = 75 mL/min/1.73 sq.m. Chronic Kidney Disease: Less than 60 mL/min/1.73 square meters End Stage Renal Disease: Less than 15 mL/min/1.73 square meters GFR/1.73 sq M.predicted among non-blacks MDRD (S/P/Bld) [Vol rate/Area] 64 ml/min/1.73sqm Invalid Interpretation Code AO Chemistry S Comment on above: Interpretive Data: GFR Population mean for , Non- Americans Ages 20-29 = 116 mL/min/1.73 sq.m. Ages 30-39 = 107 mL/min/1.73 sq.m. Ages 40-49 = 99 mL/min/1.73 sq.m. Ages 50-59 = 93 mL/min/1.73 sq.m. Ages 60-69 = 85 mL/min/1.73 sq.m. Ages 70+ = 75 mL/min/1.73 sq.m. Chronic Kidney Disease: Less than 60 mL/min/1.73 square meters End Stage Renal Disease: Less than 15 mL/min/1.73 square meters Glucose [Mass/Vol] 209 mg/dL High 80 - 115 mg/dL AO ADM SS Potassium [Moles/Vol] 4.7 mmol/L Normal 3.5 - 5.1 mmol/L AO ADM SS Sodium [Moles/Vol] 139 mmol/L Normal 136 - 145 mmol/L AO ADM SS Urea nitrogen [Mass/Vol] 13 mg/dL Normal 7 - 18 mg/dL AO ADM SS Urea nitrogen/Creatinine [Mass ratio] 11 ratio Normal 7 - 27 ratio AO ADM SS Orthopedic Visit Reporton Orthopedic Visit Report [facility] [address] [place] [address] OFFICE VISIT Date of Service: 08/29/24 MR#: [id number] Acct: [id number] Name: ALINE HAY Rep #: [id number] : 1965 Provider: Dr. Cameron woods DO Age/Sex: 59/M Location: [facility] [place] Status: Signed Intake Vital Signs 06/29/24 10:17 Height 5 ft 8.11 in Weight: 271 lb 2 oz BMI 41.1 Intake Visit Reasons: LEFT KNEE Allergies hornet venom Allergy (Severe, Verified 08/29/24 15:29) Anaphylaxis Medications ???Medication ???Instructions ???Recorded ???Confirmed ???Type glipizide 5 mg tablet 5 mg PO DAILY 01/07/21 08/29/24 History metformin 1,000 mg tablet 1,000 mg PO BIDCM #180 tabs 08/26/22 08/29/24 Rx gabapentin 300 mg capsule 300 mg PO BID #180 caps 11/18/22 08/29/24 Rx amlodipine 10 mg tablet 10 mg PO DAILY #90 tabs 09/11/23 08/29/24 Rx aspirin 81 mg tablet,delayed 81 mg PO DAILY@0800 #90 tabs 09/11/23 08/29/24 Rx release atorvastatin 80 mg tablet See Rx Instructions .Route 09/11/23 08/29/24 Rx .COMPLEX #90 tabs carvedilol 12.5 mg tablet See Rx Instructions .Route 09/11/23 08/29/24 Rx .COMPLEX #180 tabs clopidogrel 75 mg tablet See Rx Instructions .Route 09/11/23 08/29/24 Rx .COMPLEX #90 tabs hydrochlorothiazide 25 mg tablet 25 mg PO DAILY #90 tabs 09/11/23 08/29/24 Rx losartan 50 mg tablet 50 mg PO DAILY #90 TABLETS 03/10/24 08/29/24 Rx dapagliflozin propanediol 5 mg 5 mg PO QDAY 06/29/24 08/29/24 History tablet (Farxiga) [facility] Medical History Presence of permanent cardiac pacemaker High degree atrioventricular block History of non-ST elevation myocardial infarction (NSTEMI) (06/09/19) Unstable angina Type 2 diabetes mellitus without complication Atherosclerosis of coronary artery of [place] heart without angina pectoris Obesity Essential hypertension Surgical History History of left heart catheterization (07/16/22) History of coronary artery stent placement (06/20/21) History of umbilical hernia repair History of left inguinal hernia repair Family History Mother Cancer Father Thyroid disorder Cancer lymphoma Social History Smoking Status: Former smoker how long ago did patient quit smokin months ago alcohol intake: never substance use type: does not use caffeine: Yes Type: coffee Number of servings: 4 HPI LEFT KNEE Details: This documentation accurately reflects the service provided and the decisions made by me, Dr. Cameron Cagle, DO 08/29/24 09. Part of today???s visit was documented by Carolina MUSA, acting as scribe. ALINE HAY is a 59 year old M here today for continued left knee pain. He was given an injection on 06/29/24 which he states did give him relief for 2-3 weeks. He states that the knee makes it hard for him to walk, jog, or even walk fast paced. He feels that his knee wants to give out on him. He states that it feels like his knee goes back. He denies catching or getting stuck. He does get a popping in the knee but it is non painful. He would like us to order an MRI. His pain is over his medial knee and he is unable to walk long distances without having to stop and taking a break. 06/29/2024 visit: 59 year old M with medical comorbidities not limited to but significant for AV block history of DE, diabetes mellitus type 2, obesity, pacemaker on Plavix .here today for Left knee pain. Patient states this has been going on for about 3 weeks. denies any injury . states his knee has been popping for 8-9 months. he was trotting around his yard and he felt instant pain when his knee gave out and wasn't able to put weight on his knee or walk for 4-5 days. Patient had instant swelling. Patient went and saw his PCP and they gave him Meloxicam. Patient states he can't twist his knee. Patient states some times his knee feels like its going to give out, and goes back to far. Patient states knee pain in the medial knee doing down and around the knee cap. Patient has never had previous injections in his knee. Patient hasn't had PT recently. Patient hasn't tried ice or heat. Patient is taking just the Mobic and was given 5 days worth of hydrocodone-acetamin ophen 5- 325mg. Plan: pleasant 59-year-old male with multiple medical comorbidities including obesity type 2 diabetes history of DE and AV block who had a low-energy injury while jogging into his backyard and has subsequently developed medial sided knee pain. He is not having any painful mechanical symptoms although he does get some popping which was present even prior to this injury. On examination most of his pain seems to be the (more content not included)... Normal [facility] Knee 4 or More Viewson 06-29 Knee 4 or More Views [facility] [address] [place] [address] Knee 4 or More Views MR#: [id number] Acct: [id number] Name: ALINE HAY Sugey Rep #: [id number] : 1965 M 59 From: Mayo Dela Cruz PCP: Dr. David Grider DO Status: DEP AMB Study: Knee 4 or More Views Date of Exam: 06/29/24 Exam# [id number] Ordering Dr: Cameron Cagle DO [id number] INDICATION: pain EXAMINATION/TECHNIQU E: X-RAY - LEFT XR Knee Complete 4 Views or More 4 VIEWS COMPARISON: Prior study dated: 01/07/2011 ____ FINDINGS: SOFT TISSUES: No soft tissue swelling or gas. Vascular calcifications. BONES/JOINTS: No acute fracture or subluxation.. Minimal medial displacement of the distal femur with respect to the proximal tibia. Preservation of the joint space.. No sclerotic or destructive changes observed. RAD/Knee 4 or More Views IMPRESSION: Mild degenerative changes Electronically Signed: Mayo Dixon MD at 11:16 EDT , CC: Dr. David Grider DO; Dr. Cameron Cagle DO Underwriter Mortgage Loan: Signed Normal [facility] Orthopedic Visit Reporton Orthopedic Visit Report [facility] [address] [place] [address] OFFICE VISIT Date of Service: 06/29/24 MR#: [id number] Acct: [id number] Name: ALINE HAY Rep #: [id number] : 1965 Provider: Dr. Cameron woods DO Age/Sex: 59/M Location: [facility] [place] Status: Signed Intake Vital Signs 08/04/22 08:20 06/16/24 11:18 06/29/24 10:17 Height 5 ft 8.11 in 5 ft 8.11 in 5 ft 8.11 in Weight: 271 lb 2 oz BMI 41.1 Intake Visit Reasons: LEFT KNEE Accompanied by: Is patient in pain?: Yes Pain scale (1-10): 8 Allergies hornet venom Allergy (Severe, Verified 06/29/24 10:19) Anaphylaxis Medications ???Medication ???Instructions ???Recorded ???Confirmed ???Type glipizide 5 mg tablet 5 mg PO DAILY 01/07/21 06/29/24 History metformin 1,000 mg tablet 1,000 mg PO BIDCM #180 tabs 08/26/22 06/29/24 Rx gabapentin 300 mg capsule 300 mg PO BID #180 caps 11/18/22 06/29/24 Rx amlodipine 10 mg tablet 10 mg PO DAILY #90 tabs 09/11/23 06/29/24 Rx aspirin 81 mg tablet,delayed 81 mg PO DAILY@0800 #90 tabs 09/11/23 06/29/24 Rx release atorvastatin 80 mg tablet See Rx Instructions .Route 09/11/23 06/29/24 Rx .COMPLEX #90 tabs carvedilol 12.5 mg tablet See Rx Instructions .Route 09/11/23 06/29/24 Rx .COMPLEX #180 tabs clopidogrel 75 mg tablet See Rx Instructions .Route 09/11/23 06/29/24 Rx .COMPLEX #90 tabs hydrochlorothiazide 25 mg tablet 25 mg PO DAILY #90 tabs 09/11/23 06/29/24 Rx losartan 50 mg tablet 50 mg PO DAILY #90 TABLETS 03/10/24 06/29/24 Rx dapagliflozin propanediol 5 mg 5 mg PO QDAY 06/29/24 06/29/24 History tablet (Farxiga) meloxicam 15 mg tablet 15 mg PO QDAY 06/29/24 06/29/24 History [facility] Medical History Presence of permanent cardiac pacemaker High degree atrioventricular block History of non-ST elevation myocardial infarction (NSTEMI) (06/09/19) Unstable angina Type 2 diabetes mellitus without complication Atherosclerosis of coronary artery of [place] heart without angina pectoris Obesity Essential hypertension Surgical History History of left heart catheterization (07/16/22) History of coronary artery stent placement (06/20/21) History of umbilical hernia repair History of left inguinal hernia repair Family History Mother Cancer Father Thyroid disorder Cancer lymphoma Social History Smoking Status: Former smoker how long ago did patient quit smokin months ago alcohol intake: never substance use type: does not use caffeine: Yes Type: coffee Number of servings: 4 HPI LEFT KNEE Details: This documentation accurately reflects the service provided and the decisions made by me, Dr. Cameron Cagle, DO 06/29/24 0852. Part of today???s visit was documented by Carolina MUSA, acting as scribe. ALINE HAY is a 59 year old M with medical comorbidities not limited to but significant for AV block history of DE diabetes mellitus type 2 obesity pacemaker on Plavix .here today for Left knee pain. Patient states this has been going on for about 3 weeks. Patient denies any injury to his knee. Patient states his knee has been popping for 8-9 months. Patient states he was trotting around his yard and he felt instant pain when his knee gave out and wasn't able to put weight on his knee or walk for 4-5 days. Patient had instant swelling. Patient went and saw his PCP and they gave him Meloxicam. Patient states he can't twist his knee. Patient states some times his knee feels like its going to give out, and goes back to far. Patient states knee pain in the medial knee doing down and around the knee cap. Patient has never had previous injections in his knee. Patient hasn't had PT recently. Patient hasn't tried ice or heat. Patient is taking just the Mobic and was given 5 days worth of hydrocodone-acetamin ophen 5-325mg. Ortho Exam General General: Yes no acute distress Neurologic: Yes alert and Yes oriented x3 Psychologic: Yes reasonable and appropriate Left Knee Knee ROM: Yes ROM-Extension -20 to 0 and Yes ROM-Flexion 0-140 (80) Examination: Yes med jt line tenderness, No Lat jt line tenderness, No Crepitus, Yes Pain with flexion and Yes Johanna's Test Stability: NML: Anterior Drawer, NML: Posterior Drawer, NML: Valgus 0, NML: Valgus 30, NML: Varus 0 and NML: Varus 30 Patella Grind: Yes KNEE: He is obese he does have chronic venous stasis dermatitis bilateral lower extremities however his left lower extremity has more edema and shininess. no effusion of the knee no patellar instability pain with medial johanna Office Procedures Ortho Injecti (more content not included)... Normal [facility] XR KNEE 1 OR 2 VIEWS LEFTon 06-09-2024 XR KNEE 1 OR 2 VIEWS LEFT ORIGINAL EXAMINATION: TWO XRAY VIEWS OF THE LEFT KNEE06/08/2024 12:45 pm AP and lateral COMPARISON: None HISTORY: ORDERING SYSTEM PROVIDED HISTORY: Reason for Exam: ACL ligament laxity, medial joint line pain after acute injury yesterday FINDINGS: No acute fracture, dislocation, aggressive osseous lesion, periarticular calcification, or erosive type of arthritis is seen. There is a moderate suprapatellar joint effusion. There is a 1 cm ossification just superior to the fibular head posterolaterally that may be a loose body in the popliteus bursa region. There is mild osteoarthritis without compartment narrowing. IMPRESSION: No acute fracture or dislocation. Moderate to large suprapatellar joint effusion. Suspect a 1 cm loose body in the popliteus bursa. I have personally reviewed the images of this examination and agree with the resident's findings and interpretation. Interpreted by: Navi Jackson MD Preliminary Report By: Honorio Durán MD Electronically signed By Navi Jackson MD Dictated Date: 06/09/2024 9:14:27 AM Prelim Date: 06/09/2024 9:28:44 AM Sign Date: 06/09/2024 9:28:44 AM Ordering Provider: DAVID GRIDER [facility] .GFRon 03-11-2024 GFR 85 ml/min/1.73sqm [facility] ([place]) Comment on above: Result Comment: GFR Population mean for , Non- Americans Ages 20-29 = 116 mL/min/1.73 sq.m. Ages 30-39 = 107 mL/min/1.73 sq.m. Ages 40-49 = 99 mL/min/1.73 sq.m. Ages 50-59 = 93 mL/min/1.73 sq.m. Ages 60-69 = 85 mL/min/1.73 sq.m. Ages 70+ = 75 mL/min/1.73 sq.m. Chronic Kidney Disease: Less than 60 mL/min/1.73 square meters End Stage Renal Disease: Less than 15 mL/min/1.73 square meters Performed By: #### L IPID, PSA, GFR, CMP #### [address] [address] GFR Non- 70 ml/min/1.73sqm Normal [facility] ([place]) Comment on above: Result Comment: GFR Population mean for , Non- Americans Ages 20-29 = 116 mL/min/1.73 sq.m. Ages 30-39 = 107 mL/min/1.73 sq.m. Ages 40-49 = 99 mL/min/1.73 sq.m. Ages 50-59 = 93 mL/min/1.73 sq.m. Ages 60-69 = 85 mL/min/1.73 sq.m. Ages 70+ = 75 mL/min/1.73 sq.m. Chronic Kidney Disease: Less than 60 mL/min/1.73 square meters End Stage Renal Disease: Less than 15 mL/min/1.73 square meters Performed By: #### L IPID, PSA, GFR, CMP #### [address] [address] CMPon 03-11-2024 Albumin Level 3.6 G/dL Normal 3.4-4.8 [facility] ([place]) Comment on above: Performed By: #### L IPID, PSA, GFR, CMP #### [address] [address] Albumin/Globulin [Mass ratio] 1.1 {ratio} Normal 1.1-2.5 [facility] ([place]) Comment on above: Performed By: #### L IPID, PSA, GFR, CMP #### [address] [address] ALP [Catalytic activity/Vol] 104 U/L Normal 40-135 [facility] ([place]) Comment on above: Performed By: #### L IPID, PSA, GFR, CMP #### [address] [address] ALT [Catalytic activity/Vol] 40 U/L Normal 16-63 [facility] ([place]) Comment on above: Performed By: #### L IPID, PSA, GFR, CMP #### [address] [address] AST [Catalytic activity/Vol] 16 U/L Normal 10-40 [facility] ([place]) Comment on above: Performed By: #### L IPID, PSA, GFR, CMP #### [address] [address] Bili Total 0.6 mg/dL Normal 0.2-1.0 [facility] ([place]) Comment on above: Result Comment: Use of this assay is not recommended for patients undergoing treatment with eltrombopag due to the potential for falsely elevated results. Performed By: #### L IPID, PSA, GFR, CMP #### [address] [address] BUN/Creatinine Ratio 14 ratio Normal 7-27 [facility] ([place]) Comment on above: Performed By: #### L IPID, PSA, GFR, CMP #### [address] [address] Calcium [Mass/Vol] 8.9 mg/dL Normal 8.4-10.2 [facility] ([place]) Comment on above: Performed By: #### L IPID, PSA, GFR, CMP #### [address] [address] Chloride [Moles/Vol] 101 mmol/L Normal 98-107 [facility] ([place]) Comment on above: Performed By: #### L IPID, PSA, GFR, CMP #### [address] [address] CO2 [Moles/Vol] 32 mmol/L High 23-31 [facility] ([place]) Comment on above: Performed By: #### L IPID, PSA, GFR, CMP #### [address] [address] Creatinine [Mass/Vol] 1.07 mg/dL Normal 0.70-1.30 [facility] ([place]) Comment on above: Performed By: #### L IPID, PSA, GFR, CMP #### [address] [address] Electrolyte Balance 6.0 mEq/L Normal 4.0-15.0 [facility] ([place]) Comment on above: Performed By: #### L IPID, PSA, GFR, CMP #### [address] [address] Globulin 3.3 G/dL Normal [facility] ([place]) Comment on above: Performed By: #### L IPID, PSA, GFR, CMP #### [address] [address] Glucose [Mass/Vol] 149 mg/dL High 80-115 [facility] ([place]) Comment on above: Performed By: #### L IPID, PSA, GFR, CMP #### [address] [address] Potassium [Moles/Vol] 3.8 mmol/L Normal 3.5-5.1 [facility] ([place]) Comment on above: Performed By: #### L IPID, PSA, GFR, CMP #### [address] [address] Sodium [Moles/Vol] 139 mmol/L Normal 136-145 [facility] ([place]) Comment on above: Performed By: #### L IPID, PSA, GFR, CMP #### [address] [address] Total Protein 6.9 G/dL Normal 6.4-8.2 [facility] ([place]) Comment on above: Performed By: #### L IPID, PSA, GFR, CMP #### [address] [address] Urea nitrogen [Mass/Vol] 15 mg/dL Normal 7-18 [facility] ([place]) Comment on above: Performed By: #### L IPID, PSA, GFR, CMP #### [address] [place] [address] LABORATORYOrdered By: Siena Yost on 03-11-2024 Albumin DL <= 20 mg/L (U) [Mass/Vol] 6814 mcg/dL Invalid Interpretation Code AO ADM SS Albumin/Creatinine DL <= 20 mg/L (U) [Mass ratio] 128 mcg/mg High 0 - 30 mcg/mg AO ADM SS Creatinine (U) [Mass/Vol] 53.2 mg/dL Normal 39.0 - 259.0 mg/dL AO ADM SS LABORATORYOrdered By: SYSTEM SYSTEM on 03-11-2024 Albumin BCP dye [Mass/Vol] 3.6 G/dL Normal 3.4 - 4.8 G/dL AO ADM SS Albumin/Globulin [Mass ratio] 1.1 {ratio} Normal 1.1 - 2.5 ratio AO ADM SS ALP [Catalytic activity/Vol] 104 U/L Normal 40 - 135 U/L AO ADM SS ALT With P-5'-P [Catalytic activity/Vol] 40 U/L Normal 16 - 63 U/L AO ADM SS AST With P-5'-P [Catalytic activity/Vol] 16 U/L Normal 10 - 40 U/L AO ADM SS Bilirubin [Mass/Vol] 0.6 mg/dL Normal 0.2 - 1 .0 mg/dL AO ADM SS Comment on above: Interpretive Data: U se of this assay is not recommended for patients undergoing treatment with eltrombopag due to the potential for falsely elevated results. Calcium [Mass/Vol] 8.9 mg/dL Normal 8.4 - 10. 2 mg/dL AO ADM SS Chloride [Moles/Vol] 101 mmol/L Normal 98 - 10 7 mmol/L AO ADM SS CO2 [Moles/Vol] 32 mmol/L High 23 - 31 mmol/L AO ADM SS Creatinine [Mass/Vol] 1.07 mg/dL Normal 0.70 - 1.30 mg/dL AO ADM SS Electrolyte Balance 6.0 mEq/L Normal 4.0 - 15 .0 mEq/L AO ADM SS GFR/1.73 sq M.predicted among blacks MDRD (S/P/Bld) [Vol rate/Area] 85 ml/min/1.73sqm Invalid Interpretation Code AO Chemistry S Comment on above: Interpretive Data: GFR Population mean for , Non- Americans Ages 20-29 = 116 mL/min/1.73 sq.m. Ages 30-39 = 107 mL/min/1.73 sq.m. Ages 40-49 = 99 mL/min/1.73 sq.m. Ages 50-59 = 93 mL/min/1.73 sq.m. Ages 60-69 = 85 mL/min/1.73 sq.m. Ages 70+ = 75 mL/min/1.73 sq.m. Chronic Kidney Disease: Less than 60 mL/min/1.73 square meters End Stage Renal Disease: Less than 15 mL/min/1.73 square meters GFR/1.73 sq M.predicted among non-blacks MDRD (S/P/Bld) [Vol rate/Area] 70 ml/min/1.73sqm Invalid Interpretation Code AO Chemistry S Comment on above: Interpretive Data: GFR Population mean for , Non- Americans Ages 20-29 = 116 mL/min/1.73 sq.m. Ages 30-39 = 107 mL/min/1.73 sq.m. Ages 40-49 = 99 mL/min/1.73 sq.m. Ages 50-59 = 93 mL/min/1.73 sq.m. Ages 60-69 = 85 mL/min/1.73 sq.m. Ages 70+ = 75 mL/min/1.73 sq.m. Chronic Kidney Disease: Less than 60 mL/min/1.73 square meters End Stage Renal Disease: Less than 15 mL/min/1.73 square meters Globulin 3.3 G/dL Invalid Interpretation Code AO ADM SS Glucose [Mass/Vol] 149 mg/dL High 80 - 115 mg/dL AO ADM SS Potassium [Moles/Vol] 3.8 mmol/L Normal 3.5 - 5.1 mmol/L AO ADM SS Prostate specific Ag [Mass/Vol] 0.18 ng/mL Normal 0.00 - 4.00 ng/mL AO ADM SS Protein [Mass/Vol] 6.9 G/dL Normal 6.4 - 8.2 G/dL AO ADM SS Sodium [Moles/Vol] 139 mmol/L Normal 136 - 145 mmol/L AO ADM SS Urea nitrogen [Mass/Vol] 15 mg/dL Normal 7 - 18 mg/dL AO ADM SS Urea nitrogen/Creatinine [Mass ratio] 14 ratio Normal 7 - 27 ratio AO ADM SS LABORATORYOrdered By: Delma Painter on 03-11-2024 Cholesterol [Mass/Vol] 130 mg/dL Normal 0 - 200 mg/dL AO ADM SS Comment on above: Interpretive Data: C holesterol Reference Interval: Less than 200 Desirable 200-239 Borderline high risk 240 and above High risk Cholesterol in HDL [Mass/Vol] 45 mg/dL Normal 40 - 60 mg/dL AO ADM SS Cholesterol in LDL [Mass/Vol] 63 mg/dL Normal 0 - 130 mg/dL AO ADM SS Triglyceride [Mass/Vol] 109 mg/dL Normal 0 - 150 mg/dL AO ADM SS Comment on above: Interpretive Data: T riglyceride Reference Interval: Less than 150 Normal 150-199 Borderline high risk 200-499 High risk 500 or higher Very high risk LIPIDon 03-11-2024 Cholesterol [Mass/Vol] 130 mg/dL Normal 0-200 [facility] ([place]) Comment on above: Result Comment: Chol esterol Reference Interval: Less than 200 Desirable 200-239 Borderline high risk 240 and above High risk Performed By: #### L IPID, PSA, GFR, CMP #### [address] [address] Cholesterol in HDL [Mass/Vol] 45 mg/dL Normal 40-60 [facility] ([place]) Comment on above: Performed By: #### L IPID, PSA, GFR, CMP #### [address] [address] Cholesterol in LDL [Mass/Vol] 63 mg/dL Normal 0-130 [facility] ([place]) Comment on above: Performed By: #### L IPID, PSA, GFR, CMP #### [address] [address] Triglyceride [Mass/Vol] 109 mg/dL Normal 0-150 [facility] ([place]) Comment on above: Result Comment: Trig lyceride Reference Interval: Less than 150 Normal 150-199 Borderline high risk 200-499 High risk 500 or higher Very high risk Performed By: #### L IPID, PSA, GFR, CMP #### [address] [address] MALBRon 03-11-2024 U Creatinine 53.2 mg/dL Normal 39.0-259.0 [facility] ([place]) Comment on above: Performed By: #### M ALBR #### [address] [address] U Microalb 6814 mcg/dL Normal [facility] ([place]) Comment on above: Performed By: #### M ALBR #### [address] [address] U Ratio Alb/Cre 128 mcg/mg High 0-30 [facility] ([place]) Comment on above: Performed By: #### M ALBR #### [address] [address] PSAon 03-11-2024 Prostate Specific Antigen 0.18 ng/mL Normal 0.00-4.00 [facility] ([place]) Comment on above: Performed By: #### L IPID, PSA, GFR, CMP #### [address] [address] LABORATORYOrdered By: Kelley Anderson on 01-23-2023 Albumin DL <= 20 mg/L (U) [Mass/Vol] [address] mcg/dL Invalid Interpretation Code AO ADM SS Albumin/Creatinine DL <= 20 mg/L (U) [Mass ratio] 954 mcg/mg Invalid Interpretation Code 0 - 30 mcg/mg AO ADM SS Creatinine (U) [Mass/Vol] 28.8 mg/dL Invalid Interpretation Code 39.0 - 259.0 mg/dL AO ADM SS Absolute lymphocyte counton 07-16-2022 Lymphocytes Auto (Unsp spec) [#/Vol] 1.93 10*3/uL 0.83-4.51 [facility] Work Phone: Basophil percentageon 2021 Basophils/100 WBC (Bld) 0.7 % 0-1 [facility] Work Phone: Chloride [Moles/Vol] 107 mmol/L 98-107 [facility] Work Phone: Eosinophils/100 WBC (Bld) 4.6 % 0-5 [facility] Work Phone: Glucose [Mass/Vol] 169 mg/dL 74-106 [facility] Work Phone: Comment on above: Fasting Glucose resu lt greater than or equal to 126 mg/dL suggests DIABETES MELLITUS per A.D.A. criteria. Neutrophils (Bld) [#/Vol] 6.4 10*3/uL 2.0-7.7 [facility] Work Phone: Neutrophils/100 WBC (Bld) 64.7 % 47-70 [facility] Work Phone: Potassium [Moles/Vol] 3.6 mmol/L 3.5-5.1 [facility] Work Phone: Sodium [Moles/Vol] 139 mmol/L 136-145 [facility] Work Phone: WBC (Bld) [#/Vol] 10.0 10*3/uL 4.4-11.0 [facility] Work Phone: Blood erythrocytes count (nu mber/volume)on 07-16-2022 RBC (Bld) [#/Vol] 4.54 10*6/uL 4.6-6.2 [facility] Work Phone: Blood hemoglobin measurement (mass/volume)on 07-16-2022 Hemoglobin (Bld) [Mass/Vol] 12.8 g/dL 13.0-16.5 [facility] Work Phone: Blood lymphocytes/100 leukoc yteson 07-16-2022 Lymphocytes/100 WBC (Bld) 19.4 % 19-41 [facility] Work Phone: Blood monocytes/100 leukocyt eson 07-16-2022 Monocytes/100 WBC (Bld) 10.2 % 0-10 [facility] Work Phone: Blood platelet mean volumeon 07-16-2022 Platelet mean volume (Bld) [Entitic vol] 11.5 fL 6.2-12.0 [facility] Work Phone: Determination of erythrocyte mean corpuscular volume (MCV)on 07-16-2022 MCV (RBC) [Entitic vol] 86.6 fL 80-94 [facility] Work Phone: Glucose Glucometer (BldC) [M ass/Vol]on 07-16-2022 Glucose [Mass/Vol] 167 mg/dL 74-106 [facility] Work Phone: Comment on above: MANAGEMENT OF PATIEN T CARE PER NURSING PROTOCOL Hematocrit Auto (Bld) [Volum e fraction]on 07-16-2022 Hematocrit (Bld) [Volume fraction] 39.3 % 40-54 [facility] Work Phone: Laboratory - Chemistry and C hemistry - challengeon 07-16-2022 CO2 [Moles/Vol] 29.0 mmol/L 21.0-32.0 [facility] Work Phone: Urea nitrogen/Creatinine [Mass ratio] 15.5 mg/mg 10-20 [facility] Work Phone: Laboratory - Hematology and Cell countson 07-16-2022 Erythrocyte distribution width (RBC) [Entitic vol] 42.7 fL 35.1-43.9 [facility] Work Phone: Erythrocyte distribution width (RBC) [Ratio] 13.6 % 11.6-14.6 [facility] Work Phone: Immature granulocytes/100 WBC (Bld) 0.400 % 0.0-0.9 [facility] Work Phone: Comment on above: IG% - Immature Granu locytes (promyelocytes, myelocytes and metamyelocytes) > 1% indicates that a LEFT SHIFT is Present. MCH (RBC) [Entitic mass] 28.2 pg 27.0-32.0 [facility] Work Phone: Nucleated RBC/100 WBC (Bld) [Ratio] 0 % 0-5 [facility] Work Phone: MCHC Auto (RBC) [Mass/Vol]on 07-16-2022 MCHC (RBC) [Mass/Vol] 32.6 g/dL 32-36 [facility] Work Phone: No Panel Informationon 07-16 Estimated Creatinine Clearance Calc 66.34 ml/min [facility] Work Phone: Estimated GFR (MDRD) Amer 83 mL/min >60 [facility] Work Phone: Comment on above: GFR Calc Estimated GFR (MDRD) Non-Af Amer 68 mL/min >60 [facility] Work Phone: Comment on above: Non- GFR Calc Thyroid Stimulating Hormone (TSH) 1.78 uIU/mL 0.358-3.74 [facility] Work Phone: Platelets bldon 07-16-2022 Platelets (Bld) [#/Vol] 210 10*3/uL 150-450 [facility] Work Phone: Serum or plasma calcium edwige urement (mass/volume)on 07-16-2022 Calcium [Mass/Vol] 9.0 mg/dL 8.5-10.1 [facility] Work Phone: Serum or plasma creatinine m easurement (mass/volume)on 07-16-2022 Creatinine [Mass/Vol] 1.16 mg/dL 0.70-1.30 [facility] Work Phone: Comment on above: The validity of the calculated GFR & GFRAA in patients over 70 years has not been determined. Clinical correlation is essential. Serum or plasma urea nitroge n measurement (mass/volume)on 07-16-2022 Urea nitrogen [Mass/Vol] 18 mg/dL 7-18 [facility] Work Phone: Thin prep Papanicolaou smear with manual screeningon 07-16-2022 Thin prep Papanicolaou smear with manual screening 3 5-15 [facility] Work Phone: Absolute lymphocyte counton 07-15-2022 Lymphocytes Auto (Unsp spec) [#/Vol] 1.89 10*3/uL 0.83-4.51 [facility] Work Phone: Basophil percentageon 2021 Basophils/100 WBC (Bld) 0.9 % 0-1 [facility] Work Phone: [phone] Chloride [Moles/Vol] 109 mmol/L 98-107 [facility] Work [facility]: [phone] Eosinophils/100 WBC (Bld) 4.6 % 0-5 [facility] Work Phone: Glucose [Mass/Vol] 117 mg/dL 74-106 [facility] Work Phone: Comment on above: Fasting Glucose resu lt from 100 to 125 mg/dL suggests IMPAIRED HOMEOSTASIS per A.D.A. criteria. Neutrophils (Bld) [#/Vol] 6.6 10*3/uL 2.0-7.7 [facility] Work Phone: Neutrophils/100 WBC (Bld) 65.4 % 47-70 [facility] Work Phone: Potassium [Moles/Vol] 3.8 mmol/L 3.5-5.1 [facility] Work [facility]: [phone] Sodium [Moles/Vol] 140 mmol/L 136-145 [facility] Work Phone: WBC (Bld) [#/Vol] 10.1 10*3/uL 4.4-11.0 [facility] Work [facility]: Blood erythrocytes count (nu mber/volume)on 07-15-2022 RBC (Bld) [#/Vol] 4.85 10*6/uL 4.6-6.2 [facility] Work Phone: Blood hemoglobin measurement (mass/volume)on 07-15-2022 Hemoglobin (Bld) [Mass/Vol] 13.8 g/dL 13.0-16.5 [facility] Work Phone: [phone] Blood lymphocytes/100 leukoc yteson 07-15-2022 Lymphocytes/100 WBC (Bld) 18.7 % 19-41 [facility] Work Phone: Blood monocytes/100 leukocyt eson 07-15-2022 Monocytes/100 WBC (Bld) 9.8 % 0-10 [facility] Work Phone: Blood platelet mean volumeon 07-15-2022 Platelet mean volume (Bld) [Entitic vol] 11.2 fL 6.2-12.0 [facility] Work Phone: Determination of erythrocyte mean corpuscular volume (MCV)on 07-15-2022 MCV (RBC) [Entitic vol] 85.8 fL 80-94 [facility] Work Phone: Hematocrit Auto (Bld) [Volum e fraction]on 07-15-2022 Hematocrit (Bld) [Volume fraction] 41.6 % 40-54 [facility] Work Phone: Laboratory - Chemistry and C hemistry - challengeon 07-15-2022 CO2 [Moles/Vol] 26.0 mmol/L 21.0-32.0 [facility] Work Phone: Urea nitrogen/Creatinine [Mass ratio] 18.8 mg/mg 10-20 [facility] Work Phone: Laboratory - Hematology and Cell countson 07-15-2022 Erythrocyte distribution width (RBC) [Entitic vol] 42.0 fL 35.1-43.9 [facility] Work Phone: Erythrocyte distribution width (RBC) [Ratio] 13.4 % 11.6-14.6 [facility] Work Phone: Immature granulocytes/100 WBC (Bld) 0.600 % 0.0-0.9 [facility] Work Phone: Comment on above: IG% - Immature Granu locytes (promyelocytes, myelocytes and metamyelocytes) > 1% indicates that a LEFT SHIFT is Present. MCH (RBC) [Entitic mass] 28.5 pg 27.0-32.0 [facility] Work Phone: Nucleated RBC/100 WBC (Bld) [Ratio] 0 % 0-5 [facility] Work Phone: MCHC Auto (RBC) [Mass/Vol]on 07-15-2022 MCHC (RBC) [Mass/Vol] 33.2 g/dL 32-36 [facility] Work Phone: No Panel Informationon 07-15 Troponin I High Sensitivity 6 pg/mL 3.0-78.0 [facility] Work Phone: Comment on above: Please Note: New [place] t Units and Gender Specific Reference Ranges. For more information see Policy Stat Procedure [place] High Sensitivity Troponin (TNIH) and attachments. Troponin I High Sensitivity 7 pg/mL 3.0-78.0 [facility] Work Phone: Comment on above: Please Note: New Salena t Units and Gender Specific Reference Ranges. For more information see Policy Stat Procedure [place] High Sensitivity Troponin (TNIH) and attachments. Estimated Creatinine Clearance Calc 68.71 ml/min [facility] Work Phone: Estimated GFR (MDRD) Amer 86 mL/min >60 [facility] Work Phone: Comment on above: GFR Calc Estimated GFR (MDRD) Non-Af Amer 71 mL/min >60 [facility] Work Phone: Comment on above: Non- GFR Calc Platelets bldon 07-15-2022 Platelets (Bld) [#/Vol] 216 10*3/uL 150-450 [facility] Work Phone: Serum or plasma calcium edwige urement (mass/volume)on 07-15-2022 Calcium [Mass/Vol] 9.5 mg/dL 8.5-10.1 [facility] Work Phone: Serum or plasma creatinine m easurement (mass/volume)on 07-15-2022 Creatinine [Mass/Vol] 1.12 mg/dL 0.70-1.30 [facility] Work Phone: Comment on above: The validity of the calculated GFR & GFRAA in patients over 70 years has not been determined. Clinical correlation is essential. Serum or plasma urea nitroge n measurement (mass/volume)on 07-15-2022 Urea nitrogen [Mass/Vol] 21 mg/dL 7-18 [facility] Work Phone: Thin prep Papanicolaou smear with manual screeningon 07-15-2022 Thin prep Papanicolaou smear with manual screening 5 5-15 [facility] Work Phone: Basophil percentageon 2021 Bilirubin [Mass/Vol] 0.40 mg/dL 0.20-1.00 [facility] Work Phone: Comment on above: For patients on eltr ombopag therapy, use of Dimension [place] TBIL is not recommended. Cholesterol [Mass/Vol] 107 mg/dL <200 [facility] Work Phone: Comment on above: <200 mg/dL Desirable 200-240 mg/dL Borderline >240 mg/dL High Risk Protein [Mass/Vol] 7.0 g/dL 6.4-8.2 [facility] Work Phone: Triglyceride [Mass/Vol] 96 mg/dL [facility] Work Phone: Comment on above: The drugs N-Acetylcy steine and Metamizole may falsely depress this assay.Serum Triglycerides Reference Interval Normal <150 mg/dL Borderline high 150 - 199 mg/dL High 200 - 499 mg/dL Very High > or = 500 mg/dL Direct bilirubinon 2 Bilirubin.direct [Mass/Vol] 0.09 mg/dL 0.00-0.30 [facility] Work Phone: Laboratory - Chemistry and C hemistry - challengeon 01-30-2022 ALP [Catalytic activity/Vol] 106 U/L 45-117 [facility] Work Phone: ALT [Catalytic activity/Vol] 43 U/L 16-61 [facility] Work Phone: Globulin (S) [Mass/Vol] 3.5 g/dL 2.2-4.2 [facility] Work Phone: Serum or plasma albumin edwige urement (mass/volume)on 01-30-2022 Albumin [Mass/Vol] 3.5 g/dL 3.2-5.0 [facility] Work Phone: Serum or plasma cholesterol in HDL measurement (mass/volume)on 01-30-2022 Cholesterol in HDL [Mass/Vol] 43 mg/dL [facility] Work Phone: Comment on above: The drugs N-Acetylcy steine and Metamizole may falsely depress this assay. Reference Range HDL <40 mg/dL Low HDL Cholesterol HDL >or= 60 mg/dL High HDL Cholesterol Serum or plasma cholesterol in VLDL measurement (mass/volume)on 01-30-2022 Cholesterol in VLDL [Mass/Vol] 19 mg/dL 5-40 [facility] Work Phone: Serum or plasma low density lipoprotein (LDL) cholesterol measurement (mass/volume)on 01-30-2022 Cholesterol in LDL [Mass/Vol] 45 mg/dL 0-130 [facility] Work Phone: Thin prep Papanicolaou smear with manual screeningon 01-30-2022 Thin prep Papanicolaou smear with manual screening 22 U/L 15-37 [facility] Work Phone: LABORATORYOrdered By: Maribel Quintanilla on 10-23-2021 Albumin BCP dye [Mass/Vol] 3.9 G/dL Invalid Interpretation Code 3.5 - 5.0 G/dL AO ADM SS Albumin/Globulin [Mass ratio] 1.3 {ratio} Invalid Interpretation Code 1.1 - 2.5 ratio AO ADM SS ALP [Catalytic activity/Vol] 97 U/L Invalid Interpretation Code 40 - 135 U/L AO ADM SS ALT With P-5'-P [Catalytic activity/Vol] 40 U/L Invalid Interpretation Code 16 - 63 U/L AO ADM SS AST With P-5'-P [Catalytic activity/Vol] 24 U/L Invalid Interpretation Code 10 - 40 U/L AO ADM SS Bilirubin [Mass/Vol] 0.5 mg/dL Invalid Interpretation Code 0.2 - 1.0 mg/dL AO ADM SS Calcium [Mass/Vol] 9.3 mg/dL Invalid Interpretation Code 8.4 - 10.2 mg/dL AO ADM SS Chloride [Moles/Vol] 104 mmol/L Invalid Interpretation Code 98 - 107 mmol/L AO ADM SS Cholesterol [Mass/Vol] 110 mg/dL Invalid Interpretation Code 0 - 200 mg/dL AO ADM SS Cholesterol in HDL [Mass/Vol] 48 mg/dL Invalid Interpretation Code 40 - 60 mg/dL AO ADM SS Cholesterol in LDL [Mass/Vol] 43 mg/dL Invalid Interpretation Code 0 - 130 mg/dL AO ADM SS CO2 [Moles/Vol] 26 mmol/L Invalid Interpretation Code 22 - 29 mmol/L AO ADM SS Creatinine [Mass/Vol] 0.98 mg/dL Invalid Interpretation Code 0.70 - 1.30 mg/dL AO ADM SS Electrolyte Balance 12.0 mEq/L Invalid Interpretation Code 4.0 - 15.0 mEq/L AO ADM SS Globulin 2.9 G/dL Invalid Interpretation Code AO ADM SS Glucose [Mass/Vol] 158 mg/dL Invalid Interpretation Code 70 - 105 mg/dL AO ADM SS HbA1c (Bld) [Mass fraction] 7.2 % Invalid Interpretation Code 4.3 - 6.4 % AO ADM SS Potassium [Moles/Vol] 4.7 mmol/L Invalid Interpretation Code 3.5 - 5.1 mmol/L AO ADM SS Prostate specific Ag [Mass/Vol] 0.63 ng/mL Invalid Interpretation Code 0.00 - 4.00 ng/mL AO ADM SS Protein [Mass/Vol] 6.8 G/dL Invalid Interpretation Code 6.4 - 8.2 G/dL AO ADM SS Sodium [Moles/Vol] 142 mmol/L Invalid Interpretation Code 136 - 145 mmol/L AO ADM SS Triglyceride [Mass/Vol] 96 mg/dL Invalid Interpretation Code 0 - 150 mg/dL AO ADM SS Urea nitrogen [Mass/Vol] 14 mg/dL Invalid Interpretation Code 7 - 18 mg/dL AO ADM SS Urea nitrogen/Creatinine [Mass ratio] 14 ratio Invalid Interpretation Code 7 - 27 ratio AO ADM SS LABORATORYOrdered By: SYSTEM SYSTEM on 10-23-2021 GFR 95 ml/min/1.73sqm Invalid Interpretation Code AO Chemistry S GFR Non- 79 ml/min/1.73sqm Invalid Interpretation Code AO Chemistry S Vital Signs Date Time Vital Sign Value Performing Clinician Faci lity 05-10-2025 11:20-0400 Body height 172.[address] David Grider DO Work Phone: [facility] 05-10-2025 11:20-0400 Body mass index (BMI) [Ratio] 39.8 kg/m2 Dr. David Grider DO Work Phone: [facility] 05-10-2025 11:20-0400 Body weight 118.[address] David Grider DO Work Phone: [facility] 05-03-2025 11:26-0400 Body height 172.[address] David Grider DO Work Phone: [facility] 05-03-2025 11:26-0400 Body mass index (BMI) [Ratio] 39.8 kg/m2 Dr. David Grider DO Work Phone: [facility] 05-03-2025 11:26-0400 Body weight 118.[address] David Grider DO Work Phone: [facility] 04-12-2025 10:12-0400 Body height 172.[address] David Grider DO Work Phone: [facility] 04-12-2025 10:12-0400 Body mass index (BMI) [Ratio] 39.8 kg/m2 Dr. David Grider DO Work Phone: [facility] 04-12-2025 10:12-0400 Body weight 118.[address] David Grider DO Work Phone: [facility] 03-22-2025 11:27-0400 Body height 172.[address] David Grider DO Work Phone: [facility] 01-23-2025 09:28-0400 Body height 172.[address] David Grider DO Work Phone: [facility] 01-23-2025 09:28-0400 Body mass index (BMI) [Ratio] 40.6 kg/m2 Dr. David Grider DO Work Phone: [facility] 01-23-2025 09:28-0400 Body weight 121.[address] David Grider DO Work Phone: [facility] 01-10-2025 11:00-0400 Body temperature 97.3 [degF] Dr. David Grider DO Work Phone: [facility] 01-10-2025 11:00-0400 Diastolic blood pressure 82 mm[Hg] Dr. David Grider DO Work Phone: [facility] 01-10-2025 11:00-0400 Heart rate 72 /min Dr. David Grider DO Work Phone: [facility] 01-10-2025 11:00-0400 Respiratory rate 16 /min Dr. David Grider DO Work Phone: [facility] 01-10-2025 11:00-0400 SaO2% (BldA) [Mass fraction] 95 % Dr. David Grider DO Work Phone: [facility] 01-10-2025 11:00-0400 Systolic blood pressure 145 mm[Hg] Dr. David Grider DO Work Phone: [facility] 01-10-2025 07:25-0400 Body height 172.[address] David Grider DO Work Phone: [facility] 01-10-2025 07:25-0400 Body mass index (BMI) [Ratio] 39.2 kg/m2 Dr. David Grider DO Work Phone: [facility] 01-10-2025 07:25-0400 Body weight 116.[address] David Grider DO Work Phone: [facility] 10-14-2024 08:44-0500 Body mass index (BMI) [Ratio] 42.6 kg/m2 Dr. David Grider DO Work Phone: [facility] 10-14-2024 08:44-0500 Body weight 125.[address] David Grider DO Work Phone: [facility] 10-12-2024 11:39-0500 Diastolic blood pressure 93 mm[Hg] Dr. David Grider DO Work Phone: [facility] 10-12-2024 11:39-0500 Heart rate 78 /min Dr. David Grider DO Work Phone: [facility] 10-12-2024 11:39-0500 Respiratory rate 18 /min Dr. David Grider DO Work Phone: [facility] 10-12-2024 11:39-0500 SaO2% (BldA) [Mass fraction] 94 % Dr. David Grider DO Work Phone: [facility] 10-12-2024 11:39-0500 Systolic blood pressure 156 mm[Hg] Dr. David Grider DO Work Phone: [facility] 07-16-2022 16:00-0400 Diastolic blood pressure 78 mm[Hg] Dr. David Grider Work Phone: [facility] Work Phone: 07-16-2022 16:00-0400 Heart rate 75 /min Dr. David Grider Work Phone: [facility] Work Phone: 07-16-2022 16:00-0400 Respiratory rate 18 /min Dr. David Grider Work Phone: [facility] Work Phone: 07-16-2022 16:00-0400 SaO2% (BldA) [Mass fraction] 93 % Dr. David Grider Work Phone: [facility] Work Phone: 07-16-2022 16:00-0400 Systolic blood pressure 140 mm[Hg] Dr. David Grider Work Phone: [facility] Work Phone: 07-16-2022 14:42-0400 Body temperature 97.4 [degF] Dr. David Grider Work Phone: [facility] Work Phone: 07-16-2022 07:20-0400 Inhaled oxygen flow rate 2 L/min Dr. David Grider Work Phone: [facility] Work Phone: 07-15-2022 20:41-0400 Body height [address] David Grider Work Phone: [facility] Work Phone: 07-15-2022 20:41-0400 Body mass index (BMI) [Ratio] 41.6 kg/m2 Dr. David Grider Work Phone: [facility] Work Phone: 07-15-2022 20:41-0400 Body weight 124.[address] David Grider Work Phone: [facility] Work Phone: 07-15-2022 19:00-0400 Diastolic blood pressure 83 mm[Hg] Dr. David Grider Work Phone: [facility] Work Phone: 07-15-2022 19:00-0400 Heart rate 64 /min Dr. David Grider Work Phone: [facility] Work Phone: 07-15-2022 19:00-0400 Respiratory rate 18 /min Dr. David Grider Work Phone: [facility] Work Phone: 07-15-2022 19:00-0400 SaO2% (BldA) [Mass fraction] 95 % Dr. David Grider Work Phone: [facility] Work Phone: 07-15-2022 19:00-0400 Systolic blood pressure 149 mm[Hg] Dr. David Grider Work Phone: [facility] Work Phone: 07-15-2022 18:00-0400 Body temperature 97.8 [degF] Dr. David Grider Work Phone: [facility] Work Phone: 07-15-2022 15:19-0400 Body height 172.[address] David Grider Work Phone: [facility] Work Phone: 07-15-2022 15:19-0400 Body mass index (BMI) [Ratio] 39.5 kg/m2 Dr. David Grider Work Phone: [facility] Work Phone: 07-15-2022 15:19-0400 Body weight 117.[address] David Grider Work Phone: [facility] Work Phone: 01-30-2022 14:26-0400 Body height 172.[address] Isrrael Lowery Work Phone: [facility] Work Phone: 01-30-2022 14:26-0400 Body mass index (BMI) [Ratio] 40.8 kg/m2 Dr. Isrrael Lowery Work Phone: [facility] Work Phone: 01-30-2022 14:26-0400 Body weight 122.[address] Isrrael Lowery Work Phone: [facility] Work Phone: 01-30-2022 14:26-0400 Diastolic blood pressure 90 mm[Hg] Dr. Isrrael Lowery Work Phone: [facility] Work Phone: 01-30-2022 14:26-0400 Heart rate 79 /min Dr. Isrrael Lowery Work Phone: [facility] Work Phone: 01-30-2022 14:26-0400 Respiratory rate 18 /min Dr. Isrrael Lowery Work Phone: [facility] Work Phone: 01-30-2022 14:26-0400 SaO2% (BldA) [Mass fraction] 94 % Dr. Isrrael Lowery Work Phone: [facility] Work Phone: 01-30-2022 14:26-0400 Systolic blood pressure 137 mm[Hg] Dr. Isrrael Lowery Work Phone: [facility] Work Phone: Encounters Encounter Date Encounter Type Care Provider Facility Start: 05-17-2025 End: 05-17-2025 Patient encounter procedure Adelina VEE -[facility] Work Phone: Start: 05-17-2025 End: 05-17-[address] David Grider DO Work Phone: -[facility] Start: 05-10-2025 End: 05-10-[address] Cameron Cagle DO -[facility] Work Phone: Start: 05-10-2025 End: 05-10-[address] David Grider DO Work Phone: -[facility] Start: 05-03-2025 End: 05-03-[address] Cameron Cagle DO -[facility] Work Phone: Start: 05-03-2025 End: 05-03-[address] David Grider DO Work Phone: -[facility] Start: 04-12-2025 End: 04-12-[address] Cameron Cagle DO -[facility] Work Phone: Start: 04-12-2025 End: 04-12-[address] David Grider DO Work Phone: -[facility] Start: 04-10-2025 ambulatory David Grider Facility:[facility] Start: 04-10-[address] Vitor Cagle DO -Physical Therapy Work Phone: Start: 03-30-[address] Vitor Cagle DO -Physical Therapy Work Phone: Start: 03-27-2025 End: 03-27-[address] David Grider DO Work Phone: -[facility] Start: 03-27-2025 End: 03-27-[address] Edgar Sharp MD -[facility] Work Phone: Start: 03-22-2025 End: 03-22-[address] Cameron Cagle DO -[facility] Work Phone: Start: 03-22-2025 End: 03-22-[address] David Grider DO Work Phone: [facility] Start: 03-10-[address] Vitor Cagle DO -Physical Therapy Work Phone: Start: 02-24-2025 End: 02-24-[address] DAVID GRIDER DO Facility:[facility] Start: 02-24-2025 End: 02-24-[address] DAVID GRIDER DO [facility] Start: 02-20-2025 End: 02-20-[address] Cameron Cagle DO -[facility] Work Phone: Start: 02-20-2025 End: 02-20-[address] David Grider DO Work Phone: [facility] Work Phone: Start: 01-23-2025 End: 01-23-[address] Cameron Cagle DO -[facility] Work Phone: Start: 01-23-2025 End: 01-23-2025 ambulatory David Cheo Facility:[facility] Start: 01-10-2025 Non-patient / Non-visit Dr. Ingrid Cagle DO -[facility] Start: 01-10-2025 End: 01-10-2025 Admission to same day surgery center Dr. Cameron Cagle DO -[facility] Start: 01-10-2025 End: 01-10-[address] David Grider DO Work Phone: [facility] Work Phone: Start: 12-26-2024 End: 12-26-2024 ambulatory Edgar Sharp Facility:[facility] Start: 12-26-2024 End: 12-26-[address] Edgar Sharp MD -[facility] Work Phone: Start: 11-17-2024 End: 11-21-[address] DAVID GRIDER DO Facility:[facility] Start: 11-17-2024 End: 11-21-[address] DAVID GRIDER DO [facility] Start: 10-20-2024 ambulatory David Cheo Facility:[facility] Start: 10-14-2024 End: 10-14-[address] Cameron Cagle DO -[facility] Work Phone: Start: 10-14-2024 End: 10-14-2024 ambulatory David Cheo Facility:[facility] Start: 10-12-2024 End: 10-12-2024 ambulatory David Cheo Facility:[facility] Start: 10-12-2024 End: 10-12-[address] Edgar Sharp MD -[facility] Work Phone: Start: 10-12-2024 End: 10-12-2024 ambulatory David Cheo Facility:[facility] Start: 09-26-2024 End: 09-26-2024 ambulatory David Cheo Facility:[facility] Start: 09-26-2024 End: 09-26-[address] Edgar Sharp MD -[facility] Work Phone: Start: 09-20-2024 End: 09-20-[address] DAVID GRIDER DO [facility] Start: 09-20-2024 End: 09-20-[address] DAVID GRIDER DO [facility] Start: 08-29-2024 End: 08-29-2024 ambulatory David Cheo Facility:[facility] Start: 07-27-[address] DAVID GRIDER DO Fa cility:[facility] Start: 06-29-2024 End: 06-29-2024 ambulatory David Grider Facility:[facility] Start: 06-27-2024 End: 06-27-2024 ambulatory Edgar Sharp Facility:[facility] Start: 06-08-2024 End: 06-08-[address] DAVID GRIDER DO [facility] Start: 06-08-2024 End: 06-08-[address] DAVID GRIDER DO [facility] Start: 03-11-2024 End: 03-11-[address] DAVID GRIDER DO Facility:[facility] Start: 03-11-2024 End: 03-11-[address] DAVID GRIDER DO [facility] Start: 03-11-2024 End: 03-11-[address] DAVID GRIDER DO Facility:[facility] Start: 03-11-2024 End: 03-11-[address] DAVID GRIDER DO [facility] Start: 12-11-2023 End: 12-11-[address] DAVID GRIDER DO Facility:[facility] Start: 12-11-2023 End: 12-11-[address] DAVID GRIDER DO [facility] Start: 01-23-2023 End: 01-27-[address] DAVID GRIDER DO [facility] Start: 07-16-2022 End: 07-16-[address] David Grider Work Phone: [facility] Work Phone: Start: 07-16-2022 End: 07-16-[address] David Grider Work Phone: [facility]-Pulmonary Services/Neurology Start: 07-16-2022 Non-patient / Non-visit Dr. Lacey Grider Work Phone: [facility] Start: 07-16-2022 Non-patient / Non-visit Dr. Lacey Grider Work Phone: [facility] Start: 07-15-2022 Non-patient / Non-visit Dr. Lacey Grider Work Phone: [facility] Start: 07-15-2022 End: 07-16-2022 Evaluation and management of inpatient Dr. David Grider Work Phone: [facility]-Progressive Care Unit Start: 07-15-2022 End: 07-16-[address] David Grider Work Phone: [facility] Work Phone: Start: 01-30-2022 End: 01-30-[address] Isrrael Lowery Work Phone: [facility] Start: 10-23-2021 End: 10-23-[address] DAVID GRIDER DO [facility] Procedures Date Procedure Procedure Detail Performing Clinician Start: 01-10-[address] David Grider DO Work Phone: Start: 10-12-2024 MRI of joint of lowe r extremity Dr. David Grider DO Work Phone: Start: 07-15-2022 Plain chest X-ray Dr. Salvador Grider Work Phone: Start: 06-20-2021 History of placement of stent for coronary artery disease History of coronary artery stent placement Dr. Israrel Lowery Work Phone: Comment on above: PCI-ARMIN-Mid RCA w/ 4 x 16 mm Synergy Stent 06/09/19; PCI-ARMIN-OM2 w/ 2.5 x 18 mm Orsiro Stent 06/20/21 Start: 06-20-[address] Salvador GRIDER DO Start: 06-09-[address] Salvador GRIDER DO Comment on above: [facility] History of hernia repair DR DAVID GRIDER DO Plan of Treatment Date Care Activity Detail Author Start: 01-23-2025 Patient referral [facility] Work Phone: Start: 01-10-2025 Anes open/surg arthroscopic proc knee joint nos ANESTH KNEE JOINT SURGERY [facility] Start: 01-10-2025 Arthrs knee debridement/shaving artclr crtlg KNEE ARTHROSCOPY/SURGERY [facility] Start: 01-10-2025 Patient discharge [facility] Start: 01-10-2025 Application of ice collar, cap or bag [facility] Start: 01-10-2025 Elevation of affected extremity [facility] Start: 01-10-2025 Catheterization of vein [facility] Start: 01-10-2025 Following clinical pathway protocol [facility] Start: 01-10-2025 Procedure discontinued [facility] Start: 01-10-2025 Taking patient vital signs [facility] Start: 01-10-2025 Vital signs measurements [facility] Start: 01-10-2025 [facility] Start: 01-10-2025 Medication education [facility] Start: 07-16-2022 Patient discharge [facility] Work Phone: Start: 07-16-2022 Referral to dispatcher service chief [facility] Work Phone: Start: 07-15-2022 Ambulation without limitation [facility] Work Phone: Start: 07-15-2022 Assessment of risk of venous thromboembolism [facility] Work Phone: Start: 07-15-2022 Care regimes management [facility] Work Phone: Start: 07-15-2022 Insertion of catheter into peripheral vein [facility] Work Phone: Start: 07-15-2022 Measuring intake and output [facility] Work Phone: Start: 07-15-2022 Notification of physician [facility] Work Phone: Start: 07-15-2022 Providing care according to standard [facility] Work Phone: Start: 07-15-2022 [facility] Work Phone: Start: 07-15-2022 End: 07-15-2022 Following clinical pathway protocol [facility] Work Phone: Start: 07-15-2022 Verification routine [facility] Work Phone: Start: 07-15-2022 Admission procedure [facility] Work Phone: Ambulatory ECG [facility] Work Phone: Patient referral [facility] Work Phone: [facility] Immunizations Immunization Date Immunization Notes Care Provider Bhanu rose 09-09-2024 influenza, injectabl e, quadrivalent, contains preservative; Translations: [Fluarix PF Prefilled Syringe ] DR DAVID GRIDER DO [facility] Comment on above: Early/Late Reason: E abbey/Late Reason: Task Duplication 09-11-2023 influenza, injectabl e, quadrivalent, contains preservative; Translations: [Fluarix PF Quadrivalent ] DR DAVID GRIDER DO [facility] 07-29-2022 influenza virus vaccine, unspecified formulation DR DAVID GRIDER DO [facility] 07-29-2022 influenza, injectabl e, quadrivalent, preservative free Dr. David Grider DO Work Phone: [facility] 08-30-2021 Covid (Pfizer) Dr. David culver DO Work Phone: [facility] 07-27-2021 SARS-CoV-2 mRNA (tozinameran) vaccine DR DAVID GRIDER DO [facility] 06-18-2021 Covid (Pfizer) Dr. Isrrael Lowery Work Phone: [facility] Comment on above: Result Comment: 2021: [id number] 08-10-2020 influenza, injectabl e, quadrivalent, preservative free; Translations: [Fluarix PF Quadrivalent ] DR DAVID GRIDER DO [facility] 06-11-2019 influenza virus vaccine, unspecified formulation DR DAVID GRIDER DO [facility] 06-08-2019 pneumococcal conjuga te vaccine, [address] Isrrael Lowery Work Phone: [facility] 06-25-2018 influenza virus vaccine, unspecified formulation DR DAVID GRIDER DO [facility] 06-27-2017 influenza virus vaccine, unspecified formulation DR DAVID GRIDER DO [facility] 06-16-2016 influenza virus vaccine, unspecified formulation DR DAVID GRIDER DO [facility] 07-17-2014 influenza virus vaccine, unspecified formulation DR DAVID GRIDER DO [facility] Payers Date Payer Category Payer Private Health Insurance [id number] 2024 Unknown [id number] 2024 Self-pay [id number] 2024 Unknown [id number] 2023 Unknown [id number] 2005 Private Health Insurance [id number] 1965 Unknown [id number] 2.16.8 40.1.915788.3.579.2. 1963 Unknown [id number] 2.16.8 40.1.464805.3.579.2. 1963 Unknown [id number] 2.16.8 40.1.737572.3.579.2. 1963 Unknown [id number] 2.16.8 40.1.156208.3.579.2. 1963 Unknown [id number] 2.16. 840.1.800162.3.579.2.627 1963 Unknown [id number] 2.16.8 40.1.350068.3.579.2.627 1963 Unknown [id number] 2.16.8 40.1.136670.3.579.2.627 1963 Unknown [id number] 2.16.8 40.1.475423.3.579.2.627 Unknown [id number] 2.16.8 40.1.649836.3.579.2.462 Unknown [id number] 2.16.8 40.1.868293.3.579.2.462 Unknown [id number] 2.16.8 40.1.560864.3.579.2.462 Unknown [id number] 2.16.8 40.1.967510.3.579.2.462 Unknown [id number] 2.16.8 40.1.329953.3.579.2.462 Unknown [id number] 2.16.8 40.1.307411.3.579.2.462 Unknown [id number] 2.16.8 40.1.564641.3.579.2.462 Unknown [id number] 2.16.8 40.1.866818.3.579.2.462 Unknown [id number] 2.16.8 40.1.274395.3.579.2.462 Unknown [id number] 2.16.8 40.1.573107.3.579.2.462 Unknown [id number] 2.16.8 40.1.380767.3.579.2.462 Unknown [id number] 2.16.8 40.1.671384.3.579.2.462 Unknown [id number] 2.16.8 40.1.076661.3.579.2.462 Unknown [id number] 2.16.8 40.1.525848.3.579.2.462 Unknown [id number] 2.16.8 40.1.948593.3.579.2.462 Unknown [id number] 2.16.8 40.1.873486.3.579.2.462 Unknown [id number] 2.16.8 40.1.273964.3.579.2.462 Unknown [id number] 2.16.8 40.1.380519.3.579.2.462 Unknown [id number] 2.16.8 40.1.982863.3.579.2.462 Unknown [id number] 2.16.8 40.1.652777.3.579.2.462 Unknown [id number] 2.16.8 40.1.281390.3.579.2.462 Unknown [id number] 2.16.8 40.1.527896.3.579.2.462 Unknown [id number] 2.16.8 40.1.145062.3.579.2.462 Social History Date Type Detail Facility Start: 06-24-2019 End: 12-27-2024 Ex-smoker (finding) [facility] Start: 1965 Sex Assigned At Male A [facility] Start: 01-30-2022 End: 07-15-2022 Tobacco smoking status NHIS Unknown if ever smoked [facility] Work Phone: Start: 06-09-2019 None [facility] Start: 06-10-2019 Cigarettes [facility] Sexual Orientation [facility] Start: 03-16-2019 End: 01-10-2025 Sex Male (finding) [facility] Medical Equipment Procedure Code Equipment Code Equipment Origin al Text Equipment Identifier Dates ([id number]) Drug-eluting cor onary artery stent, bioabsorbable-polymer -coated ()[id number] [id number] FDA Start: 06-20-2021 ([id number]) Dual-chamber implantable pacemaker, rate-responsive [id number] [id number] [id number] FDA Start: 07-28-2022 ([id number]) Endocardial paci ng lead ()[id number] [id number] FDA Start: 07-28-2022 ([id number]) Endocardial paci ng lead ()[id number] [id number] FDA Start: 07-28-2022 Goals Date Patient Goal Desired Activity /State Functional Status Date Assessment Result Facility 07-16-2022 Functional status Bedrest [facility] Work Phone: 07-16-2022 Functional status None [facility] Work Phone: Mental Status Date Assessment Result Facility 01-10-2025 Cognitive function Level Of Cons ciousness Follows Commands [facility] Work Phone: 01-10-2025 Cognitive function Voice/Name [facility] Work Phone: 07-16-2022 Cognitive function Voice/Name [facility] Work Phone: 07-15-2022 Cognitive function Voice/Name [facility] Work Phone: Clinical Notes 06-20-2021 to 01-23-2025 Note Date & Type Note Facility 01-23-2025 Evaluation note Diagnosis Onset Date Resolution Orthopedic aftercare acute January 23, 2025 9:07am [facility] Work Phone: [id number] Evaluation note* Diagnosis Onset Date Resolution Status Admit Date Orthopedic aftercare acute January 23, 2025 9:07am Orthopedic aftercare acute February 20, 2025 9:42am [facility] Work Phone: 1(176) 952-161405-05-2025 Evaluation note* Diagnosis Onset Date Resolution Status Admit Date Orthopedic aftercare acute January 23, 2025 9:07am Orthopedic aftercare acute February 20, 2025 9:42am Orthopedic aftercare acute March 22, 2025 11:15am [facility] Work Phone: 1(812) 133-399505-05-2025 Evaluation note* Diagnosis Onset Date Resolution Status Admit Date Orthopedic aftercare acute January 23, 2025 9:07am Orthopedic aftercare acute February 20, 2025 9:42am Orthopedic aftercare acute March 22, 2025 11:15am Osteoarthritis of left knee acute April 12, 2025 10:11am [facility] Work Phone: 1(403) 182-262205-05-2025 Evaluation note* Diagnosis Onset Date Resolution Status Admit Date Orthopedic aftercare acute January 23, 2025 9:07am Orthopedic aftercare acute February 20, 2025 9:42am Orthopedic aftercare acute March 22, 2025 11:15am Osteoarthritis of left knee acute April 12, 2025 10:11am Osteoarthritis of left knee acute May 03, 2025 11:21am [facility] Work Phone: 1(229) 598-234705-05-2025 Evaluation note* Diagnosis Onset Date Resolution Status Admit Date Orthopedic aftercare acute January 23, 2025 9:07am Orthopedic aftercare acute February 20, 2025 9:42am Orthopedic aftercare acute March 22, 2025 11:15am Osteoarthritis of left knee acute April 12, 2025 10:11am Osteoarthritis of left knee acute May 03, 2025 11:21am Osteoarthritis of left knee acute May 10, 2025 11:14am [facility] Work Phone: 1(400) 535-277004-22-2025 Consult note Author Myriam Knight [facility] Note Date/Time January 10, 2025 11: 13am [facility] Medical Records Department [address] [place] [address] Anesthesia Postop Eval I 01/10/25 0929 MR#: [id number] Acct: [id number] Name: ALINE HAY Sugey Rep #:[id number] : 1965 59 From: Myriam Knight CRNA PCP: Dr. David Grider, DO Status:REG S DC Y Race: C Location: [place] [address] Anesthesia: Postop Eval I Current Vital Signs Temperature: 97.2 F Pulse Rate: 67 Blood Pressure: 126/77 Respiratory Rate: 18 Pulse Ox: 93 Oxygen Delivery Method: Room Air Assessment Airway patent: Yes Spontaneous unlabored respirations: Yes Mental status: Awake nausea: No Vomiting: No Anesthesia Complication: No Fluid Hydration Crystalloid volume administer (ml): 300 Total IV fluid infused: 300 Progress Note Anesthesia document: Postop Eval 1 completed: Yes 01/10/2529 <Electronically signed by Myriam Anders on [employer]> Date _ Myriam Anderson [employer] Cosigner Signature: Date CC: ~ Signed [facility] Work Phone: 1(730) 818-403504-22-2025 Discharge summary Author Cameron Cagle [facility] Note Date/Time January 10, 2025 9:2 9am [facility] Medical Records Department [address] [place] [address] Instructions for Home/Discharge Instructions 01/10/25 0924 MR#: [id number] Acct: [id number] Name: ALINE HAY Rep #:[id number] : 1965 59 From: Cameron Cagle DO PCP: Dr. David Grider DO Status:REG S DC Discharge Instructions Diet Discharge Diet: No restrictions Dressing / Incision Call your doctor if you observe: Shortness of breath and Chest pain Additional Dressing/Incision Instructions:: Ice and elevate next 72 hours .keep dressing on clean and dry for 48 hours then may remove begin showering daily butdo not submerge in tub or pool. After shower may apply Band-Aids . Encourage knee range of motion weightbearing as tolerated, use crutches until confident inknee then may discontinue. No strenuous activity. When not ambulating keep icedand elevated next 72 hours. Do not mix pain medication with recreational drugs or alcohol only take as prescribed can be addictive and abusive, call with any questions or concerns. Follow Up Care Please Follow Up With: Cameron Cagle DO When: 2 weeks Test Results: Test results from this visit will be discussed in further detail at your follow- up appointment, if applicable. Discharge Plan Admission Primary Reason for Your Visit: Left knee arthroscopy Attending Provider: Cameron Cagle Primary Care Provider: David Grider Instructions Print Language: Romanian Discharge Orders/Prescriptions Prescriptions: New hydrocodone-acetaminophen 5-325 mg tablet 1 - 2 tab PO Q4H 5 Days Qty: 20 0RF Continued glipizide 5 mg tablet 5 mg PO DAILY dapagliflozin propanediol [Farxiga] 5 mg tablet 10 mg PO QDAY furosemide 40 mg tablet 40 mg PO QDAY Ozempic 0.25 mg or 0.5 mg (2 mg/3 mL) pen injector 0.25 mg subcut TU Patient Comments: INJECT 0.25 MG SUBCUTANEOUSLY ONCE WEEKLY FOR THE FIRST 4 INJECTIONS, THEN INCREASE TO 0.5 MG WEEKLY atorvastatin 80 mg tablet 80 mg PO QHS Rx Instructions: TAKE 1 TABLET BY MOUTH AT BEDTIME carvedilol 12.5 mg tablet 12.5 mg PO BID Rx Instructions: TAKE 1 TABLET BY MOUTH TWICE A DAY gabapentin 300 mg capsule 300 mg PO TID metformin 1,000 mg tablet 1,000 mg PO BIDCM Qty: 180 3RF amlodipine 10 mg tablet 10 mg PO DAILY Qty: 90 3RF losartan 50 mg tablet 50 mg PO DAILY Qty: 90 3RF Held clopidogrel 75 mg tablet 75 mg PO DAILY Hold Instructions: Resume on 01/11/25. Rx Instructions: TAKE 1 TABLET BY MOUTH EVERY DAY aspirin 81 mg tablet,delayed release (DR/EC) 81 mg PO DAILY@0800 Qty: 90 3RF Hold Instructions: Resume on 01/11/25. Referrals / Follow Up: David Grider DO [Primary Care Provider] - Disposition Disposition (needs filled in before D/C Order can be placed): Home, Self Care 01/10/25928<Electronically signed by Cameron Cagle DO>Cameron Cagle DO CC: Dr. David Grider DO ~ Signed [facility] Work Phone: 1(833) 659-794004-22-2025 Consult note [facility] Medical Records Department [address] [place] [address] Anesthesia Postop Eval I 01/10/25928 MR#: [id number] Acct: [id number] Name: ALINE HAY Rep #:[id number] : 1965 59 From: Myriam Knight CRNA PCP: Dr. David Grider, DO Status:REG S DC Y Race: C Location: [place] [address] Anesthesia: Postop Eval I Current Vital Signs Temperature: 97.2 F Pulse Rate: 67 Blood Pressure: 126/77 Respiratory Rate: 18 Pulse Ox: 93 Oxygen Delivery Method: Room Air Assessment Airway patent: Yes Spontaneous unlabored respirations: Yes Mental status: Awake nausea: No Vomiting: No Anesthesia Complication: No Fluid Hydration Crystalloid volume administer (ml): 300 Total IV fluid infused: 300 Progress Note Anesthesia document: Postop Eval 1 completed: Yes 01/10/25928 on [employer]> Date _ Myriam Knight [employer] Cosigner Signature: Date CC: ~ Signed [facility]04-22-2025 History and physical note [facility] Medical Records Department [address] [place] [address] History & Physical Exam 01/10/25 0707 MR#: [id number] Acct: [id number] Name: ALINE HAY Rep #:[id number] : 1965 59 From: Cameron Cagle DO PCP: Dr. David Grider, DO Status:REG S DC Location: [place] [address] History and Physical Date of Admission: 01/10/25 [facility] [address] [place] [address] OFFICE VISIT Date of Service: 10/14/24 MR#: [id number] Acct: [id number] Name: ALINE HAY Rep #: [id number] : 1965 Provider: Dr. Cameron Cagle, DO Age/Sex: 59/M Location: [facility] Status: Signed Intake Vital Signs 06/29/2410:17 10/13/2508:59 10/14/2507:44 Height 5 ft 8.11 in 5 ft 8.11 in 5 ft 7.5 in Weight: 276 lb 8 oz BMI 42.6 Intake Visit Reasons: LEFT KNEE Chief Complaint: MRI review Accompanied by: Self Allergies hornet venom Allergy (Severe, Verified 10/14/24 08:44) Anaphylaxis Medications ?Medication ?Instructions ?Recorded ?Confirmed ?Type glipizide 5 mg tablet 5 mg PO DAILY 01/07/21 08/29/24 History metformin 1,000 mg tablet 1,000 mg PO BIDCM #180 tabs 08/26/22 08/29/24 Rx gabapentin 300 mg capsule 300 mg PO BID #180 caps 11/18/22 08/29/24 Rx amlodipine 10 mg tablet 10 mg PO DAILY #90 tabs 09/11/23 08/29/24 Rx aspirin 81 mg tablet,delayed 81 mg PO DAILY@0800 #90 tabs 09/11/23 08/29/24 Rx release atorvastatin 80 mg tablet See Rx Instructions .Route 09/11/23 08/29/24 Rx .COMPLEX #90 tabs carvedilol 12.5 mg tablet See Rx Instructions .Route 09/11/23 08/29/24 Rx .COMPLEX #180 tabs hydrochlorothiazide 25 mg tablet 25 mg PO DAILY #90 tabs 09/11/23 08/29/24 Rx losartan 50 mg tablet 50 mg PO DAILY #90 TABLETS 03/10/24 08/29/24 Rx dapagliflozin propanediol 5 mg 5 mg PO QDAY 06/29/24 08/29/24 History tablet (Farxiga) clopidogrel 75 mg tablet See Rx Instructions .Route 09/26/24 Rx .COMPLEX #90 tabs furosemide 40 mg tablet 40 mg PO QDAY 10/14/24 10/14/24 History semaglutide 0.25 mg or 0.5 mg (2 mg subcut 10/14/24 10/14/24 History mg/3 mL) subcutaneous pen injector (Ozempic) [facility] Medical History Presence of permanent cardiac pacemaker High degree atrioventricular block History of non-ST elevation myocardial infarction (NSTEMI) (06/09/19) Unstable angina Type 2 diabetes mellitus without complication Atherosclerosis of coronary artery of [place] heart without angina pectoris Obesity Essential hypertension Surgical History History of left heart catheterization (07/16/22) History of coronary artery stent placement (06/20/21) History of umbilical hernia repair History of left inguinal hernia repair Family History Mother CancerFather Thyroid disorder Cancer lymphoma Social History Smoking Status: Former smoker how long ago did patient quit smokin months ago alcohol intake: never substance use type: does not use caffeine: Yes Type: coffee Number of servings: 4 HPI LEFT KNEE Details: This documentation accurately reflects the service provided and the decisions made by me, Dr. Cameron Cagle, DO 10/14/24 0739. Part of today?s visit was documented by Carolina MUSA, acting as scribe. ALINE HAY is a 59 year old M here today for MRI review of the left knee pain. He states that his pain is over the medial side. He does get popping, clicking, and catching in the knee that is sometimes painful and giving way. When he wakes up in the morning he has a lot of tightness and stiffness. He denies taking anything for pain. 08/29/2024 visit: here today for continued left knee pain. He was given an injection on 06/29/24 which he states did give him relief for 2-3 weeks. He states that the knee makes it hard for him to walk, jog, or even walk fast paced. He feels that his knee wants to give out on him. He states that it feels like his knee goes back. He denies catching or getting stuck. He does get a popping in the kneebut it is non painful. He would like us to order an MRI. Hispain is over his medial knee and he is unable to walk long distances without having to stop and taking a break. Plan: Patient is here today for continued left knee pain. At his last visit we did give him a steroid injection last visit which did give him 2-3 weeks of relief but is still having a good amount of pain. He has tried 1 month of meloxicam which he states didn't give him any relief. I would like to get an MRIat this point to rule out a meniscus tear. As he continues to have painful mechanical symptoms mostly in the medial side I did explain he is at increased risk if he had to undergo surgery due to his medical comorbiditiesand lower extremity edema. 06/29/2024 visit: 59 year old M with medical comorbidities not limited to but significant for AV block history of DE, diabetes mellitus type 2, obesity, pacemaker on Plavix .here today for Left knee pain. Patient states this has beengoing on for about 3 weeks. denies any injury . states his knee hasbeen popping for 8-9 months. he was trotting around his yard and he felt instant pain when his kneegave out and wasn't able to put weight on his knee or walk for 4-5 days. Patient had instant swelling. Patient went and saw his PCP and they gave him Meloxicam. Patient states he can't twist his knee. Patient states some times his knee feels like its going to give out, and goes back to far. Patientstates knee pain in the medial knee doing down and around the knee cap. Patient has never had previous injections in his knee. Patient hasn't had PT recently. Patient hasn't tried ice or heat. Patient is taking just the Mobic and was given 5 days worth of hydrocodone-acetaminophen 5-325mg. Plan: pleasant 59-year-old male with multiple medical comorbidities including obesity type 2 diabetes history of DE and AV block who had a low-energy injury while jogging into his backyard and has subsequently developed medial sided kneepain. He is not having any painful mechanical symptoms although he does get some popping which was present even prior to this injury. On examination most of his pain seems to be the medial compartment he does have pain with medial Johanna but no click he does have chronic lower extremity edema. He does have some mild DJD which hopefully this is just an exacerbation of he also may have amedial meniscus tear. Spoke with patient that his treatment options are do nothing, steroid injection, or an MRI. Patient would like to proceed with an injection today along with rest and ice. Spoke with patient that if the injection doesn't give him much relief over the next 4 weeks we can get an MRI of the knee. Ortho Exam General General: Yes no acute distress Neurologic: Yes alert and Yes oriented x3 Psychologic: Yes reasonable and appropriate Left Knee Knee ROM: Yes ROM-Extension -20 to 0 and Yes ROM-Flexion 0-140 (80) Examination: Yes med jt line tenderness, No Lat jt line tenderness, No Crepitus,Yes Pain with flexion and Yes Johanna's Test Stability: NML: Anterior Drawer, NML: Posterior Drawer, NML: Valgus 0, NML: Valgus 30, NML: Varus 0and NML: Varus 30 Patella Grind: Yes KNEE: He is obese he does have chronic venous stasis dermatitis bilateral lower extremities however his left lower extremity has more edema and shininess. no effusion of the knee no patellar instability pain with medial johanna Head: Normocephalic Atraumatic Chest: symmetrical rise, non-labored breathing, no audible wheeze Abdomen: no guarding, non-rigid Supplemental Info 10/12/2024 MRI left knee: Tear posterior root medial meniscus. High-grade chondromalacia mid weightbearing surface of the medial femoral condyle, suspected tiny horizontal tear body lateral meniscus, 06/29/2024 x-ray left knee: Mild narrowing of the lateral patellar facet, mild spurring of the medial femoral condyle on the notch view Coding Level of Care Code Off vis,est,level 4 Diagnoses Mechanical pain of left knee M25.562 Primary osteoarthritis of left knee M17.12 Osteoarthritis type: primary Class 3 severe obesity due to excess calories without serious comorbidity with body mass index (BMI) of 40.0 to 44.9 in adult E66.813; E66.01; Z68.41 Obesity type: due to excess calories Obesity classification: adult class 3 (BMI >= 40) Serious obesity comorbidity presence: without serious comorbidity Body mass index: BMI 40.0-44.9 Peripheral tear of medial meniscus of left knee as current injury, subsequent encounter S83.222D Tear current or old: current Encounter type: subsequent encounter Meniscus tear of knee type: peripheral Laterality: left Assessment and Plan Assessment and Plan (1) Mechanical pain of left knee: Status: Acute (2) Osteoarthritis of left knee: Status: Acute Qualifiers: Osteoarthritis type: primary Qualified Code(s): M17.12 - Unilateral primary osteoarthritis, left knee (3) Obesity: Status: Acute Qualifiers: Obesity type: due to excess calories Obesity classification: adult class 3 (BMI >= 40) Serious obesity comorbidity presence: without serious comorbidity Body mass index: BMI 40.0-44.9 Qualified Code(s): E66.813 - Obesity, class 3; E66.01 - Morbid (severe) obesity due to excess calories; Z68.41 -Body mass index [BMI] 40.0-44.9, adult (4) Medial meniscus tear: Status: Acute Qualifiers: Tear current or old: current Encounter type: subsequent encounter Meniscus tear of knee type: peripheral Laterality: left Qualified Code(s): S83.222D - Peripheral tear of medial meniscus, current injury, left knee, subsequent encounter Plan Patient is here today for MRI review of his left knee. I spoke with patient that he does have a root tear of his medial meniscus along with arthritis of his medial femoral condyle. His treatment options would be do nothing, an arthroscopy partial medial meniscectomy, weight loss may need eventual total knee arthroplasty. I did advise patient that he will likely still have pain after the arthroscopy because of the arthritis in his knee. 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 I spoke with patient that for an arthroscopy I would need his A1C at or under 7.5 Reviewed the pre-operative plans with the patient. Risks and benefits of the procedure were fully explained, including but not limited to infection, neurovascular injury, continued pain, arthritis, stiffness, need for further surgery, re-injury, DVT, PE, general risks of anesthesia, and loss of limb or life. The patient understands all the risks and does wish to proceed with written consent. Tentative surgery date 11/01/2024 Follow up at 2 weeks post-op or sooner if pain, swelling, numbness or associated symptoms, or concerns develop. All questions answered. Patient in agreement of plan. 10/14/24 0935 Date Cameron Borruso DO I have examined the patient and the H&P has been reviewed. There are no clinical changes since date of exam. 01/10/25 0707 Cosigner Signature (if applicable): CC: Dr. David Grider DO; Dr. Cameron Cagle DO~ Signed [facility]04-22-2025 Consult note Author Adriano Guzman [facility] Note Date/Time January 10, 2025 8:1 5am [facility] Medical Records Department [address] [facility] [place] [address] Pre-Anesthesia Evaluation 01/10/25 0807 MR#: [id number] Acct: [id number] Name: ALINE HAY Rep #:[id number] : 1965 59 From: Adriano Guzman MD PCP: Dr. David Grider DO Status:REG S DC Y Race: C Location: [place] [address] ASA Classification* ASA Classification ASA Classification: 3 Assessment & Plan Anesthesia* Anesthesia Assessment Anesthesia Assessment: Discussed sedation and/or anesthesia options, risks, benefits, and alternatives with patient/parents/legal guardian/POA. Questions invited. The patient/parents/legal guardian/POA seems to understand and agrees to proceedwith anesthesia plan. Reviewed the physical assessment, medical history, allergy history and patient home medications list prior to surgery/procedure/anesthetic and documented any changes. Performed airway and anesthesia risk assessments. Anesthesia Type Anesthesia Type: General History Source History Obtained from:: Patient and Chart Anesthesia Focused Assessment* Temperature: 97.6 F Pulse Rate: 86 Blood Pressure: 153/95 Respiratory Rate: 16 Pulse Ox: 97 Oxygen Delivery Method: Room Air Airway Assessment Mouth opens: >3 cm Mallampati Score: I Teeth Condition: Partial (Patient has lower partial dentures. They are out. Rest of the teeth are tight.) and Upper (Patient has full upper dentures. They will come out.) Neck Range of motion (ROM): Full ROM Focused Labs Anesthesia Preop lab: CBC WBC 10.0 K/mm3 (4.4-11.0) 07/16/22 05:00 07/16/22 RBC 4.54 M/mm3 (4.6-6.2) L 07/16/22 05:00 07/16/22 Hgb 12.8 g/dL (13.0-16.5) L 07/16/22 05:00 2 Hct 39.3 % (40-54) L 07/16/22 05:00 07/16/22 Plt Count 210 K/mm3 (150-450) 07/16/22 05:00 07/16/22 CHEMISTRY Potassium 3.6 mmol/L (3.5-5.1) 07/16/22 05:00 07/16/22 Sodium 139 mmol/L (136-145) 07/16/22 05:00 07/16/22 Magnesium 1.8 mg/dL (1.6-2.6) 06/11/19 06:42 06/11/19 BUN 18 mg/dL (7-18) 07/16/22 05:00 07/16/22 Creatinine 1.16 mg/dL (0.70-1.30) 07/16/22 05:00 07/16/22 Glucose 169 mg/dL (74-106) H 07/16/22 05:00 07/16/22 POC Glucose 211 mg/dL (74-106) H 07/28/22 21:20 07/28/22 TSH 1.78 uIU/mL (0.358-3.74) 07/16/22 05:00 COAG PT 13.4 SECONDS (11.7-14.9) 06/20/21 05:10 Pre-Assessment Diagnosis/Proposed Procedure Planned Operative Procedure(s): (L) Left knee Arthroscopy, partial menisectomy, surgery as indicated Anesthesia History Anesthesia History - mangle press catcher: Anesthesia History - mangle press catcher Hx Hospitalization No 12/27/24 08:07 Any Problems With Anesthesia No 12/27/24 08:07 Cholinesterase deficiency No 12/27/24 08:07 You/Your Family Experience No 12/27/24 08:07 fever (hyperthermia) with Relationship Recent Exposure to Contagious No 01/10/25 07:25 Disease Does patient have nerve No 12/27/24 08:07 stimulator Patient instructed to have device shut off --Does patient have Pacemaker Yes 01/10/25 07:25 or ICD? When Was Last Pacemaker Check QUESTION #4 FULL TEXT: You/Your Family Experience fever (hyperthermia) with Anesthesia Last Oral Intake Last Oral intake: Last Oral Intake NPO since 23:00 01/10/25 07:25 Meds taken in AM with sips of Yes 01/10/25 07:25 water? Meds patient instructed to see chart 01/10/25 07:25 take am of surgery PONV PONV - mangle press catcher: PONV - mangle press catcher Female No 12/27/24 08:07 HX of Motion Sickness No 12/27/24 08:07 HX of N/V After Surgery No 12/27/24 08:07 Non-Smoker Yes 12/27/24 08:07 Duration of Surgery greater Yes 12/27/24 08:07 than 60 minutes Number of Risk Factors 2 12/27/24 08:07 PONV Score Moderate Risk 12/27/24 08:07 Height & Weight Height & Weight: Anesthesia: Height & Weight Height 5 ft 8 in 01/10/25 07:25 Weight: 116.9 kg 01/10/25 07:25 Body Mass Index (BMI) 39.2 01/10/25 07:25 Respiratory Assessment Respiratory Assessment - mangle press catcher: Respiratory Tract Infection Hx - mangle press catcher Hx Respiratory Tract Infection No 12/27/24 08:07 STOP Sleep Apnea STOP Sleep Apnea - mangle press catcher: STOP Sleep Apnea - mangle press catcher Hx Hypertension Yes 12/27/24 08:07 Hx Sleep Apnea No 12/27/24 08:07 CPAP BIPAP Do you snore loudly (louder No 12/27/24 08:07 than talking or can be heard Do you often feel tired/ No 12/27/24 08:07 fatigued/ sleepy during daytime? Has anyone observed you stop No 12/27/24 08:07 breathing during sleep? STOP Results Negative 12/27/24 08:07 QUESTION #5 FULL TEXT : Do you snore loudly (louder than talking or can be heard through closed doors)? 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 Specify any problems Hx of Preganancy in last 3 N/A 12/27/24 08:07 Months Nurse Filling Out Transfusion NBUCHER 12/27/24 08:07 & Questions: Date: 12/27/24 12/27/24 08:07 Time: 08:08 12/27/24 08:07 Patient unable to answer at this time (ie. confused, unrespo /Reproduction History /Reproductive History - mangle press catcher: /Reproductive Hx- mangle press catcher Hx Now Gestational Age (in weeks): EDC: Hx Hx Para Hx Section SAB No 12/27/24 08:07 Active Medications Active Medications: Current Medications Generic Name Dose Route Start Last Admin Trade Name Freq PRN Reason Stop Dose Admin Sodium Chloride 1,000 mls @ 15 mls/hr 01/10/25 07:00 01/10/25 07:34 IV 15 mls/hr .Q48H MARTHA Administration PFSH Medical History Wears glasses Wears dentures Diabetes Arthritis High cholesterol Dietary restriction Former smoker History of pain when walking History of edema Holter monitor, abnormal History of stress test Cardiology follow-up encounter Presence of permanent cardiac pacemaker High degree atrioventricular block History of non-ST elevation myocardial infarction (NSTEMI) (06/09/19) Unstable angina Type 2 diabetes mellitus without complication Atherosclerosis of coronary artery of [place] heart without angina pectoris Obesity Essential hypertension Home Medications ?Medication ?Instructions ?Recorded ?Last Taken ?Type glipizide 5 mg tablet 5 mg PO DAILY 01/07/2101/09 History metformin 1,000 mg tablet 1,000 mg PO BIDCM #180 tabs 08/26/22 01/09/25 Rx amlodipine 10 mg tablet 10 mg PO DAILY #90 tabs 08/2201/09/25 Rx aspirin 81 mg tablet,delayed 81 mg PO DAILY@0800 #90 t abs 09/11/23 01/02/25 Rx release losartan 50 mg tablet 50 mg PO DAILY #90 TABLETS 0 03/10/24 01/09/25 Rx dapagliflozin propanediol 5 mg 10 mg PO QDAY 06/29/24 01/06/25 History tablet (Farxiga) furosemide 40 mg tablet 40 mg PO QDAY 10/14/2401/09 History semaglutide 0.25 mg or 0.5 mg (2 0.25 mg subcut TU 01/02/25 History mg/3 mL) subcutaneous pen injector (Ozempic) atorvastatin 80 mg tablet 80 mg PO QHS 10/20/24 History carvedilol 12.5 mg tablet 12.5 mg PO BID 10/20/2412/21 History clopidogrel 75 mg tablet 75 mg PO DAILY 10/20/2412/20 History gabapentin 300 mg capsule 300 mg PO TID 10/20/2401/09 History Allergy/AdvReac Type Severity Reaction Status Date / Time hornet venom Allergy Severe Anaphylaxis Verified 01/10/25 07:13 Family History Mother Cancer Father Thyroid disorder Cancer lymphoma Surgical History Hx of colonoscopy History of left heart catheterization (07/16/22) History of coronary artery stent placement (06/20/21) History of umbilical hernia repair History of left inguinal hernia repair Social History Smoking Status: Former smoker how long ago did patient quit smokin months ago alcohol intake: never substance use type: does not use caffeine: Yes Type: coffee Number of servings: 4 Review of Systems (Anesthesia) ROS Narrative System reviewed and no additional complaints, except as documented. 01/10/25 0815 <Electronically signed by Adriano mcguire MD> Date _ Adriano Guzman MD Cosigner Signature: Date CC: ~ Signed [facility] Work Phone: [phone] 286-197304-22-2025 Consult note [facility] Medical Records Department [address] [place] [address] Anesthesia Postop Eval II 01/10/2544 MR#: [id number] Acct: [id number] Name: ALINE HAY Rep #:[id number] : 1965 59 From: Adriano Guzman MD PCP: Dr. David Grider, DO Status:REG S DC Y Race: C Location: [place] [address] Anesthesia Postop Eval I Sum Postop Eval Completion status Anesthesia document: Postop Eval 1 completed: Yes Anesthesia Postop Eval I Summary Anesthesia Postop Eval I Summary: Anesthesia Postop Eval I: Assessment Summary Airway patent Yes 01/10/25 09:29 [employer]CH[employer]ECT.BPEY Spontaneous unlabored Yes 01/10/25 09:29 [employer] ARCH[employer]ECT.BPEY respirations Mental status Awake 01/10/25 09:29 [employer] ARCHITECT.BPEY nausea No 01/10/25 09:29 [employer] ARCH[employer]ECT.BPEY Vomiting No 01/10/25 09:29 [employer] ARCHITECT.BPEY Anesthesia Postop Eval I: Fluid Summary Crystalloid volume administer 300 01/10/25 09:29 [employer] ARCHITECT.BPEY (ml) Colloids volume administered ( ml) Blood Product volume administered (ml) Total IV fluid infused 300 01/10/25 09:29 [employer] ARCHITECT.BPEY Anesthesia Postop Eval I: Summary Notes Anesthesia Complication No 01/10/25 09:29 [employer] ARCHITECT.BPEY Anesthesia Complication Comment: Post-operative progress note Anesthesia: Postop Eval II Evaluation Mental status: Awake and Calm Pain Level: 2 nausea: No Vomiting: No Complications Anesthesia Complication: No 01/10/2545 maynor PHAM> Date _ Adriano Kancherla MD Cosigner Signature: Date CC: ~ Signed [facility]04-22-2025 Discharge summary [facility] Medical Records Department [address] [place] [address] Instructions for Home/Discharge Instructions 01/10/25 0924 MR#: [id number] Acct: [id number] Name: ALINE HAY Rep #:[id number] : 1965 59 From: Cameron Cagle DO PCP: Dr. David Grider DO Status:REG S DC Discharge Instructions Diet Discharge Diet: No restrictions Dressing / Incision Call your doctor if you observe: Shortness of breath and Chest pain Additional Dressing/Incision Instructions:: Ice and elevate next 72 hours .keep dressing on clean and dry for 48 hours then may remove begin showering daily butdo not submerge in tub or pool. After shower may apply Band-Aids . Encourage knee range of motion weightbearing as tolerated, use crutches until confident inknee then may discontinue. No strenuous activity. When not ambulating keep icedandelevated next 72 hours. Do not mix pain medication with recreational drugs or alcohol only take as prescribed can be addictive and abusive, call with any questions or concerns. Follow Up Care Please Follow Up With: Cameron Cagle DO When: 2 weeks Test Results: Test results from this visit will be discussed in further detail at your follow- up appointment, if applicable. Discharge Plan Admission Primary Reason for Your Visit: Left knee arthroscopy Attending Provider: Cameron Cagle Primary Care Provider: David Grider Instructions Print Language: Romanian Discharge Orders/Prescriptions Prescriptions: New hydrocodone-acetaminophen 5-325 mg tablet 1 - 2 tab PO Q4H 5 Days Qty: 20 0RF Continued glipizide 5 mg tablet 5 mg PO DAILY dapagliflozin propanediol [Farxiga] 5 mg tablet 10 mg PO QDAY furosemide 40 mg tablet 40 mg PO QDAY Ozempic 0.25 mg or 0.5 mg (2 mg/3 mL) pen injector 0.25 mg subcut TU Patient Comments: INJECT 0.25 MG SUBCUTANEOUSLY ONCE WEEKLY FOR THE FIRST 4 INJECTIONS, THEN INCREASE TO 0.5 MG WEEKLY atorvastatin 80 mg tablet 80 mg PO QHS Rx Instructions: TAKE 1 TABLET BY MOUTH AT BEDTIME carvedilol 12.5 mg tablet 12.5 mg PO BID Rx Instructions: TAKE 1 TABLET BY MOUTH TWICE A DAY gabapentin 300 mg capsule 300 mg PO TID metformin 1,000 mg tablet 1,000 mg PO BIDCM Qty: 180 3RF amlodipine 10 mg tablet 10 mg PO DAILY Qty: 90 3RF losartan 50 mg tablet 50 mg PO DAILY Qty: 90 3RF Held clopidogrel 75 mg tablet 75 mg PO DAILY Hold Instructions: Resume on 01/11/25. Rx Instructions: TAKE 1 TABLET BY MOUTH EVERY DAY aspirin 81 mg tablet,delayed release (DR/EC) 81 mg PO DAILY@0800 Qty: 90 3RF Hold Instructions: Resume on 01/11/25. Referrals / Follow Up: David Grider DO [Primary Care Provider] - Disposition Disposition (needs filled in before D/C Order can be placed): Home, Self Care 01/10/25 0929Jowhitney Cagle DO CC: Dr. David Grider DO ~ Signed [facility]04-22-2025 Procedure note [facility] Medical Records Department [address] [place] [address] Operative Report 01/10/25917 MR#: [id number] Acct: [id number] Name: ALINE HAY Rep #:[id number] : 1965 59 From: Cameron Cagle DO PCP: Dr. 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: Yes Ice Cream Maker: Jarett Handy Tasks completed by assistant professor of art: Opening & closing Type of Anesthesia: General RN Documented Start/Stop Times: Operation Date: 01/10/25 08:30 Case Time Into Pre-Op 01/10/25 06:54 Out of Pre-Op 01/10/25 08:30 Anesthesia Start 01/10/25 08:36 Into Room 01/10/25 08:36 Procedure Start 01/10/25 08:56 Procedure End 01/10/25 09:13 Procedure Start Time: 08:56 Procedure Stop Time: 09:13 Select all DRAINS/GRAFTS/IMPLANTS that apply: None Estimated Blood Loss: 0 Specimen collected: No Description of surgery: Preop diagnosis: Left knee DJD medial meniscus root tear Postoperative diagnosis: Grade 4 chondral wear medial femoral condyle grade 3 medial patellar facet Procedure: Left knee arthroscopic chondroplasty medial femoral condyle and patella Anesthesia: General Estimated blood loss: 5 mL Tourniquet time: 20 minutes 300 mmHg Complications: none Indication for procedure: 59-year-old male who has had ongoing knee pain with mechanical symptoms MRI was read as a root tear medial meniscus the patient did wish to proceed with an elective arthroscopic surgery to attempt to alleviate the symptoms. Risk benefits and alternatives of the procedure were reviewed including risk of bleeding infection nerve artery tissue damage need for further surgery continued pain and expected postoperative course. Procedure: The patient was met in the preoperative holding area. The operative extremity was identified by both patient and physician and family and marked. Patient was brought back to the operating room on a wheeled cart and transferredto the operating table in the supine position. Anesthesia was s tarted. A well-padded tourniquet was placed on the operative extremity. A lower extremity leg mcintosh was secured to the operative extremity. The contralateral extremity was well-padded and the end ofthe bed was flexed to 90 degrees. The patient was prepped and draped in the usual sterile fashion. A timeout was called to ensurethe proper patient, procedure, and extremity were being contemplated. 0.5% Marcaine with epinephrine was injected into the planned incisional areas under the skin only. An Esmarch was used to exsanguinate the extremity and the tourniquet was inflated. An 11 blade scalpel was used to make a stab incision in the anterior lateral portal. The arthroscope was inserted intothe intercondylar notch and inflow and outflow tubes were attached. Arthroscopic visualization began. The medial compartment was entered. An 18- gauge spinal needle was used to establish the placementfor anterior medial portal. An 11 blade scalpel was used to make a stab incision. Blunt probe was in serted followed by a meniscal probe, the medial meniscus was thoroughly probed including the root and there was noted instability to the meniscus and no tearing that would require meniscectomy the shaver was used to perform a gentle chondroplasty of the medial femoral condyle. Immediately there wasnoted to be high grade 4 cartilage wear of the medial femoral condyle the ACL was was intactbut loose and degenerative. The lateral compartment was entered there was no cartilage or meniscal pathology The arthroscope was switched to the medial portal to complete the procedure. The medial and lateral gutters were inspectedand were free of loose bodies. The patellofemoral joint was inspected there is grade 3 cartilage wear of the medial patellar facet and gentle chondroplasty wasused to remove loose cartilage from the periphery. There was good patellar tracking. The knee was thoroughly irrigated and drained. An intra- articular injection with 5 cc 0.5% Marcaine plain and 40 mg of Depo-Medrol was injected intra-articularly. The arthroscope was removed the portals were closed with 3-0nylon arthroscopic stitches. Followed by Xeroform 4 x 4's ABDs web roll and an Parveen wrap. The tourniquet was let down and the drapes were removed. All counts were correct. The patient was brought back to the PACU in stable condition. Surgical Findings: DJD Complications Complications: No 01/10/25 0924 Cosigner Signature (if applicable): CC: Dr. David Grider DO; Dr. Cameron Cagle DO~ Signed [facility]04-22-2025 History and physical note Author [facility] Note Date/Time January 10, 2025 11: 13am [facility] Medical Records Department [address] [place] [address] History & Physical Exam 01/10/25 0707 MR#: [id number] Acct: [id number] Name: ALINE HAY Rep #:[id number] : 1965 59 From: Cameron Cagle DO PCP: Dr. David Grider DO Status:REG S DC [facility] History and Physical Date of Admission: 01/10/25 [facility] [address] [place] [address] [address] [place] [address] OFFICE VISIT Date of Service: 10/14/24 MR#: [id number] Acct: [id number] Name: ALINE HAY Rep #: [id number] : 1965 Provider: Dr. Cameron Cagle DO Age/Sex: 59/M Location: [facility] Status: Signed Intake Vital Signs 06/29/2410:17 10/13/2508:59 10/14/2507:44 Height 5 ft 8.11 in 5 ft 8.11 in 5 ft 7.5 in Weight: 276 lb 8 oz BMI 42.6 Intake Visit Reasons: LEFT KNEE Chief Complaint: MRI review Accompanied by: Self Allergies hornet venom Allergy (Severe, Verified 10/14/24 08:44) Anaphylaxis Medications ?Medication ?Instructions ?Recorded ?Confirmed ?Type glipizide 5 mg tablet 5 mg PO DAILY 01/07/21 08/29/24 History metformin 1,000 mg tablet 1,000 mg PO BIDCM #180 tabs 08/26/22 08/29/24 Rx gabapentin 300 mg capsule 300 mg PO BID #180 caps 11/18/22 08/29/24 Rx amlodipine 10 mg tablet 10 mg PO DAILY #90 tabs 09/11/23 08/29/24 Rx aspirin 81 mg tablet,delayed 81 mg PO DAILY@0800 #90 tabs 09/11/23 08/29/24 Rx release atorvastatin 80 mg tablet See Rx Instructions .Route 09/11/23 08/29/24 Rx .COMPLEX #90 tabs carvedilol 12.5 mg tablet See Rx Instructions .Route 09/11/23 08/29/24 Rx .COMPLEX #180 tabs hydrochlorothiazide 25 mg tablet 25 mg PO DAILY #90 tabs 09/11/23 08/29/24 Rx losartan 50 mg tablet 50 mg PO DAILY #90 TABLETS 03/10/24 08/29/24 Rx dapagliflozin propanediol 5 mg 5 mg PO QDAY 06/29/24 08/29/24 History tablet (Farxiga) clopidogrel 75 mg tablet See Rx Instructions .Route 09/26/24 Rx .COMPLEX #90 tabs furosemide 40 mg tablet 40 mg PO QDAY 10/14/24 10/14/24 History semaglutide 0.25 mg or 0.5 mg (2 mg subcut 10/14/24 10/14/24 History mg/3 mL) subcutaneous pen injector (Ozempic) [facility] Medical History Presence of permanent cardiac pacemaker High degree atrioventricular block History of non-ST elevation myocardial infarction (NSTEMI) (06/09/19) Unstable angina Type 2 diabetes mellitus without complication Atherosclerosis of coronary artery of [place] heart without angina pectoris Obesity Essential hypertension Surgical History History of left heart catheterization (07/16/22) History of coronary artery stent placement (06/20/21) History of umbilical hernia repair History of left inguinal hernia repair Family History Mother CancerFather Thyroid disorder Cancer lymphoma Social History Smoking Status: Former smoker how long ago did patient quit smokin months ago alcohol intake: never substance use type: does not use caffeine: Yes Type: coffee Number of servings: 4 HPI LEFT KNEE Details: This documentation accurately reflects the service provided and the decisions made by me, Dr. Cameron Cagle, DO 10/14/24 0748. Part of today?s visit was documented by Carolina MUSA, acting as scribe. ALINE HAY is a 59 year old M here today for MRI review of the left knee pain. He states that his pain is over the medial side. He does get popping, clicking, and catching in the knee that is sometimes painful and giving way. When he wakes up in the morning he has a lot of tightness and stiffness. He denies taking anything for pain. 08/29/2024 visit: here today for continued left knee pain. He was given an injection on 06/29/24 which he states did give him relief for 2-3 weeks. He states that the knee makes it hard for him to walk, jog, or even walk fast paced. He feels that his knee wants to give out on him. He states that it feels like his knee goes back. He denies catching or getting stuck. He does get a popping in the knee but it is non painful. He would like us to order an MRI. Hispain is over his medial knee and he is unable to walk long distances without having to stop and taking a break. Plan: Patient is here today for continued left knee pain. At his last visit we did give him a steroid injection last visit which did give him 2-3 weeks of relief but is still having a good amount of pain. He has tried 1 month of meloxicam which he states didn't give him any relief. I would like to get an MRIat this point to rule out a meniscus tear. As he continues to have painful mechanical symptoms mostly in the medial side I did explain he is at increased risk if he had to undergo surgery due to his medical comorbidities and lower extremity edema. 06/29/2024 visit: 59 year old M with medical comorbidities not limited to but significant for AV block history of DE, diabetes mellitus type 2, obesity, pacemaker on Plavix .here today for Left knee pain. Patient states this has beengoing on for about 3 weeks. denies any injury . states his knee has been popping for 8-9 months. he was trotting around his yard and he felt instant pain when his knee gave out and wasn't able to put weight on his knee or walk for 4-5 days. Patient had instant swelling. Patient went and saw his PCP and they gave him Meloxicam. Patient states he can't twist his knee. Patient states some times his knee feels like its going to give out, and goes back to far. Patient states knee pain in the medial knee doing down and around the knee cap. Patient has never had previous injections in his knee. Patient hasn't had PT recently. Patient hasn't tried ice or heat. Patient is taking just the Mobic and was given 5 days worth of hydrocodone-acetaminophen 5-325mg. Plan: pleasant 59-year-old male with multiple medical comorbidities including obesity type 2 diabetes history of DE and AV block who had a low-energy injury while jogging into his backyard and has subsequently developed medial sided kneepain. He is not having any painful mechanical symptoms although he does get some popping which was present even prior to this injury. On examination most of his pain seems to be the medial compartment he does have pain with medial Johanna but no click he does have chronic lower extremity edema. He does have some mild DJD which hopefully this is just an exacerbation of he also may have amedial meniscus tear. Spoke with patient that his treatment options are do nothing, steroid injection, or an MRI. Patient would like to proceed with an injection today along with rest and ice. Spoke with patient that if the injection doesn't give him much relief over the next 4 weeks we can get an MRI of the knee. Ortho Exam General General: Yes no acute distress Neurologic: Yes alert and Yes oriented x3 Psychologic: Yes reasonable and appropriate Left Knee Knee ROM: Yes ROM-Extension -20 to 0 and Yes ROM-Flexion 0-140 (80) Examination: Yes med jt line tenderness, No Lat jt line tenderness, No Crepitus,Yes Pain with flexion and Yes Johanna's Test Stability: NML: Anterior Drawer, NML: Posterior Drawer, NML: Valgus 0, NML: Valgus 30, NML: Varus 0 and NML: Varus 30 Patella Grind: Yes KNEE: He is obese he does have chronic venous stasis dermatitis bilateral lower extremities however his left lower extremity has more edema and shininess. no effusion of the knee no patellar instability pain with medial johanna Head: Normocephalic Atraumatic Chest: symmetrical rise, non-labored breathing, no audible wheeze Abdomen: no guarding, non-rigid Supplemental Info 10/12/2024 MRI left knee: Tear posterior root medial meniscus. High-grade chondromalacia mid weightbearing surface of the medial femoral condyle, suspected tiny horizontal tear body lateral meniscus, 06/29/2024 x-ray left knee: Mild narrowing of the lateral patellar facet, mild spurring of the medial femoral condyle on the notch view Coding Level of Care Code Off vis,est,level 4 Diagnoses Mechanical pain of left knee M25.562 Primary osteoarthritis of left knee M17.12 Osteoarthritis type: primary Class 3 severe obesity due to excess calories without serious comorbidity with body mass index (BMI) of 40.0 to 44.9 in adult E66.813; E66.01; Z68.41 Obesity type: due to excess calories Obesity classification: adult class 3 (BMI >= 40) Serious obesity comorbidity presence: without serious comorbidity Body mass index: BMI 40.0-44.9 Peripheral tear of medial meniscus of left knee as current injury, subsequent encounter S83.222D Tear current or old: current Encounter type: subsequent encounter Meniscus tear of knee type: peripheral Laterality: left Assessment and Plan Assessment and Plan (1) Mechanical pain of left knee: Status: Acute (2) Osteoarthritis of left knee: Status: Acute Qualifiers: Osteoarthritis type: primary Qualified Code(s): M17.12 - Unilateral primary osteoarthritis, left knee (3) Obesity: Status: Acute Qualifiers: Obesity type: due to excess calories Obesity classification: adult class 3 (BMI >= 40) Serious obesity comorbidity presence: without serious comorbidity Body mass index: BMI 40.0-44.9 Qualified Code(s): E66.813 - Obesity, class 3; E66.01 - Morbid (severe) obesity due to excess calories; Z68.41 - Body mass index [BMI] 40.0- 44.9, adult (4) Medial meniscus tear: Status: Acute Qualifiers: Tear current or old: current Encounter type: subsequent encounter Meniscus tear of knee type: peripheral Laterality: left Qualified Code(s): S83.222D - Peripheral tear of medial meniscus, current injury, left knee, subsequent encounter Plan Patient is here today for MRI review of his left knee. I spoke with patient that he does have a root tear of his medial meniscus along with arthritis of his medial femoral condyle. His treatment options would be do nothing, an arthroscopy partial medial meniscectomy, weight loss may need eventual total knee arthroplasty. I did advise patient that he will likely still have pain after the arthroscopy because of the arthritis in his knee. 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 I spoke with patient that for an arthroscopy I would need his A1C at or under 7.5 Reviewed the pre-operative plans with the patient. Risks and benefits of the procedure were fully explained, including but not limited to infection, neurovascular injury, continued pain, arthritis, stiffness, need for further surgery, re- injury, DVT, PE, general risks of anesthesia, and loss of limb or life. The patient understands all the risks and does wish to proceed with written consent. Tentative surgery date 11/01/2024 Follow up at 2 weeks post-op or sooner if pain, swelling, numbness or associated symptoms, or concerns develop. All questions answered. Patient in agreement of plan. 10/14/24 0935 <Electronically signed by Cameron Cagle DO> Date Cameron Cagle DO I have examined the patient and the H&P has been reviewed. There are no clinical changes since date of exam. 01/10/25 0707 <Electronically signed by Cameron Cagle DO> Cosigner Signature (if applicable): CC: Dr. David Grider DO; Dr. Cameron Cagle DO~ Signed [facility] Work Phone: 1(285) 771-665804-22-2025 Consult note [facility] Medical Records Department [address] [place] [address] Pre-Anesthesia Evaluation 01/10/25 0807 MR#: [id number] Acct: [id number] Name: ALINE HAY Rep #:[id number] : 1965 59 From: Adriano Guzman MD PCP: Dr. David Grider DO Status:REG S DC Y Race: C Location: [place] [address] ASA Classification* ASA Classification ASA Classification: 3 Assessment & Plan Anesthesia* Anesthesia Assessment Anesthesia Assessment: Discussed sedation and/or anesthesia options, risks, benefits, and alternatives with patient/parents/legal guardian/POA. Questions invited. The patient/parents/legal guardian/POA seems to understand and agrees to proceedwith anesthesia plan. Reviewed the physical assessment, medical history, allergy history and patient home medications list prior to surgery/procedure/anesthetic and documented any changes. Performed airway and anesthesia risk assessments. Anesthesia Type Anesthesia Type: General History Source History Obtained from:: Patient and Chart Anesthesia Focused Assessment* Temperature: 97.6 F Pulse Rate: 86 Blood Pressure: 153/95 Respiratory Rate: 16 Pulse Ox: 97 Oxygen Delivery Method: Room Air Airway Assessment Mouth opens: >3 cm Mallampati Score: I Teeth Condition: Partial (Patient has lower partial dentures. They are out. Rest of the teeth are tight.) and Upper (Patient has full upper dentures. They will come out.) Neck Range of motion (ROM): Full ROM Focused Labs Anesthesia Preop lab: CBC WBC 10.0 K/mm3 (4.4-11.0) 07/16/22 05:00 07/16/22 RBC 4.54 M/mm3 (4.6-6.2) L 07/16/22 05:00 07/16/22 Hgb 12.8 g/dL (13.0-16.5) L 07/16/22 05:00 2 Hct 39.3 % (40-54) L 07/16/22 05:00 07/16/22 Plt Count 210 K/mm3 (150-450) 07/16/22 05:00 07/16/22 CHEMISTRY Potassium 3.6 mmol/L (3.5-5.1) 07/16/22 05:00 07/16/22 Sodium 139 mmol/L (136-145) 07/16/22 05:00 07/16/22 Magnesium 1.8 mg/dL (1.6-2.6) 06/11/19 06:42 06/11/19 BUN 18 mg/dL (7-18) 07/16/22 05:00 07/16/22 Creatinine 1.16 mg/dL (0.70-1.30) 07/16/22 05:00 07/16/22 Glucose 169 mg/dL (74-106) H 07/16/22 05:00 07/16/22 POC Glucose 211 mg/dL (74-106) H 07/28/22 21:20 07/28/22 TSH 1.78 uIU/mL (0.358-3.74) 07/16/22 05:00 COAG PT 13.4 SECONDS (11.7-14.9) 06/20/21 05:10 Pre-Assessment Diagnosis/Proposed Procedure Planned Operative Procedure(s): (L) Left knee Arthroscopy, partial menisectomy, surgery as indicated Anesthesia History Anesthesia History - mangle press catcher: Anesthesia History - mangle press catcher Hx Hospitalization No 12/27/24 08:07 Any Problems With Anesthesia No 12/27/24 08:07 Cholinesterase deficiency No 12/27/24 08:07 You/Your Family Experience No 12/27/24 08:07 fever (hyperthermia) with Relationship Recent Exposure to Contagious No 01/10/25 07:25 Disease Does patient have nerve No 12/27/24 08:07 stimulator Patient instructed to have device shut off --Does patient have Pacemaker Yes 01/10/25 07:25 or ICD? When Was Last Pacemaker Check QUESTION #4 FULL TEXT: You/Your Family Experience fever (hyperthermia) with Anesthesia Last Oral Intake Last Oral intake: Last Oral Intake NPO since 23:00 01/10/25 07:25 Meds taken in AM with sips of Yes 01/10/25 07:25 water? Meds patient instructed to see chart 01/10/25 07:25 take am of surgery PONV PONV - mangle press catcher: PONV - mangle press catcher Female No 12/27/24 08:07 HX of Motion Sickness No 12/27/24 08:07 HX of N/V After Surgery No 12/27/24 08:07 Non-Smoker Yes 12/27/24 08:07 Duration of Surgery greater Yes 12/27/24 08:07 than 60 minutes Number of Risk Factors 2 12/27/24 08:07 PONV Score Moderate Risk 12/27/24 08:07 Height & Weight Height & Weight: Anesthesia: Height & Weight Height 5 ft 8 in 01/10/25 07:25 Weight: 116.9 kg 01/10/25 07:25 Body Mass Index (BMI) 39.2 01/10/25 07:25 Respiratory Assessment Respiratory Assessment - mangle press catcher: Respiratory Tract Infection Hx - mangle press catcher Hx Respiratory Tract Infection No 12/27/24 08:07 STOP Sleep Apnea STOP Sleep Apnea - mangle press catcher: STOP Sleep Apnea - mangle press catcher Hx Hypertension Yes 12/27/24 08:07 Hx Sleep Apnea No 12/27/24 08:07 CPAP BIPAP Do you snore loudly (louder No 12/27/24 08:07 than talking or can be heard Do you often feel tired/ No 12/27/24 08:07 fatigued/ sleepy during daytime? Has anyone observed you stop No 12/27/24 08:07 breathing during sleep? STOP Results Negative 12/27/24 08:07 QUESTION #5 FULL TEXT : Do you snore loudly (louder than talking or can be heard through closeddoors)? 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 Specify any problems Hx of Preganancy in last 3 N/A 12/27/24 08:07 Months Nurse Filling Out Transfusion NBUCHER 12/27/24 08:07 & Questions: Date: 12/27/24 12/27/24 08:07 Time: 08:08 12/27/24 08:07 Patient unable to answer at this time (ie. confused, unrespo /Reproduction History /Reproductive History - mangle press catcher: /Reproductive Hx- mangle press catcher Hx Now Gestational Age (in weeks): EDC: Hx Hx Para Hx Section SAB No 12/27/24 08:07 Active Medications Active Medications: Current Medications Generic Name Dose Route Start Last Admin Trade Name Freq PRN Reason Stop Dose Admin Sodium Chloride 1,000 mls @ 15 mls/hr 01/10/25 07:00 01/10/25 07:34 IV 15 mls/hr .Q48H MARTHA Administration PFSH Medical History Wears glasses Wears dentures Diabetes Arthritis High cholesterol Dietary restriction Former smoker History of pain when walking History of edema Holter monitor, abnormal History of stress test Cardiology follow-up encounter Presence of permanent cardiac pacemaker High degree atrioventricular block History of non-ST elevation myocardial infarction (NSTEMI) (06/09/19) Unstable angina Type 2 diabetes mellitus without complication Atherosclerosis of coronary artery of [place] heart without angina pectoris Obesity Essential hypertension Home Medications ?Medication ?Instructions ?Recorded ?Last Taken ?Type glipizide 5 mg tablet 5 mg PO DAILY 01/07/2101/09 History metformin 1,000 mg tablet 1,000 mg PO BIDCM #180 tabs 08/26/22 01/09/25 Rx amlodipine 10 mg tablet 10 mg PO DAILY #90 tabs 08/2201/09/25 Rx aspirin 81 mg tablet,delayed 81 mg PO DAILY@0800 #90 t abs 09/11/23 01/02/25 Rx release losartan 50 mg tablet 50 mg PO DAILY #90 TABLETS 0 03/10/24 01/09/25 Rx dapagliflozin propanediol 5 mg 10 mg PO QDAY 06/29/24 01/06/25 History tablet (Farxiga) furosemide 40 mg tablet 40 mg PO QDAY 10/14/2401/09 History semaglutide 0.25 mg or 0.5 mg (2 0.25 mg subcut TU 01/02/25 History mg/3 mL) subcutaneous pen injector (OzempOxigene) atorvastatin 80 mg tablet 80 mg PO QHS 10/20/24 History carvedilol 12.5 mg tablet 12.5 mg PO BID 10/20/2412/21 History clopidogrel 75 mg tablet 75 mg PO DAILY 10/20/2412/20 History gabapentin 300 mg capsule 300 mg PO TID 10/20/2401/09 History Allergy/AdvReac Type Severity Reaction Status Date / Time hornet venom Allergy Severe Anaphylaxis Verified 01/10/25 07:13 Family History Mother Cancer Father Thyroid disorder Cancer lymphoma Surgical History Hx of colonoscopy History of left heart catheterization (07/16/22) History of coronary artery stent placement (06/20/21) History of umbilical hernia repair History of left inguinal hernia repair Social History Smoking Status: Former smoker how long ago did patient quit smokin months ago alcohol intake: never substance use type: does not use caffeine: Yes Type: coffee Number of servings: 4 Review of Systems (Anesthesia) ROS Narrative System reviewed and no additional complaints, except as documented. 01/10/25814 maynor PHAM> Date _ Adriano Khan Signature: Date CC: ~ Signed [facility]04-22-2025 [facility] Medical Records Department [address] [place] [address] History Physical Exam 01/10/25 0707 MR#: [id number] Acct: [id number] Name: ALINE HAY Rep #: [id number] : 1965 59 From: Cameron Cagle DO PCP: Dr. David Grider DO Status:[facility] Location: [place] [address] History and Physical Date of Admission: 01/10/25 [facility] [address] [place] [id number] OFFICE VISIT Date of Service: 10/14/24 MR#: [id number] Acct: [id number] Name: ALINE HAY Rep #: [id number] : 1965 Provider: Dr. Cameron Cagle DO Age/Sex: 59/M Location: [facility] Status: Signed Intake Vital Signs 06/29/2410:17 10/13/2508:59 10/14/2507:44 Height 5 ft 8.11 in 5 ft 8.11 in 5 ft 7.5 in Weight: 276 lb 8 oz BMI 42.6 Intake Visit Reasons: LEFT KNEE Chief Complaint: MRI review Accompanied by: Self Allergies hornet venom Allergy (Severe, Verified 10/14/24 08:44) Anaphylaxis Medications ???Medication ???Instructions ???Recorded ???Confirmed ???Type glipizide 5 mg tablet 5 mg PO DAILY 01/07/21 08/29/24 History metformin 1,000 mg tablet 1,000 mg PO BIDCM #180 tabs 08/26/22 08/29/24 Rx gabapentin 300 mg capsule 300 mg PO BID #180 caps 11/18/22 08/29/24 Rx amlodipine 10 mg tablet 10 mg PO DAILY #90 tabs 09/11/23 08/29/24 Rx aspirin 81 mg tablet,delayed 81 mg PO DAILY@0800 #90 tabs 09/11/23 08/29/24 Rx release atorvastatin 80 mg tablet See Rx Instructions .Route 09/11/23 08/29/24 Rx .COMPLEX #90 tabs carvedilol 12.5 mg tablet See Rx Instructions .Route 09/11/23 08/29/24 Rx .COMPLEX #180 tabs hydrochlorothiazide 25 mg tablet 25 mg PO DAILY #90 tabs 09/11/23 08/29/24 Rx losartan 50 mg tablet 50 mg PO DAILY #90 TABLETS 03/10/24 08/29/24 Rx dapagliflozin propanediol 5 mg 5 mg PO QDAY 06/29/24 08/29/24 History tablet (Farxiga) clopidogrel 75 mg tablet See Rx Instructions .Route 09/26/24 Rx .COMPLEX #90 tabs furosemide 40 mg tablet 40 mg PO QDAY 10/14/24 10/14/24 History semaglutide 0.25 mg or 0.5 mg (2 mg subcut 10/14/24 10/14/24 History mg/3 mL) subcutaneous pen injector ([employer]) [facility] Medical History Presence of permanent cardiac pacemaker High degree atrioventricular block History of non-ST elevation myocardial infarction (NSTEMI) (06/09/19) Unstable angina Type 2 diabetes mellitus without complication Atherosclerosis of coronary artery of [place] heart without angina pectoris Obesity Essential hypertension Surgical History History of left heart catheterization (07/16/22) History of coronary artery stent placement (06/20/21) History of umbilical hernia repair History of left inguinal hernia repair Family History Mother CancerFather Thyroid disorder Cancer lymphoma Social History Smoking Status: Former smoker how long ago did patient quit smokin months ago alcohol intake: never substance use type: does not use caffeine: Yes Type: coffee Number of servings: 4 HPI LEFT KNEE Details: This documentation accurately reflects the service provided and the decisions made by me, Dr. Cameron Cagle, DO 10/14/24 0748. Part of today???s visit was documented by Carolina MUSA, acting as scribe. ALINE HAY is a 59 year old M here today for MRI review of the left knee pain. He states that his pain is over the medial side. He does get popping, clicking, and catching in the knee that is sometimes painful and giving way. When he wakes up in the morning he has a lot of tightness and stiffness. He denies taking anything for pain. 08/29/2024 visit: here today for continued left knee pain. He was given an injection on 06/29/24 which he states did give him relief for 2-3 weeks. He states that the knee makes it hard for him to walk, jog, or even walk fast paced. He feels that his knee wants to give out on him. He states that it feels like his knee goes back. He denies catching or getting stuck. He does get a popping in the knee but it is non painful. He would like us to order an MRI. His pain is over his medial knee and he is unable to walk long distances without having to stop and taking a break. Plan: Patient is here today for continued left knee pain. At his last visit we did give him a steroid injection last visit which did give him 2-3 weeks of relief but is still having a good amount of pain. He has tried 1 month of meloxicam which he states d (more content not included)...[facility]01-22-2025 Evaluation note* Diagnosis Onset Date Resolution Status Admit Date High degree atrioventricular block acute October 12 11:07am Presence of permanent cardia c pacemaker acute October 12 11:07am Mechanical pain of left knee acute October 14, 2024 8:37am Medial meniscus tear acute Tl jessica2024 8:37am Obesity acute October 14, 2024 8:37am Osteoarthritis of left knee acute October 14, 2024 8:37am [facility] Work Phone: 1(365) 754-880609-30-2021 Evaluation note* Diagnosis Onset Date Resolution Status Essential hypertension acute History of coronary artery stent placement May 242020 [facility] Work Phone: 1(914) 126-895209-30-2021 Evaluation note* Diagnosis Onset Date Resolution Status Cardiac arrhythmia acute Chest pain acute Essential hypertension acute History of coronary artery stent placement May 242020 [facility] Work Phone: Consult note Author Adriano Guzman [facility] Note Date/Time January 10, 2025 9:4 5am [facility] Medical Records Department [address] [place] [address] Anesthesia Postop Eval II 01/10/25 0944 MR#: [id number] Acct: [id number] Name: ALINE HAY Rep #:[id number] : 1965 59 From: Adriano Guzman MD PCP: Dr. David Grider, DO Status:REG S DC Y Race: C Location: [address] Anesthesia Postop Eval I Sum Postop Eval Completion status Anesthesia document: Postop Eval 1 completed: Yes Anesthesia Postop Eval I Summary Anesthesia Postop Eval I Summary: Anesthesia Postop Eval I: Assessment Summary Airway patent Yes 01/10/25 09:29 [employer] Spontaneous unlabored Yes 01/10/25 09:29 [employer] respirations Mental status Awake 01/10/25 09:29 [employer]BPE[employer] nausea No 01/10/25 09:29 [employer].BPEY Vomiting No 01/10/25 09:29 [employer].BPEY Anesthesia Postop Eval I: Fluid Summary Crystalloid volume administer 300 01/10/25 09:29 [employer].BPEY (ml) Colloids volume administered ( ml) Blood Product volume administered (ml) Total IV fluid infused 300 01/10/25 09:29 [employer]ECT.BPEY Anesthesia Postop Eval I: Summary Notes Anesthesia Complication No 01/10/25 09:29 [employer].BPEY Anesthesia Complication Comment: Post-operative progress note Anesthesia: Postop Eval II Evaluation Mental status: Awake and Calm Pain Level: 2 nausea: No Vomiting: No Complications Anesthesia Complication: No 01/10/2545 <Electronically signed by Adriano mcguire MD> Date _ Adriano Lozaigner Signature: Date CC: ~ Signed [facility] Work Phone: Evaluation + Plan note Future Appointments Appointment Date:01/23/2022 09:30:00 AM Scheduled Provider:DAVID GRIDER DO Location:[facility] Appointment Type:PC OV Future Scheduled Tests Laboratory* Lipid Profile 10/17/21 * Complete Metabolic Panel 10/17/21 [facility] Evaluation + Plan note Future Appointments Appointment Date:05/29/2023 10:05:00 AM Scheduled Provider:DAVID GRIDER DO Location:[facility] Appointment Type:PC OV Future Scheduled Tests Laboratory* Lipid Profile 07/26/22 * Complete Metabolic Panel 07/26/22 [facility] Evaluation + Plan note Future Appointments Appointment Date:03/11/2024 11:20:00 AM Scheduled Provider:DAVID GRIDER DO Location:[facility] Appointment Type:PC OV [facility] Evaluation + Plan note Future Appointments Appointment Date:06/10/2024 11:20:00 AM Scheduled Provider:DAVID GRIDER DO [facility] Appointment Type:PC OV Future Scheduled Tests Laboratory* Basic Metabolic Panel 03/11/24 [facility] Evaluation + Plan note Future Appointments Appointment Date:06/10/2024 11:35:00 AM Scheduled Provider:DAVID GRIDER DO Location:[facility] Appointment Type:PC OV Future Scheduled Tests Laboratory* Basic Metabolic Panel 03/11/24 Radiology* MRI Knee w/o Contrast Left 06/08/24 [facility] Evaluation + Plan note Future Appointments Appointment Date:12/09/2024 11:05:00 AM Scheduled Provider:DAVID GRIDER DO Location:[facility] Appointment Type:PC OV Future Scheduled Tests Laboratory* Basic Metabolic Panel 03/11/24 Radiology* MRI Knee w/o Contrast Left 07/29/24 [facility] Evaluation + Plan note Future Appointments Appointment Date:12/09/2024 11:30:00 AM Scheduled Provider:DAVID GRIDER DO Location:[facility] Appointment Type:PC OV Future Scheduled Tests Laboratory* Basic Metabolic Panel 03/11/24 Radiology* MRI Knee w/o Contrast Left 07/29/24 [facility] Evaluation + Plan note Future Appointments Appointment Date:03/10/2025 11:30:00 AM Scheduled Provider:DAVID GRIDER DO Location:[facility] Appointment Type:PC OV Future Scheduled Tests Laboratory* Basic Metabolic Panel 03/11/24 Radiology* MRI Knee w/o Contrast Left 07/29/24 * XR Ribs 2 Views Right 02/24/25 [facility] Evaluation note* Diagnosis Onset Date Resolution Status Chest pain acute [facility] Work Phone: Hospital course Narrative No data available for this section [facility] Hospital Discharge instructions No data available for this section [facility] Progress note No data available for this section [facility] Reason for referral (narrative)No reason for referral [facility] Work Phone: Chief Complaint and Reason for Visit Chief Complaint 1 Y FU NEED ORDER Reason for Visit Essential hypertensi on History of coronary artery stent placement Chief Complaint CHEST PAIN R/O CHEST PAIN R/O Reason for Visit Chest pain Chief Complaint CHEST PAIN R/O CHEST PAIN R/O CHEST PAIN R/O CHEST PAIN R/O 48 HR PLACEMENT ON PCU Reason for Visit Cardiac arrhythmia Chest pain Essential hypertension History of coronary artery stent placement Chief Complaint Admit Date Pacer Check Remote September 26, 2024 2: 41am Pacer Check Remote October 12, 2024 9 :00am LEFT KNEE PAIN October 12, 2024 1 0:11am MRI PROGRAMMING IN MRI October 12 11:07am LEFT KNEE October 14, 2024 8 :37am Pacer Check Remote December 26, 2024 2:41 am Left knee Arthroscopy, partial menisecto my, surger January 10, 2025 6:48am Left knee Arthroscopy, partial menisecto my, surger January 10, 2025 7:07am Reason for Visit Admit Date High degree atrioventricular block Viky ry 2024 11:07am Presence of permanent cardiac pacemaker October 12, 2024 11:07am Mechanical pain of left knee September 8:37am Medial meniscus tear October 14, 2024 8:37am Obesity October 14, 2024 8 :37am Osteoarthritis of left knee September 8:37am Chief Complaint Admit Date Pacer Check Remote December 26, 2024 2:41 am Left knee Arthroscopy, partial menisecto my, surger January 10, 2025 6:48am Left knee Arthroscopy, partial menisecto my, surger January 10, 2025 7:07am left knee January 23, 2025 9:07am LEFT KNEE February 20, 2025 9:42a m Reason for Visit Admit Date Orthopedic aftercare January 23, 2025 9:07a m Chief Complaint Admit Date Pacer Check Remote December 26, 2024 2:41 am Left knee Arthroscopy, partial menisecto my, surger January 10, 2025 6:48am Left knee Arthroscopy, partial menisecto my, surger January 10, 2025 7:07am left knee January 23, 2025 9:07am LEFT KNEE February 20, 2025 9:42a m MEDIAL MENISCUS TEAR. RX HERE March 10, 2025 11:00am LEFT KNEE March 22, 2025 11:15 am Reason for Visit Admit Date Orthopedic aftercare January 23, 2025 9:07a m Orthopedic aftercare February 20, 2025 9:42 am Chief Complaint Admit Date Pacer Check Remote December 26, 2024 2:41 am Left knee Arthroscopy, partial menisecto my, surger January 10, 2025 6:48am Left knee Arthroscopy, partial menisecto my, surger January 10, 2025 7:07am left knee January 23, 2025 9:07am LEFT KNEE February 20, 2025 9:42a m LEFT KNEE March 22, 2025 11:15 am Pacer Check Remote March 27, 2025 2:40a m MEDIAL MENISCUS TEAR. RX HERE March 30, 2025 3:30pm Reason for Visit Admit Date Orthopedic aftercare January 23, 2025 9:07a m Orthopedic aftercare February 20, 2025 9:42 am Orthopedic aftercare March 22, 2025 11:1 5am Chief Complaint Admit Date Pacer Check Remote December 26, 2024 2:41 am Left knee Arthroscopy, partial menisecto my, surger January 10, 2025 6:48am Left knee Arthroscopy, partial menisecto my, surger January 10, 2025 7:07am left knee January 23, 2025 9:07am LEFT KNEE February 20, 2025 9:42a m LEFT KNEE March 22, 2025 11:15 am Pacer Check Remote March 27, 2025 2:40a m MEDIAL MENISCUS TEAR. RX HERE April 10, 2025 11:00am LEFT KNEE April 12, 2025 10:1 1am Chief Complaint Admit Date Left knee Arthroscopy, partial menisecto my, surger January 10, 2025 6:48am Left knee Arthroscopy, partial menisecto my, surger January 10, 2025 7:07am left knee January 23, 2025 9:07am LEFT KNEE February 20, 2025 9:42a m LEFT KNEE March 22, 2025 11:15 am Pacer Check Remote March 27, 2025 2:40a m MEDIAL MENISCUS TEAR. RX HERE April 10, 2025 11:00am LEFT KNEE April 12, 2025 10:1 1am LEFT KNEE May 03, 2025 11 :21am Reason for Visit Admit Date Orthopedic aftercare January 23, 2025 9:07a m Orthopedic aftercare February 20, 2025 9:42 am Orthopedic aftercare March 22, 2025 11:1 5am Osteoarthritis of left knee April 12, 025 10:11am Chief Complaint Admit Date Left knee Arthroscopy, partial menisecto my, surger January 10, 2025 6:48am Left knee Arthroscopy, partial menisecto my, surger January 10, 2025 7:07am left knee January 23, 2025 9:07am LEFT KNEE February 20, 2025 9:42a m LEFT KNEE March 22, 2025 11:15 am Pacer Check Remote March 27, 2025 2:40a m MEDIAL MENISCUS TEAR. RX HERE April 10, 2025 11:00am LEFT KNEE April 12, 2025 10:1 1am LEFT KNEE May 03, 2025 11 :21am LEFT KNEE May 10, 2025 11 :14am Reason for Visit Admit Date Orthopedic aftercare January 23, 2025 9:07a m Orthopedic aftercare February 20, 2025 9:42 am Orthopedic aftercare March 22, 2025 11:1 5am Osteoarthritis of left knee April 12 025 10:11am Osteoarthritis of left knee May 03, 2025 11:21am Chief Complaint Admit Date left knee January 23, 2025 9:07am LEFT KNEE February 20, 2025 9:42a m LEFT KNEE March 22, 2025 11:15 am Pacer Check Remote March 27, 2025 2:40a m MEDIAL MENISCUS TEAR. RX HERE April 10, 2025 11:00am LEFT KNEE April 12, 2025 10:1 1am LEFT KNEE May 03, 2025 11 :21am LEFT KNEE May 10, 2025 11 :14am LEFT KNEE May 17, 2025 11 :23am Reason for Visit Admit Date Orthopedic aftercare January 23, 2025 9:07a m Orthopedic aftercare February 20, 2025 9:42 am Orthopedic aftercare March 22, 2025 11:1 5am Osteoarthritis of left knee April 12 025 10:11am Osteoarthritis of left knee May 03, 2025 11:21am Osteoarthritis of left knee May 10, 2025 11:14am Family History No Family History Records Found Relationship Condition Age at Onset Recorded Date/T shanika mother Malignant neoplasm Unknown father Disorder of thyroid Unknown Malignant neoplasm Unknown Advance Directives No Advanced Directives Records Found Advance Directive Response Recorded Date/ Time Living Will No June 18, 2021 7:13pm Power of Head Operator No May 7:13pm Advance Directive Response Recorded Date/ Time Living Will No July 15 7:07pm Power of Head Operator No July 15, 2022 7:07pm Advance Directive Response Recorded Date/ Time Advance Directives No October 13, 2024 10:59am Living Will No December 27, 2024 8:07am Do you have a Healthcare Power of Head Operator? No December 27, 2024 8:07am Advance Directive Response Recorded Date/ Time Living Will No December 27, 2024 8:07am Do you have a Healthcare Power of Head Operator? No December 27, 2024 8:07am Advance Directives No October 13, 2024 10:59am Advance Directive Response Recorded Date/ Time Advance Directives No October 13, 2024 10:59am Summary Purpose Additional Source Comments Goals (unrecognized section and content) Goals may be documented in a n alternate section Patient Care team informatio n (unrecognized section and content) Team Status: Active Member Role Status Dates Dr. David Grider DO Primary Care Provider Active Team Status: Inactive Member Role Status Dates Dr. David Grider DO Primary Care Provider Active Start: September 26, 2024 End: September 26, 2024 Dr. Edgar Sharp MD Attending Provider Active S tart: September 26, 2024 End: September 26, 2024 Dr. Edgar Sharp MD Referring Provider Active S tart: September 26, 2024 End: September 26, 2024 Team Status: Inactive Member Role Status Dates Dr. David Grider DO Primary Care Provider Active Start: October 12, 2024 End: October 12, 2024 Dr. Edgar Sharp MD Attending Provider Active S tart: October 12, 2024 End: October 12, 2024 Team Status: Inactive Member Role Status Dates Dr. David Grider DO Primary Care Provider Active Start: October 12, 2024 End: October 12, 2024 Dr. Cameron Cagle DO Attending Provider Active Start: October 12, 2024 End: October 12, 2024 Dr. Cameron Cagle DO Referring Provider Active Start: October 12, 2024 End: October 12, 2024 Team Status: Inactive Member Role Status Dates Dr. David Grider DO Primary Care Provider Active Start: October 12, 2024 End: October 12, 2024 Dr. Edgar Sharp MD Attending Provider Active S tart: October 12, 2024 End: October 12, 2024 Dr. Edgar Sharp MD Referring Provider Active S tart: October 12, 2024 End: October 12, 2024 Team Status: Inactive Member Role Status Dates Dr. David Grider DO Primary Care Provider Active Start: October 14, 2024 End: October 14, 2024 Dr. David Grider DO Referring Provider Active Start: October 14, 2024 End: October 14, 2024 Dr. Cameron Cagle DO Attending Provider Active Start: October 14, 2024 End: October 14, 2024 Team Status: Inactive Member Role Status Dates Dr. David Grider DO Primary Care Provider Active Start: December 26, 2024 End: December 26, 2024 Dr. Edgar Sharp MD Attending Provider Active S tart: December 26, 2024 End: December 26, 2024 Team Status: Inactive Member Role Status Dates Dr. David Grider DO Primary Care Provider Active Start: January 10, 2025 End: January 10, 2025 Dr. Cameron Cagle DO Attending Provider Active Start: January 10, 2025 End: January 10, 2025 Dr. Cameron Cagle DO Referring Provider Active Start: January 10, 2025 End: January 10, 2025 Team Status: Active Member Role Status Dates Dr. David Grider DO Primary Care Provider Active Start: January 10, 2025 Dr. Cameron Cagle DO Attending Provider Active Start: January 10, 2025 Dr. Cameron Cagle DO Referring Provider Active Start: January 10, 2025 Dr. Cameron Cagle DO Other Provider Active St art: January 10, 2025 Team Status: Inactive Member Role Status Dates Dr. David Grider DO Primary Care Provider Active Start: January 23, 2025 End: January 23, 2025 Dr. David Grider DO Referring Provider Active Start: January 23, 2025 End: January 23, 2025 Dr. Cameron Cagle DO Attending Provider Active Start: January 23, 2025 End: January 23, 2025 Team Status: Inactive Member Role Status Dates Dr. David Grider DO Primary Care Provider Active Start: February 20, 2025 End: February 20, 2025 Dr. David Grider DO Referring Provider Active Start: February 20, 2025 End: February 20, 2025 Dr. Cameron Cagle DO Attending Provider Active Start: February 20, 2025 End: February 20, 2025 Team Status: Active Member Role/Relationship Status Dates Dr. David Grider DO Primary Care Provider Active Team Status: Inactive Member Role/Relationship Status Dates Dr. David Grider DO Primary Care Provider Active Start: December 26, 2024 End: December 26, 2024 Dr. Edgar Sharp MD Attending Provider Active S tart: December 26, 2024 End: December 26, 2024 Team Status: Inactive Member Role/Relationship Status Dates Dr. David Grider DO Primary Care Provider Active Start: January 10, 2025 End: January 10, 2025 Dr. Cameron Cagle DO Attending Provider Active Start: January 10, 2025 End: January 10, 2025 Dr. Cameron Cagle DO Referring Provider Active Start: January 10, 2025 End: January 10, 2025 Team Status: Active Member Role/Relationship Status Dates Dr. David Grider DO Primary Care Provider Active Start: January 10, 2025 Dr. Cameron Cagle DO Attending Provider Active Start: January 10, 2025 Dr. Cameron Cagle DO Referring Provider Active Start: January 10, 2025 Dr. Cameron Cagle DO Other Provider Active St art: January 10, 2025 Team Status: Inactive Member Role/Relationship Status Dates Dr. David Grider DO Primary Care Provider Active Start: January 23, 2025 End: January 23, 2025 Dr. David Grider DO Referring Provider Active Start: January 23, 2025 End: January 23, 2025 Dr. Cameron Cagle DO Attending Provider Active Start: January 23, 2025 End: January 23, 2025 Team Status: Inactive Member Role/Relationship Status Dates Dr. David Grider DO Primary Care Provider Active Start: February 20, 2025 End: February 20, 2025 Dr. David Grider DO Referring Provider Active Start: February 20, 2025 End: February 20, 2025 Dr. Cameron Cagle DO Attending Provider Active Start: February 20, 2025 End: February 20, 2025 Team Status: Active Member Role/Relationship Status Dates Dr. David Grider DO Primary Care Provider Active Start: March 10, 2025 Dr. Cameron Cagle DO Attending Provider Active Start: March 10, 2025 Team Status: Inactive Member Role/Relationship Status Dates Dr. David Grider DO Primary Care Provider Active Start: March 22, 2025 End: March 22, 2025 Dr. David Grider DO Referring Provider Active Start: March 22, 2025 End: March 22, 2025 Dr. Cameron Cagle DO Attending Provider Active Start: March 22, 2025 End: March 22, 2025 Team Status: Inactive Member Role/Relationship Status Dates Dr. David Grider DO Primary Care Provider Active Start: March 22, 2025 End: March 22, 2025 Dr. David Grider DO Referring Provider Active Start: March 22, 2025 End: March 22, 2025 Dr. Cameron Cagle DO Attending Provider Active Start: March 22, 2025 End: March 22, 2025 Team Status: Inactive Member Role/Relationship Status Dates Dr. David Grider DO Primary Care Provider Active Start: March 27, 2025 End: March 27, 2025 Dr. Edgar Sharp MD Attending Provider Active S tart: March 27, 2025 End: March 27, 2025 Team Status: Active Member Role/Relationship Status Dates Dr. David Grider DO Primary Care Provider Active Start: March 30, 2025 Dr. Cameron Cagle DO Attending Provider Active Start: March 30, 2025 Team Status: Active Member Role/Relationship Status Dates Dr. David Grider DO Primary Care Provider Active Start: April 10, 2025 Dr. Cameron Cagle DO Attending Provider Active Start: April 10, 2025 Team Status: Inactive Member Role/Relationship Status Dates Dr. David Grider DO Primary Care Provider Active Start: April 12, 2025 End: April 12, 2025 Dr. David Grider DO Referring Provider Active Start: April 12, 2025 End: April 12, 2025 Dr. Cameron Cagle DO Attending Provider Active Start: April 12, 2025 End: April 12, 2025 Team Status: Inactive Member Role/Relationship Status Dates Dr. David Grider DO Primary Care Provider Active Start: January 10, 2025 End: January 10, 2025 Dr. Cameron Cagle DO Attending Provider Active Start: January 10, 2025 End: January 10, 2025 Dr. Cameron Cagle DO Referring Provider Active Start: January 10, 2025 End: January 10, 2025 Team Status: Active Member Role/Relationship Status Dates Dr. David Grider DO Primary Care Provider Active Start: January 10, 2025 Dr. Cameron Cagle DO Attending Provider Active Start: January 10, 2025 Dr. Cameron Cagle DO Referring Provider Active Start: January 10, 2025 Dr. Cameron Cagle DO Other Provider Active St art: January 10, 2025 Team Status: Inactive Member Role/Relationship Status Dates Dr. David Grider DO Primary Care Provider Active Start: January 23, 2025 End: January 23, 2025 Dr. David Grider DO Referring Provider Active Start: January 23, 2025 End: January 23, 2025 Dr. Cameron Cagle DO Attending Provider Active Start: January 23, 2025 End: January 23, 2025 Team Status: Inactive Member Role/Relationship Status Dates Dr. David Grider DO Primary Care Provider Active Start: February 20, 2025 End: February 20, 2025 Dr. David Grider DO Referring Provider Active Start: February 20, 2025 End: February 20, 2025 Dr. Cameron Cagle DO Attending Provider Active Start: February 20, 2025 End: February 20, 2025 Team Status: Inactive Member Role/Relationship Status Dates Dr. David Grider DO Primary Care Provider Active Start: March 22, 2025 End: March 22, 2025 Dr. David Grider DO Referring Provider Active Start: March 22, 2025 End: March 22, 2025 Dr. Cameron Cagle DO Attending Provider Active Start: March 22, 2025 End: March 22, 2025 Team Status: Inactive Member Role/Relationship Status Dates Dr. David Grider DO Primary Care Provider Active Start: March 27, 2025 End: March 27, 2025 Dr. Edgar Sharp MD Attending Provider Active S tart: March 27, 2025 End: March 27, 2025 Dr. Edgar Sharp MD Referring Provider Active S tart: March 27, 2025 End: March 27, 2025 Team Status: Active Member Role/Relationship Status Dates Dr. David Grider DO Primary Care Provider Active Start: April 10, 2025 Dr. Cameron Cagle DO Attending Provider Active Start: April 10, 2025 Team Status: Inactive Member Role/Relationship Status Dates Dr. David Grider DO Primary Care Provider Active Start: April 12, 2025 End: April 12, 2025 Dr. David Grider DO Referring Provider Active Start: April 12, 2025 End: April 12, 2025 Dr. Cameron Cagle DO Attending Provider Active Start: April 12, 2025 End: April 12, 2025 Team Status: Inactive Member Role/Relationship Status Dates Dr. David Grider DO Primary Care Provider Active Start: May 03, 2025 End: May 03, 2025 Dr. David Grider DO Referring Provider Active Start: May 03, 2025 End: May 03, 2025 Dr. Cameron Cagle DO Attending Provider Active Start: May 03, 2025 End: May 03, 2025 Team Status: Inactive Member Role/Relationship Status Dates Dr. David Grider DO Primary Care Provider Active Start: May 10, 2025 End: May 10, 2025 Dr. David Grider DO Referring Provider Active Start: May 10, 2025 End: May 10, 2025 Dr. Cameron Cagle DO Attending Provider Active Start: May 10, 2025 End: May 10, 2025 Team Status: Inactive Member Role/Relationship Status Dates Dr. David Grider DO Primary Care Provider Active Start: January 23, 2025 End: January 23, 2025 Dr. David Grider DO Referring Provider Active Start: January 23, 2025 End: January 23, 2025 Dr. Cameron Cagle DO Attending Provider Active Start: January 23, 2025 End: January 23, 2025 Team Status: Inactive Member Role/Relationship Status Dates Dr. David Grider DO Primary Care Provider Active Start: February 20, 2025 End: February 20, 2025 Dr. David Grider DO Referring Provider Active Start: February 20, 2025 End: February 20, 2025 Dr. Cameron Cagle DO Attending Provider Active Start: February 20, 2025 End: February 20, 2025 Team Status: Inactive Member Role/Relationship Status Dates Dr. David Grider DO Primary Care Provider Active Start: March 22, 2025 End: March 22, 2025 Dr. David Grider DO Referring Provider Active Start: March 22, 2025 End: March 22, 2025 Dr. Cameron Cagle DO Attending Provider Active Start: March 22, 2025 End: March 22, 2025 Team Status: Inactive Member Role/Relationship Status Dates Dr. David Grider DO Primary Care Provider Active Start: March 27, 2025 End: March 27, 2025 Dr. Edgar Sharp MD Attending Provider Active S tart: March 27, 2025 End: March 27, 2025 Dr. Edgar Sharp MD Referring Provider Active S tart: March 27, 2025 End: March 27, 2025 Team Status: Active Member Role/Relationship Status Dates Dr. David Grider DO Primary Care Provider Active Start: April 10, 2025 Dr. Cameron Cagle DO Attending Provider Active Start: April 10, 2025 Team Status: Inactive Member Role/Relationship Status Dates Dr. David Grider DO Primary Care Provider Active Start: April 12, 2025 End: April 12, 2025 Dr. David Grider DO Referring Provider Active Start: April 12, 2025 End: April 12, 2025 Dr. Cameron Cagle DO Attending Provider Active Start: April 12, 2025 End: April 12, 2025 Team Status: Inactive Member Role/Relationship Status Dates Dr. David Grider DO Primary Care Provider Active Start: May 03, 2025 End: May 03, 2025 Dr. David Grider DO Referring Provider Active Start: May 03, 2025 End: May 03, 2025 Dr. Cameron Cagle DO Attending Provider Active Start: May 03, 2025 End: May 03, 2025 Team Status: Inactive Member Role/Relationship Status Dates Dr. David Grider DO Primary Care Provider Active Start: May 10, 2025 End: May 10, 2025 Dr. David Grider DO Referring Provider Active Start: May 10, 2025 End: May 10, 2025 Dr. Cameron Cagle DO Attending Provider Active Start: May 10, 2025 End: May 10, 2025 Team Status: Inactive Member Role/Relationship Status Dates Dr. David Grider DO Primary Care Provider Active Start: May 17, 2025 End: May 17, 2025 Dr. David Grider DO Referring Provider Active Start: May 17, 2025 End: May 17, 2025 NANDA Piña Attending Provider Active Start: May 17, 2025 End: May 17, 2025 (unrecognized sect ion and content) No Status Records FoundNo Status Records FoundNo Status Records FoundNo Status Records Found INFORMATION SOURCE (unrecogn ized section and content) DATE CREATED AUTHOR 03/14/2024 [facility] ([place]) DATE CREATED AUTHOR AUTHOR'S ORGANIZ ATION 07/29/2024 [facility] DATE CREATED AUTHOR AUTHOR'S ORGANIZ ATION 02/28/2025 [facility] DATE CREATED AUTHOR AUTHOR'S ORGANIZ ATION 05/17/2025 [facility] FOR RECORDS PERTAINING TO PATIENTS WHO ARE OR HAVE BEEN ENROLLED IN A CHEMICAL DEPENDENCY/SUBSTANCEABUSE PROGRAM, SOME INFORMATION MAY BE OMITTED. This clinical summary was aggregated from multiple sources. Caution should be exercised in using it in the provision of clinical care. This summary normalizes information from multiple sources, and as a consequence, information in this document may materially change the coding, format and clinical context of patient data. In addition, data may be omitted in some cases. CLINICAL DECISIONS SHOULD BE BASED ON THE PRIMARY CLINICAL RECORDS. [facility] [employer] [facility]. provides no warranty or guarantee of the accuracy or completeness of information in this document.
[2025-05-20 18:11] LABS: Anion Gap 11 (5-15); BUN 18 mg/dL (4-19); BUN/Creat Ratio 17.3 RATIO (10-20); Calcium,Total 9.6 mg/dL (7.6-11.0); Carbon Dioxide 26.3 mmol/L (21.0-32.0); Chloride 103 mmol/L (98-108); Estimated Creatinine Clearance 92.69 ml/min (50-250); Glucose 91 mg/dL (70-99); Potassium 3.9 mmol/L (3.3-5.1); Troponin T High Sensitivity < 6 ng/L (<=22)
[2025-05-20 18:19] VITALS: BP 154/101; PULSE 79; RESP 15; O2SAT 96
[2025-05-20 18:33] VITALS: BP 153/95; PULSE 78
[2025-05-20] MEDS: Nitroglycerin SL (ED/IMG/CATH) 0.4 MG TABLET SL (18:33)
[2025-05-20 18:40] LABS: D-Dimer Quantitative (DVT/PE) 0.78 FEU/ug/m (0.27-0.49)
--- NOTE | 2025-05-20 18:47 | CT_ITS ---
PROCEDURE: CTA CHEST W/WO CONTRAST 05/20/2025 REASON FOR EXAM: CHEST PAIN, ELEVATED DIMER Coronary artery disease and stents in coronary arteries. TECHNIQUE: Procedure Code: [id number] Modality: CT Procedure: CTA CHEST W/WO CONTRAST Multiplanar Sagittal and Coronal images were obtained. CONTRAST: Isovue 370 VOLUME: 100 mL One or more dose reduction techniques were used (e.g., Automated exposure control, adjustment of the mA and/or kV according to patient size, use of iterative reconstruction technique). RADIATION DOSE SUMMARY: CTDlvol: 14.25 and 15.83 mGy DLP: 597.24 mGycm COMPARISON: None. # of known CTs in the past 12 months: None # of known Cardiac Nuclear Medicine Studies in the past 12 months: None FINDINGS: Thoracic Aorta: Normal caliber. Scattered calcific plaque. Heart: Normal size Pulmonary Vessels: No pulmonary embolism. Patent Hardware: Dual-chamber pacer Lymph nodes: No pathologically enlarged lymph nodes by CT size criteria Lungs and Airways: Clear Pleura: Unremarkable. No effusions. Upper Abdomen: Left adrenal myelolipoma no acute process Bones: No aggressive bone lesions. CT/CTA Chest W/WO Contrast IMPRESSION: No acute process identified. 2.7 cm myelolipoma No PE. Reading [facility]
[2025-05-20 19:00] VITALS: BP 125/86; PULSE 78; RESP 16; O2SAT 97
--- NOTE | 2025-05-20 19:02 | EDS_ITS ---
HPI History of Present Illness Chief Complaint: Chest Pain Informant: patient Narrative Narrative: Patient is a 60-year-old male with history of arrhythmia (status post pacemaker in 2021) coronary artery disease status post stents x 2 and diabetes mellitus presenting with chest pain. States is of gradual onset of this left anterior chest pain that radiates to his left back for the past 3 days. States last for 10 to 15 minutes at a time and is occurring approximately every hour. Denies any aggravating or alleviating factors. States it feels more like an ache in his back feels better when he presses on the area. Denies any diaphoresis or sweating. This morning did have some nausea and an upset stomach. notes that he intermittently takes deep breaths which is new for him. States that he did feel tired and walking up the hill to get to the ER today which he thought was a little abnormal. Denies any swelling of his legs. Denies history of DVT or PE. States this does feel reminiscent of the last time he had a stent. No other complaints or concerns at this time. [facility] Medical History Wears glasses Wears dentures Diabetes Arthritis High cholesterol Dietary restriction Former smoker History of pain when walking History of edema Holter monitor, abnormal History of stress test Cardiology follow-up encounter Presence of permanent cardiac pacemaker High degree atrioventricular block History of non-ST elevation myocardial infarction (NSTEMI) (06/09/19) Unstable angina Type 2 diabetes mellitus without complication Atherosclerosis of coronary artery of [place] heart without angina pectoris Obesity Essential hypertension Home Medications ?Medication ?Instructions ?Recorded ?Last Taken ?Type glipizide 5 mg tablet 5 mg PO DAILY 01/07/2101/09 History metformin 1,000 mg tablet 1,000 mg PO BIDCM #180 tabs 08/26/22 01/09/25 Rx amlodipine 10 mg tablet 10 mg PO DAILY #90 tabs 08/2201/09/25 Rx aspirin 81 mg tablet,delayed 81 mg PO DAILY@0800 #90 t abs 09/11/23 01/02/25 Rx release losartan 50 mg tablet 50 mg PO DAILY #90 TABLETS 0 03/10/24 01/09/25 Rx dapagliflozin propanediol 5 mg 10 mg PO QDAY 06/29/24 01/06/25 History tablet (Farxiga) furosemide 40 mg tablet 40 mg PO QDAY 10/14/2401/09 History semaglutide 0.25 mg or 0.5 mg (2 0.5 mg subcut TU 09/2201/02/25 History mg/3 mL) subcutaneous pen injector (Ozempic) atorvastatin 80 mg tablet 80 mg PO QHS 10/20/24 History carvedilol 12.5 mg tablet 12.5 mg PO BID 10/20/2412/21 History gabapentin 300 mg capsule 300 mg PO TID 10/20/2401/09 History clopidogrel 75 mg tablet 75 mg PO DAILY 05/20/25 Unkn own History Allergy/AdvReac Type Severity Reaction Status Date / Time hornet venom Allergy Severe Anaphylaxis Verified 05/20/25 17:22 Family History Mother Cancer Father Thyroid disorder Cancer lymphoma Surgical History Hx of colonoscopy History of left heart catheterization (07/16/22) History of coronary artery stent placement (06/20/21) History of umbilical hernia repair History of left inguinal hernia repair Social History Smoking Status: Former smoker how long ago did patient quit smokin months ago alcohol intake: never substance use type: does not use caffeine: Yes Type: coffee Number of servings: 4 ROS ROS ED Constitutional Constitutional ED: Denies chills, fever(s) or sweats ENT ENT ED: Denies sore throat Cardiovascular Cardiovascular: Reports as per HPI and chest pain; Denies palpitations or racing heartbeat Respiratory/Chest Respiratory/Chest: Denies cough, dyspnea or dyspnea on exertion Gastrointestinal Gastrointestinal: Reports diarrhea, nausea and other Details: Reports 1 episode of diarrhea this morning ; Denies abdominal pain or vomiting Musculoskeletal Musculoskeletal: Reports back pain; Denies arthralgias or myalgias Integumentary Denies rash Neurologic Neurologic: Denies headache(s), paresthesias or weakness Hematologic/Lymphatic Hematologic/Lymphatic: Denies easy bleeding or easy bruising EXAM Physical Exam Const Vital Signs: 05/20/25 17:20 05/20/25 17:46 05/20/25 18:19 Temperature 98.0 F Temperature Source Oral Pulse Rate 86 79 Respiratory Rate 16 15 Blood Pressure 170/99 H 154/101 H Blood Pressure Mean 122 118 Pulse Ox 99 96 Oxygen Delivery Method Room Air Room Air Room Air 05/20/25 18:33 05/20/25 19:00 05/20/25 20:00 Temperature Temperature Source Pulse Rate 78 78 74 Respiratory Rate 16 16 Blood Pressure 153/95 H 125/86 H 145/97 H Blood Pressure Mean 99 113 Pulse Ox 97 97 Oxygen Delivery Method Room Air Room Air Positive well nourished and well developed General Appearance ED: well developed and NAD HEENT Reports moist mucous membranes normocephalic and atraumatic Eyes PERRL Neck supple and no JVD Chest Wall inspection of chest normal and palpation of chest normal Resp normal respiratory effort and clear to auscultation bilaterally Cardio regular rate, regular rhythm and no murmurs Cardio Narrative: 2+ radial and DP pulses present, no pedal edema present GI normal to inspection, nondistended, normoactive bowel sounds, soft to palpation and non-tender Back/Spine Back/Spine Narrative: No midline tenderness. Reproducible tenderness to palpation of the left thoracic paraspinal region around approximately T2/T3 Extremity normal to inspection General Extremety ED: Negative for edema General Extremity: Negative for edema Neuro oriented x3, CN's II-XII intact bilaterally and no sensory deficits noted Sensorium / Orientation: alert Motor Exam: strength 5/5 throughout; Negative for general weakness Psych mental status grossly normal Skin no rashes or lesions noted and no wounds Heart Score History: Slightly/Non-Suspicious ECG: Normal Age: >45 - <65 years Risk Factors: >/= 3 Risk Factors or History of CAD Troponin: </= Normal Limit Score: 3 MDM MDM MDM Narrative Medical decision making narrative: Patient evaluated for gradual onset of left anterior chest pain that radiates to his left back. Does have a history of coronary artery disease and stents. No significant aggravating or alleviating factors. Took 162 mg of aspirin earlier today at home. Differential includes is not limited to ACS, pneumonia, pneumothorax, pulmonary emboli, muscle skeletal pain, arrhythmia and pleural effusion. Cardiac catheterization reviewed from 07/16/[address] Hargrove. He had mild luminal irregularities of the LAD. Previous stent of the circumflex artery is patent. Previous stents of the OM1 proximal was patent. Previous stent mid RCA patent. Pacemaker was interrogated. No arrhythmias noted. High-sensitivity troponin less than 6 x 2. Very low suspicion of ACS given these numbers and no ischemic changes on his EKG. CBC normal with no leukocytosis. BMP normal. His D-dimer is elevated 0.78 so CTA is added on. No acute processes identified and specifically there is no pulmonary emboli. There has been some find of a left adrenal myolipoma which patient will be informed of her outpatient nonemergent follow-up. Patient was given nitroglycerin in the emergency room and his pain went from 1- 0. Uncertain of this clinical significance. Blood pressure did improve. He is pain-free on my repeat evaluation. Given his largely negative cardiac workup I do feel he is a good candidate for outpatient follow-up. Patient is agreeable with this. Is given return precautions. Discharged home in stable condition. Lab Data Attestation: I reviewed the patient's lab results. Labs: Laboratory Results - last 24 hr 05/20/25 05/20/25 17:32 19:42 WBC 10.0 RBC 5.52 Hgb 15.6 Hct 47.6 MCV 86.2 MCH 28.3 MCHC 32.8 RDW Std Deviation 43.3 RDW Coeff of [place] 13.7 Plt Count 212 MPV 11.3 Immature Gran % (Auto) 0.400 Neut % (Auto) 61.2 Lymph % (Auto) 21.4 [place] % (Auto) 11.3 H Eos % (Auto) 4.6 Baso % (Auto) 1.1 H Absolute Neuts (auto) 6.1 Absolute Lymphs (auto) 2.14 Nucleated RBC % 0 D-Dimer Quant (PE/DVT) 0.78 H* Sodium 141 Potassium 3.9 Chloride 103 Carbon Dioxide 26.3 Anion Gap 11 BUN 18 Creatinine 1.03 Estim Creat Clear Calc 92.69 Est GFR (MDRD) Non-Af 82 BUN/Creatinine Ratio 17.3 Glucose 91 Calcium 9.6 Troponin T High Sens < 6 Troponin T Hi Sens 2 Hr < 6 Radiography Chest X-Ray - ED: 1 View, Read by ED Physician, Read by Radiologist and No Acute Disease Diagnostic Testing: Clinical Impression(s) from Imaging Studies Chest X-Ray 05/20/25 17:40 IMPRESSION: No acute process detected. Reading Location: [facility] Chest CTA 05/20/25 18:47 IMPRESSION: No acute process identified. 2.7 cm myelolipoma No PE. [facility] Rhythm Strip Rhythm Strip: Sinus Rhythm Rate: 82 Ectopy: None EKG Initial EKG: Attestation: I personally reviewed and interpreted this EKG as follows: Interpretation: Sinus Rhythm Comments: Normal sinus rhythm at a rate of 82 bpm Normal axis Normal intervals Normal ST segments Compared to prior EKG on 07/15/2022, no acute changes Discharge Plan Triage Chief Complaint: Chest Pain ED Provider: Qi Swan Dx/Rx/DC Orders Instructions: ED Chest Pain, Uncertain Cause Prescriptions: No Action glipizide 5 mg tablet 5 mg PO DAILY dapagliflozin propanediol [Farxiga] 5 mg tablet 10 mg PO QDAY furosemide 40 mg tablet 40 mg PO QDAY Ozempic 0.25 mg or 0.5 mg (2 mg/3 mL) pen injector 0.5 mg subcut TU Patient Comments: INJECT 0.25 MG SUBCUTANEOUSLY ONCE WEEKLY FOR THE FIRST 4 INJECTIONS, THEN INCREASE TO 0.5 MG WEEKLY atorvastatin 80 mg tablet 80 mg PO QHS Rx Instructions: TAKE 1 TABLET BY MOUTH AT BEDTIME carvedilol 12.5 mg tablet 12.5 mg PO BID Rx Instructions: TAKE 1 TABLET BY MOUTH TWICE A DAY gabapentin 300 mg capsule 300 mg PO TID clopidogrel 75 mg tablet 75 mg PO DAILY metformin 1,000 mg tablet 1,000 mg PO BIDCM Qty: 180 3RF amlodipine 10 mg tablet 10 mg PO DAILY Qty: 90 3RF aspirin 81 mg tablet,delayed release (DR/EC) 81 mg PO DAILY@0800 Qty: 90 3RF losartan 50 mg tablet 50 mg PO DAILY Qty: 90 3RF Primary Care Provider: Fransisco Grider Referrals: Fransisco Grider DO [Primary Care Provider] - Edgar Sharp MD [Med Staff - Active Staff] - Activity Restrictions/Additional Instructions: Please call cardiology office on Thursday for close outpatient follow-up. Exact cause of your symptoms is not clear however your workup today was largely reassuring and normal. You did have an incidental finding of a small fatty mass at the top of your left kidney (adrenal gland). This is called a myolipoma. This can be monitored by your primary care doctor. Please let them know about this. Return if you have progression worsening your symptoms. Print Language: Khmer Disposition Disposition: Home, Self Care
[2025-05-20 20:00] VITALS: BP 145/97; PULSE 74; RESP 16; O2SAT 97
[2025-05-20 20:03] LABS: Troponin T High Sens 2 HR < 6 ng/L (<=22)
[2025-05-20 20:34] VITALS: BP 145/97; PULSE 77; RESP 18; TEMP 36.6; O2SAT 94
== END 2025-05-20 20:39 | disposition home or self-care (01) ==
PROVIDERS: Emergency Provider Emergency Medicine; PCP Family Medicine; Visit Provider Emergency Medicine
DX: R07.9 Chest pain, unspecified (principal); E11.9 Type 2 diabetes mellitus without complications; E78.00 Pure hypercholesterolemia, unspecified; I25.10 Atherosclerotic heart disease of native coronary artery without angina pectoris; I10 Essential (primary) hypertension; I25.2 Old myocardial infarction; Z95.5 Presence of coronary angioplasty implant and graft; Z79.899 Other long term (current) drug therapy; Z79.82 Long term (current) use of aspirin; Z79.84 Long term (current) use of oral hypoglycemic drugs; Z79.02 Long term (current) use of antithrombotics/antiplatelets; Z95.0 Presence of cardiac pacemaker
CPT/HCPCS: 71045; 71275; 80048; 84484; 85025; 85379; 93005; 93288; 99284; Q9967; A4216